=== PATIENT | male | born 1940 | race Caucasian/White ===

== ENCOUNTER → 2018-01-23 09:10 | Outpatient (CLI) | payer OTHER, SELFPAY ==
[2018-01-23 10:04] LABS: Absolute Lymphocyte Count 1.77 X10^3/ul (0.83-4.51); Absolute Neutrophil Count 1.4 X10^3/uL (2.0-7.7); Basophil# 0.04 X10^3/uL; Basophil% 1.1 % (0-1); Eosinophil# 0.16 X10^3/uL; Eosinophils% 4.3 % (0-5); Lymphocyte # 1.77 X10^3/ul (4.0); Lymphocyte % 47.5 % (19-41); Mean Corp Hgb Conc 35.7 g/gl (32-36); Mean Corpuscular Hgb 33.1 pg (27.0-32.0); Mean Corpuscular Volume 92.7 fL (80-94); Mean Platelet Vol. 11.3 fl (6.2-12.0); Monocyte# 0.39 X10^3/uL; Monocyte% 10.5 % (0-10); Neutrophil # 1.37 X10^3/uL (2.7-7.7); Neutrophil % 36.6 % (47-70); Platelet Count 111 K/mm3 (150-450); RBC Distribution Width CV 12.8 % (11.6-14.6); RBC Distribution Width SD 42.7 fl (35.1-43.9); Red Blood Count 4.53 M/mm3 (4.6-6.2); White Blood Count 3.7 K/mm3 (4.4-11.0)
[2018-01-23 10:05] LABS: POSITIVE COUNT NO; POSITIVE DIFFERENTIAL NO; POSITIVE MORPHOLOGY NO
[2018-01-23 10:48] LABS: AST(SGOT) 24 U/L (15-37); Alanine Aminotransfer ALT/SGPT 30 U/L (16-61); Albumin, Serum 3.7 g/dL (3.2-5.0); Alkaline Phosphatase 88 U/L (45-117); Anion Gap 7 (5-15); BUN 17 mg/dL (7-18); BUN/Creat Ratio 13.8 RATIO (10-20); Bilirubin, Direct 0.22 mg/dL (0.00-0.30); Calcium,Total 8.2 mg/dL (8.5-10.1); Chloride 105 mmol/L (98-107); Cholesterol 233 mg/dL (200); Creatinine, Serum 1.23 mg/dL (0.70-1.30); EST Glomerular Filtration Rate 61 mL/min (>60); Est Glom Filt Rate - Afr Amer 74 mL/min (>60); Globulin 3.9 g/dL (2.2-4.2); Glucose 250 mg/dL (74-106); High Density Lipoprotein 35 mg/dL; Potassium 4.3 mmol/L (3.5-5.1); Protein, Total 7.6 g/dL (6.4-8.2); Sodium Level 139 mmol/L (136-145); Triglycerides 191 mg/dL; Very Low Density Lipoprotein 38 mg/dL (5-40)
== END ==
PROVIDERS: Family Provider Family Medicine; PCP Family Medicine; Visit Provider Physician Assistant Medical
DX: E78.5 Hyperlipidemia, unspecified (principal); E11.65 Type 2 diabetes mellitus with hyperglycemia; I10 Essential (primary) hypertension; Z79.899 Other long term (current) drug therapy
CPT/HCPCS: 36415; 80048; 80061; 80076; 85025

== ENCOUNTER → 2018-12-07 | Outpatient (CLI) | payer MEDICARE, SELFPAY ==
[2018-11-13 11:00] VITALS: BMI 26.6
[2018-12-07 10:36] LABS: AST(SGOT) 20 U/L (15-37); Alanine Aminotransfer ALT/SGPT 31 U/L (16-61); Albumin, Serum 3.8 g/dL (3.2-5.0); Alkaline Phosphatase 112 U/L (45-117); Bilirubin, Direct 0.22 mg/dL (0.00-0.30); Cholesterol 139 mg/dL (200); Globulin 3.8 g/dL (2.2-4.2); High Density Lipoprotein 40 mg/dL; Protein, Total 7.6 g/dL (6.4-8.2); Triglycerides 107 mg/dL; Very Low Density Lipoprotein 21 mg/dL (5-40)
== END | disposition home or self-care (01) ==
LOC: LAB 09:05
PROVIDERS: Family Provider Family Medicine; PCP Family Medicine; Referring Provider Nurse Practitioner Family; Visit Provider Nurse Practitioner Family
DX: E78.5 Hyperlipidemia, unspecified (principal); I25.10 Atherosclerotic heart disease of native coronary artery without angina pectoris; Z95.5 Presence of coronary angioplasty implant and graft
CPT/HCPCS: 36415; 80061; 80076

== ENCOUNTER → 2018-12-28 | Outpatient (CLI) | payer MEDICARE, SELFPAY ==
[2018-11-13 11:00] VITALS: BMI 26.6
[2018-12-28 12:29] LABS: Absolute Lymphocyte Count 1.94 X10^3/ul (0.83-4.51); Absolute Neutrophil Count 1.7 X10^3/uL (2.0-7.7); Basophil# 0.06 X10^3/uL; Basophil% 1.4 % (0-1); Eosinophil# 0.15 X10^3/uL; Eosinophils% 3.5 % (0-5); Hematocrit 40.3 % (40-54); Hemoglobin 13.9 g/dl (13.0-16.5); Lymphocyte # 1.94 X10^3/ul (4.0); Lymphocyte % 45.1 % (19-41); Mean Corp Hgb Conc 34.5 g/gl (32-36); Mean Corpuscular Hgb 32.4 pg (27.0-32.0); Mean Corpuscular Volume 93.9 fL (80-94); Mean Platelet Vol. 11.4 fl (6.2-12.0); Monocyte# 0.43 X10^3/uL; Neutrophil # 1.72 X10^3/uL (2.7-7.7); Platelet Count 101 K/mm3 (150-450); RBC Distribution Width CV 12.6 % (11.6-14.6); RBC Distribution Width SD 42.6 fl (35.1-43.9); Red Blood Count 4.29 M/mm3 (4.6-6.2); White Blood Count 4.3 K/mm3 (4.4-11.0)
[2018-12-28 12:35] LABS: POSITIVE COUNT NO; POSITIVE DIFFERENTIAL NO; POSITIVE MORPHOLOGY NO
[2018-12-28 13:17] LABS: Anion Gap 9 (5-15); BUN 26 mg/dL (7-18); BUN/Creat Ratio 17.8 RATIO (10-20); Calcium,Total 8.9 mg/dL (8.5-10.1); Chloride 105 mmol/L (98-107); Creatinine, Serum 1.46 mg/dL (0.70-1.30); EST Glomerular Filtration Rate 50 mL/min (>60); Est Glom Filt Rate - Afr Amer 60 mL/min (>60); Glucose 324 mg/dL (74-106); Potassium 4.6 mmol/L (3.5-5.1); Sodium Level 139 mmol/L (136-145)
== END | disposition home or self-care (01) ==
LOC: BFHLAB 08:52
PROVIDERS: Family Provider Family Medicine; PCP Family Medicine; Visit Provider Family Medicine
DX: E11.65 Type 2 diabetes mellitus with hyperglycemia (principal); E11.22 Type 2 diabetes mellitus with diabetic chronic kidney disease; I12.9 Hypertensive chronic kidney disease with stage 1 through stage 4 chronic kidney disease, or unspecified chronic kidney disease; N18.9 Chronic kidney disease, unspecified
CPT/HCPCS: 36415; 80048; 85025

== ENCOUNTER → 2019-12-22 07:36 | Outpatient (CLI) | payer MEDICARE, SELFPAY ==
[2019-12-20 09:18] VITALS: BMI 24.2
[2019-12-22 09:00] LABS: AST(SGOT) 29 U/L (15-37); Alanine Aminotransfer ALT/SGPT 43 U/L (16-61); Albumin, Serum 3.6 g/dL (3.2-5.0); Alkaline Phosphatase 125 U/L (45-117); Bilirubin, Direct 0.23 mg/dL (0.00-0.30); Cholesterol 140 mg/dL (200); Globulin 3.8 g/dL (2.2-4.2); High Density Lipoprotein 37 mg/dL; Protein, Total 7.4 g/dL (6.4-8.2); Triglycerides 156 mg/dL; Very Low Density Lipoprotein 31 mg/dL (5-40)
== END ==
PROVIDERS: PCP Family Medicine; Referring Provider Internal Medicine Cardiovascular Disease; Visit Provider Internal Medicine Cardiovascular Disease
DX: E78.00 Pure hypercholesterolemia, unspecified (principal)
CPT/HCPCS: 36415; 80061; 80076

== ENCOUNTER → 2020-06-19 08:25 | Outpatient (CLI) | payer MEDICARE, SELFPAY ==
[2020-03-14 10:45] VITALS: BMI 23.9
[2020-06-19 09:43] LABS: AST(SGOT) 17 U/L (15-37); Alanine Aminotransfer ALT/SGPT 30 U/L (16-61); Albumin, Serum 3.6 g/dL (3.2-5.0); Alkaline Phosphatase 143 U/L (45-117); Bilirubin, Direct 0.24 mg/dL (0.00-0.30); Cholesterol 130 mg/dL (200); Globulin 3.8 g/dL (2.2-4.2); High Density Lipoprotein 43 mg/dL; Protein, Total 7.4 g/dL (6.4-8.2); Triglycerides 95 mg/dL; Very Low Density Lipoprotein 19 mg/dL (5-40)
== END ==
PROVIDERS: PCP Family Medicine; Referring Provider Internal Medicine Cardiovascular Disease; Visit Provider Internal Medicine Cardiovascular Disease
DX: E78.00 Pure hypercholesterolemia, unspecified (principal)
CPT/HCPCS: 36415; 80061; 80076

== ENCOUNTER → 2020-08-18 09:01 | Outpatient (CLI) | payer MEDICARE, SELFPAY ==
[2020-06-26 11:01] VITALS: BMI 23.8
[2020-08-18 10:06] LABS: Absolute Lymphocyte Count 1.91 X10^3/uL (0.83-4.51); Absolute Neutrophil Count 1.8 X10^3/uL (2.0-7.7); Basophil# 0.04 X10^3/uL; Basophil% 0.9 % (0-1); Eosinophil# 0.21 X10^3/uL; Eosinophils% 4.7 % (0-5); Hematocrit 37.7 % (40-54); Hemoglobin 13.1 g/dL (13.0-16.5); Lymphocyte # 1.91 X10^3/ul (4.0); Lymphocyte % 42.9 % (19-41); Mean Corp Hgb Conc 34.7 g/dL (32-36); Mean Corpuscular Hgb 32.5 pg (27.0-32.0); Mean Corpuscular Volume 93.5 fL (80-94); Mean Platelet Vol. 11.5 fl (6.2-12.0); Monocyte# 0.51 X10^3/uL; Monocyte% 11.5 % (0-10); NRBC Flagged by Analyzer 0 % (0-5); Neutrophil # 1.77 X10^3/uL (2.7-7.7); Neutrophil % 39.8 % (47-70); Platelet Count 103 K/mm3 (150-450); RBC Distribution Width CV 11.9 % (11.6-14.6); RBC Distribution Width SD 41.1 fl (35.1-43.9); Red Blood Count 4.03 M/mm3 (4.6-6.2); White Blood Count 4.5 K/mm3 (4.4-11.0)
[2020-08-18 10:52] LABS: Anion Gap 3 (5-15); BUN 20 mg/dL (7-18); BUN/Creat Ratio 16.3 RATIO (10-20); Calcium,Total 8.6 mg/dL (8.5-10.1); Chloride 106 mmol/L (98-107); Creatinine, Serum 1.23 mg/dL (0.70-1.30); EST Glomerular Filtration Rate 61 mL/min (>60); Est Glom Filt Rate - Afr Amer 73 mL/min (>60); Glucose 272 mg/dL (74-106); Potassium 3.8 mmol/L (3.5-5.1); Sodium Level 138 mmol/L (136-145); T4 Free Direct 1.03 ng/dL (0.76-1.46); Thyroid Stim Hormone (TSH) 2.02 uIU/mL (0.358-3.74)
== END ==
PROVIDERS: PCP Family Medicine; Visit Provider Family Medicine
DX: E11.65 Type 2 diabetes mellitus with hyperglycemia (principal); I12.9 Hypertensive chronic kidney disease with stage 1 through stage 4 chronic kidney disease, or unspecified chronic kidney disease; E11.22 Type 2 diabetes mellitus with diabetic chronic kidney disease; N18.9 Chronic kidney disease, unspecified
CPT/HCPCS: 36415; 80048; 84439; 84443; 85025

== ENCOUNTER → 2020-11-17 11:03 | Outpatient (CLI) | payer MEDICARE, SELFPAY ==
[2020-06-26 11:01] VITALS: BMI 23.8
[2020-11-17 12:39] LABS: Absolute Lymphocyte Count 2.44 X10^3/uL (0.83-4.51); Absolute Neutrophil Count 2.2 X10^3/uL (2.0-7.7); Basophil# 0.04 X10^3/uL; Basophil% 0.7 % (0-1); Eosinophil# 0.23 X10^3/uL; Eosinophils% 4.3 % (0-5); Hematocrit 40.8 % (40-54); Hemoglobin 14.1 g/dL (13.0-16.5); Lymphocyte # 2.44 X10^3/ul (4.0); Lymphocyte % 45.3 % (19-41); Mean Corp Hgb Conc 34.6 g/dL (32-36); Mean Corpuscular Hgb 33.1 pg (27.0-32.0); Mean Corpuscular Volume 95.8 fL (80-94); Mean Platelet Vol. 11.8 fl (6.2-12.0); Monocyte# 0.51 X10^3/uL; Monocyte% 9.5 % (0-10); NRBC Flagged by Analyzer 0 % (0-5); Neutrophil # 2.16 X10^3/uL (2.7-7.7); Platelet Count 107 K/mm3 (150-450); RBC Distribution Width CV 11.9 % (11.6-14.6); RBC Distribution Width SD 41.7 fl (35.1-43.9); Red Blood Count 4.26 M/mm3 (4.6-6.2); White Blood Count 5.4 K/mm3 (4.4-11.0)
[2020-11-17 13:26] LABS: ALB/GLOB Ratio 0.9 RATIO (0.9-2.4); AST(SGOT) 21 U/L (15-37); Alanine Aminotransfer ALT/SGPT 36 U/L (16-61); Albumin, Serum 3.7 g/dL (3.2-5.0); Alkaline Phosphatase 112 U/L (45-117); Anion Gap 6 (5-15); BUN 25 mg/dL (7-18); BUN/Creat Ratio 21.4 RATIO (10-20); Chloride 106 mmol/L (98-107); Creatinine, Serum 1.17 mg/dL (0.70-1.30); EST Glomerular Filtration Rate 64 mL/min (>60); Est Glom Filt Rate - Afr Amer 78 mL/min (>60); Globulin 3.9 g/dL (2.2-4.2); Glucose 110 mg/dL (74-106); Potassium 3.9 mmol/L (3.5-5.1); Protein, Total 7.6 g/dL (6.4-8.2); Sodium Level 139 mmol/L (136-145); T4 Free Direct 1.04 ng/dL (0.76-1.46); Thyroid Stim Hormone (TSH) 1.22 uIU/mL (0.358-3.74)
[2020-11-20 10:58] LABS: Vitamin B12 1005 pg/mL (211-911)
== END ==
PROVIDERS: PCP Family Medicine; Referring Provider Family Medicine; Visit Provider Family Medicine
DX: I12.9 Hypertensive chronic kidney disease with stage 1 through stage 4 chronic kidney disease, or unspecified chronic kidney disease (principal); E11.22 Type 2 diabetes mellitus with diabetic chronic kidney disease; N18.9 Chronic kidney disease, unspecified; D69.6 Thrombocytopenia, unspecified; R68.82 Decreased libido
CPT/HCPCS: 36415; 80053; 82607; 84403; 84439; 84443; 85025

== ENCOUNTER → 2021-04-13 10:48 | Outpatient (CLI) | payer MEDICARE, SELFPAY ==
[2021-04-13 11:53] LABS: AST(SGOT) 21 U/L (15-37); Alanine Aminotransfer ALT/SGPT 33 U/L (16-61); Albumin, Serum 3.8 g/dL (3.2-5.0); Alkaline Phosphatase 136 U/L (45-117); Cholesterol 126 mg/dL (200); Globulin 4.3 g/dL (2.2-4.2); High Density Lipoprotein 40 mg/dL; Protein, Total 8.1 g/dL (6.4-8.2); Triglycerides 107 mg/dL; Very Low Density Lipoprotein 21 mg/dL (5-40)
== END ==
PROVIDERS: PCP Family Medicine; Referring Provider Internal Medicine Cardiovascular Disease; Visit Provider Internal Medicine Cardiovascular Disease
DX: E78.00 Pure hypercholesterolemia, unspecified (principal)
CPT/HCPCS: 36415; 80061; 80076

== ENCOUNTER 2021-10-17 14:21 | Emergency (ER) | payer MEDICARE, SELFPAY ==
[2021-10-17 14:22] VITALS: BP 146/79; PULSE 79; RESP 16; TEMP 36.7; O2SAT 96; BMI 20.9
--- NOTE | 2021-10-17 14:27 | EDS_ITS ---
HPI History of Present Illness Chief Complaint: Hyperglycemia Informant: patient, spouse/S.O. and PCP Narrative Narrative: Patient present secondary to hyperglycemia. He states has been feeling fatigued and weak lately with increased thirst. He ran out of his ins ulin as well as other medications sometime ago. Patient went to see his PCP today and blood sugar would not read on the monitor. He was sent to the ER for further evaluation. Reportedly the patient's was recently in rehab and patient was not taking his medications appropriately. [facility] Medical History Angina pectoris, unstable Atherosclerosis of [place] coronary artery of [place] heart without angina pectoris Chronic renal insufficiency Diabetes 1.5, managed as type 2 Essential hypertension HLD (hyperlipidemia) HLP (hyperkeratosis lenticularis perstans) Presence of stent in coronary artery (~12/20/15) Home Medications aspirin 81 mg PO DAILY@0800 12/19/15 [History Last Taken 12/19/15] levobunolol 1 drp EACH EYE DAILY 01/22/16 [History Last Taken Unknown] nitroglycerin 0.4 mg SUBLINGUAL Q5M PRN 01/22/16 [History Last Taken Unknown] insulin glargine 100 unit/mL (3 mL) subcutaneous pen 10 unit SC QHS ml 11/13/18 [History Last Taken Unknown] insulin lispro 100 unit/mL subcutaneous pen 5 unit SC TID 11/13/18 [History Last Taken Unknown] metoprolol tartrate 25 mg tablet 25 mg PO BID #180 tab 12/26/20 [Rx Last Taken Unknown] atorvastatin 80 mg tablet 80 mg PO QHS #90 tab 01/10/21 [Rx Last Taken Unknown] clopidogrel 75 mg tablet 75 mg PO QDAY #90 tab 01/10/21 [Rx Last Taken Unknown] glipizide 5 mg tablet 5 mg PO BID 04/13/21 [History Last Taken Unknown] glipizide 10 mg PO DAILY #30 tab 10/17/21 [Rx Last Taken Unknown] Allergy/AdvReac Type Severity Reaction Status Date / Time No Known Allergies Allergy Verified 10/17/21 14:28 Family History Brother CAD (coronary artery disease) Mother , from [place] at age 74 CAD (coronary artery disease) Myocardial infarction, Onset Age: 74 Surgical History History of cataract extraction jaw surgery for fracture Presence of coronary angioplasty implant and graft (~12/20/15) surgery on left index finger Social History Smoking Status: Never smoker alcohol intake: never substance use type: does not use caffeine: Yes (rarely) eating out: 1-3 times/week during the past year weight has: remained stable what type of physical activity do you participate in: walking frequency: daily duration: < 15 minutes/day seatbelt use: always do you feel safe at home: Yes ROS ROS ED Constitutional Constitutional ED: Denies chills or fever(s) Eyes Eyes: Denies change in vision ENT ENT ED: Denies sore throat Cardiovascular Cardiovascular: Denies chest pain Respiratory/Chest Respiratory/Chest: Denies cough or dyspnea Gastrointestinal Gastrointestinal: Denies abdominal pain, diarrhea, nausea or vomiting Genitourinary Genitourinary ED: Reports urinary frequency; Denies dysuria Musculoskeletal Musculoskeletal: Denies back pain Integumentary Denies rash Neurologic Neurologic: Reports weakness; Denies headache(s) Psychiatric Psychiatric: Denies anxiety or depression Endocrine Endocrinology: Reports polydipsia and polyuria Allergic/Immunologic Allergic/Immunologic ED: Denies urticaria EXAM Physical Exam Const Vital Signs: 10/17/21 14:22 10/17/21 16:05 Temperature 98.1 F Temperature Source Temporal Pulse Rate 79 Respiratory Rate 16 Blood Pressure 146/79 H 165/92 H Blood Pressure Mean 101 116 Pulse Ox 96 Oxygen Delivery Method Room Air Positive well nourished and well developed General Appearance ED: well developed Eyes PERRL and EOMs intact bilaterally Neck supple Chest Wall inspection of chest normal and palpation of chest normal Resp normal respiratory effort and clear to auscultation bilaterally Cardio regular rate and regular rhythm GI normal to inspection, nondistended, normoactive bowel sounds and non-tender Palpation: soft Extremity normal to inspection Neuro oriented x3 Sensorium / Orientation: alert Psych mental status grossly normal Skin no rashes or lesions noted MDM MDM MDM Narrative Medical decision making narrative: Patient's blood sugar on fingerstick on arrival is 514. 1 L of IV fluid ordered along with lab work. Lab Data Attestation: I reviewed the patient's lab results. Labs: Laboratory Results - last 24 hr 10/17/21 10/17/21 10/17/21 14:45 14:45 14:45 WBC 6.1 RBC 4.53 L Hgb 15.5 Hct 41.6 MCV 91.8 MCH 34.2 H MCHC 37.3 H RDW Std Deviation 39.8 RDW Coeff of Sridevi 11.9 Plt Count 122 L MPV 11.1 Immature Gran % (Auto) 0.200 Neut % (Auto) 39.6 L Lymph % (Auto) 48.3 H Burt % (Auto) 7.9 Eos % (Auto) 2.8 Baso % (Auto) 1.2 H Absolute Neuts (auto) 2.4 Absolute Lymphs (auto) 2.93 Nucleated RBC % 0 Sodium 133 L Potassium 4.4 Chloride 98 Carbon Dioxide 28.0 Anion Gap 7 BUN 21 H Creatinine 1.34 H Estim Creat Clear Calc 41.32 Est GFR (MDRD) Af Amer 66 Est GFR (MDRD) Non-Af 55 L BUN/Creatinine Ratio 15.7 Glucose 537 H* Hemoglobin A1c Calcium 9.2 Urine Color Urine Clarity Urine pH Ur Specific [place] Urine Protein Urine Glucose (UA) Urine Ketones Urine Occult Blood Urine Nitrite Urine Bilirubin Urine Urobilinogen Ur Leukocyte Esterase Urine RBC Urine WBC Ur Squamous Epith Cells Urine Bacteria Urine Mucus Acetone Level NEGATIVE POC Glucose 10/17/21 10/17/21 10/17/21 14:45 14:45 16:03 WBC RBC Hgb Hct MCV MCH MCHC RDW Std Deviation RDW Coeff of Sridevi Plt Count MPV Immature Gran % (Auto) Neut % (Auto) Lymph % (Auto) Burt % (Auto) Eos % (Auto) Baso % (Auto) Absolute Neuts (auto) Absolute Lymphs (auto) Nucleated RBC % Sodium Potassium Chloride Carbon Dioxide Anion Gap BUN Creatinine Estim Creat Clear Calc Est GFR (MDRD) Af Amer Est GFR (MDRD) Non-Af BUN/Creatinine Ratio Glucose Hemoglobin A1c 12.4 H Calcium Urine Color Yellow Urine Clarity Clear Urine pH 6.5 Ur Specific [place] 1.010 Urine Protein Negative Urine Glucose (UA) 1000 H Urine Ketones 5 H Urine Occult Blood Negative Urine Nitrite Negative Urine Bilirubin Negative Urine Urobilinogen Normal Ur Leukocyte Esterase Negative Urine RBC 0 SEEN Urine WBC 0 SEEN Ur Squamous Epith Cells 0 SEEN Urine Bacteria 0 SEEN Urine Mucus 0 SEEN Acetone Level POC Glucose 446 H Treatment and Re-Evaluation Narrative: Hemoglobin A1c is 12.4. Blood sugar 537 on labs. Remainder of lab work largely unremarkable. After 1 L IV fluid blood sugar is 446. He is given 8 units of subcu insulin and another 500 cc IV fluids. At the completion of this fluid bolus blood sugar is now 356. Blood sugar will continue come down slightly with the insulin. I did speak with the patient's primary care physickatalina floyd, Dr. Pearce. Patient be started back on glipizide and is to see Dr. Pearce in the office next week. This was discussed with patient and at bedside. Discharge Plan Triage Chief Complaint: Hyperglycemia Other Complaint: Hypoglycemia ED Provider: Vicky Russell Dx/Rx/DC Orders Clinical Impression: Hyperglycemia Instructions: ED Diabetic Hyperglycemia Prescriptions: New glipizide 10 mg tablet extended release 24hr 10 mg PO DAILY Qty: 30 RF: 0 No Action Lantus Solostar U-100 Insulin 100 unit/mL (3 mL) insulin pen 10 unit SC QHS RF: 0 glipizide 5 mg tablet 5 mg PO BID RF: 0 aspirin 81 MG tablet,chewable 81 mg PO DAILY@0800 RF: 0 insulin lispro 100 unit/mL insulin pen 5 unit SC TID RF: 0 levobunolol 1 DROP drops 1 drp EACH EYE DAILY RF: 0 nitroglycerin 0.4 MG tablet 0.4 mg SUBLINGUAL Q5M PRN (Reason: Chest Pain) RF: 0 metoprolol tartrate 25 mg tablet 25 mg PO BID Qty: 180 RF: 3 atorvastatin 80 mg tablet 80 mg PO QHS Qty: 90 RF: 3 clopidogrel [Plavix] 75 mg tablet 75 mg PO QDAY Qty: 90 RF: 3 Primary Care Provider: Adi Pearce Referrals: Adi Pearce MD [Primary Care Provider] - 1 Week Activity Restrictions/Additional Instructions: Please keep track of your blood sugars and take this journal to Dr. Pearce when you follow-up with him next week. Disposition Disposition: Home, Self Care
[2021-10-17] MEDS: 0.9% Normal Saline 1,000 ML 999 ML IV (14:46)
[2021-10-17 14:54] LABS: Bacteria 0 SEEN /hpf (None Seen); Mucous, Urine 0 SEEN /hpf (<or=2+); Red Blood Cells-Urine 0 SEEN /hpf (0-5); Squamous Epithelial Cells - UA 0 SEEN /hpf (0-5); White Blood Cells 0 SEEN /hpf (0-5)
[2021-10-17 14:56] LABS: Absolute Lymphocyte Count 2.93 X10^3/uL (0.83-4.51); Absolute Neutrophil Count 2.4 X10^3/uL (2.0-7.7); Basophil# 0.07 X10^3/uL; Basophil% 1.2 % (0-1); Eosinophil# 0.17 X10^3/uL; Eosinophils% 2.8 % (0-5); Hematocrit 41.6 % (40-54); Hemoglobin 15.5 g/dL (13.0-16.5); Lymphocyte # 2.93 X10^3/ul (0.83-4.51); Lymphocyte % 48.3 % (19-41); Mean Corp Hgb Conc 37.3 g/dL (32-36); Mean Corpuscular Hgb 34.2 pg (27.0-32.0); Mean Corpuscular Volume 91.8 fL (80-94); Mean Platelet Vol. 11.1 fl (6.2-12.0); Monocyte# 0.48 X10^3/uL; Monocyte% 7.9 % (0-10); NRBC Flagged by Analyzer 0 % (0-5); Neutrophil # 2.41 X10^3/uL (2.7-7.7); Neutrophil % 39.6 % (47-70); Platelet Count 122 K/mm3 (150-450); RBC Distribution Width CV 11.9 % (11.6-14.6); RBC Distribution Width SD 39.8 fl (35.1-43.9); Red Blood Count 4.53 M/mm3 (4.6-6.2); White Blood Count 6.1 K/mm3 (4.4-11.0)
[2021-10-17 14:59] LABS: Color, Urine Yellow (Yellow); Glucose, Dipstick 1000 mg/dl (Normal); Ketone-Dipstick 5 mg/dl (Negative); Leukocyte Esterase-Dipstick Negative /ul (Negative); Nitrite-Dipstick Negative (Negative); Occult Blood-Urine Negative /ul (Negative); Protein-Dipstick Negative (Negative); Urine Bilirubin Dipstick Negative (Negative); Urine Clarity Clear (Clear); Urine Urobilinogen Normal (Normal); Urine pH 6.5 (5.0 - 8.0)
[2021-10-17 15:21] LABS: Hemoglobin A1c 12.4 % (3.8-5.6)
[2021-10-17 15:23] LABS: Anion Gap 7 (5-15); BUN 21 mg/dL (7-18); BUN/Creat Ratio 15.7 RATIO (10-20); Calcium,Total 9.2 mg/dL (8.5-10.1); Chloride 98 mmol/L (98-107); Creatinine, Serum 1.34 mg/dL (0.70-1.30); EST Glomerular Filtration Rate 55 mL/min (>60); Est Glom Filt Rate - Afr Amer 66 mL/min (>60); Estimated Creatinine Clearance 41.32 ml/min; Glucose 537 mg/dL (74-106); Potassium 4.4 mmol/L (3.5-5.1); Sodium Level 133 mmol/L (136-145)
[2021-10-17 16:05] VITALS: BP 165/92
[2021-10-17 16:06] LABS: Bedside Glucose 446 mg/dL (74-106)
[2021-10-17] MEDS: Insulin Lispro 100 UNIT/ML INSULN.PEN 8 UNIT SC (16:31)
[2021-10-17 18:11] LABS: Bedside Glucose 356 mg/dL (74-106)
[2021-10-17 18:16] VITALS: BP 153/87; RESP 16; O2SAT 96
--- NOTE | 2021-10-19 11:55 | CASEMGMT ---
VENKATA OBREGON ED follow-up: Date of ER visit: 10/17/2021 Presenting ER complaint: hyperglycemia RN SABAS placed call to patient's telephone number listed on demographics with no answer. Voicemail has not been setup, unable to leave message. VENKATA Kim CM
== END 2021-10-17 18:35 | disposition home or self-care (01) ==
PROVIDERS: Emergency Provider Emergency Medicine; PCP Family Medicine; Visit Provider Emergency Medicine
DX: E13.65 Other specified diabetes mellitus with hyperglycemia (principal); E13.22 Other specified diabetes mellitus with diabetic chronic kidney disease; Z79.4 Long term (current) use of insulin; I12.9 Hypertensive chronic kidney disease with stage 1 through stage 4 chronic kidney disease, or unspecified chronic kidney disease; I25.10 Atherosclerotic heart disease of native coronary artery without angina pectoris; N18.9 Chronic kidney disease, unspecified; E78.5 Hyperlipidemia, unspecified; Z95.5 Presence of coronary angioplasty implant and graft; Z91.14 Patient's other noncompliance with medication regimen; Z79.82 Long term (current) use of aspirin; Z79.899 Other long term (current) drug therapy
CPT/HCPCS: 80048; 81001; 82009; 82962; 83036; 85025; 96360; 96361; 96372; 99282; J7030; J7040

== ENCOUNTER 2021-11-01 06:30 | Outpatient (CLI) | payer MEDICARE, SELFPAY ==
--- NOTE | 2021-11-01 10:01 | STRESSREP ---
Stress Test Report Date: 11-01-2021 Procedure: Pharmacologic stress nuclear imaging study Indications: CAD; PCI Consent: Per the patient Procedure: The patient underwent pharmacologic (Regadenoson 0.4mg ) evaluation with a peak heart rate of 94 beats per minute (66%predicted maximal heart rate) and a peak blood pressure of 144/80 mmHg. The baseline ECG demonstrated sinus rhythm; incomplete right bundle branch block. The peak pharmacologic ECG demonstrated no obvious ECG changes. There were no cardiac dysrhythmias pretest, during pharmacologic infusion, or recovery. There was no complaint of chest discomfort during pharmacologic infusion or recovery. The examination was discontinued secondary to completion of protocol. Impression: 1. Pharmacologic (Regadenoson) evaluation 2. Peak pharmacologic ECG with continued incomplete right bundle branch block with no obvious ECG changes. 3. There were no cardiac dysrhythmias pretest, during pharmacologic infusion, or recovery. 4. Nuclear images pending Myocardial perfusion imaging study: Technique: The patient was injected with 11.4 millicuries of technetium 99m Cardiolite and subsequently rest SPECT Cardiolite nuclear imaging was obtained in the horizontal long, vertical long, and short axis views. The patient underwent pharmacologic (Regadenoson) evaluation with a peak heart rate of 94 beats per minute (66% percent predicted maximal heart rate) and a peak blood pressure of 144/80 mmHg. The patient was injected with 33.8 millicuries of technetium 99m Cardiolite and subsequently stress SPECT Cardiolite nuclear imaging was obtained in the horizontal long, vertical long, and short axis views. A gated Cardiolite study at peak stress was obtained. Interpretation: Rest and stress SPECT Cardiolite nuclear imaging status post realignment, normalization, and attenuation correction demonstrate insert normal. There is end systolic thickening and brightening. The gated Cardiolite study demonstrates myocardial thickening and inward wall motion. The reported LVEF is 92%. Impression: 1. Rest and stress SPECT Cardiolite nuclear imaging demonstrate relative uniform tracer uptake and myocardial perfusion appearing within normal limits. 2. The gated Cardiolite study reports an LVEF of 92%. This note was generated with [employer] software. It may contain incorrect words, spelling, and punctuation that were not noted in checking the note before signing.
== END 2021-11-01 23:59 | disposition home or self-care (01) ==
LOC: CVS 06:33
PROVIDERS: PCP Family Medicine; Referring Provider Nurse Practitioner Family; Visit Provider Nurse Practitioner Family
DX: I25.10 Atherosclerotic heart disease of native coronary artery without angina pectoris (principal); Z95.5 Presence of coronary angioplasty implant and graft; I10 Essential (primary) hypertension; E78.5 Hyperlipidemia, unspecified
CPT/HCPCS: 78452; 93017; A9500; A4216; J2785

== ENCOUNTER → 2021-12-28 | Outpatient (CLI) | payer MEDICARE, SELFPAY ==
[2021-12-28 18:12] LABS: Absolute Lymphocyte Count 2.59 X10^3/uL (0.83-4.51); Absolute Neutrophil Count 1.7 X10^3/uL (2.0-7.7); Basophil# 0.06 X10^3/uL; Basophil% 1.2 % (0-1); Eosinophil# 0.17 X10^3/uL; Eosinophils% 3.3 % (0-5); Hematocrit 40.4 % (40-54); Hemoglobin 14.1 g/dL (13.0-16.5); Lymphocyte # 2.59 X10^3/ul (0.83-4.51); Mean Corp Hgb Conc 34.9 g/dL (32-36); Mean Corpuscular Volume 97.3 fL (80-94); Mean Platelet Vol. 11.3 fl (6.2-12.0); Monocyte# 0.52 X10^3/uL; Monocyte% 10.2 % (0-10); NRBC Flagged by Analyzer 0 % (0-5); Neutrophil # 1.74 X10^3/uL (2.7-7.7); Neutrophil % 34.3 % (47-70); Platelet Count 122 K/mm3 (150-450); RBC Distribution Width CV 12.1 % (11.6-14.6); RBC Distribution Width SD 43.6 fl (35.1-43.9); Red Blood Count 4.15 M/mm3 (4.6-6.2); White Blood Count 5.1 K/mm3 (4.4-11.0)
[2021-12-28 18:40] LABS: Anion Gap 8 (5-15); BUN 24 mg/dL (7-18); BUN/Creat Ratio 19.4 RATIO (10-20); Calcium,Total 9.1 mg/dL (8.5-10.1); Chloride 101 mmol/L (98-107); Creatinine, Serum 1.24 mg/dL (0.70-1.30); EST Glomerular Filtration Rate 60 mL/min (>60); Est Glom Filt Rate - Afr Amer 72 mL/min (>60); Glucose 425 mg/dL (74-106); Potassium 4.1 mmol/L (3.5-5.1); Sodium Level 135 mmol/L (136-145); T4 Free Direct 0.95 ng/dL (0.76-1.46); Thyroid Stim Hormone (TSH) 1.43 uIU/mL (0.358-3.74)
== END | disposition home or self-care (01) ==
LOC: MTLAB 14:24
PROVIDERS: PCP Family Medicine; Referring Provider Family Medicine; Visit Provider Family Medicine
DX: E11.65 Type 2 diabetes mellitus with hyperglycemia (principal); E78.5 Hyperlipidemia, unspecified; I10 Essential (primary) hypertension
CPT/HCPCS: 36415; 80048; 84439; 84443; 85025

== ENCOUNTER → 2022-04-22 | Outpatient (CLI) | payer MEDICARE, SELFPAY ==
[2022-04-22 11:08] LABS: AST(SGOT) 15 U/L (15-37); Alanine Aminotransfer ALT/SGPT 26 U/L (16-61); Albumin, Serum 3.6 g/dL (3.2-5.0); Alkaline Phosphatase 133 U/L (45-117); Cholesterol 122 mg/dL (200); Globulin 3.6 g/dL (2.2-4.2); High Density Lipoprotein 46 mg/dL; Protein, Total 7.2 g/dL (6.4-8.2); Triglycerides 83 mg/dL; Very Low Density Lipoprotein 17 mg/dL (5-40)
== END | disposition home or self-care (01) ==
LOC: LAB 08:57
PROVIDERS: PCP Family Medicine; Referring Provider Nurse Practitioner Family; Visit Provider Nurse Practitioner Family
DX: E78.00 Pure hypercholesterolemia, unspecified (principal)
CPT/HCPCS: 36415; 80061; 80076

== ENCOUNTER 2022-06-12 17:49 | Emergency (ER) | payer MEDICARE, SELFPAY ==
[2022-06-12 17:56] VITALS: BP 144/93; PULSE 75; RESP 16; TEMP 36.3; O2SAT 99; BMI 22.9
--- NOTE | 2022-06-12 18:37 | EX.ED.GENINJ ---
HPI History of Present Illness Chief Complaint: Lower Extremity Injury Narrative Narrative: 81-year-old male here for right hip, leg pain. History of CAD status post dents, hypertension, type 2 diabetes, hyperlipidemia, chronic renal insufficiency patient states he is not feeling well for the last several weeks. Does note weight loss over last several months. Does note lower abdominal pain. Pain is constant, severe without alleviating factors. States he does not urinate regularly states he just dribbles. Denies any melena, medic easier, diarrhea, constipation. Denies any chest pain or shortness of breath states he has diffuse weakness. States having trouble getting around at home. Patient denies any fever does not loss of taste, loss of appetite. Old chart reviewed: No imaging noted in the chart [facility] Medical History Angina pectoris, unstable Atherosclerosis of [place] coronary artery of [place] heart without angina pectoris Chronic renal insufficiency Diabetes 1.5, managed as type 2 Essential hypertension HLD (hyperlipidemia) HLP (hyperkeratosis lenticularis perstans) Presence of stent in coronary artery (~12/20/15) Home Medications aspirin 81 mg chewable tablet 81 mg PO DAILY@0800 12/19/15 [History Last Taken 12/19/15] levobunolol 0.5 % eye drops 1 drp EACH EYE DAILY 01/22/16 [History Last Taken Unknown] nitroglycerin 0.4 mg sublingual tablet 0.4 mg sublingual Q5M PRN Chest Pain 01/22/16 [History Last Taken Unknown] metoprolol tartrate 25 mg tablet 25 mg PO BID #180 tabs 12/26/20 [Rx Last Taken Unknown] glipizide 10 mg tablet, extended release 24 hr 10 mg PO DAILY #30 tabs 10/17/21 [Rx Last Taken Unknown] atorvastatin 80 mg tablet 80 mg PO QHS #90 tabs 02/18/22 [Rx Last Taken Unknown] clopidogrel 75 mg tablet (Plavix) 75 mg PO QDAY #90 tabs 02/18/22 [Rx Last Taken Unknown] cephalexin 500 mg capsule 500 mg PO Q8H 3 days #9 caps 06/12/22 [Rx Last Taken Unknown] cyclobenzaprine 5 mg tablet 5 mg PO QHS 06/12/22 [History Last Taken Unknown] Allergy/AdvReac Type Severity Reaction Status Date / Time No Known Allergies Allergy Verified 06/12/22 18:01 Family History Brother CAD (coronary artery disease) Mother , from [place] at age 74 CAD (coronary artery disease) Myocardial infarction, Onset Age: 74 Surgical History History of cataract extraction jaw surgery for fracture Presence of coronary angioplasty implant and graft (~12/20/15) surgery on left index finger Social History Smoking Status: Never smoker alcohol intake: never substance use type: does not use caffeine: Yes (rarely) eating out: 1-3 times/week during the past year weight has: remained stable what type of physical activity do you participate in: walking frequency: daily duration: < 15 minutes/day seatbelt use: always do you feel safe at home: Yes ROS ROS ED ROS Narrative Constitutional: Denies fever, endorses weight loss, diffuse weakness HEENT: Denies sore throat Neck: Denies neck pain Cardiovascular: Denies chest pain, syncope Respiratory: Denies shortness of breath GI: Denies nausea vomiting or abdominal pain : Notes increased frequency, decreased volume of urination. Musculoskeletal: Endorses right hip and leg pain Neurologic: Denies numbness weakness or loss of sensation Skin denies rash EXAM Physical Exam Narrative Exam Narrative: Nursing triage notes reviewed, Vital signs reviewed Constitutional: please see mdm HENT: MMM Eyes: Pupils equal round and reactive to light, Extraocular muscles intact Neck: No stridor, no JVD, full neck ROM Lungs: Clear to auscultation, No wheezing or rales. No increased work of breathing, no conversational dyspnea, no accessory muscle use, no nasal flaring. No respiratory distress noted Heart: Regular rate and rhythm, No murmurs, No rubs and No gallops, 2+ distal pulses (radial, femoral, posterior tibial) in all extremities Abdomen: Lower abdominal fullness, suprapubic fullness, lower abdominal TTP, no rigidity, rebound or guarding, no obvious peritoneal signs, no palpable pulsatile abdominal masses, no auscultated abdominal bruit : No CVAT Extremities: No edema Neuro: Intact sensation L1-S1 dermatomal distributions. Intact 5/5 strength in hip flexion (T12-L3). Knee extension (L2-L4). Ankle dorsiflexion (L4-L5). Ankle plantar flexion (S1). Great toe extension (L5). 2+ patellar and Achilles DTRs. Skin: No rash or lesions noted Const Vital Signs: 06/12/22 17:56 06/12/22 20:45 Temperature 97.3 F L Temperature Source Oral Pulse Rate 75 92 Respiratory Rate 16 18 Blood Pressure 144/93 H Blood Pressure Mean 110 Pulse Ox 99 96 Oxygen Delivery Method Room Air Room Air MDM MDM MDM Narrative Medical decision making narrative: 81-year-old male here with lower abdominal tenderness, diffuse tenderness, loss of taste, weight loss, fatigue in the setting of CAD, hyperlipidemia, hypertension. Physical exam with suprapubic tenderness to palpation concern for urinary retention versus intra-abdominal pathology. I pursued a bladder scan initially to rule out urinary retention. If the patient has significant urinary retention this may be the etiology would not require further labs and images as the other aformentioned diagnoses are much less likely. Bladder scan showed evidence of significant urinary retention. Valadez was placed drained several liters of fluid. Patient noted abdominal pain/hip pain resolved. Repeat exam was benign. Labs showed evidence CATHY which is likely secondary to obstructive uropathy. Labs show significant hyperglycemia however no evidence of DKA with a unremarkable anion gap and a bicarb much greater than 15. On re-evaluation the patient was able to ambulate here in the emergency department. He was offered admission given his CATHY for fluids however he refused stating he like to go home. He did agree to follow with urology the next available appointment. Shared decision making: I had a long discussion with the patient and or visitors regarding risk/benefits of further testing or admission. They decided to forego any further testing or admission. They are aware of of the risk/benefits inherent in this decision and have voiced understanding. Lab Data Attestation: I reviewed the patient's lab results. Lab results narrative: CBC without leukocytosis, mild anemia, no thrombocytopenia CMP with no significant electrolyte abnormalities, no anion gap, bicarb within normal limits no evidence of DKA did show hyperglycemia. There is mild acute kidney injury as well, no evidence of significant hepatobiliary pathology Urinalysis without evidence of Labs: Laboratory Results - last 24 hr 06/12/22 06/12/22 06/12/22 19:32 20:13 20:13 WBC 5.9 RBC 3.81 L Hgb 12.9 L Hct 34.9 L MCV 91.6 MCH 33.9 H MCHC 37.0 H RDW Std Deviation 39.3 RDW Coeff of Sridevi 11.7 Plt Count 119 L MPV 10.5 Sodium 136 Potassium 4.0 Chloride 105 Carbon Dioxide 23.0 Anion Gap 8 BUN 29 H Creatinine 1.65 H Estim Creat Clear Calc 36.20 Est GFR (MDRD) Af Amer 52 L Est GFR (MDRD) Non-Af 43 L BUN/Creatinine Ratio 17.6 Glucose 413 H Calcium 9.0 Total Bilirubin 1.00 Direct Bilirubin 0.32 H AST 15 ALT 26 Alkaline Phosphatase 143 H Total Protein 6.9 Albumin 3.2 Globulin 3.7 Lipase 238 Urine Color Yellow Urine Clarity Clear Urine pH 6.0 Ur Specific [place] 1.010 Urine Protein Negative Urine Glucose (UA) 1000 H Urine Ketones Negative Urine Occult Blood Negative Urine Nitrite Negative Urine Bilirubin Negative Urine Urobilinogen Normal Ur Leukocyte Esterase Negative Urine RBC 0 SEEN Urine WBC 0 SEEN Ur Squamous Epith Cells 0 SEEN Urine Bacteria 0 SEEN Urine Mucus 0 SEEN Discharge Plan Triage Chief Complaint: Lower Extremity Injury Other Complaint: Back ED Provider: Bright Farias Dx/Rx/DC Orders Clinical Impression: Urinary retention, Acute kidney injury Instructions: Acute Kidney Failure Dc, ED Valadez Catheter, Care, ED Urinary Retention, Male Prescriptions: New cephalexin 500 mg capsule 500 mg PO Q8H 3 Days Qty: 9 0RF No Action aspirin 81 MG tablet,chewable 81 mg PO DAILY@0800 Label Comments: HEART [place] levobunolol 1 DROP drops 1 drp EACH EYE DAILY nitroglycerin 0.4 MG tablet 0.4 mg SUBLINGUAL Q5M PRN (Reason: Chest Pain) glipizide 10 mg tablet extended release 24hr 10 mg PO DAILY Qty: 30 0RF cyclobenzaprine 5 mg tablet 5 mg PO QHS Label Comments: TAKE 1 TABLET BY MOUTH NIGHTLY metoprolol tartrate 25 mg tablet 25 mg PO BID Qty: 180 3RF atorvastatin 80 mg tablet 80 mg PO QHS Qty: 90 3RF clopidogrel [Plavix] 75 mg tablet 75 mg PO QDAY Qty: 90 3RF Primary Care Provider: Adi Pearce Referrals: Cuba Pryor MD [Med Staff - Active Staff] - Adi Pearce MD [Primary Care Provider] - Activity Restrictions/Additional Instructions: Please call and follow-up with urologist at next available appointment. Disposition Disposition: Home, Self Care Discharge Date/Time: 06/12/22 22:38
[2022-06-12 19:42] LABS: Bacteria 0 SEEN /hpf (None Seen); Mucous, Urine 0 SEEN /hpf (<or=2+); Red Blood Cells-Urine 0 SEEN /hpf (0-5); Squamous Epithelial Cells - UA 0 SEEN /hpf (0-5); White Blood Cells 0 SEEN /hpf (0-5)
[2022-06-12 19:59] LABS: Color, Urine Yellow (Yellow); Glucose, Dipstick 1000 mg/dl (Normal); Ketone-Dipstick Negative (Negative); Leukocyte Esterase-Dipstick Negative /ul (Negative); Nitrite-Dipstick Negative (Negative); Occult Blood-Urine Negative /ul (Negative); Protein-Dipstick Negative (Negative); Urine Bilirubin Dipstick Negative (Negative); Urine Clarity Clear (Clear); Urine Urobilinogen Normal (Normal)
[2022-06-12 20:24] LABS: Hematocrit 34.9 % (40-54); Hemoglobin 12.9 g/dL (13.0-16.5); Mean Corpuscular Hgb 33.9 pg (27.0-32.0); Mean Corpuscular Volume 91.6 fL (80-94); Mean Platelet Vol. 10.5 fl (6.2-12.0); Platelet Count 119 K/mm3 (150-450); RBC Distribution Width CV 11.7 % (11.6-14.6); RBC Distribution Width SD 39.3 fl (35.1-43.9); Red Blood Count 3.81 M/mm3 (4.6-6.2); White Blood Count 5.9 K/mm3 (4.4-11.0)
[2022-06-12 20:43] LABS: AST(SGOT) 15 U/L (15-37); Alanine Aminotransfer ALT/SGPT 26 U/L (16-61); Albumin, Serum 3.2 g/dL (3.2-5.0); Alkaline Phosphatase 143 U/L (45-117); Anion Gap 8 (5-15); BUN 29 mg/dL (7-18); BUN/Creat Ratio 17.6 RATIO (10-20); Bilirubin, Direct 0.32 mg/dL (0.00-0.30); Chloride 105 mmol/L (98-107); Creatinine, Serum 1.65 mg/dL (0.70-1.30); EST Glomerular Filtration Rate 43 mL/min (>60); Est Glom Filt Rate - Afr Amer 52 mL/min (>60); Globulin 3.7 g/dL (2.2-4.2); Glucose 413 mg/dL (74-106); Lipase 238 U/L (73-393); Protein, Total 6.9 g/dL (6.4-8.2); Sodium Level 136 mmol/L (136-145)
[2022-06-12 20:45] VITALS: PULSE 92; RESP 18; O2SAT 96
== END 2022-06-12 22:38 | disposition home or self-care (01) ==
PROVIDERS: Emergency Provider Emergency Medicine; PCP Family Medicine; Visit Provider Emergency Medicine
DX: N17.9 Acute kidney failure, unspecified (principal); E11.65 Type 2 diabetes mellitus with hyperglycemia; E11.22 Type 2 diabetes mellitus with diabetic chronic kidney disease; R53.83 Other fatigue; N18.9 Chronic kidney disease, unspecified; R33.9 Retention of urine, unspecified; I25.10 Atherosclerotic heart disease of native coronary artery without angina pectoris; E78.5 Hyperlipidemia, unspecified; I12.9 Hypertensive chronic kidney disease with stage 1 through stage 4 chronic kidney disease, or unspecified chronic kidney disease
CPT/HCPCS: 51702; 80048; 80076; 81001; 83690; 85027; 99285; A4216

== ENCOUNTER → 2022-06-17 | Outpatient (CLI) | payer MEDICARE, SELFPAY ==
[2022-06-17 13:39] LABS: Anion Gap 8 (5-15); BUN 24 mg/dL (7-18); BUN/Creat Ratio 16.9 RATIO (10-20); Calcium,Total 9.2 mg/dL (8.5-10.1); Chloride 101 mmol/L (98-107); Creatinine, Serum 1.42 mg/dL (0.70-1.30); EST Glomerular Filtration Rate 51 mL/min (>60); Est Glom Filt Rate - Afr Amer 62 mL/min (>60); Glucose 464 mg/dL (74-106); PSA,Total- Diagnostic 1.15 ng/mL (0.0-4.0); Potassium 4.5 mmol/L (3.5-5.1); Sodium Level 134 mmol/L (136-145)
== END | disposition home or self-care (01) ==
LOC: LAB 12:00
PROVIDERS: PCP Family Medicine; Visit Provider Urology
DX: N40.1 Benign prostatic hyperplasia with lower urinary tract symptoms (principal)
CPT/HCPCS: 36415; 80048; 84153

== ENCOUNTER 2022-06-22 20:13 | Emergency (ER) | payer MEDICARE, SELFPAY ==
[2022-06-22 20:15] VITALS: BP 145/79; PULSE 99; RESP 14; TEMP 36.6; O2SAT 94; BMI 19.8
--- NOTE | 2022-06-22 20:32 | EDS_ITS ---
HPI History of Present Illness Chief Complaint: Valadez C/O Informant: patient Onset/Context/Timing Onset: Today Context: Gradual Onset Timing: Continuous Quality: Blood Location: Urine Worsened by: Nothing Relieved by: Nothing Narrative Narrative: Patient presents with hematuria that he noticed tonight. Patient states his emptied his catheter bag and noted some blood in the urine. Patient states it has been constant throughout the night. Patient denies any fevers. Patient admits to some subjective chills but states she is always cold. Patient denies any dysuria. Patient denies any nausea or vomiting. Patient does admit to some pain in his low back. states the urine is dark red. [facility] Medical History (Updated 06/22/22 @ 22:[address] Ari Ron, ) Angina pectoris, unstable Atherosclerosis of [place] coronary artery of [place] heart without angina pectoris Chronic indwelling Valadez catheter Chronic renal insufficiency Diabetes 1.5, managed as type 2 Essential hypertension HLD (hyperlipidemia) HLP (hyperkeratosis lenticularis perstans) Myocardial infarct Presence of stent in coronary artery (~12/20/15) Home Medications aspirin 81 mg chewable tablet 81 mg PO DAILY@0800 12/19/15 [History Last Taken 12/19/15] levobunolol 0.5 % eye drops 1 drp EACH EYE DAILY 01/22/16 [History Last Taken Unknown] nitroglycerin 0.4 mg sublingual tablet 0.4 mg sublingual Q5M PRN Chest Pain 01/22/16 [History Last Taken Unknown] metoprolol tartrate 25 mg tablet 25 mg PO BID #180 tabs 12/26/20 [Rx Last Taken Unknown] glipizide 10 mg tablet, extended release 24 hr 10 mg PO DAILY #30 tabs 10/17/21 [Rx Last Taken Unknown] atorvastatin 80 mg tablet 80 mg PO QHS #90 tabs 02/18/22 [Rx Last Taken Unknown] clopidogrel 75 mg tablet (Plavix) 75 mg PO QDAY #90 tabs 02/18/22 [Rx Last Taken Unknown] cephalexin 500 mg capsule 500 mg PO Q8H 3 days #9 caps 06/12/22 [Rx Last Taken Unknown] cyclobenzaprine 5 mg tablet 5 mg PO QHS 06/12/22 [History Last Taken Unknown] sulfamethoxazole 800 mg-trimethoprim 160 mg tablet 1 tab PO BID #14 TABLETS 06/22/22 [Rx Last Taken Unknown] Allergy/AdvReac Type Severity Reaction Status Date / Time No Known Allergies Allergy Verified 06/22/22 20:15 Family History Brother CAD (coronary artery disease) Mother , from [place] at age 74 CAD (coronary artery disease) Myocardial infarction, Onset Age: 74 Surgical History History of cataract extraction jaw surgery for fracture Presence of coronary angioplasty implant and graft (~12/20/15) surgery on left index finger Social History Smoking Status: Never smoker alcohol intake: never substance use type: does not use caffeine: Yes (rarely) eating out: 1-3 times/week during the past year weight has: remained stable what type of physical activity do you participate in: walking frequency: daily duration: < 15 minutes/day seatbelt use: always do you feel safe at home: Yes ROS ROS ED Constitutional Constitutional ED: Reports chills and subjective; Denies fever(s) Eyes Eyes: Denies blurry vision or change in vision ENT ENT ED: Denies rhinorrhea or sore throat Cardiovascular Cardiovascular: Denies chest pain or palpitations Respiratory/Chest Respiratory/Chest: Reports cough; Denies dyspnea Gastrointestinal Gastrointestinal: Denies nausea or vomiting Genitourinary Genitourinary ED: Reports hematuria; Denies dysuria Musculoskeletal Musculoskeletal: Reports back pain; Denies neck pain Integumentary Denies abscess or rash Neurologic Neurologic: Denies headache(s) or weakness Allergic/Immunologic Allergic/Immunologic ED: Denies mouth swelling or urticaria EXAM Physical Exam Const Vital Signs: 06/22/22 20:15 Temperature 98 F Temperature Source Temporal Pulse Rate 99 Respiratory Rate 14 Blood Pressure 145/79 H Blood Pressure Mean 101 Pulse Ox 94 Oxygen Delivery Method Room Air Positive well nourished and well developed General Appearance ED: well developed and NAD HEENT Reports moist mucous membranes Neck supple and no JVD Resp normal respiratory effort and clear to auscultation bilaterally Cardio regular rate and regular rhythm GI normal to inspection, nondistended, normoactive bowel sounds and non-tender Palpation: soft Neuro oriented x3, CN's II-XII intact bilaterally and no sensory deficits noted Sensorium / Orientation: alert Motor Exam: strength 5/5 throughout MDM MDM MDM Narrative Medical decision making narrative: Urinalysis was obtained. There are positive nitrites with leukocyte esterases of 500. There were 50-100 white blood cells. There is 1+ bacteria. There are greater than 100 red blood cells. Occult blood was 250. Glucose was 1000. Urine culture was ordered. Patient was given a dose of Bactrim here. Patient was given a prescription for Bactrim. Patient was instructed to follow-up with his primary care physician in 5 to 7 days. Patient understood and was agreeable with the plan. All questions were answered. Lab Data Attestation: I reviewed the patient's lab results. Labs: Laboratory Results - last 24 hr 06/22/22 21:05 Urine Color Red Urine Clarity Cloudy Urine pH 6.5 Ur Specific Lester 1.010 Urine Protein 100 H Urine Glucose (UA) 1000 H Urine Ketones 5 H Urine Occult Blood 250 H Urine Nitrite Positive H Urine Bilirubin Negative Urine Urobilinogen Normal Ur Leukocyte Esterase 500 H Urine RBC > 100 SEEN Urine WBC 50-100 SEEN Ur Squamous Epith Cells 0 SEEN Urine Bacteria 1+ Urine Mucus 0 SEEN Discharge Plan Triage Chief Complaint: Valadez C/O ED Provider: Ari Ron Dx/Rx/DC Orders Clinical Impression: Acute hemorrhagic cystitis Instructions: ED Hematuria, ED Bladder Infection, Male (Adult) Prescriptions: New sulfamethoxazole-trimethoprim [sulfamethoxazole-trimethoprim] 1 TABLET tablet 1 tab PO BID Qty: 14 0RF No Action aspirin 81 MG tablet,chewable 81 mg PO DAILY@0800 Label Comments: [facility] levobunolol 1 DROP drops 1 drp EACH EYE DAILY nitroglycerin 0.4 MG tablet 0.4 mg SUBLINGUAL Q5M PRN (Reason: Chest Pain) glipizide 10 mg tablet extended release 24hr 10 mg PO DAILY Qty: 30 0RF cyclobenzaprine 5 mg tablet 5 mg PO QHS Label Comments: TAKE 1 TABLET BY MOUTH NIGHTLY cephalexin 500 mg capsule 500 mg PO Q8H 3 Days Qty: 9 0RF metoprolol tartrate 25 mg tablet 25 mg PO BID Qty: 180 3RF atorvastatin 80 mg tablet 80 mg PO QHS Qty: 90 3RF clopidogrel [Plavix] 75 mg tablet 75 mg PO QDAY Qty: 90 3RF Primary Care Provider: Adi Pearce Referrals: Aid Pearce MD [Primary Care Provider] - 3-5 Days Disposition Disposition: Home, Self Care
[2022-06-22 21:08] LABS: Mucous, Urine 0 SEEN /hpf (<or=2+); Squamous Epithelial Cells - UA 0 SEEN /hpf (0-5)
[2022-06-22 21:12] LABS: Color, Urine Red (Yellow); Glucose, Dipstick 1000 mg/dl (Normal); Ketone-Dipstick 5 mg/dl (Negative); Leukocyte Esterase-Dipstick 500 /ul (Negative); Nitrite-Dipstick Positive (Negative); Occult Blood-Urine 250 /ul (Negative); Protein-Dipstick 100 mg/dl (Negative); Urine Bilirubin Dipstick Negative (Negative); Urine Clarity Cloudy (Clear); Urine Urobilinogen Normal (Normal); Urine pH 6.5 (5.0 - 8.0)
[2022-06-22 21:18] LABS: Red Blood Cells-Urine > 100 SEEN /hpf (0-5); White Blood Cells 50-100 SEEN /hpf (0-5)
[2022-06-22 21:19] LABS: Bacteria 1+ /hpf (None Seen)
[2022-06-22] MEDS: Smz/Tmp Ds Tablet 1 TABLET PO (22:13)
== END 2022-06-22 22:29 | disposition home or self-care (01) ==
PROVIDERS: Emergency Provider Emergency Medicine; PCP Family Medicine; Visit Provider Emergency Medicine
DX: N30.91 Cystitis, unspecified with hematuria (principal); E11.22 Type 2 diabetes mellitus with diabetic chronic kidney disease; N18.9 Chronic kidney disease, unspecified; I12.9 Hypertensive chronic kidney disease with stage 1 through stage 4 chronic kidney disease, or unspecified chronic kidney disease; E78.5 Hyperlipidemia, unspecified; I25.10 Atherosclerotic heart disease of native coronary artery without angina pectoris
CPT/HCPCS: 81001; 87077; 87086; 87088; 87186; 99283

== ENCOUNTER 2022-07-19 15:01 | Observation (INO) | payer MEDICARE, SELFPAY ==
--- NOTE | 2022-07-15 09:02 | NURSING ---
DURING PAT PHONE CALL, PT'S REPORTS OPEN AREA TO PT'S COCCYX. INSTRUCTED TO NOTIFY DR CANTRELL'S OFFICE.
--- NOTE | 2022-07-16 09:38 | EKG12_ITS ---
Test Reason : PRE OP Blood Pressure : / mmHG Vent. Rate : 076 BPM Atrial Rate : 076 BPM P-R Int : 192 ms QRS Dur : 090 ms QT Int : 394 ms P-R-T Axes : 051 093 007 degrees QTc Int : 443 ms Normal sinus rhythm Septal KS, age undetermined, cannot be excluded Confirmed by MARIZA RG, MINE ([id number]), fan mail editor KATHRYN NULL ([id number]) on 07/17/2022 8:55:05 AM Referred By: Cuba Pryor Confirmed By:MINE DAWKINS MD
[2022-07-16 10:16] LABS: Hematocrit 36.2 % (40-54); Hemoglobin 13.1 g/dL (13.0-16.5); Mean Corp Hgb Conc 36.2 g/dL (32-36); Platelet Count 113 K/mm3 (150-450); RBC Distribution Width CV 12.1 % (11.6-14.6); RBC Distribution Width SD 41.4 fl (35.1-43.9); Red Blood Count 3.85 M/mm3 (4.6-6.2)
[2022-07-16 10:21] LABS: Partial Thromboplast Time 26.3 Seconds (24.1-36.2); Prothrombin Time (Protime)PT. 13.1 SECONDS (11.7-14.9)
[2022-07-16 10:52] LABS: AST(SGOT) 15 U/L (15-37); Alanine Aminotransfer ALT/SGPT 31 U/L (16-61); Albumin, Serum 3.3 g/dL (3.2-5.0); Alkaline Phosphatase 117 U/L (45-117); Anion Gap 4 (5-15); BUN 23 mg/dL (7-18); BUN/Creat Ratio 18.7 RATIO (10-20); Bilirubin, Direct 0.27 mg/dL (0.00-0.30); Calcium,Total 9.1 mg/dL (8.5-10.1); Chloride 103 mmol/L (98-107); Creatinine, Serum 1.23 mg/dL (0.70-1.30); EST Glomerular Filtration Rate 60 mL/min (>60); Est Glom Filt Rate - Afr Amer 73 mL/min (>60); Globulin 3.6 g/dL (2.2-4.2); Glucose 452 mg/dL (74-106); Potassium 4.2 mmol/L (3.5-5.1); Protein, Total 6.9 g/dL (6.4-8.2); Sodium Level 136 mmol/L (136-145)
[2022-07-19] VITALS (13 sets, daily range): BP systolic 103–175; BP diastolic 59–83; PULSE 56–82; RESP 12–17; TEMP 36.4–36.8; O2SAT 96–100; BMI 20.5
--- NOTE | 2022-07-19 | PROS_PTH ---
PATIENT: LYNETTE GUDINO LOC: [facility]3 U#:[id number] AGE/SX: 81/M ROOM: SC319 RE07/19/[address]: Dr. Cuba Pryor MD : 1940 BED: 1 DIS: 07/23/2022 SPEC #: [id number] RECD: 07/19/22 15:50 STATUS: TABITHA SNIDER #: [id number] NOEL: 07/19/22 00:[address]: Cuba Pryor DEPT: SURGICAL PATHOLOGY RECD BY: Bin Alexander ENTERED: 07/22/22 10:28 SP TYPE: TURP OTHR DR: Dr. Adi Pearce MD Tissues: Prostate, NOS Procedures: Surgery Specimen Level IV HEADER OPERATION: Cystoscopy, transurethral resection of prostate PRE-OP DIAGNOSIS: BPH with lower urinary symptoms, urinary retention TISSUE SUBMITTED: Prostate tissue MICROSCOPIC DIAGNOSIS Prostate tissue, transurethral resection: Benign prostatic hyperplasia, glandular and stromal type. Mild chronic inflammation. RYLAN:lakia 07/23/2022 MICROSCOPIC DESCRIPTION Slides are reviewed. GROSS DESCRIPTION Received is one container labeled with the patient's name and designated prostate tissue. The specimen consists of multiple irregular fragments of pink-barraza, rubbery, soft tissue that in aggregate weigh 16.5 gm and measure in aggregate 6 x 6 x 2 cm. Outpatient Therapist tissue is submitted in ten cassettes. / RYLAN:lakia 07/22/2022 TC:5 CPT: 45512
[2022-07-19] MEDS: Lactated Ringers 1,000 ML 15 ML IV ×2 (09:32→12:10)
[2022-07-19 09:45] LABS: Bedside Glucose 332 mg/dL (74-106)
[2022-07-19] MEDS: Cefazolin 2 GM in 0.9% Normal Saline 100 ML IV (12:00)
--- NOTE | 2022-07-19 12:55 | DCINST_ITS ---
Discharge Instructions Diet Discharge Diet: No restrictions, Light diet - advance as tolerated and Soft diet Activity Discharge Activity: Return to Normal Activity Follow Up Care Please Follow Up With: Cuba Pryor MD Test Results: Test results from this visit will be discussed in further detail at your follow- up appointment, if applicable. Discharge Plan Admission Primary Reason for Your Visit: turp Attending Provider: Cuba Pryor Primary Care Provider: Adi Pearce Discharge Orders/Prescriptions Prescriptions: New ciprofloxacin HCl [Cipro] 500 mg tablet 500 mg PO BID Qty: 14 0RF Continued levobunolol 1 DROP drops 1 drp EACH EYE DAILY nitroglycerin 0.4 MG tablet 0.4 mg SUBLINGUAL Q5M PRN (Reason: Chest Pain) finasteride 5 mg tablet 5 mg PO DAILY Label Comments: TAKE 1 TABLET BY MOUTH ONCE DAILY atorvastatin 80 mg tablet 80 mg PO QHS glipizide 10 mg tablet extended release 24hr 10 mg PO BID metoprolol tartrate 25 mg tablet 25 mg PO BID Held aspirin 81 MG tablet,chewable 81 mg PO DAILY@0800 Hold Instructions: Resume on 08/02/22. Label Comments: LAST DOSE ASPIRIN 07/14/2022 FOR SURGERY ON 07/19/22 clopidogrel [Plavix] 75 mg tablet 75 mg PO QDAY Qty: 90 3RF Hold Instructions: Resume on 08/02/22. Other Ambulatory Orders: 12 Lead EKG (Routine) Timeframe: 20220716 Location: None Selected Ordered By: Dr. Rodrick Breen Referrals / Follow Up: Cuba Pryor MD [Med Staff - Active Staff] - Adi Pearce MD [Primary Care Provider] - Disposition Disposition (needs filled in before D/C Order can be placed): Home, Self Care
--- NOTE | 2022-07-19 12:55 | OP.PCM_ITS ---
Report of Operation Date of Procedure: 07/19/22 Pre-Operative Diagnosis: BPH with obstruction retention of urine Post-Operative Diagnosis: Same Surgery/Procedure Performed:: Transurethral section of prostate Description of Surgical Findings:: In the preoperative setting I discussed with the patient how the surgery would be done with expect afterwards. We discussed how a prostate resection is done and we discussed the risk of the surgery including, bleeding, infection, retrograde ejaculation, changes with ejaculation or intercourse,. We discussed the possibility that the resection of the prostate may not alleviate his urinary symptoms. We discussed the small risk of developing scar tissue along the urethral channel and strictures. We also discussed the chance of the prostate could grow back and he may need further surgery or treatment in the future for prostate problems. Patient was taken back to the operating room, timeout procedure was performed, he was identified and marked and placed on the operating room table. He un derwent general anesthesia. He was placed in dorsolithotomy position. Penis and testicles were prepped and draped in usual sterile fashion. Went into the bladder using the visual obturator with a resectoscope. Once inside the bladder identified the right and left ureteral orifice. I then identified the prostate and the anatomy of the prostate. He had a very atonic stretched out looking bladder from chronic obstruction. I marked out the area of the sphincter and the verumontanum was identified. I then proceeded with the prostate resection first resected the median lobe. And then resected the right lobe of the prostate. Then to resect the left lobe of the prostate. I then resected the apical tissue of the prostate. This was a complete resection of all obstructive tissue to improve voiding and relieve obstruction. I then made sure that there was no injury to the sphincter or the verumontanum was still intact. At the end of the resection all the chips were Ellik out of the bladder. I then identified the left and right ureteral orifice and these were confirmed to be in good position and effluxing and not injured. The resectoscope was removed, a 22 [place] catheter was placed into the bladder on continuous irrigation. And the urine was fairly light pink color and draining normally. He was taken back to the PACU in good condition. CPT 14504 Surgeon: Cuba Pryor Type of Anesthesia: General Drains: nash Admit VTE Documentation VTE Present on Admission: No VTE Mechan Device Prophylaxis: SCD's
[2022-07-19 13:25] LABS: Bedside Glucose 284 mg/dL (74-106)
[2022-07-19] MEDS: Ketorolac 15 MG/ML Vial IV (13:29)
[2022-07-19] MEDS: Glucerna Shake 120 ML LIQUID PO (16:34)
[2022-07-19] MEDS: glipiZIDE XL 5 MG Tablet 10 MG PO (16:37)
[2022-07-19 17:10] LABS: Bedside Glucose 243 mg/dL (74-106)
[2022-07-19] MEDS: 0.9% Normal Saline 1,000 ML 125 ML IV (19:57)
[2022-07-19] MEDS: Ciprofloxacin 400 MG/200 ML BAG 200 MG IV (20:08)
[2022-07-19] MEDS: Metoprolol Tartrate 25 MG Tablet PO (20:14)
[2022-07-19] MEDS: Atorvastatin Calcium 80 MG Tablet PO (20:14)
[2022-07-19] MEDS: Docusate Sodium 100 MG Capsule 200 MG PO (20:14)
[2022-07-20] VITALS (10 sets, daily range): BP systolic 107–141; BP diastolic 47–76; PULSE 64–79; RESP 16–18; TEMP 36.6–37.2; O2SAT 96–99
[2022-07-20 06:36] LABS: Bedside Glucose 251 mg/dL (74-106)
[2022-07-20] MEDS: OPTH EACH EYE (07:43)
[2022-07-20] MEDS: LEVOBUNOLOL 0.5% EACH EYE (07:43)
[2022-07-20] MEDS: Ciprofloxacin 400 MG/200 ML BAG 200 MG IV (07:43)
[2022-07-20] MEDS: glipiZIDE XL 5 MG Tablet 10 MG PO ×2 (07:44→16:38)
[2022-07-20] MEDS: Docusate Sodium 100 MG Capsule 200 MG PO ×2 (07:44→20:15)
[2022-07-20] MEDS: Metoprolol Tartrate 25 MG Tablet PO ×2 (07:44→20:16)
--- NOTE | 2022-07-20 08:22 | CASEMGMT ---
Social Work As per PAT History assessment, pt has LW/POA, unable to bring in the documents. At that time pt indicated Miguel Gee is POA. CHAITANYA Mario
--- NOTE | 2022-07-20 08:54 | PCM.PN.GU ---
Subjective Subjective s/p turp urine still v bloody continue with irrigation. Objective Data Objective Data Vital Signs: Vital Signs Temp Pulse Resp BP Pulse Ox O2 Del Method 98.8 F 72 18 107/57 L 98 Room Air 07/20/22 08:46 07/20/22 08:46 07/20/22 08:46 07/20/22 08:46 07/20/22 08:46 07/20/22 08:46 Oxygen Delivery Method Room Air Weight: 61.4 kg Body Mass Index (BMI) 20.5 Intake & Output: Intake and Output for Last 24 Hours 07/18/22 07/19/22 07/20/22 23:59 23:59 23:59 Intake Total 2910.00 / 2910.00 1100 / 1100 Output Total 2650 / 2650 700 / 700 Balance 260.00 / 260.00 400 / 400 Lab / Micro Data Result Diagrams: 07/16/22 09:26 07/16/22 09:26 Labs: Laboratory Results - last 24 hr 07/19/22 09:15: POC Glucose 332 H 07/19/22 13:03: POC Glucose 284 H 07/19/22 16:36: POC Glucose 243 H 07/20/22 06:07: POC Glucose 251 H
[2022-07-20] MEDS: Glucerna Shake 120 ML LIQUID PO ×4 (09:27→20:14)
[2022-07-20] MEDS: 0.9% Normal Saline 1,000 ML 15 ML IV (09:44)
--- NOTE | 2022-07-20 12:28 | NURSING ---
pt spouse states i don't want him to come home, i cannot take care of him. He needs to go to F
--- NOTE | 2022-07-20 13:13 | CASEMGMT ---
Social Work Order in by physician that pt's family wants him to go to SNF. SW met w/pt and in room, reviewed prior level of function and anticipated discharge plan. PCP: Dr. Pearce Specialists: Dr. Barboza, cardiology; Dr. Pryor, urology; Chepe Gilbert, orthopedics Insurance: [employer] Medicare Pharmacy: [facility] LEAL: , daughter who lives next door LW/POA: is POA Living arrangements/prior level of function: Pt lives home w/ in a one story home with a step to get into the home. Pt is able to ambulate and dress himself. He has not been able to drive over the last month, and cannot get in and out of a car without help. Pt is not able to do any cooking or cleaning at present. Pt and explain that he went to see Chepe Gilbert at [facility], as he is having back issues. PT was ordered and pt is to go three times per week. explains she is having a hard time taking care of pt at home. Getting pt to appointments also has been difficult. DME: Pt has a walker he just started using over the last month. He also has a cane and a shower chair SNF/HHC: No history of SNF or HHC. has been to [facility]. SW spoke w/pt and about discharge plan. They are both in agreement for SNF for pt. Pt's issues are due to his back, rather than the reasons for his current hospitalization. SW did explain that there is no guarantee that insurance will cover the cost of the prison. SW explained that PT can be ordered and we will see how pt does, and we can make a referral Friday and see if insurance will authorize. SW spoke w/them about home care also, at this time they are preferring prison placement. SW explained that insurance is not open on the weekend so pt will be here until Friday. Pt and state understanding. SW provided to pt and a list of alf facilities via [employer], that takes pt's insurance, in pt's preferred geographic area, complete with quality and resource use data. SW asked them to look at the list and pick out some SNF options, and SW will follow up w/them Friday on where they would like a referal made. Pt and state understanding. SW spoke w/physician, he is aware of the situation. PT/OT ordered. SW to follow up on Friday. CHAITANYA Mario
--- NOTE | 2022-07-20 16:01 | CASEMGMT ---
VENKATA CM in to discuss MARTEL form with patient. RN CM explained MARTEL form, patient voiced understanding. Pt signed form and filed in chart. Pt provided with a copy of signed MARTEL form. Patient had no further questions or concerns at this time.
[2022-07-20 17:05] LABS: Bedside Glucose 276 mg/dL (74-106)
[2022-07-20] MEDS: Atorvastatin Calcium 80 MG Tablet PO (20:15)
[2022-07-21] VITALS (9 sets, daily range): BP systolic 125–138; BP diastolic 59–75; PULSE 67–85; RESP 16–18; TEMP 36.6–36.9; O2SAT 96–98
[2022-07-21] MEDS: HYDROcodone Bitartrate/Apap 5/325 Tablet PO (02:34)
--- NOTE | 2022-07-21 07:39 | PCM.PN.GU ---
Subjective Subjective continue with CBI, plan to discharge to rehab on Friday. Objective Data Objective Data Vital Signs: Vital Signs Temp Pulse Resp BP Pulse Ox O2 Del Method 98.3 F 81 18 130/59 H 96 Room Air 07/21/22 02:45 07/21/22 02:45 07/21/22 02:45 07/21/22 02:45 07/21/22 02:45 07/21/22 02:45 Oxygen Delivery Method Room Air Weight: 61.4 kg Body Mass Index (BMI) 20.5 Intake & Output: Intake and Output for Last 24 Hours 07/19/22 07/20/22 07/21/22 23:59 23:59 23:59 Intake Total 2910.00 / 2910.00 1366 / 1366 120 / 120 Output Total 2650 / 2650 4600 / 4600 2400 / 2400 Balance 260.00 / 260.00 -3234 / -3234 -2280 / -2280 Medical Nutrition Assessment Dietitian: Malnutrition Criteria Met Start: 07/20/22 13:05 Freq: Status: Active Protocol: Document 07/20/22 13:05 (Rec: 07/20/22 13:05 [id number]) Nutrition Malnutrition Evidence of Malnutrition Exists Yes Malnutrition (severe): Chronic Evidenced By Suboptimal Energy Intake ( Severe),Weight Loss (Severe) Clinical Problem Chronic Disease or Condition Related Malnutrition Etiology severe, chronic malnutrition related to inadequate oral intake, suspected hyperglycemia Signs/Symptoms as evidenced by unintentional wt loss of 10.6#/7% x 1 month, estimated PO intake meeting < 75% of estimated energy needs x 1 month Status Active Problem Recommendation Dietitian Recommendations/Changes will adjust diet to Carbohydrate Controlled; will increase Glucerna to 120mL 4x/ day w/ medpass given evidence of malnutrition. Lab / Micro Data Result Diagrams: 07/16/22 09:26 07/16/22 09:26 Labs: Laboratory Results - last 24 hr 07/20/22 16:42: POC Glucose 276 H
[2022-07-21] MEDS: Glucerna Shake 120 ML LIQUID PO ×4 (07:48→21:10)
[2022-07-21] MEDS: Metoprolol Tartrate 25 MG Tablet PO ×2 (07:48→21:10)
[2022-07-21] MEDS: glipiZIDE XL 5 MG Tablet 10 MG PO ×2 (07:48→16:59)
[2022-07-21] MEDS: Docusate Sodium 100 MG Capsule 200 MG PO ×2 (07:48→21:10)
[2022-07-21] MEDS: OPTH EACH EYE (07:48)
[2022-07-21] MEDS: LEVOBUNOLOL 0.5% EACH EYE (07:48)
[2022-07-21] MEDS: 0.9% Normal Saline 1,000 ML 125 ML IV (21:09)
[2022-07-21] MEDS: Atorvastatin Calcium 80 MG Tablet PO (21:10)
[2022-07-22] VITALS (8 sets, daily range): BP systolic 138–151; BP diastolic 68–93; PULSE 70–86; RESP 16–18; TEMP 36.6–37.2; O2SAT 96–100
[2022-07-22] MEDS: 0.9% Normal Saline 1,000 ML 125 ML IV ×3 (04:37→20:17)
--- NOTE | 2022-07-22 07:40 | PCM.PN.GU ---
Subjective Subjective remove nash, discharge to skilled facility for rehab. Objective Data Objective Data Vital Signs: Vital Signs Temp Pulse Resp BP Pulse Ox O2 Del Method 98.6 F 71 16 150/80 H 98 Room Air 07/22/22 07:33 07/22/22 07:33 07/22/22 07:33 07/22/22 07:33 07/22/22 07:33 07/22/22 07:33 Oxygen Delivery Method Room Air Weight: 61.4 kg Body Mass Index (BMI) 20.5 Intake & Output: Intake and Output for Last 24 Hours 07/20/22 07/21/22 07/22/22 23:59 23:59 23:59 Intake Total 1366 / 1366 651.25 / 651.25 1833.33 / 1833.33 Output Total 4600 / 4600 2500 / 2500 3000 / 3000 Balance -3234 / -3234 -1848.75 / -1848.75 -1166.67 / -1166.67 Medical Nutrition Assessment Dietitian: Malnutrition Criteria Met Start: 07/20/22 13:05 Freq: Status: Active Protocol: Document 07/20/22 13:05 (Rec: 07/20/22 13:05 [id number]) Nutrition Malnutrition Evidence of Malnutrition Exists Yes Malnutrition (severe): Chronic Evidenced By Suboptimal Energy Intake ( Severe),Weight Loss (Severe) Clinical Problem Chronic Disease or Condition Related Malnutrition Etiology severe, chronic malnutrition related to inadequate oral intake, suspected hyperglycemia Signs/Symptoms as evidenced by unintentional wt loss of 10.6#/7% x 1 month, estimated PO intake meeting < 75% of estimated energy needs x 1 month Status Active Problem Recommendation Dietitian Recommendations/Changes will adjust diet to Carbohydrate Controlled; will increase Glucerna to 120mL 4x/ day w/ medpass given evidence of malnutrition. Lab / Micro Data Result Diagrams: 07/16/22 09:26 07/16/22 09:26
--- NOTE | 2022-07-22 07:42 | PCM.TXEXTCAR ---
Diet Diet Order/Speech Therapy: 07/20/22 12:54 Diet: Carbohydrate Controlled Is pt able to select menu?: Yes Therapies Weight Bearing: Full weight bearing Allergies/Procedures Done in Hospital Allergies No Known Allergies Allergy (Verified 07/19/22 09:26) Procedures: None Type of Care/Length of Stay Estimated LOS: Convalescent Care Less Than 30 days Type of Care Needed: Skilled Rehab Potential: Good Prognosis: Good Additional Orders/Day of Discharge Day of Discharge: 07/22/22 Dietary and Speech Recommendations Dietitian Recommendations/Changes: will adjust diet to Carbohydrate Controlled; will increase Glucerna to 120mL 4x/day w/ medpass given evidence of malnutrition. Follow Up Care Please Follow Up With: Cuba Pryor MD Discharge Plan Admission Admit Date/Time: 07/19/22 15:01 Primary Reason for Your Visit: turp Attending Provider: Cuba Pryor Primary Care Provider: Adi Pearce Discharge Orders/Prescriptions Prescriptions: New ciprofloxacin HCl [Cipro] 500 mg tablet 500 mg PO BID Qty: 14 0RF Continued levobunolol 1 DROP drops 1 drp EACH EYE DAILY nitroglycerin 0.4 MG tablet 0.4 mg SUBLINGUAL Q5M PRN (Reason: Chest Pain) finasteride 5 mg tablet 5 mg PO DAILY Label Comments: TAKE 1 TABLET BY MOUTH ONCE DAILY atorvastatin 80 mg tablet 80 mg PO QHS glipizide 10 mg tablet extended release 24hr 10 mg PO BID metoprolol tartrate 25 mg tablet 25 mg PO BID Held aspirin 81 MG tablet,chewable 81 mg PO DAILY@0800 Hold Instructions: Resume on 08/02/22. Label Comments: LAST DOSE ASPIRIN 07/14/2022 FOR SURGERY ON 07/19/22 clopidogrel [Plavix] 75 mg tablet 75 mg PO QDAY Qty: 90 3RF Hold Instructions: Resume on 08/02/22. Other Ambulatory Orders: 12 Lead EKG (Routine) Timeframe: 20220716 Location: None Selected Ordered By: Dr. Rodrick Breen Referrals / Follow Up: Cuba Pryor MD [Med Staff - Active Staff] - Adi Pearce MD [Primary Care Provider] - Disposition Discharge Orders: Discharge Patient (Routine); Ordered 07/22/22 Ordered By: Dr. Cuba Pryor
[2022-07-22] MEDS: Metoprolol Tartrate 25 MG Tablet PO ×2 (08:06→21:31)
[2022-07-22] MEDS: LEVOBUNOLOL 0.5% EACH EYE (08:07)
[2022-07-22] MEDS: OPTH EACH EYE (08:07)
[2022-07-22] MEDS: glipiZIDE XL 5 MG Tablet 10 MG PO ×2 (08:07→16:43)
[2022-07-22] MEDS: Docusate Sodium 100 MG Capsule 200 MG PO ×2 (08:08→21:31)
[2022-07-22] MEDS: Glucerna Shake 120 ML LIQUID PO ×4 (08:11→21:31)
--- NOTE | 2022-07-22 08:28 | PHA.DC.MR ---
Pharmacy Service has performed discharge medication reconciliation for this patient upon transfer to [facility]. Home Medications aspirin 81 mg chewable tablet 81 mg PO DAILY@0800 [facility] 12/19/15 levobunolol 0.5 % eye drops 1 drp EACH EYE DAILY 01/22/16 nitroglycerin 0.4 mg sublingual tablet 0.4 mg sublingual Q5M PRN Chest Pain 01/22/16 clopidogrel 75 mg tablet (Plavix) 75 mg PO QDAY #90 tabs 02/18/22 atorvastatin 80 mg tablet 80 mg PO QHS HLD 07/15/22 finasteride 5 mg tablet 5 mg PO DAILY BPH 07/15/22 glipizide 10 mg tablet, extended release 24 hr 10 mg PO BID 07/15/22 metoprolol tartrate 25 mg tablet 25 mg PO BID 07/15/22 ciprofloxacin HCl 500 mg tablet (Cipro) 500 mg PO BID #14 tabs 07/19/22 The patient's discharge medication list was reviewed for discrepancies and discrepancies were resolved.
--- NOTE | 2022-07-22 11:43 | CASEMGMT ---
Social Work SW called pt , Miguel, to discuss SNF choices. Miguel reports reviewed list gave by weekend SW and [facility]. If [facility] not able to accept back up choice would be [facility]. SW notified Jami Amos, discharge tax accounting assistant of pt/family preference. Jami to send referral. PLAN: [facility], pending acceptance and precert. BERNADETTE Robles
--- NOTE | 2022-07-22 11:56 | CASEMGMT ---
Discharge Chalk Cutter This typewriter assembler send a referral to [facility] via [facility]. Ana KRUEGER [employer] Management Professor
--- NOTE | 2022-07-22 13:08 | CASEMGMT ---
Discharge Principal Cyber Engineer [facility] accepted patient. Pre-cert is being started. Ana KRUEGER Monorail Crane Operator
[2022-07-22] MEDS: Atorvastatin Calcium 80 MG Tablet PO (21:31)
[2022-07-23 04:09] VITALS: BP 165/84; PULSE 79; RESP 18; TEMP 36.6; O2SAT 98
[2022-07-23] MEDS: 0.9% Normal Saline 1,000 ML 125 ML IV (04:13)
--- NOTE | 2022-07-23 07:36 | CASEMGMT ---
Discharge Call Center Professional [facility] reached out. Pre-cert has been obtained. Ana KRUEGER Clinical Program Director
[2022-07-23 07:53] VITALS: BP 131/74; PULSE 78; RESP 16; TEMP 36.8; O2SAT 98
[2022-07-23 08:58] VITALS: PULSE 78
[2022-07-23] MEDS: LEVOBUNOLOL 0.5% EACH EYE (08:58)
[2022-07-23] MEDS: glipiZIDE XL 5 MG Tablet 10 MG PO (08:58)
[2022-07-23] MEDS: OPTH EACH EYE (08:58)
[2022-07-23] MEDS: Docusate Sodium 100 MG Capsule 200 MG PO (08:58)
[2022-07-23] MEDS: Metoprolol Tartrate 25 MG Tablet PO (08:58)
[2022-07-23] MEDS: Glucerna Shake 120 ML LIQUID PO (09:02)
--- NOTE | 2022-07-23 09:37 | CASEMGMT ---
Social Work SW notified pt and pt nurse, Kimberly, of insurance auth being obtained. SW called pt , Miguel to update on discharge plan. Left message with info regarding discharge to [facility]. Provided contact number for Miguel to call back if has questions. PLAN: discharge to [facility] today BERNADETTE Robles
--- NOTE | 2022-07-23 09:45 | PHA.DC.MR ---
Pharmacy Service has performed discharge medication reconciliation for this patient. The patient's discharge medication list was reviewed for discrepancies and discrepancies were resolved. Home Medications aspirin 81 mg chewable tablet 81 mg PO DAILY@0800 [facility]ART [facility] 12/19/15 levobunolol 0.5 % eye drops 1 drp EACH EYE DAILY 01/22/16 nitroglycerin 0.4 mg sublingual tablet 0.4 mg sublingual Q5M PRN Chest Pain 01/22/16 clopidogrel 75 mg tablet (Plavix) 75 mg PO QDAY #90 tabs 02/18/22 atorvastatin 80 mg tablet 80 mg PO QHS HLD 07/15/22 finasteride 5 mg tablet 5 mg PO DAILY BPH 07/15/22 glipizide 10 mg tablet, extended release 24 hr 10 mg PO BID 07/15/22 metoprolol tartrate 25 mg tablet 25 mg PO BID 07/15/22 ciprofloxacin HCl 500 mg tablet (Cipro) 500 mg PO BID #14 tabs 07/19/22
--- NOTE | 2022-07-23 10:48 | CASEMGMT ---
Social Work? SUBHASH notified pt and pt family of discharge to [facility] today. SUBHASH completed full PASRR form in [employer]. Set up wheelchair transportation through [facility] for 11:00am. SUBHASH faxed all discharge orders to [facility] via [employer] and notified of discharge time. SUBHASH notified pt nurse of transport time. SUBHASH made copies of discharge orders and placed on pt chart. Sent original orders in envelope with pt upon discharge.?? Disposition: [facility], skilled, convalescent, level of care? BERNADETTE Robles
--- NOTE | 2022-07-24 15:45 | HP.PCM_ITS ---
HPI - General General Date of Admission: 07/19/22 HPI Narrative LYNETTE GUDINO, is a 81 M who presents for transurethral resection of the prostate this is a make up history and physical. [facility] Medical History Angina pectoris, unstable Atherosclerosis of [place] coronary artery of [place] heart without angina pectoris Cardiology follow-up encounter Chronic indwelling Valadez catheter Chronic renal insufficiency Diabetes 1.5, managed as type 2 Essential hypertension Excessive bleeding History of stress test HLD (hyperlipidemia) HLP (hyperkeratosis lenticularis perstans) Hypertension Indwelling urethral catheter present Loss of hearing Myocardial infarct Non-smoker Open wound Presence of stent in coronary artery (~12/20/15) Walker as ambulation aid Wears glasses Home Medications aspirin 81 mg chewable tablet 81 mg PO DAILY@0800 HEART HEALTH 12/19/15 [History Last Taken 07/14/22] levobunolol 0.5 % eye drops 1 drp EACH EYE DAILY 01/22/16 [History Last Taken Unknown] nitroglycerin 0.4 mg sublingual tablet 0.4 mg sublingual Q5M PRN Chest Pain 01/22/16 [History Last Taken Unknown] clopidogrel 75 mg tablet (Plavix) 75 mg PO QDAY #90 tabs 02/18/22 [Rx Last Taken 07/14/22] atorvastatin 80 mg tablet 80 mg PO QHS HLD 07/15/22 [History Last Taken Unknown] finasteride 5 mg tablet 5 mg PO DAILY BPH 07/15/22 [History Last Taken Unknown] glipizide 10 mg tablet, extended release 24 hr 10 mg PO BID 07/15/22 [History Last Taken Unknown] metoprolol tartrate 25 mg tablet 25 mg PO BID 07/15/22 [History Last Taken Unknown] ciprofloxacin HCl 500 mg tablet (Cipro) 500 mg PO BID #14 tabs 07/19/22 [Rx Last Taken Unknown] Allergy/AdvReac Type Severity Reaction Status Date / Time No Known Allergies Allergy Verified 07/19/22 09:26 Family History Brother CAD (coronary artery disease) Mother , from [place] at age 74 CAD (coronary artery disease) Myocardial infarction, Onset Age: 74 Surgical History History of cataract extraction History of colonoscopy jaw surgery for fracture Presence of coronary angioplasty implant and graft (~12/20/15) surgery on left index finger Social History Smoking Status: Never smoker alcohol intake: never substance use type: does not use caffeine: Yes (rarely) eating out: 1-3 times/week during the past year weight has: remained stable what type of physical activity do you participate in: walking frequency: daily duration: < 15 minutes/day seatbelt use: always do you feel safe at home: Yes Vital Signs Vital Signs Vital Signs: Weight Weight: 61.4 kg Body Mass Index (BMI) 20.5 Results Lab / Micro Data Result Diagrams: 07/16/22 09:26 07/16/22 09:26
== END 2022-07-23 13:07 | disposition skilled nursing facility (03) ==
LOC: SDC 15:13 → MS3 15:13
PROVIDERS: Anesthesiology; Admitting Provider Urology; PCP Family Medicine; Referring Provider Urology; Visit Provider Urology
PROC: (CPT 52601; principal; 2022-07-19 11:15)
DX: N40.1 Benign prostatic hyperplasia with lower urinary tract symptoms (principal); E13.22 Other specified diabetes mellitus with diabetic chronic kidney disease; R33.8 Other retention of urine; E78.5 Hyperlipidemia, unspecified; Z79.02 Long term (current) use of antithrombotics/antiplatelets; I25.10 Atherosclerotic heart disease of native coronary artery without angina pectoris; I12.9 Hypertensive chronic kidney disease with stage 1 through stage 4 chronic kidney disease, or unspecified chronic kidney disease; N18.9 Chronic kidney disease, unspecified; Z79.82 Long term (current) use of aspirin; Z79.899 Other long term (current) drug therapy; Z79.84 Long term (current) use of oral hypoglycemic drugs
CPT/HCPCS: 52601; 00914; 36415; 51702; 80048; 80076; 82962; 83036; 85027; 85610; 85730; 87426; 88305; 93005; 96361; 96365; 96366; 97162; 97166; 97530; 97535; 97802; 99218; J7030; J7120; G0378; J0744; J2405

== ENCOUNTER 2022-08-07 12:23 | Emergency (ER) | payer MEDICARE, SELFPAY ==
[2022-08-07 12:24] VITALS: BP 97/72; PULSE 81; RESP 18; TEMP 35.9; O2SAT 98; BMI 22.0
--- NOTE | 2022-08-07 12:41 | EDS_ITS ---
HPI History of Present Illness Chief Complaint: Complaint Informant: patient and spouse/S.O. Narrative Narrative: History is a combination from patient and his . He had surgery that sounds like transurethral resection of the prostate approximately 3 weeks ago. He had had urinary retention problems prior to that. It sounds like he had the catheter in for approximately 2 weeks after surgery. He went to a nursing facility. It sounds like they remove the catheter before discharge. They think its been out approximately 1 week but they are not really sure. He has had some blood in the urine ever since surgery. He is not sure if it is gotten really better or worse but he thinks it might be a little worse. He and his both think he was on blood thinners prior to the surgery but they think he is not on blood thinners now. There was Plavix on his med list although they do not recognize this or the names of other common blood thinners. Patient states he feels full and he is just urinating small amounts. He urinated a little bit this morning but that is only after he pressed on his abdomen. But he states the pain is not that bad. They deny fevers chills. He is eating and drinking and has no nausea vomiting. [facility] Medical History Angina pectoris, unstable Atherosclerosis of [place] coronary artery of [place] heart without angina pectoris Cardiology follow-up encounter Chronic indwelling Valadez catheter Chronic renal insufficiency Diabetes 1.5, managed as type 2 Essential hypertension Excessive bleeding History of stress test HLD (hyperlipidemia) HLP (hyperkeratosis lenticularis perstans) Hypertension Indwelling urethral catheter present Loss of hearing Myocardial infarct Non-smoker Open wound Presence of stent in coronary artery (~12/20/15) Walker as ambulation aid Wears glasses Home Medications aspirin 81 mg chewable tablet 81 mg PO DAILY@0800 HEART HEALTH 12/19/15 [History Last Taken 07/14/22] levobunolol 0.5 % eye drops 1 drp EACH EYE DAILY 01/22/16 [History Last Taken Unknown] nitroglycerin 0.4 mg sublingual tablet 0.4 mg sublingual Q5M PRN Chest Pain 01/22/16 [History Last Taken Unknown] clopidogrel 75 mg tablet (Plavix) 75 mg PO QDAY #90 tabs 02/18/22 [Rx Last Taken 07/14/22] atorvastatin 80 mg tablet 80 mg PO QHS HLD 07/15/22 [History Last Taken Unknown] finasteride 5 mg tablet 5 mg PO DAILY BPH 07/15/22 [History Last Taken Unknown] glipizide 10 mg tablet, extended release 24 hr 10 mg PO BID 07/15/22 [History Last Taken Unknown] metoprolol tartrate 25 mg tablet 25 mg PO BID 07/15/22 [History Last Taken Unknown] ciprofloxacin HCl 500 mg tablet (Cipro) 500 mg PO BID #14 tabs 07/19/22 [Rx Last Taken Unknown] Allergy/AdvReac Type Severity Reaction Status Date / Time No Known Allergies Allergy Verified 08/07/22 12:26 Family History Brother CAD (coronary artery disease) Mother , from [place] at age 74 CAD (coronary artery disease) Myocardial infarction, Onset Age: 74 Surgical History History of cataract extraction History of colonoscopy jaw surgery for fracture Presence of coronary angioplasty implant and graft (~12/20/15) surgery on left index finger Social History Smoking Status: Never smoker alcohol intake: never substance use type: does not use caffeine: Yes (rarely) eating out: 1-3 times/week during the past year weight has: remained stable what type of physical activity do you participate in: walking frequency: daily duration: < 15 minutes/day seatbelt use: always do you feel safe at home: Yes ROS ROS ED Constitutional Constitutional ED: Denies chills or fever(s) ENT ENT ED: Denies rhinorrhea Cardiovascular Cardiovascular: Denies chest pain or palpitations Respiratory/Chest Respiratory/Chest: Denies cough or dyspnea Gastrointestinal Gastrointestinal: Reports abdominal pain; Denies constipation, diarrhea, melena, nausea or vomiting Genitourinary Genitourinary ED: Reports hematuria and other Details: See history of present illness Musculoskeletal Musculoskeletal: Denies back pain Integumentary Denies rash Neurologic Neurologic: Denies headache(s) Endocrine Endocrinology: Denies polyuria Hematologic/Lymphatic Hematologic/Lymphatic: Denies easy bleeding or easy bruising Allergic/Immunologic Allergic/Immunologic ED: Denies urticaria EXAM Physical Exam Const Vital Signs: 08/07/22 12:24 08/07/22 14:09 Temperature 96.7 F L Temperature Source Temporal Pulse Rate 81 Respiratory Rate 18 17 Blood Pressure 97/72 Blood Pressure Mean 80 Pulse Ox 98 Oxygen Delivery Method Room Air Room Air Positive well nourished and well developed Constitutional Narrative: Patient actually looks very comfortable despite his history General Appearance ED: well developed; Negative for pallor HEENT Reports moist mucous membranes Neck no JVD Resp normal respiratory effort and clear to auscultation bilaterally Auscultation: Negative for rales or rhonchi Cardio regular rate and regular rhythm GI GI Narrative: Patient does appear to have an enlarged bladder on exam. But he is really not that tender at all no CVA tenderness Back/Spine no CVA tenderness Extremity normal to inspection Neuro Sensorium / Orientation: alert Psych mental status grossly normal Psych Narrative: Patient is relaxed Skin General Skin Exam: Negative for pallor MDM MDM MDM Narrative Medical decision making narrative: Valadez catheter was placed. We have had about 3 L out. Patient was very distended. He is surprisingly asymptomatic. He does state he feels well. He feels a little better now but he really was not hurting before. Blood work showed normal white count. Hemoglobin was down a little bit from the more recent ones. But he is currently off of his Plavix. Platelets were minimally low at 132 but should not affect clotting any significant degree. Electrolytes showed creatinine was 1.54. This is a little bit above his baseline but he has been higher just within the last couple months. Urine showed red cells but no significant signs of infection. Patient has been irrigated. He has pale red urine now. It was initially dark red. When the catheter was first placed there did appear to be a clot that came out that was the likely source of this. Since he is now draining well, he should clear. He is off his anticoagulation. He is comfortable. He is afebrile. We were going to call his urologist but he is currently signed out for couple days. He has an appointment in November but I explained he should be seen sooner and likely the beginning of the week. If he develops pain, poorly flowing catheter, fevers, vomiting or any other concerns he should return. He is familiar with catheter management. Lab Data Attestation: I reviewed the patient's lab results. Labs: Laboratory Results - last 24 hr 08/07/22 08/07/22 08/07/22 13:45 13:45 14:05 WBC 4.6 RBC 3.36 L Hgb 11.5 L Hct 32.3 L MCV 96.1 H MCH 34.2 H MCHC 35.6 RDW Std Deviation 45.1 H RDW Coeff of Sridevi 12.8 Plt Count 132 L MPV 9.7 Immature Gran % (Auto) 0.200 Neut % (Auto) 50.5 Lymph % (Auto) 35.2 [place] % (Auto) 8.9 Eos % (Auto) 3.9 Baso % (Auto) 1.3 H Absolute Neuts (auto) 2.3 Absolute Lymphs (auto) 1.63 Nucleated RBC % 0 Sodium 141 Potassium 4.3 Chloride 106 Carbon Dioxide 26.0 Anion Gap 9 BUN 31 H Creatinine 1.54 H Estim Creat Clear Calc 36.18 Est GFR (MDRD) Af Amer 56 L Est GFR (MDRD) Non-Af 47 L BUN/Creatinine Ratio 20.1 H Glucose 371 H Calcium 8.6 Urine Color Red Urine Clarity Turbid Urine pH 6.5 Ur Specific [place] 1.015 Urine Protein 500 H Urine Glucose (UA) 1000 H Urine Ketones 5 H Urine Occult Blood 250 H Urine Nitrite Negative Urine Bilirubin Negative Urine Urobilinogen Normal Ur Leukocyte Esterase 100 H Urine RBC 50-100 SEEN Urine WBC 10-25 SEEN Ur Squamous Epith Cells 0 SEEN Urine Bacteria 0 SEEN Urine Mucus 0 SEEN Discharge Plan Triage Chief Complaint: Complaint ED Provider: Donavan Deleon Dx/Rx/DC Orders Clinical Impression: Acute on chronic urinary retention, Hematuria, Mild anemia Instructions: ED Valadez Catheter, Care Prescriptions: No Action aspirin 81 MG tablet,chewable 81 mg PO DAILY@0800 Hold Instructions: Resume on 08/02/22. Label Comments: LAST DOSE ASPIRIN 07/14/2022 FOR SURGERY ON 07/19/22 levobunolol 1 DROP drops 1 drp EACH EYE DAILY nitroglycerin 0.4 MG tablet 0.4 mg SUBLINGUAL Q5M PRN (Reason: Chest Pain) finasteride 5 mg tablet 5 mg PO DAILY Label Comments: TAKE 1 TABLET BY MOUTH ONCE DAILY atorvastatin 80 mg tablet 80 mg PO QHS glipizide 10 mg tablet extended release 24hr 10 mg PO BID metoprolol tartrate 25 mg tablet 25 mg PO BID ciprofloxacin HCl [Cipro] 500 mg tablet 500 mg PO BID Qty: 14 0RF clopidogrel [Plavix] 75 mg tablet 75 mg PO QDAY Qty: 90 3RF Hold Instructions: Resume on 08/02/22. Primary Care Provider: Adi Pearce Referrals: Cuba Pryor MD [Med Staff - Active Staff] - As soon as possible Adi Pearce MD [Primary Care Provider] - Disposition Disposition: Home, Self Care
[2022-08-07 13:53] LABS: Absolute Lymphocyte Count 1.63 X10^3/uL (0.83-4.51); Absolute Neutrophil Count 2.3 X10^3/uL (2.0-7.7); Basophil# 0.06 X10^3/uL; Basophil% 1.3 % (0-1); Eosinophil# 0.18 X10^3/uL; Eosinophils% 3.9 % (0-5); Hematocrit 32.3 % (40-54); Hemoglobin 11.5 g/dL (13.0-16.5); Lymphocyte # 1.63 X10^3/ul (0.83-4.51); Lymphocyte % 35.2 % (19-41); Mean Corp Hgb Conc 35.6 g/dL (32-36); Mean Corpuscular Hgb 34.2 pg (27.0-32.0); Mean Corpuscular Volume 96.1 fL (80-94); Mean Platelet Vol. 9.7 fl (6.2-12.0); Monocyte# 0.41 X10^3/uL; Monocyte% 8.9 % (0-10); NRBC Flagged by Analyzer 0 % (0-5); Neutrophil # 2.34 X10^3/uL (2.7-7.7); Neutrophil % 50.5 % (47-70); Platelet Count 132 K/mm3 (150-450); RBC Distribution Width CV 12.8 % (11.6-14.6); RBC Distribution Width SD 45.1 fl (35.1-43.9); Red Blood Count 3.36 M/mm3 (4.6-6.2); White Blood Count 4.6 K/mm3 (4.4-11.0)
[2022-08-07 14:06] LABS: Anion Gap 9 (5-15); BUN 31 mg/dL (7-18); BUN/Creat Ratio 20.1 RATIO (10-20); Calcium,Total 8.6 mg/dL (8.5-10.1); Chloride 106 mmol/L (98-107); Creatinine, Serum 1.54 mg/dL (0.70-1.30); EST Glomerular Filtration Rate 47 mL/min (>60); Est Glom Filt Rate - Afr Amer 56 mL/min (>60); Estimated Creatinine Clearance 36.18 ml/min; Glucose 371 mg/dL (74-106); Potassium 4.3 mmol/L (3.5-5.1); Sodium Level 141 mmol/L (136-145)
[2022-08-07 14:09] VITALS: RESP 17
[2022-08-07 14:21] LABS: Bacteria 0 SEEN /hpf (None Seen); Mucous, Urine 0 SEEN /hpf (<or=2+); Squamous Epithelial Cells - UA 0 SEEN /hpf (0-5)
[2022-08-07 14:26] LABS: Color, Urine Red (Yellow); Glucose, Dipstick 1000 mg/dl (Normal); Ketone-Dipstick 5 mg/dl (Negative); Leukocyte Esterase-Dipstick 100 /ul (Negative); Nitrite-Dipstick Negative (Negative); Occult Blood-Urine 250 /ul (Negative); Protein-Dipstick 500 mg/dl (Negative); Specific Gravity, Urine 1.015 (1.002-1.030); Urine Bilirubin Dipstick Negative (Negative); Urine Clarity Turbid (Clear); Urine Urobilinogen Normal (Normal); Urine pH 6.5 (5.0 - 8.0)
[2022-08-07 14:32] LABS: Red Blood Cells-Urine 50-100 SEEN /hpf (0-5); White Blood Cells 10-25 SEEN /hpf (0-5)
[2022-08-07 17:46] VITALS: BP 112/87; PULSE 84; RESP 17; O2SAT 97
== END 2022-08-07 17:55 | disposition home or self-care (01) ==
PROVIDERS: Emergency Provider Emergency Medicine; PCP Family Medicine; Visit Provider Emergency Medicine
DX: R33.9 Retention of urine, unspecified (principal); R31.9 Hematuria, unspecified; N18.9 Chronic kidney disease, unspecified; I25.10 Atherosclerotic heart disease of native coronary artery without angina pectoris; D64.9 Anemia, unspecified; I25.2 Old myocardial infarction; Z95.5 Presence of coronary angioplasty implant and graft
CPT/HCPCS: 51702; 80048; 81001; 85025; 87086; 99284; A4216

== ENCOUNTER → 2022-08-24 | Outpatient (CLI) | payer MEDICARE, SELFPAY ==
--- NOTE | 2022-08-24 10:30 | MRI_ITS ---
STUDY: MRI LUMBAR SPINE WITHOUT CONTRAST REASON FOR EXAM: Male, 81 years old. SPINAL STENOSIS,LUMBAR REGION WITHOUT NEUROGENIC SCOTT TECHNIQUE: Standardized fat and water weighted pulse sequences were obtained in the sagittal and axial planes. COMPARISON: None FINDINGS: T12-L1: Normal endplates. Normal disc height, hydration and morphology. Normal bilateral facet joints. Normal central canal and bilateral lateral recesses. Normal bilateral intervertebral neural foramina. Normal lumbar lordosis. There is no substantial scoliosis. Normal conus medullaris that terminates at the L2. L1-2: Normal endplates. Normal disc height, hydration and morphology. Normal bilateral facet joints. Normal central canal and bilateral lateral recesses. Normal bilateral intervertebral neural foramina. L2-3: Moderate broad-based annular disc bulge and hypertrophic fluid-filled facet disease causes trefoil type narrowing of the thecal sac and moderately severe narrowing of the inferior neural foramina bilaterally. L3-4: Moderate broad-based annular disc bulge and hypertrophic fluid-filled facet disease causes trefoil type narrowing of the thecal sac and moderately severe narrowing of the inferior neural foramina bilaterally. L4-5: Normal endplates. Normal disc height, hydration and morphology. Normal bilateral facet joints. Normal central canal and bilateral lateral recesses. Normal bilateral intervertebral neural foramina. L5-S1: Normal endplates. Normal disc height, hydration and morphology. Normal bilateral facet joints. Normal central canal and bilateral lateral recesses. Normal bilateral intervertebral neural foramina. Normal visualized sacral ala. Normal visualized paraspinous soft tissue structures. MRI/Spine Lumbar (Routine) IMPRESSION: Moderate Broad-based annular disc bulges and neural foraminal narrowing bilaterally at L3-4 and L4-5. Electronically Signed: Ousmane Roland MD at 0:34 EST Reading Location ID and State: [address] [place] [address] , Service support ,
== END | disposition home or self-care (01) ==
LOC: MRI 08:35
PROVIDERS: PCP Family Medicine; Visit Provider Orthopaedic Surgery
DX: M48.061 Spinal stenosis, lumbar region without neurogenic claudication (principal); M51.26 Other intervertebral disc displacement, lumbar region; M47.26 Other spondylosis with radiculopathy, lumbar region
CPT/HCPCS: 72148

== ENCOUNTER 2022-09-24 09:56 | Observation (INO) | payer MEDICARE, SELFPAY ==
[2022-09-24] VITALS (7 sets, daily range): BP systolic 106–138; BP diastolic 61–82; PULSE 68–82; RESP 16–20; TEMP 36.4–37.1; O2SAT 97–100; BMI 19.3; BMI 18.3
--- NOTE | 2022-09-24 10:09 | EKG12_ITS ---
Test Reason : WEAKNESS Blood Pressure : / mmHG Vent. Rate : 081 BPM Atrial Rate : 081 BPM P-R Int : 190 ms QRS Dur : 076 ms QT Int : 366 ms P-R-T Axes : 047 -20 044 degrees QTc Int : 425 ms Normal sinus rhythm Low voltage QRS Abnormal ECG Confirmed by BRENDA RG, MUSTAPHA ([id number]), map editor KATHRYN NULL ([id number]) on 09/26/2022 11:20:45 AM Referred By: Confirmed By:MUSTAPHA GUTIERREZ MD
--- NOTE | 2022-09-24 10:11 | EDS_ITS ---
HPI History of Present Illness Chief Complaint: Weakness Detail of Chief Complaint: Generalized weakness. Weight loss. Informant: patient Onset/Context/Timing Onset: Month(s) Context: Gradual Onset Timing: Continuous Current Severity: Mild Maximum Severity: Mild Narrative Narrative: 81-year-old male history of diabetes, renal insufficiency, CAD with stents, degenerative disc disease and about 3 months ago had prostate surgery. Patient states he has been going downhill over the last 4 months. Believes he is lost around 20 pounds. Says he just feels weak. Denies nausea, vomiting or diarrhea. Denies fever. Denies melena. Says he lives at home with his . He is having trouble getting around the house. Prior similar symptoms: Yes Recent Illness/Hospitalization: No PFSH PFSH Medical History Angina pectoris, unstable Atherosclerosis of [place] coronary artery of [place] heart without angina pectoris Cardiology follow-up encounter Chronic indwelling Valadez catheter Chronic renal insufficiency Diabetes 1.5, managed as type 2 Essential hypertension Excessive bleeding History of stress test HLD (hyperlipidemia) HLP (hyperkeratosis lenticularis perstans) Hypertension Indwelling urethral catheter present Loss of hearing Myocardial infarct Non-smoker Open wound Presence of stent in coronary artery (~12/20/15) Walker as ambulation aid Wears glasses Home Medications aspirin 81 mg chewable tablet 81 mg PO DAILY@0800 [facility] 12/19/15 [History Last Taken 07/14/22] levobunolol 0.5 % eye drops 1 drp EACH EYE DAILY 01/22/16 [History Last Taken Unknown] nitroglycerin 0.4 mg sublingual tablet 0.4 mg sublingual Q5M PRN Chest Pain 01/22/16 [History Last Taken Unknown] clopidogrel 75 mg tablet (Plavix) 75 mg PO QDAY #90 tabs 02/18/22 [Rx Last Taken 07/14/22] atorvastatin 80 mg tablet 80 mg PO QHS HLD 07/15/22 [History Last Taken Unknown] finasteride 5 mg tablet 5 mg PO DAILY BPH 07/15/22 [History Last Taken Unknown] glipizide 10 mg tablet, extended release 24 hr 10 mg PO BID 07/15/22 [History Last Taken Unknown] metoprolol tartrate 25 mg tablet 25 mg PO BID 07/15/22 [History Last Taken Unknown] ciprofloxacin HCl 500 mg tablet (Cipro) 500 mg PO BID #14 tabs 07/19/22 [Rx Last Taken Unknown] Allergy/AdvReac Type Severity Reaction Status Date / Time No Known Allergies Allergy Verified 09/24/22 09:57 Family History Brother CAD (coronary artery disease) Mother , from [place] at age 74 CAD (coronary artery disease) Myocardial infarction, Onset Age: 74 Surgical History History of cataract extraction History of colonoscopy jaw surgery for fracture Presence of coronary angioplasty implant and graft (~12/20/15) surgery on left index finger Social History Smoking Status: Never smoker alcohol intake: never substance use type: does not use caffeine: Yes (rarely) eating out: 1-3 times/week during the past year weight has: remained stable what type of physical activity do you participate in: walking frequency: daily duration: < 15 minutes/day seatbelt use: always do you feel safe at home: Yes ROS ROS ED ROS Narrative Weight loss. Generalized weakness. Constitutional Constitutional ED: Reports chills; Denies fever(s) Eyes Eyes: Denies blurry vision ENT ENT ED: Denies ear pain, rhinorrhea or sore throat Cardiovascular Cardiovascular: Denies chest pain or palpitations Respiratory/Chest Respiratory/Chest: Denies cough or dyspnea Gastrointestinal Gastrointestinal: Denies abdominal pain, constipation, diarrhea or melena Genitourinary Genitourinary ED: Denies dysuria or hematuria Musculoskeletal Musculoskeletal: Denies arthralgias Integumentary Denies abscess Neurologic Neurologic: Denies headache(s) Psychiatric Psychiatric: Denies anxiety Endocrine Endocrinology: Denies cold intolerance Hematologic/Lymphatic Hematologic/Lymphatic: Reports none Allergic/Immunologic Allergic/Immunologic ED: Denies mouth swelling or tongue swelling EXAM Physical Exam Narrative Exam Narrative: 81-year-old male generally appears weak. He does not look septic or toxic. His vital signs are stable and afebrile. Pulse ox is 99% on room air no hypoxia. H EENT exam unremarkable. Moist mucous membranes. Atraumatic. Neck nontender no lymphadenopathy. Lungs clear to auscultation bilaterally. Heart regular rhythm rate about 70 no murmur. Chest wall nontender. Abdomen soft nontender. Moving all 4 extremities. Nontender. No deformity. No edema. Normal range of motion. Back nontender. Clinically does look thin. Neurologically he is awake and alert with no focal motor deficits. Const Vital Signs: 09/24/22 09:58 09/24/22 10:00 09/24/22 12:06 Temperature 98.5 F Temperature Source Oral Pulse Rate 68 82 Respiratory Rate 20 H 17 Respiratory Effort Normal Non-Labored Respiratory Pattern Normal Blood Pressure 122/82 H 138/61 H Blood Pressure Mean 95 86 Pulse Ox 99 99 Oxygen Delivery Method Room Air Room Air Positive well nourished and well developed; Negative for obese, cachectic, contractures or unkempt General Appearance ED: well developed and NAD; Negative for unkempt, cachectic, contractures, cyanotic or diaphoretic Nutritional Appearance: Negative for cachectic or obese HEENT Reports moist mucous membranes; Denies dry mucous membranes Negative for trauma or tenderness Mouth ED: No dry mucous membranes Mouth: No dry mucous membranes Eyes PERRL and EOMs intact bilaterally General Eye ED: Negative for pale conjunctiva or scleral icterus Neck no lymphadenopathy, supple and no JVD General: Negative for tenderness Lymph Lymphatic: Negative for other Chest Wall inspection of chest normal and palpation of chest normal Chest: Negative for other Resp normal respiratory effort and clear to auscultation bilaterally Effort and Inspection: Negative for retractions Auscultation: Negative for rales, rhonchi or wheezes Cardio regular rate, regular rhythm, S1 normal heart sound, S2 normal heart sound and no murmurs GI normal to inspection, nondistended, normoactive bowel sounds, non-tender, non- distended and no masses Inspection: Negative for abdominal distention Auscultation: normoactive bowel sounds Palpation: soft; Negative for tender or guarding Back/Spine no CVA tenderness General Back: Negative for CVA tenderness Cervical Spine: Negative for cervical spine tenderness Thoracic Spine / Upper Back: Negative for thoracic spinal tenderness Lumbar Spine / Lower Back: Negative for lumbar spinal tenderness Extremity normal to inspection General Extremety ED: Negative for edema or tenderness General Extremity: Negative for edema Neuro oriented x3 and CN's II-XII intact bilaterally Sensorium / Orientation: alert; Negative for orientation impaired, lethargic or stuporous Motor Exam: general weakness; Negative for strength 5/5 throughout Psych mental status grossly normal Appearance: Negative for unkempt Attitude: No agitated Mood & Affect: Negative for depressed, anxious or tearful Skin no rashes or lesions noted and no wounds Lesions: No lesion noted Trauma: Negative for abrasion Wounds: Negative for wounds noted MDM MDM MDM Narrative Medical decision making narrative: 81-year-old male presents for generalized weakness. Screening labs will be obtained. Differential could include renal disease, complications of diabetes. Anemia, infections. I did review his old labs and work-ups. Repeat exam at 1:42 PM patient doing well. I went over test results with both he and his . She said he is very weak at home even using his walker he can barely get around the house. She would prefer he would be admitted. I will start him on IV Rocephin and Zithromax for the pneumonia and urinary tract infection. Urine cultures will be sent. I will speak to the hospitalist about the admission. Clinically does not look septic. Lab Data Attestation: I reviewed the patient's lab results. Lab results narrative: CBC shows normal white count 6.9. H&H at 13.0 and 39. Platelets 160. Electrolytes show a gap of 8. BUN of 26 creatinine of 1.28 consistent with mild dehydration. Liver enzymes unremarkable. Glucose 338. Patient is a known diabetic. Urinalysis is positive for nitrites. 50-100 white cells and 2+ bacteria. Consistent for UTI. A culture will be sent. CAT scan of the chest shows a right upper lobe infiltrate. Labs: Laboratory Results - last 24 hr 09/24/22 09/24/22 09/24/22 10:00 10:00 10:45 WBC 6.9 RBC 4.10 L Hgb 13.0 Hct 39.1 L MCV 95.4 H MCH 31.7 MCHC 33.2 RDW Std Deviation 42.7 RDW Coeff of Sridevi 12.4 Plt Count 160 MPV 10.7 Immature Gran % (Auto) 0.100 Neut % (Auto) 54.4 Lymph % (Auto) 32.4 [place] % (Auto) 7.5 Eos % (Auto) 4.6 Baso % (Auto) 1.0 Absolute Neuts (auto) 3.8 Absolute Lymphs (auto) 2.24 Nucleated RBC % 0 Sodium 140 Potassium 4.2 Chloride 104 Carbon Dioxide 28.0 Anion Gap 8 BUN 26 H Creatinine 1.28 Estim Creat Clear Calc 40.57 Est GFR (MDRD) Af Amer 70 Est GFR (MDRD) Non-Af 58 L BUN/Creatinine Ratio 20.3 H Glucose 338 H Calcium 9.2 Total Bilirubin 0.60 AST 25 ALT 41 Alkaline Phosphatase 141 H Total Protein 7.6 Albumin 3.2 Globulin 4.4 H Albumin/Globulin Ratio 0.7 L Urine Color Yellow Urine Clarity Sl Cldy Urine pH 6.0 Ur Specific [place] 1.010 Urine Protein 30 H Urine Glucose (UA) 1000 H Urine Ketones Negative Urine Occult Blood 250 H Urine Nitrite Positive H Urine Bilirubin Negative Urine Urobilinogen Normal Ur Leukocyte Esterase 500 H Urine RBC 5-10 SEEN Urine WBC 50-100 SEEN Ur Squamous Epith Cells 0 SEEN Urine Bacteria 2+ Urine Mucus 0 SEEN Radiography Chest X-Ray - ED: 1 View, Read by ED Physician, Heart, Lungs, Mediastinum, Bony Structures, No Acute Disease and Chronic Changes Diagnostic Testing: Clinical Impression(s) from Imaging Studies Chest X-Ray 09/24/22 10:25 IMPRESSION: Focal right upper lobe infiltrate. Radiographic follow-up is recommended. Electronically Signed: Mauri Sim MD at 11:08 EST , Chest CT 09/24/22 11:41 IMPRESSION: Irregular infiltrate in the posterior aspect of the right upper lobe abutting the right major fissure with evidence of bronchiectasis. This most likely represents a new infiltrate with underlying scarring. No definite mass lesion is seen. Radiographic follow up is recommended. Electronically Signed: Mauri Sim MD at 12:18 EST , Chest x-ray, portable, single view, interpreted by myself shows chronic changes no acute process. Normal cardiac silhouette. Rhythm Strip Rhythm Strip: Sinus Rhythm Rate: 81 Ectopy: None EKG Initial EKG: Attestation: I personally reviewed and interpreted this EKG as follows: Interpretation: Sinus Rhythm and No Acute Injury Pattern Comments: Normal sinus rhythm rate of 81 no acute signs of [place] or ischemia. Low voltage. Discharge Plan Dx/Rx/DC Orders Clinical Impression: Acute UTI, Pneumonia, Generalized weakness, Adult failure to thrive, History of diabetes mellitus, History of CAD (coronary artery disease) Disposition Disposition: [facility]
[2022-09-24 10:19] LABS: Absolute Lymphocyte Count 2.24 X10^3/uL (0.83-4.51); Absolute Neutrophil Count 3.8 X10^3/uL (2.0-7.7); Basophil# 0.07 X10^3/uL; Eosinophil# 0.32 X10^3/uL; Eosinophils% 4.6 % (0-5); Hematocrit 39.1 % (40-54); Lymphocyte # 2.24 X10^3/ul (0.83-4.51); Lymphocyte % 32.4 % (19-41); Mean Corp Hgb Conc 33.2 g/dL (32-36); Mean Corpuscular Hgb 31.7 pg (27.0-32.0); Mean Corpuscular Volume 95.4 fL (80-94); Mean Platelet Vol. 10.7 fl (6.2-12.0); Monocyte# 0.52 X10^3/uL; Monocyte% 7.5 % (0-10); NRBC Flagged by Analyzer 0 % (0-5); Neutrophil # 3.75 X10^3/uL (2.7-7.7); Neutrophil % 54.4 % (47-70); Platelet Count 160 K/mm3 (150-450); RBC Distribution Width CV 12.4 % (11.6-14.6); RBC Distribution Width SD 42.7 fl (35.1-43.9); White Blood Count 6.9 K/mm3 (4.4-11.0)
--- NOTE | 2022-09-24 10:25 | RAD_ITS ---
STUDY: X-RAY CHEST REASON FOR EXAM: Male, 81 years old. Weakness TECHNIQUE: Single AP portable view of the chest. COMPARISON: Comparison is made with prior study dated 12/19/2015. FINDINGS: EKG electrodes are seen. Focal infiltrate is seen in the right upper lobe. Radiographic follow-up is recommended. There is no demonstrated pleural abnormality. Normal size heart. Normal mediastinum and marlon. Normal visualized pulmonary arteries. Normal visualized aortic arch and descending thoracic aorta. Normal visualized thoracic spine. Normal visualized ribs, clavicles, and shoulders. There is no demonstrated abnormality of the visualized soft tissue structures of the upper abdomen. RAD/Chest 1 View (Portable) IMPRESSION: Focal right upper lobe infiltrate. Radiographic follow-up is recommended. Electronically Signed: Mauri Sim MD at 11:08 [facility] ,
[2022-09-24 10:35] LABS: ALB/GLOB Ratio 0.7 RATIO (0.9-2.4); AST(SGOT) 25 U/L (15-37); Alanine Aminotransfer ALT/SGPT 41 U/L (16-61); Albumin, Serum 3.2 g/dL (3.2-5.0); Alkaline Phosphatase 141 U/L (45-117); Anion Gap 8 (5-15); BUN 26 mg/dL (7-18); BUN/Creat Ratio 20.3 RATIO (10-20); Calcium,Total 9.2 mg/dL (8.5-10.1); Chloride 104 mmol/L (98-107); Creatinine, Serum 1.28 mg/dL (0.70-1.30); EST Glomerular Filtration Rate 58 mL/min (>60); Est Glom Filt Rate - Afr Amer 70 mL/min (>60); Estimated Creatinine Clearance 40.57 ml/min; Globulin 4.4 g/dL (2.2-4.2); Glucose 338 mg/dL (74-106); Potassium 4.2 mmol/L (3.5-5.1); Protein, Total 7.6 g/dL (6.4-8.2); Sodium Level 140 mmol/L (136-145)
[2022-09-24 10:52] LABS: Glucose, Dipstick 1000 mg/dl (Normal); Ketone-Dipstick Negative (Negative); Leukocyte Esterase-Dipstick 500 /ul (Negative); Mucous, Urine 0 SEEN /hpf (<or=2+); Nitrite-Dipstick Positive (Negative); Occult Blood-Urine 250 /ul (Negative); Protein-Dipstick 30 mg/dl (Negative); Squamous Epithelial Cells - UA 0 SEEN /hpf (0-5); Urine Bilirubin Dipstick Negative (Negative); Urine Urobilinogen Normal (Normal)
[2022-09-24 11:02] LABS: Color, Urine Yellow (Yellow); Urine Clarity Sl Cldy (Clear)
[2022-09-24 11:04] LABS: White Blood Cells 50-100 SEEN /hpf (0-5)
[2022-09-24 11:05] LABS: Bacteria 2+ /hpf (None Seen); Red Blood Cells-Urine 5-10 SEEN /hpf (0-5)
--- NOTE | 2022-09-24 11:41 | CT_ITS ---
STUDY: CT CHEST WITHOUT CONTRAST REASON FOR EXAM: Male, 81 years old. Right sided infiltrate vs mass RADIATION DOSAGE (If Supplied By Facility): CTDIvol = ( 7.25 ) mGy, DLP = ( 275.51 ) mGycm TECHNIQUE: Transaxial imaging was performed without the administration of intravenous contrast material. Multiplanar coronal and sagittal images were reformatted. Individualized dose optimization techniques were used for this CT. COMPARISON: Comparison is made with prior chest radiograph done earlier in the day. FINDINGS: CHEST Irregular heterogeneous infiltrate is seen in the posterior aspect of the right upper lobe abutting the right minor fissure. There is evidence of a bronchiectasis. This may represent heterogeneous infiltrate. No definite mass lesion is seen. Radiographic follow-up is recommended. There is no demonstrated pleural abnormality. There are calcifications of the coronary arteries. Normal mediastinum. Normal hilar regions. Normal unenhanced pulmonary arteries. There is atherosclerotic calcification of the aortic arch with tortuosity and elongation of the aortic arch and descending thoracic aorta. There are multi-level degenerative changes of the thoracic spine. Multiple gallstones. Prominence of the crux of the left adrenal gland suggests a possible small adenoma. CT/Chest without Contrast IMPRESSION: Irregular infiltrate in the posterior aspect of the right upper lobe abutting the right major fissure with evidence of bronchiectasis. This most likely represents a new infiltrate with underlying scarring. No definite mass lesion is seen. Radiographic follow up is recommended. Electronically Signed: Mauri Sim MD at 12:18 EST ,
--- NOTE | 2022-09-24 12:56 | CM.ED ---
SUBHASH Note SW met with patient and patient's and introduced herself and role as [facility] Pharmacy Billing Adjudicator. SW requested permission to speak with patient's present, patient agreed. SW inquired about AD paperwork. Patient's states patient has HCPOA and would bring in the document at a later date. Patient's , Miguel, states she is patient's identified HCPOA and does not recall if other agents were identified. Patient agrees his is his HCPOA. SW then inquired about presenting concerns and patient's recent symptoms. Patient's states she has been caring for the patient increasingly over the past four months. Patient's explained the patient uses a walker at home but isn't able to walk far before needing assistance or a break. Patient's explained she provides care for the patient and herself and attempted to get HHC once, but they weren't able to afford it. SW reviewed [facility] resource and encouraged patient's to contact them for an assessment to discuss programs/services patient may qualify for. Patient's and patient were receptive towards resource. SW then inquired about patient's interest in assisted or fci homes. Patient states he was interested for a short period of time. Patient's states she wants patient to be able to walk more independently and return home so she can continue to care for him. SW provided emotional support and briefly discussed the difference between assisted and fci home as well as the process of being admitted. SW to follow up with . SW reviewed concerns with MD De and explained due to patient's insurance he would need to be admitted for precert if SNF is appropriate. MD to follow up with patient and patient's . Plan: MD to review, possible admit for SNF placement. [place] [place] [employer], CHARANJIT
--- NOTE | 2022-09-24 13:52 | NURSING ---
HOSPITALIST FOR DR WALKER
--- NOTE | 2022-09-24 14:01 | NURSING ---
MED SURG OBS NUAMAH FAILURE TO THRIVE, WEAKNESS, UTI, PNEUMONIA, WT LOSS
--- NOTE | 2022-09-24 14:03 | HP.PCM.HOS_ITS ---
[facility] - General General Date of Admission: 09/24/22 Date of Service: 09/24/22 Chief Complaint: Generalized weakness ongoing for 4 months, worse in the last couple of days HPI Narrative LYNETTE GUDINO, is a 81 M who presents with the above. Patient has past medical history of L3-L4, L4-5 discs bulging, seen on MRI on 08/11/22, hypertension, CAD status post stent, type II DM. History was taken from the patient and the . Patient stated that over the last 4 months, he has been progressively weak, he has lost more than 20 pounds, he has had a poor appetite. He typically walks with a walker but lately has been unable to move around. He has seen his primary care doctor and he stated he is no work-up known to figure out his weight loss. His stated that she is unable to take care of him. Complains of chronic low back pain. He admits to bilateral leg numbness. Denies any incontinence of urine or stool. He had previously seen Dr. Irizarry and was referred to a spine surgeon in [place]. MRI of the spine showed L3-L4, L4-L5 d isc bulging. He has an appointment coming up on 10/02/22. He denied any night sweats or nausea or vomiting or diarrhea. Vitals in the ED showed blood pressure 122/82, heart rate 68, respiratory 20, temperature 98.5 F, respiratory rate 20, oxygen sats 99% on room air. WBC 6.9, hemoglobin 13.0, platelet count 160. CMP is unremarkable except for BUN of 28, creatinine 1.28. UA is slightly cloudy, glucose 1000, nitrite positive, WBC 50- 100, +2. Blood glucose is 320. Chest x-ray shows focal right upper lobe infiltrate. Chest CT shows irregular infiltrate in the posterior right upper lobe abutting the major fissure with evidence of bronchiectasis. FORMERLY [facility], [facility]–1983 Medical History Angina pectoris, unstable Atherosclerosis of [place] coronary artery of [place] heart without angina pectoris Cardiology follow-up encounter Chronic indwelling Valadez catheter Chronic renal insufficiency Diabetes 1.5, managed as type 2 Essential hypertension Excessive bleeding History of stress test HLD (hyperlipidemia) HLP (hyperkeratosis lenticularis perstans) Hypertension Indwelling urethral catheter present Loss of hearing Myocardial infarct Non-smoker Open wound Presence of stent in coronary artery (~12/20/15) Walker as ambulation aid Wears glasses Home Medications aspirin 81 mg chewable tablet 81 mg PO DAILY@0800 [facility] 12/19/15 [History Last Taken 07/14/22] levobunolol 0.5 % eye drops 1 drp EACH EYE DAILY 01/22/16 [History Last Taken Unknown] nitroglycerin 0.4 mg sublingual tablet 0.4 mg sublingual Q5M PRN Chest Pain 01/22/16 [History Last Taken Unknown] clopidogrel 75 mg tablet (Plavix) 75 mg PO QDAY #90 tabs 02/18/22 [Rx Last Taken 07/14/22] atorvastatin 80 mg tablet 80 mg PO QHS HLD 07/15/22 [History Last Taken Unknown] finasteride 5 mg tablet 5 mg PO DAILY BPH 07/15/22 [History Last Taken Unknown] glipizide 10 mg tablet, extended release 24 hr 10 mg PO BID 07/15/22 [History Last Taken Unknown] metoprolol tartrate 25 mg tablet 25 mg PO BID 07/15/22 [History Last Taken Unknown] ciprofloxacin HCl 500 mg tablet (Cipro) 500 mg PO BID #14 tabs 07/19/22 [Rx Last Taken Unknown] Allergy/AdvReac Type Severity Reaction Status Date / Time No Known Allergies Allergy Verified 09/24/22 09:57 Family History Brother CAD (coronary artery disease) Mother , from [place] at age 74 CAD (coronary artery disease) Myocardial infarction, Onset Age: 74 Surgical History History of cataract extraction History of colonoscopy jaw surgery for fracture Presence of coronary angioplasty implant and graft (~12/20/15) surgery on left index finger Social History Smoking Status: Never smoker alcohol intake: never substance use type: does not use caffeine: Yes (rarely) eating out: 1-3 times/week during the past year weight has: remained stable what type of physical activity do you participate in: walking frequency: daily duration: < 15 minutes/day seatbelt use: always do you feel safe at home: Yes ROS ROS Narrative Constitutional: Reports: Weakness, Fatigue, anorexia. Denies: Chills, Fever, Night Sweats, Weight Change Eyes: Denies: Blurred vision, Cataracts, Conjunctivae Inflammation, Pain, Redness, Vision Change HEENT: Denies: Difficulty Hearing, Difficulty Swallowing, Head Aches, Hearing Changes, Sinus Congestion, Sinus Drainage Cardiovascular: Denies: Chest Pain, Orthopnea, Palpitations Respiratory: Denies: Cough, Shortness of breath at rest, Sputum production Gastrointestinal: Denies: Abdominal Pain, Nausea, Vomiting Genitourinary: Denies: Dysuria Musculoskeletal: See HPI Skin: Denies: Rash, Wounds Neurological: Denies: Numbness, Tingling, Focal weakness Vital Signs Vital Signs Vital Signs: 09/24/22 09:58 09/24/22 10:00 09/24/22 12:06 Temperature 98.5 F Temperature Source Oral Pulse Rate 68 82 Respiratory Rate 20 H 17 Respiratory Effort Normal Non-Labored Respiratory Pattern Normal Blood Pressure 122/82 H 138/61 H Blood Pressure Mean 95 86 Pulse Ox 99 99 Oxygen Delivery Method Room Air Room Air Weight Weight: 61.3 kg Body Mass Index (BMI) 19.3 Physical Exam Narrative Physical exam: General: Alert, Oriented x3, Cooperative, No apparent distress, appears cachectic HEENT: Atraumatic Oral: Moist Mucosa Neck: Supple Lungs: Diminished to auscultation Cardiovascular: HS I+II, regular, no murmurs Abdomen: Bowel Sounds Present, Soft, tenderness over the lumbosacral region Extremities: No edema Skin: No rashes, No breakdown Neurological: Grossly intact Psych/Mental Status: Appropriate Results Lab / Micro Data Result Diagrams: 09/24/22 10:00 09/24/22 10:00 Labs: Laboratory Results - last 24 hr 09/24/22 10:00: WBC 6.9, RBC 4.10 L, Hgb 13.0, Hct 39.1 L, MCV 95.4 H, MCH 31.7, MCHC 33.2, RDW Std Deviation 42.7, RDW Coeff of Sridevi 12.4, Plt Count 160, MPV 10.7, Immature Gran % (Auto) 0.100, Neut % (Auto) 54.4, Lymph % (Auto) 32.4, [place] % (Auto) 7.5, Eos % (Auto) 4.6, Baso % (Auto) 1.0, Absolute Neuts (auto) 3 .8, Absolute Lymphs (auto) 2.24, Nucleated RBC % 0 09/24/22 10:00: Sodium 140, Potassium 4.2, Chloride 104, Carbon Dioxide 28.0, Anion Gap 8, BUN 26 H, Creatinine 1.28, Estim Creat Clear Calc 40.57, Est GFR (MDRD) Af Amer 70, Est GFR (MDRD) Non-Af 58 L, BUN/Creatinine Ratio 20.3 H, Glucose 338 H, Calcium 9.2, Total Bilirubin 0.60, AST 25, ALT 41, Alkaline Phosphatase 141 H, Total Protein 7.6, Albumin 3.2, Globulin 4.4 H, Al bumin/Globulin Ratio 0.7 L 09/24/22 10:45: Urine Color Yellow, Urine Clarity Sl Cldy, Urine pH 6.0, Ur Specific [place] 1.010, Urine Protein 30 H, Urine Glucose (UA) 1000 H, Urine Ketones Negative, Urine Occult Blood 250 H, Urine Nitrite Positive H, Urine Bilirubin Negative, Urine Urobilinogen Normal, Ur Leukocyte Esterase 500 H, Urine RBC 5-10 SEEN, Urine WBC 50-100 SEEN, Ur Squamous Epith Cells 0 SEEN, Urine Bacteria 2+, Urine Mucus 0 SEEN Rhythm Strip Rhythm Strip: Sinus Rhythm Rate: 81 Ectopy: None Radiology Impression Chest X-Ray 09/24/22 10:25 IMPRESSION: Focal right upper lobe infiltrate. Radiographic follow-up is recommended. Electronically Signed: Muari Sim MD at 11:08 EST , Chest CT 09/24/22 11:41 IMPRESSION: Irregular infiltrate in the posterior aspect of the right upper lobe abutting the right major fissure with evidence of bronchiectasis. This most likely represents a new infiltrate with underlying scarring. No definite mass lesion is seen. Radiographic follow up is recommended. Electronically Signed: Mauri Sim MD at 12:18 EST , Assessment & Plan Assessment/Plan (1) Acute UTI: (2) Pneumonia: PLAN: Plan 1. Acute community-acquired pneumonia, noted on admitting chest x-ray and CT of the chest Patient is not on oxygen, has normal WBC count Continue on IV ceftriaxone and azithromycin Check urine Legionella and streptococcal antigen 2. Suspected acute UTI, UA suspicious Continue on antibiotics day #1 Follow-up on urine cultures 3. Chronic back pain secondary to bulging disks in L3-L4, L4-5 Seen on MRI of the back. No red flag symptoms Patient due to see spine surgery in [place] soon We will continue on scheduled Tylenol, Lidoderm patches, oxycodone as needed 4. Recent weight loss, anorexia, unclear etiology No specific symptoms We will check PSA, patient will need to follow-up with outpatient for co lonoscopy and other screening tests 5. CAD status post stent/hypertension/hyperlipidemia Continue aspirin, statin, Plavix, metoprolol, nitro as needed 6. Type II DM, on glipizide, hold glipizide for now Continue on blood glucose checks with insulin sliding scale May resume glipizide if no acute events in this hospital stay. 7. DVT PPx- Heparin SC I discussed and explained in details the various types of CODE STATUS-full code, DNR CCA, DNR CC. Patient chose to be DNR CCA, no intubation in the event of a cardiopulmonary arrest. Time spent discussing CODE STATUS 16 minutes Charges/Coding Addendum Addendum: Total time spent: 55 minutes of which more > 50% was spent in reviewing patient's chart, laboratory investigations, imaging, discussing with emergency physician, taking history and physical examining patient and going over plan of care with patient and at the bedside. Visit Charges Inpatient E&M: 17600 Init Hosp L3 Procedures Hospitalists Procedures: 04623 Advncd Care Plan 30 Min
[2022-09-24] MEDS: Ceftriaxone 1 GM/50 ML BAG IV (14:07)
[2022-09-24] MEDS: Lidocaine 5% Patch 2 PATCH TOPICAL (15:57)
[2022-09-24] MEDS: Insulin Lispro 100 UNIT/ML INSULN.PEN SC ×2 (16:00→22:37)
[2022-09-24] MEDS: Heparin Injection (Vial) 5,000 UNIT/ML VIAL 5000 UNIT SC ×2 (16:01→22:38)
[2022-09-24] MEDS: Glucerna Shake 120 ML LIQUID PO (16:05)
[2022-09-24 16:11] LABS: Bedside Glucose 320 mg/dL (74-106)
[2022-09-24 18:05] LABS: PSA,Total - Annual Screen 0.06 ng/mL (0.00-4.00)
[2022-09-24] MEDS: Menthol/Lanolin/Calamine/Znox 113 GM Tube 1 APPLIC TOPICAL (22:36)
[2022-09-24] MEDS: Acetaminophen 500 MG Tablet 1000 MG PO (22:37)
[2022-09-24 23:10] LABS: Bedside Glucose 299 mg/dL (74-106)
[2022-09-25 06:10] LABS: Absolute Lymphocyte Count 3.12 X10^3/uL (0.83-4.51); Absolute Neutrophil Count 1.5 X10^3/uL (2.0-7.7); Basophil# 0.06 X10^3/uL; Basophil% 1.1 % (0-1); Eosinophil# 0.39 X10^3/uL; Eosinophils% 7.1 % (0-5); Hematocrit 33.9 % (40-54); Hemoglobin 11.6 g/dL (13.0-16.5); Lymphocyte # 3.12 X10^3/ul (0.83-4.51); Lymphocyte % 56.5 % (19-41); Mean Corp Hgb Conc 34.2 g/dL (32-36); Mean Corpuscular Hgb 32.2 pg (27.0-32.0); Mean Corpuscular Volume 94.2 fL (80-94); Mean Platelet Vol. 10.8 fl (6.2-12.0); Monocyte# 0.45 X10^3/uL; Monocyte% 8.2 % (0-10); NRBC Flagged by Analyzer 0 % (0-5); Neutrophil # 1.49 X10^3/uL (2.7-7.7); Neutrophil % 26.9 % (47-70); Platelet Count 134 K/mm3 (150-450); RBC Distribution Width CV 12.1 % (11.6-14.6); RBC Distribution Width SD 41.9 fl (35.1-43.9); White Blood Count 5.5 K/mm3 (4.4-11.0)
[2022-09-25] MEDS: Insulin Lispro 100 UNIT/ML INSULN.PEN SC ×4 (06:38→21:17)
[2022-09-25] MEDS: Menthol/Lanolin/Calamine/Znox 113 GM Tube 1 APPLIC TOPICAL ×3 (06:40→21:18)
[2022-09-25] MEDS: Heparin Injection (Vial) 5,000 UNIT/ML VIAL 5000 UNIT SC ×3 (06:41→21:18)
[2022-09-25] MEDS: Acetaminophen 500 MG Tablet 1000 MG PO ×3 (06:43→21:23)
[2022-09-25 06:47] LABS: ALB/GLOB Ratio 0.7 RATIO (0.9-2.4); AST(SGOT) 26 U/L (15-37); Alanine Aminotransfer ALT/SGPT 39 U/L (16-61); Albumin, Serum 2.6 g/dL (3.2-5.0); Alkaline Phosphatase 98 U/L (45-117); Anion Gap 7 (5-15); BUN 26 mg/dL (7-18); BUN/Creat Ratio 26.4 RATIO (10-20); Calcium,Total 8.5 mg/dL (8.5-10.1); Chloride 105 mmol/L (98-107); Creatinine, Serum 0.98 mg/dL (0.70-1.30); EST Glomerular Filtration Rate 78 mL/min (>60); Est Glom Filt Rate - Afr Amer 94 mL/min (>60); Estimated Creatinine Clearance 49.88 ml/min; Globulin 3.7 g/dL (2.2-4.2); Glucose 210 mg/dL (74-106); Potassium 3.7 mmol/L (3.5-5.1); Protein, Total 6.3 g/dL (6.4-8.2); Sodium Level 139 mmol/L (136-145)
[2022-09-25 07:06] LABS: Bedside Glucose 212 mg/dL (74-106)
--- NOTE | 2022-09-25 08:08 | PCM.PN.HOSP ---
Reason for Visit Reason for Visit: Follow-up for severe loss of weight, loss of appetite failure to thrive, inability to ADL Diagnoses Pneumonia, unspecified organism (09/24/22) Urinary tract infection, site not specified (09/24/22) Objective Data Objective Data Vital Signs: Vital Signs Temp Pulse Resp BP Pulse Ox O2 Del Method 98.8 F 78 16 106/67 97 Room Air 09/24/22 22:58 09/24/22 22:58 09/24/22 22:58 09/24/22 22:58 09/24/22 22:58 09/25/22 05:00 Oxygen Delivery Method Room Air Weight: 127 lb 3.307 oz Body Mass Index (BMI) 18.3 Intake & Output: Intake and Output for Last 24 Hours 09/23/22 09/24/22 09/25/22 23:59 23:59 23:59 Intake Total 555 / 555 Output Total 1700 / 1700 150 / 150 Balance -1145 / -1145 -150 / -150 Lab / Micro Data Result Diagrams: 09/25/22 05:33 09/25/22 05:33 Labs: Laboratory Results - last 24 hr 09/24/22 10:00: WBC 6.9, RBC 4.10 L, Hgb 13.0, Hct 39.1 L, MCV 95.4 H, MCH 31.7, MCHC 33.2, RDW Std Deviation 42.7, RDW Coeff of Sridevi 12.4, Plt Count 160, MPV 10.7, Immature Gran % (Auto) 0.100, Neut % (Auto) 54.4, Lymph % (Auto) 32.4, [place] % (Auto) 7.5, Eos % (Auto) 4.6, Baso % (Auto) 1.0, Absolute Neuts (auto) 3.8, Absolute Lymphs (auto) 2.24, Nucleated RBC % 0 09/24/22 10:00: Sodium 140, Potassium 4.2, Chloride 104, Carbon Dioxide 28.0, Anion Gap 8, BUN 26 H, Creatinine 1.28, Estim Creat Clear Calc 40.57, Est GFR (MDRD) Af Amer 70, Est GFR (MDRD) Non-Af 58 L, BUN/Creatinine Ratio 20.3 H, Glucose 338 H, Calcium 9.2, Total Bilirubin 0.60, AST 25, ALT 41, Alkaline Phosphatase 141 H, Total Protein 7.6, Albumin 3.2, Globulin 4.4 H, Albumin/Globulin Ratio 0.7 L 09/24/22 10:00: PSA Screen 0.06 09/24/22 10:45: Urine Color Yellow, Urine Clarity Sl Cldy, Urine pH 6.0, Ur Specific [place] 1.010, Urine Protein 30 H, Urine Glucose (UA) 1000 H, Urine Ketones Negative, Urine Occult Blood 250 H, Urine Nitrite Positive H, Urine Bilirubin Negative, Urine Urobilinogen Normal, Ur Leukocyte Esterase 500 H, Urine RBC 5-10 SEEN, Urine WBC 50-100 SEEN, Ur Squamous Epith Cells 0 SEEN, Urine Bacteria 2+, Urine Mucus 0 SEEN 09/24/22 15:51: POC Glucose 320 H 09/24/22 22:35: POC Glucose 299 H 09/25/22 05:33: WBC 5.5, RBC 3.60 L, Hgb 11.6 L, Hct 33.9 L, MCV 94.2 H, MCH 32.2 H, MCHC 34.2, RDW Std Deviation 41.9, RDW Coeff of Sridevi 12.1, Plt Count 134 L, MPV 10.8, Immature Gran % (Auto) 0.200, Neut % (Auto) 26.9 L, Lymph % (Auto) 56.5 H, [place] % (Auto) 8.2, Eos % (Auto) 7.1 H, Baso % (Auto) 1.1 H, Absolute Neuts (auto) 1.5 L, Absolute Lymphs (auto) 3.12, Nucleated RBC % 0 09/25/22 05:33: Sodium 139, Potassium 3.7, Chloride 105, Carbon Dioxide 27.0, Anion Gap 7, BUN 26 H, Creatinine 0.98, Estim Creat Clear Calc 49.88, Est GFR (MDRD) Af Amer 94, Est GFR (MDRD) Non-Af 78, BUN/Creatinine Ratio 26.4 H, Glucose 210 H, Calcium 8.5, Total Bilirubin 0.50, AST 26, ALT 39, Alkaline Phosphatase 98, Total Protein 6.3 L, Albumin 2.6 L, Globulin 3.7, Albumin/Globulin Ratio 0.7 L 09/25/22 06:37: POC Glucose 212 H Micro: Microbiology 09/24/22 10:45 Urine Catheter - Catheter Legionella Antigen - Final 09/24/22 10:45 Urine Catheter - Catheter Streptococcus pneumoniae Antigen (M - Final Radiography Diagnostic Testing: Radiology Impression Chest X-Ray 09/24/22 10:25 IMPRESSION: Focal right upper lobe infiltrate. Radiographic follow-up is recommended. Electronically Signed: Mauri Sim MD at 11:08 EST , Chest CT 09/24/22 11:41 IMPRESSION: Irregular infiltrate in the posterior aspect of the right upper lobe abutting the right major fissure with evidence of bronchiectasis. This most likely represents a new infiltrate with underlying scarring. No definite mass lesion is seen. Radiographic follow up is recommended. Electronically Signed: Mauri Sim MD at 12:18 EST , Rhythm Strip Rhythm Strip: Sinus Rhythm Rate: 81 Ectopy: None Physical Exam Narrative Patient stated he has BPH and surgery of prostate in the past degenerating into incontinence which required self-catheterization. He denies history of prostate cancer. Denies burning micturition or acute lower urinary tract symptoms. Physical exam General: Alert, Oriented x3, Cooperative, BMI 18.3 kg/m? HEENT: Atraumatic, PERRLA, EOMI, Normocephalic Oral: Oral mucosa moist. No Gingival or Mucosal Lesions/ Ulcerations Neck: Supple, No JVD, Negative Carotid Bruits Lungs: Air entry diminished in bilateral lung bases. No crepitation/rhonchi Cardiovascular: Regular rate, Regular Rhythm, Normal S1, Normal S2, No murmurs Abdomen: Bowel Sounds Present, Soft, Non Tender, Non-Distended. No palpable mass. : No renal angle tenderness. No suprapubic tenderness. Extremities: No edema, Capillary Refill Less than 3 Seconds Skin: Loss of temporal subcutaneous fat, atrophy of muscle of lower extremity. No rash. Musculoskeletal: No Tenderness to Palpation of Joints or Extremities, muscle strength 4/5 of extensor group of thigh and calf muscles. Neurological: Cranial nerves II-XII grossly intact, DTR 2+/4 and Symmetrical, Neuro grossly intact Psych/Mental Status: Assessment & Plan Assessment/Plan (1) Acute UTI: (2) Pneumonia: PLAN: Plan This 81-year-old gentleman was admitted with generalized weakness, weight loss, lost 20 pounds last 4 months, and admitted to ADL, decreased appetite. Patient was [facility] floor. 1. Acute community-acquired pneumonia: Chest x-ray reviewed and shows right upper lobe infiltrate. Furthermore, chest CT was done which shows irregular infiltrate in right upper lobe with evidence of bronchiectasis scarring. No definite mass seen and EKG shows normal sinus rhythm 81 beats per. Patient IV ceftriaxone and azithromycin. No fever. Not hypoxic. Normal WBC count. 2. Suspected acute UTI, UA suspicious Urine culture shows Staph aureus more than 100,000 colonies. Sensitivity pending 3. Chronic back pain secondary to bulging disks in L3-L4, L4-5 Seen on MRI of the back. No red flag symptoms Patient due to see spine surgery in [place] soon continue on scheduled Tylenol, Lidoderm patches, oxycodone as needed 4. Recent weight loss, anorexia, unclear etiology No specific symptoms. PSA 0.06.CEA and CA 19-[address] abdomen and pelvis with contrast reviewed. Diffuse irregular thickening of bladder wall. Diffuse thickening of distal stomach and antrum with multiple gallstones. Moderate feces in colon. Normal retroperitoneum. GI is consulted. consult urology. 5. CAD status post stent/hypertension/hyperlipidemia Continue aspirin, statin, Plavix, metoprolol, nitro as needed 6. Type II DM: Hyperglycemia, glucose is 250s. Resume glipizide. Hold metformin. Continue Accu-Chek NSTs, with Humalog sliding scale. 7. DVT PPx- Heparin SC Total time of the visit including total time spent in counseling or coordination of care, (more than 50% of the total time, spent in obtaining medical information from nurses and other ancillary care providers,explaining to the patient about labs, imaging, diagnosis and management of active complex medical conditions), sound technician, urologist, with detailed history taking review of labs and imaging is 55 minutes
[2022-09-25] MEDS: Glucerna Shake 120 ML LIQUID PO ×2 (08:14→16:20)
[2022-09-25 08:18] VITALS: BP 110/68; PULSE 70; RESP 16; TEMP 36.8; O2SAT 100
[2022-09-25 09:21] VITALS: BP 105/57; PULSE 67; RESP 16; TEMP 36.5; O2SAT 100
[2022-09-25] MEDS: Lidocaine 5% Patch 2 PATCH TOPICAL (09:53)
[2022-09-25 11:35] LABS: Bedside Glucose 385 mg/dL (74-106)
--- NOTE | 2022-09-25 11:46 | CT_ITS ---
STUDY: CT ABDOMEN AND PELVIS WITH CONTRAST REASON FOR EXAM: Male, 81 years old. Loss weight/loss of appetite RADIATION DOSAGE (If Supplied By Facility): CTDIvol = ( 13.41 ) mGy, DLP = ( 557.22 ) mGycm TECHNIQUE: Transaxial images were obtained from the dome of the diaphragm to the symphysis pubis with oral contrast. Oral and amp;amp; IV Gastrografin and amp;amp; 100mL Isovue-300 was administered. Sagittal and coronal images were reconstructed. Individualized dose optimization techniques were used for this CT. COMPARISON: None. FINDINGS: The visualized lung bases are unremarkable. The visualized portions of the heart are within normal limits. There is decreased attenuation of the liver consistent with steatosis. There are multiple small gallstones. Normal spleen. Normal pancreas. Normal bilateral adrenal glands. Normal right kidney. There is a 1.7 cm cyst in the lateral aspect of the left kidney. Mild fullness of the left renal pelvis. There is evidence of diffuse thickening of the wall of the distal antrum. Normal small intestine. Moderate amount of fecal material is seen in the colon. The appendix is visualized and appears normal. There is scattered atherosclerotic calcification of the abdominal aorta, without a demonstrated aneurysm. Normal inferior vena cava. Normal retroperitoneum. A LUCERO catheter is seen within the urinary bladder. There is diffuse irregular bladder wall thickening. A neoplastic process should be ruled out. Normal abdominal wall. Normal osseous structures. CT/Abdomen/Pelvis WITH Contrast IMPRESSION: Diffuse irregular thickening of the bladder wall. A neoplastic process should BE ruled out. Diffuse thickening of the distal stomach and antrum. Multiple small gallstones. Fatty infiltration of the liver. Electronically Signed: Mauri Sim MD at 14:34 EST ,
[2022-09-25] MEDS: 0.9% Normal Saline 1,000 ML 75 ML IV (13:16)
--- NOTE | 2022-09-25 13:59 | CASEMGMT ---
Social Work SW attempted to speak to pt regarding SNF choices. Pt informed SW had not had a chance to speak to and wants to be involved. SW waited until afternoon and reviewed therapy notes. Per therapy notes 6 click scores pt could possibly go home with help. SW will review options with pt and when both are available. PLAN: Home vs. SNF [facility]
--- NOTE | 2022-09-25 14:20 | CASEMGMT ---
RN SABAS NOTE: RN CM to room. Pt out of room at this time for CT of abdomen. in room. Intro role of CM to and MARTEL form explained re: Observation status for treatment of weakness.? Explained hospitalization will be paid per?his insurance policy for Outpatient billing?and condition will continue to be evaluated for Inpt necessity. Also let pt know that [facility] sends paper in the billing packet with their phone number if questions arise. Discussed Pharmacy section of MARTEL form and self administered medication guideline.? verbalizes understanding and does not have further questions. ?Form signed, copy made and placed in chart, and original given to pt. Taisha RON RN CM
[2022-09-25 14:40] VITALS: BP 115/50; PULSE 87; RESP 16; TEMP 36.5; O2SAT 97
--- NOTE | 2022-09-25 15:01 | CASEMGMT ---
Social Work? SW in to meet with pt and pt following update from RN SABAS that pt requesting placement at nursing facility for pt. SW introduced self and role at the hospital. Pt agreeable to discussing discharge planning. A list of SNF providers including quality and resource use data consistent with the patient?s preferred geographic region, medical needs, and insurance network were provided from the [employer] Guide. Pt and reviewed list. Choices in order of preference are: [facility], [facility] and [place]. SUBHASH informed TCU admissions was out for the rest of the day so referral would be sent but likely will not hear back until tomorrow morning. Family voiced understanding. SUBHASH called and left referral on TCU referral line for [facility]. Asked [facility] to follow up with SUBHASH Urias in the AM with determination of acceptance. PLAN: SNF ? [facility]?
[2022-09-25] MEDS: LEVOBUNOLOL 0.5% EACH EYE (15:46)
[2022-09-25] MEDS: OPTH EACH EYE (15:46)
[2022-09-25] MEDS: Clopidogrel Bisulfate 75 MG Tablet PO (15:47)
[2022-09-25] MEDS: glipiZIDE XL 5 MG Tablet 10 MG PO (15:48)
[2022-09-25] MEDS: Finasteride 5 MG Tablet PO (15:48)
[2022-09-25 16:00] LABS: Bedside Glucose 212 mg/dL (74-106)
[2022-09-25 20:25] LABS: M R Staph aureus DNA By PCR POSITIVE (Negative); Probe Check PASS
[2022-09-25 21:07] VITALS: BP 138/72; PULSE 77; RESP 16; TEMP 36.8; O2SAT 96
[2022-09-25 21:19] VITALS: BP 138/72; PULSE 77
[2022-09-25] MEDS: Metoprolol Tartrate 25 MG Tablet PO (21:19)
[2022-09-25] MEDS: Atorvastatin Calcium 80 MG Tablet PO (21:19)
[2022-09-25 21:50] LABS: Bedside Glucose 341 mg/dL (74-106)
[2022-09-26] VITALS (9 sets, daily range): BP systolic 104–157; BP diastolic 53–72; PULSE 67–76; RESP 16–18; TEMP 36.5–36.8; O2SAT 96–98
[2022-09-26] MEDS: Acetaminophen 500 MG Tablet 1000 MG PO ×3 (06:34→21:26)
[2022-09-26] MEDS: Menthol/Lanolin/Calamine/Znox 113 GM Tube 1 APPLIC TOPICAL ×3 (06:34→21:21)
[2022-09-26] MEDS: Heparin Injection (Vial) 5,000 UNIT/ML VIAL 5000 UNIT SC ×3 (06:34→21:20)
[2022-09-26] MEDS: Insulin Lispro 100 UNIT/ML INSULN.PEN SC ×4 (06:35→21:20)
[2022-09-26 07:00] LABS: Bedside Glucose 235 mg/dL (74-106)
--- NOTE | 2022-09-26 07:41 | CON.PCM.UR_ITS ---
Assessment & Plan Assessment/Plan (1) Thick muscular wall of urinary bladder present on ultrasound: PLAN: patient as well known to me he is a patient in the past he did have a cystoscopy and a TURP at that long ago. No evidence of malignancy at that point the specimen from the surgery was negative for any cancer. I don't think any inpatient cystoscopy is necessary for him right now. He can follow-upas an outpatient here he has an appointment to see me in November when he can keep that appointment call me with questions HPI Consult Data Date of Consult: 09/26/22 HPI Narrative Reason for Consultation: thick and bladder HPI Narrative: LYNETTE GUDINO, is a 81 M who is in the hospital with weight loss. He had a CT scan at demonstrated a thick and bladder. Has a history of a TURP in the past. Also some other abnormalities seen on CT scan. [facility] Medical History Angina pectoris, unstable Atherosclerosis of [place] coronary artery of [place] heart without angina pectoris Cardiology follow-up encounter Chronic indwelling Valadez catheter Chronic renal insufficiency Diabetes 1.5, managed as type 2 Essential hypertension Excessive bleeding History of stress test HLD (hyperlipidemia) HLP (hyperkeratosis lenticularis perstans) Hypertension Indwelling urethral catheter present Loss of hearing Myocardial infarct Non-smoker Open wound Presence of stent in coronary artery (~12/20/15) Walker as ambulation aid Wears glasses Home Medications aspirin 81 mg chewable tablet 81 mg PO DAILY@0800 HEART HEALTH 12/19/15 [History Last Taken 09/24/22] levobunolol 0.5 % eye drops 1 drp EACH EYE DAILY 01/22/16 [History Last Taken 09/24/22] nitroglycerin 0.4 mg sublingual tablet 0.4 mg sublingual Q5M PRN Chest Pain 01/22/16 [History Last Taken Unknown] atorvastatin 80 mg tablet 80 mg PO QHS HLD 07/15/22 [History Last Taken 09/23/22] finasteride 5 mg tablet 5 mg PO DAILY BPH 07/15/22 [History Last Taken 09/24/22] glipizide 10 mg tablet, extended release 24 hr 10 mg PO BID dm 07/15/22 [History Last Taken 09/24/22] metoprolol tartrate 25 mg tablet 25 mg PO BID 12/05/22 [History Last Taken 09/24/22] clopidogrel 75 mg tablet (Plavix) 75 mg PO QDAY blood clots 09/24/22 [History Last Taken 09/24/22] metformin 500 mg tablet 500 mg PO BID dm 09/24/22 [History Last Taken 09/24/22] Allergy/AdvReac Type Severity Reaction Status Date / Time No Known Allergies Allergy Verified 09/24/22 09:57 Family History Brother CAD (coronary artery disease) Mother , from [place] at age 74 CAD (coronary artery disease) Myocardial infarction, Onset Age: 74 Surgical History History of cataract extraction History of colonoscopy jaw surgery for fracture Presence of coronary angioplasty implant and graft (~12/20/15) surgery on left index finger Social History Smoking Status: Never smoker alcohol intake: never substance use type: does not use caffeine: Yes (rarely) eating out: 1-3 times/week during the past year weight has: remained stable what type of physical activity do you participate in: walking frequency: daily duration: < 15 minutes/day seatbelt use: always do you feel safe at home: Yes Physical Exam Const alert and oriented x3 General Appearance: cooperative HEENT normocephalic, head/scalp atraumatic, EAC's normal and TM's normal bilaterally Eyes PERRL and EOMs intact bilaterally Pupil: sluggish Neck no lymphadenopathy, supple and no JVD General: trachea midline Lymph Lymphatic: no lymphadenopathy noted, lymphedema and lymphadenopathy Resp normal respiratory effort, normal air movement and clear to auscultation bilaterally Cardio regular rate, regular rhythm and peripheral pulses 2+ throughout GI soft to palpation, non-tender and non-distended Extremity normal capillary refill and no clubbing, cyanosis or edema General Extremity: no tenderness to palpation of joints or extremities Skin no rashes or lesions noted General Skin Exam: turgor normal Lesions: no lesions Rashes: no rashes Neuro CN's II-XII intact bilaterally Speech: speech normal Motor Exam: strength 5/5 throughout; Negative for general weakness Psych thought process normal, cooperative and affect normal Appearance: appropriate Medical Records Data Attestation: I reviewed the patient's medical records Lab / Micro Data Result Diagrams: 09/25/22 05:33 09/25/22 05:33 Labs: Laboratory Results - last 24 hr 09/25/22 11:00: POC Glucose 385 H 09/25/22 15:41: POC Glucose 212 H 09/25/22 16:17: MRSA (PCR) Cancelled 09/25/22 17:30: MRSA (PCR) POSITIVE H 09/25/22 21:17: POC Glucose 341 H 09/26/22 06:33: POC Glucose 235 H Micro: Microbiology 09/24/22 10:45 Urine Catheter - Catheter Urine Culture - Final Meth. resistant Staph. aureus Rhythm Strip Rhythm Strip: Sinus Rhythm Rate: 81 Ectopy: None Radiology Impression Abdomen/Pelvis CT 09/25/22 11:46 IMPRESSION: Diffuse irregular thickening of the bladder wall. A neoplastic process should BE ruled out. Diffuse thickening of the distal stomach and antrum. Multiple small gallstones. Fatty infiltration of the liver. Electronically Signed: Mauri Sim MD at 14:34 EST ,
[2022-09-26] MEDS: Aspirin 81 MG TAB.CHEW PO (08:12)
[2022-09-26] MEDS: Glucerna Shake 120 ML LIQUID PO ×2 (08:12→11:17)
[2022-09-26] MEDS: glipiZIDE XL 5 MG Tablet 10 MG PO ×2 (08:12→18:02)
--- NOTE | 2022-09-26 09:02 | CASEMGMT ---
Addendum entered by Bridgett Swanson 09/26/22 15:40: Social Work [facility] able [facility] accept pt. SW requested precert be started. SW met with pt and informed that TCU is unable to accept but [facility] is able to accept. Pt understanding and agreeable. [facility], pending precert BERNADETTE Strong Addendum entered by Bridgett Swanson 09/26/22 09:18: Social Work Return message from TCU and they are unable to accept pt. Referral sent via [facility] to pt second choice facility, [facility]. BERNADETTE Strong Original Note: Social Work SW spoke with Opal in TCU. Referral is being reviewed at this time. [facility] will await determination of acceptance. BERNADETTE Strong
[2022-09-26] MEDS: OPTH EACH EYE (09:29)
[2022-09-26] MEDS: LEVOBUNOLOL 0.5% EACH EYE (09:29)
[2022-09-26] MEDS: Metoprolol Tartrate 25 MG Tablet PO ×2 (09:29→21:20)
[2022-09-26] MEDS: Lidocaine 5% Patch 2 PATCH TOPICAL (09:29)
[2022-09-26] MEDS: Finasteride 5 MG Tablet PO (09:30)
[2022-09-26] MEDS: Clopidogrel Bisulfate 75 MG Tablet PO (09:30)
[2022-09-26] MEDS: Smz/Tmp Ds Tablet 1 TABLET PO ×2 (11:33→21:21)
--- NOTE | 2022-09-26 15:17 | PN.HOSP_ITS ---
Reason for Visit Reason for Visit: Diagnoses Pneumonia, unspecified organism (09/24/22) Urinary tract infection, site not specified (09/24/22) Subjective Subjective Follow-up for loss of weight, loss of appetite and debility failure to thrive Objective Data Objective Data Vital Signs: Vital Signs Temp Pulse Resp BP Pulse Ox O2 Del Method 97.7 F L 70 16 134/62 H 96 Room Air 09/26/22 14:32 09/26/22 14:32 09/26/22 14:32 09/26/22 14:32 09/26/22 14:32 09/26/22 14:32 Oxygen Delivery Method Room Air Weight: 127 lb 3.307 oz Body Mass Index (BMI) 18.3 Intake & Output: Intake and Output for Last 24 Hours 09/24/22 09/25/22 09/26/22 23:59 23:59 23:59 Intake Total 555 / 555 741.25 / 741.25 1955 / 1955 Output Total 1700 / 1700 850 / 850 1550 / 1550 Balance -1145 / -1145 -108.75 / -108.75 405 / 405 Lab / Micro Data Result Diagrams: 09/25/22 05:33 09/25/22 05:33 Labs: Laboratory Results - last 24 hr 09/25/22 15:41: POC Glucose 212 H 09/25/22 16:17: MRSA (PCR) Cancelled 09/25/22 17:30: MRSA (PCR) POSITIVE H 09/25/22 21:17: POC Glucose 341 H 09/26/22 06:33: POC Glucose 235 H Micro: Microbiology 09/24/22 13:55 Blood Culture (Wb) - Anticubital Left Blood Culture - Preliminary No growth in 48 hours. 09/24/22 14:04 Blood Culture (Wb) - Anticubital Right Blood Culture - Preliminary No growth in 48 hours. 09/24/22 10:45 Urine Catheter - Catheter Urine Culture - Final Meth. resistant Staph. aureus 09/24/22 10:45 Urine Catheter - Catheter Legionella Antigen - Final 09/24/22 10:45 Urine Catheter - Catheter Streptococcus pneumoniae Antigen (M - Final Rhythm Strip Rhythm Strip: Sinus Rhythm Rate: 81 Ectopy: None Physical Exam Narrative Seen and examined. Patient seen by urologist. Had TURP in the past. Self-catheterization for incontinence. He denies history of prostate cancer. Denies burning micturition or acute lo wer urinary tract symptoms. Physical exam General: Alert, Oriented x3, Cooperative, BMI 18.3 kg/m? HEENT: Atraumatic, PERRLA, EOMI, Normocephalic Oral: Oral mucosa moist. No Gingival or Mucosal Lesions/ Ulcerations Neck: Supple, No JVD, Negative Carotid Bruits Lungs: Air entry diminished in bilateral lung bases. No crepitation/rhonchi Cardiovascular: Regular rate, Regular Rhythm, Normal S1, Normal S2, No murmurs Abdomen: Bowel Sounds Present, Soft, Non Tender, Non-Distended. No palpable ma ss. : No renal angle tenderness. No suprapubic tenderness. Extremities: No edema, Capillary Refill Less than 3 Seconds Skin: Loss of temporal subcutaneous fat, atrophy of muscle of lower extremity. No rash. Musculoskeletal: No Tenderness to Palpation of Joints or Extremities, muscle strength 4/5 of extensor group of thigh and calf muscles. Neurological: Cranial nerves II-XII grossly intact, DTR 2+/4 and Symmetrical, Neuro grossly intact Psych/Mental Status: Assessment & Plan Assessment/Plan (1) Acute UTI: (2) Pneumonia: PLAN: Plan This 81-year-old gentleman was admitted with generalized weakness, weight loss, lost 20 pounds last 4 months, and admitted to ADL, decreased appetite. Patient was admitted on [facility] floor. 1. Acute community-acquired pneumonia: Chest x-ray reviewed and shows right upper lobe infiltrate. Furthermore, chest CT was done which shows irregular infiltrate in right upper lobe with evidence of bronchiectasis scarring. No definite mass seen and EKG shows normal sinus rhythm 81 beats per. Patient IV ceftriaxone and azithromycin. No fever. Not hypoxic. Normal WBC count. 2: Continue antibiotic 2. MRSA UTI/cystitis with history of BPH status post TURP: CT abdomen shows diffuse irregular thickening of bladder wall probably due to UTI 2: Urine culture shows MRSA more than 100,000 colonies. Started on Bactrim DS which will cover gram-negative and gram-positive cocci pneumonia too. Patient was seen by urologist. Patient had cystoscopy and TURP long time ago. No evidence of malignancy was found as per biopsy. Advised follow-up as an outpatient in November. 3. Chronic back pain secondary to bulging disks in L3-L4, L4-5 Seen on MRI of the back. No red flag symptoms Patient due to see spine surgery in [place] soon continue on scheduled Tylenol, Lidoderm patches, oxycodone as needed 4. Recent weight loss, anorexia, unclear etiology No specific symptoms. PSA 0.06.CEA and CA 19-[address] abdomen and pelvis with contrast reviewed. Diffuse irregular thickening of bladder wall. Diffuse thickening of distal stomach and antrum with multiple gallstones. Moderate feces in colon. Normal retroperitoneum. GI is consulted. 09/26: Patient is on observation status. Discussed with again as needed. Patient can have EGD and colonoscopy. Made clear liquid. 5. CAD status post stent/hypertension/hyperlipidemia Continue aspirin, statin, Plavix, metoprolol, nitro as needed 6. Type II DM: Hyperglycemia, glucose is 250s. Resume glipizide. Hold metformin. Continue Accu-Chek NSTs, with Humalog sliding scale. 7. DVT PPx- Heparin SC Charges/Coding Visit Charges Inpatient E&M: 45564 Subs Hosp L2
[2022-09-26] MEDS: Bisacodyl 5 MG Tablet 20 MG PO (15:43)
[2022-09-26 17:06] LABS: Bedside Glucose 301 mg/dL (74-106)
[2022-09-26] MEDS: Polyethylene Glycol 3350 BOWEL PREP PO (17:40)
--- NOTE | 2022-09-26 18:56 | CON.PCM.GI_ITS ---
HPI Consult Data Date of Consult: 09/26/22 HPI Narrative Reason for Consultation: Weight loss and anemia HPI Narrative: LYNETTE GUDINO, is a 81 M with a past medical history of L3-L4, L4-5 discs bulging, seen on MRI on 08/11/22, hypertension, CAD status post stent, type II DM.? History was taken from the patient and the . Patient stated that over the last 4 months, he has been progressively weak, he has lost more than 20 pounds, he has had a poor appetite.? He typically walks with a walker but lately has been unable to move around.? He has seen his primary care doctor and he stated he is no work-up known to figure out his weight loss.? His stated that she is unable to take care of him.? Complains of chronic low back pain.? He admits to bilateral leg numbness.? Denies any incontinence of urine or stool.? He had previously seen Dr. Irizarry and was referred to a spine surgeon in [place].? MRI of the spine showed L3-L4, L4-L5 disc bulging. He has an appointment coming up on 10/02/22.? He denied any night sweats or nausea or vomiting or diarrhea. I was asked to see him due to progressive weight loss and failure to thrive. He was 155 pounds and today he is 127 pounds. He has not been eating as much. He complains of weakness, fatigue. He did have a colonoscopy was over 10 years ago. [facility] Medical History Angina pectoris, unstable Atherosclerosis of [place] coronary artery of [place] heart without angina pectoris Cardiology follow-up encounter Chronic indwelling Valadez catheter Chronic renal insufficiency Diabetes 1.5, managed as type 2 Essential hypertension Excessive bleeding History of stress test HLD (hyperlipidemia) HLP (hyperkeratosis lenticularis perstans) Hypertension Indwelling urethral catheter present Loss of hearing Myocardial infarct Non-smoker Open wound Presence of stent in coronary artery (~12/20/15) Walker as ambulation aid Wears glasses Home Medications aspirin 81 mg chewable tablet 81 mg PO DAILY@0800 HEART HEALTH 12/19/15 [History Last Taken 09/24/22] levobunolol 0.5 % eye drops 1 drp EACH EYE DAILY 01/22/16 [History Last Taken 09/24/22] nitroglycerin 0.4 mg sublingual tablet 0.4 mg sublingual Q5M PRN Chest Pain 01/22/16 [History Last Taken Unknown] atorvastatin 80 mg tablet 80 mg PO QHS HLD 07/15/22 [History Last Taken ] finasteride 5 mg tablet 5 mg PO DAILY BPH 07/15/22 [History Last Taken 09/24/22] glipizide 10 mg tablet, extended release 24 hr 10 mg PO BID dm 07/15/22 [History Last Taken 09/24/22] metoprolol tartrate 25 mg tablet 25 mg PO BID 07/15/22 [History Last Taken 09/24/22] clopidogrel 75 mg tablet (Plavix) 75 mg PO QDAY blood clots 09/24/22 [History Last Taken 09/24/22] metformin 500 mg tablet 500 mg PO BID dm 09/24/22 [History Last Taken 09/24/22] Allergy/AdvReac Type Severity Reaction Status Date / Time No Known Allergies Allergy Verified 09/24/22 09:57 Family History Brother CAD (coronary artery disease) Mother , from [place] at age 74 CAD (coronary artery disease) Myocardial infarction, Onset Age: 74 Surgical History History of cataract extraction History of colonoscopy jaw surgery for fracture Presence of coronary angioplasty implant and graft (~12/20/15) surgery on left index finger Social History Smoking Status: Never smoker alcohol intake: never substance use type: does not use caffeine: Yes (rarely) eating out: 1-3 times/week during the past year weight has: remained stable what type of physical activity do you participate in: walking frequency: daily duration: < 15 minutes/day seatbelt use: always do you feel safe at home: Yes ROS ROS Narrative Constitutional: Reports: Weakness, Fatigue, anorexia. Denies: Chills, Fever, Night Sweats, Weight Change Eyes: Denies: Blurred vision, Cataracts, Conjunctivae Inflammation, Pain, Redness, Vision Change HEENT: Denies: Difficulty Hearing, Difficulty Swallowing, Head Aches, Hearing Changes, Sinus Congestion, Sinus Drainage Cardiovascular: Denies: Chest Pain, Orthopnea, Palpitations Respiratory: Denies: Cough, Shortness of breath at rest, Sputum production Gastrointestinal: Denies: Abdominal Pain, Nausea, Vomiting Genitourinary: Denies: Dysuria Musculoskeletal: See HPI Skin: Denies: Rash, Wounds Neurological: Denies: Numbness, Tingling, Focal weakness Physical Exam Narrative Physical exam General: Alert, Oriented x3, Cooperative, BMI 18.3 kg/m? HEENT: Atraumatic, PERRLA, EOMI, Normocephalic Oral: Oral mucosa moist. No Gingival or Mucosal Lesions/ Ulcerations Neck: Supple, No JVD, Negative Carotid Bruits Lungs: Air entry diminished in bilateral lung bases. No crepitation/rhonchi Cardiovascular: Regular rate, Regular Rhythm, Normal S1, Normal S2, No murmurs Abdomen: Bowel Sounds Present, Soft, Non Tender, Non-Distended. No palpable mass. : No renal angle tenderness. No suprapubic tenderness. Extremities: No edema, Capillary Refill Less than 3 Seconds Skin: Loss of temporal subcutaneous fat, atrophy of muscle of lower extremity. No rash. Musculoskeletal: No Tenderness to Palpation of Joints or Extremities, muscle strength 4/5 of extensor group of thigh and calf muscles. Neurological: Cranial nerves II-XII grossly intact, DTR 2+/4 and Symmetrical, Neuro grossly intact Psych/Mental Status: Lab / Micro Data Result Diagrams: 09/25/22 05:33 09/25/22 05:33 Labs: Laboratory Results - last 24 hr 09/25/22 17:30: MRSA (PCR) POSITIVE H 09/25/22 21:17: POC Glucose 341 H 09/26/22 06:33: POC Glucose 235 H 09/26/22 16:41: POC Glucose 301 H Micro: Microbiology 09/24/22 13:55 Blood Culture (Wb) - Anticubital Left Blood Culture - Preliminary No growth in 48 hours. 09/24/22 14:04 Blood Culture (Wb) - Anticubital Right Blood Culture - Preliminary No growth in 48 hours. 09/24/22 10:45 Urine Catheter - Catheter Urine Culture - Final Meth. resistant Staph. aureus Rhythm Strip Rhythm Strip: Sinus Rhythm Rate: 81 Ectopy: None Assessment & Plan Assessment/Plan (1) Acute UTI: (2) Weight loss: PLAN: GIDifferential diagnosis the differential diagnosis for his weight loss does include malignancy, celiac disease, protein-losing enteropathy, diabetes induced gastroparesis. He will undergo an upper and lower endoscopy to evaluate his GI tract for any intraluminal pathology. He was explained alternatives, risk, benefits including outstanding bleeding, infection, sepsis, perforation, need for emergent surgery . He will have an ASA of 3. (3) Adult failure to thrive: PLAN: Plan This 81-year-old gentleman was admitted with generalized weakness, weight loss, lost 20 pounds last 4 months, and admitted to ADL, decreased appetite. [facility] 1. Acute community-acquired pneumonia: Chest x-ray reviewed and shows right upper lobe infiltrate. Furthermore, chest CT was done which shows irregular infiltrate in right upper lobe with evidence of bronchiectasis scarring. No definite mass seen and EKG shows normal sinus rhythm 81 beats per. Patient IV ceftriaxone and azithromycin. No fever. Not hypoxic. Normal WBC count. 2: Continue antibiotic 2. MRSA UTI/cystitis with history of BPH status post TURP: CT abdomen shows diffuse irregular thickening of bladder wall probably due to UTI 2: Urine culture shows MRSA more than 100,000 colonies. Started on Bactrim DS which will cover gram-negative and gram-positive cocci pneumonia too. Patient was seen by urologist. Patient had cystoscopy and TURP long time ago. No evidence of malignancy was found as per biopsy. Advised follow-up as an outpatient in November. 3. Chronic back pain secondary to bulging disks in L3-L4, L4-5 Seen on MRI of the back. No red flag symptoms Patient due to see spine surgery in [place] soon continue on scheduled Tylenol, Lidoderm patches, oxycodone as needed 4. Recent weight loss, anorexia, unclear etiology No specific symptoms. PSA 0.06.CEA and CA 19-[address] abdomen and pelvis with contrast reviewed. Diffuse irregular thickening of bladder wall. Diffuse thickening of distal stomach and antrum with multiple gallstones. Moderate feces in colon. Normal retroperitoneum. GI is consulted. 09/26: Patient is on observation status. Discussed with again as needed. Patient can have EGD and colonoscopy. Made clear liquid. 5. CAD status post stent/hypertension/hyperlipidemia Continue aspirin, statin, Plavix, metoprolol, nitro as needed 6. Type II DM: Hyperglycemia, glucose is 250s. Resume glipizide. Hold metformin. Continue Accu-Chek NSTs, with Humalog sliding scale. 7. DVT PPx- Heparin SC Charges/Coding Visit Charges Inpatient E&M: 85532 Init Hosp L3
[2022-09-26] MEDS: Atorvastatin Calcium 80 MG Tablet PO (21:20)
[2022-09-26 22:35] LABS: Bedside Glucose 206 mg/dL (74-106)
[2022-09-27] VITALS (13 sets, daily range): BP systolic 97–136; BP diastolic 50–89; PULSE 65–80; RESP 16–18; TEMP 36–37.2; O2SAT 95–116
[2022-09-27] MEDS: Polyethylene Glycol 3350 BOWEL PREP 1 BOTTLE PO (01:34)
[2022-09-27] MEDS: 0.9% Saline Lock 10 ML Syringe IV ×2 (06:09→07:53)
[2022-09-27] MEDS: Menthol/Lanolin/Calamine/Znox 113 GM Tube 1 APPLIC TOPICAL ×2 (06:10→14:05)
[2022-09-27] MEDS: Insulin Lispro 100 UNIT/ML INSULN.PEN SC ×3 (06:10→16:47)
[2022-09-27 06:36] LABS: Bedside Glucose 317 mg/dL (74-106)
[2022-09-27] MEDS: glipiZIDE XL 5 MG Tablet 10 MG PO ×2 (07:51→16:48)
[2022-09-27] MEDS: Lidocaine 5% Patch 2 PATCH TOPICAL (07:51)
[2022-09-27] MEDS: OPTH EACH EYE (07:51)
[2022-09-27] MEDS: Finasteride 5 MG Tablet PO (07:51)
[2022-09-27] MEDS: Smz/Tmp Ds Tablet 1 TABLET PO (07:51)
[2022-09-27] MEDS: Aspirin 81 MG TAB.CHEW PO (07:51)
[2022-09-27] MEDS: LEVOBUNOLOL 0.5% EACH EYE (07:51)
[2022-09-27 08:21] LABS: Bedside Glucose 421 mg/dL (74-106)
[2022-09-27 08:21] LABS: Bedside Glucose 417 mg/dL (74-106)
--- NOTE | 2022-09-27 08:55 | CASEMGMT ---
Addendum entered by Bridgett Swanson 09/27/22 11:48: Social Work Per physician, pt is not ready for discharge today. [facility] updated and precert is good through the weekend. PASRR completed in [place]. Phone call to pt and updated on discharge plan. Pt agreeable and understanding. Plan: [facility], when medically ready BERNADETTE Sauceda Original Note: Social Work Precert obtained. Pt can discharge to the [facility] when medically ready. BERNADETTE Strong
[2022-09-27 09:54] LABS: Hemoglobin A1c 10.7 % (3.8-5.6)
[2022-09-27] MEDS: Lactated Ringers 1,000 ML 15 ML IV (10:40)
--- NOTE | 2022-09-27 11:30 | IMM_PTH ---
PATIENT: LYNETTE GUDINO LOC: MS3 U#:[id number] AGE/SX: 81/M ROOM: [facility] [place] RE09/24/[address]: Dr. Jose Guadalupe Reyes MD : [id number] BED: 1 DIS: 09/27/2022 SPEC #: [id number] RECD: 09/30/22 08:51 STATUS: TABITHA REQ #: [id number] NOEL: 09/27/22 11:[address]: Jayy Estes DEPT: IMMUNOHISTOCHEMISTRY RECD BY: Hayley Ingram ENTERED: 09/30/22 08:52 SP TYPE: IMMUNO OTHR DR: MD Dr. Cuba Jasso MD Dr. Prakash Chand, MD No Primary Care Phys Tissues: B - Stomach, NOS Procedures: H Pylori (initial) PHYSICIAN & INSTITUTION [place] [id number] SPECIMEN INFORMATION: Tissue Source: B ? Gastric ulcer Clinical Info: Acute UTI, weight loss Specimen Number: [id number] CPT code: 45232 METHODOLOGY: Deparaffinized sections of prefer/formalin-fixed tissue or PAP/DQ stained slides are incubated with monoclonal/polyclonal antibodies/oligonucleotide probes. Localization is made via biotin free immunoperoxidase method. Appropriate controls are performed and reacted as expected. Results on target cell population are indicated in the following table: RESULTS: ANTIBODY / CLONE RESULT Block B H Pylori (polyclonal) negative These tests were developed and their performance characteristics determined by [facility]. They may not have been cleared or approved by the U.S. Food and Drug Administration. The FDA has determined that such clearance or approval is not necessary. The above immunohistochemical/dualISH markers are ordered and reviewed by the Pathologist. INTERPRETATION: B. Gastric ulcer, biopsy: Negative for Helicobacter pylori organisms. AM:lakia 10/01/2022
--- NOTE | 2022-09-27 11:30 | EGD_PTH ---
PATIENT: LYNETTE GUDINO LOC: MS3 U#:[id number] AGE/SX: 81/M ROOM: [facility] [place] RE09/24/[address]: Dr. Jose Guadalupe Reyes MD : 1940 BED: 1 DIS: 09/27/2022 SPEC #: [id number] RECD: 09/30/22 08:54 STATUS: TABITHA REKobi #: [id number] NOEL: 09/27/22 11:[address]: Jose Guadalupe Reyes DEPT: SURGICAL PATHOLOGY RECD BY: Gisell Helm ENTERED: 09/30/22 08:54 SP TYPE: EGD BIOPSY OT DR: MD Dr. Cuba Jasso MD No Primary Care Phys Tissues: A - Duodenum, NOS B - Gastric mucous membrane C - Esophagus, NOS D - Ileum, NOS Procedures: Surgery Specimen Level IV HEADER OPERATION: Colonoscopy with biopsy, EGD with biopsy (MAC) PRE-OP DIAGNOSIS: Acute UTI, weight loss TISSUE SUBMITTED: A - Duodenal ulcer, B - Gastric ulcer, C - Random esophagus, D - Terminal ileum MICROSCOPIC DIAGNOSIS A. Duodenal ulcer, biopsy: Focal acute inflammation. B. Gastric ulcer, biopsy: Chronic gastritis. Focal changes of ulcer. See comment. C. Esophagus, random biopsy: Changes of reflux. D. Terminal ileum, biopsy: No pathologic change. AM:lakia 10/01/2022 COMMENT B. The results of immunohistochemistry for Helicobacter pylori will be reported separately ([id number]). MICROSCOPIC DESCRIPTION Slides are reviewed. GROSS DESCRIPTION A - Received in fixative is one container labeled with the patient's name and designated duodenal ulcer. The specimen consists of two irregular fragments of light barraza soft tissue that in aggregate measure 0.8 x 0.3 x 0.1 cm. The specimen is totally submitted in one cassette. B - Received in fixative is one container labeled with the patient's name and designated gastric ulcer. The specimen consists of two irregular fragments of light barraza soft tissue that in aggregate measure 0.6 x 0.5 x 0.1 cm. The specimen is totally submitted in one cassette. C - Received in fixative is one container labeled with the patient's name and designated random esophagus. The specimen consists of two irregular fragments of light barraza soft tissue that in aggregate measure 0.6 x 0.3 x 0.1 cm. The specimen is totally submitted in one cassette. D - Received in fixative is one container labeled with the patient's name and designated terminal ileum. The specimen consists of two irregular fragments of light barraza soft tissue that in aggregate measure 0.8 x 0.4 x 0.1 cm. The specimen is totally submitted in one cassette. / SJ:rg 09/30/2022 TC:3 CPT: 58147 x4
--- NOTE | 2022-09-27 12:40 | OP.EGD_ITS ---
Patient Name: Lee Gee Procedure Date: 09/27/2022 11:57 AM Date of : 1940 Age: 81 Procedure: Upper GI endoscopy Indications: Functional Dyspepsia, Anorexia, Weight loss Providers: Jayy Estes DO Medicines: Monitored Anesthesia Care Patient Profile: This is a 81 year old male. Refer to note in patient chart for documentation of history and physical. Patient has symptoms of chronic epigastric abdominal pain and chronic nausea. Complications: No immediate complications. Procedure: Pre-Anesthesia Assessment: - Prior to the procedure, a History and Physical was performed, and patient medications and allergies were reviewed. The risks and benefits of the procedure and the sedation options and risks were discussed with the patient. All questions were answered and informed consent was obtained. Patient identification and proposed procedure were verified by the physician in the pre-procedure area. Mental Status Examination: alert and oriented. Airway Examination: normal oropharyngeal airway and neck mobility. Respiratory Examination: clear to auscultation. CV Examination: normal. Prophylactic Antibiotics: The patient does not require prophylactic antibiotics. Prior Anticoagulants: The patient has taken no previous anticoagulant or antiplatelet agents. ASA Grade Assessment: II - A patient with mild systemic disease. After reviewing the risks and benefits, the patient was deemed in satisfactory condition to undergo the procedure. The anesthesia plan was to use monitored anesthesia care (MAC). Immediately prior to administration of medications, the patient was re-assessed for adequacy to receive sedatives. The heart rate, respiratory rate, oxygen saturations, blood pressure, adequacy of pulmonary ventilation, and response to care were monitored throughout the procedure. The physical status of the patient was re-assessed after the procedure. After obtaining informed consent, the endoscope was passed under direct vision. Throughout the procedure, the patient's blood pressure, pulse, and oxygen saturations were monitored continuously. The Colonoscope was introduced through the mouth, and advanced to the second part of duodenum. The upper GI endoscopy was accomplished without difficulty. The patient tolerated the procedure well. Scope In: 12:05:32 PM Scope Out: 12:11:48 PM Total Procedure Duration Time 0 hours 6 minutes 16 seconds Findings: Diffuse glycogenic acanthosis was found in the entire esophagus. Biopsies were taken with a cold forceps for histology. Verification of patient identification for the specimen was done. Estimated blood loss was minimal. Many non-bleeding cratered gastric ulcers with no stigmata of bleeding were found in the gastric body, on the lesser curvature of the stomach and in the gastric antrum. The largest lesion was 4 mm in largest dimension. Biopsies were taken with a cold forceps for histology. Verification of patient identification for the specimen was done. Estimated blood loss was minimal. Many non-bleeding cratered duodenal ulcers with no stigmata of bleeding were found in the duodenal bulb, in the first portion of the duodenum and in the second portion of the duodenum. The largest lesion was 6 mm in largest dimension. Biopsies were taken with a cold forceps for histology. Verification of patient identification for the specimen was done. Estimated blood loss was minimal. Impression: - Glycogenic acanthosis of the esophagus. Biopsied. - Non-bleeding gastric ulcers with no stigmata of bleeding. Biopsied. - Multiple non-bleeding duodenal ulcers with no stigmata of bleeding. Biopsied. Recommendation: - [facility]. - Resume previous diet. - Continue present medications. - Await pathology results. - Repeat upper endoscopy in 4 months to check healing. Procedure Code(s): --- Professional --- 81365, Esophagogastroduodenoscopy, flexible, transoral; with biopsy, single or multiple CPT copyright 2017 [employer]. All rights reserved. The codes documented in this report are preliminary and upon pantry goods maker review may be revised to meet current compliance requirements. Jayy Estes DO 09/27/2022 12:40:03 PM This report has been signed electronically. Number of Addenda: 0 Note Initiated On: 09/27/2022 11:57 AM
--- NOTE | 2022-09-27 12:40 | OP.CCLET_ITS ---
09/27/2022 No Primary Care Physician Re : Upper GI endoscopy procedure for Lee Gee Dear Care Physician This procedure was performed on Tuesday, September 27, 2022. My impressions and recommendations are as follows: Impressions : - Glycogenic acanthosis of the esophagus. Biopsied. - Non-bleeding gastric ulcers with no stigmata of bleeding. Biopsied. - Multiple non-bleeding duodenal ulcers with no stigmata of bleeding. Biopsied. Recommendations : - Return patient to [facility] for [facility] care. - Resume previous diet. - Continue present medications. - Await pathology results. - Repeat upper endoscopy in 4 months to check healing. My findings are described in the full procedure note, which is enclosed. If I can be of further assistance, please feel free to contact me at . Sincerely, Jayy Estes, 09/27/2022 12:40:03 PM This report has been signed electronically.
--- NOTE | 2022-09-27 12:42 | OP.COLON_ITS ---
Patient Name: Lee Gee Procedure Date: 09/27/2022 12:12 PM Date of : 1940 Age: 81 Procedure: Colonoscopy Indications: Iron deficiency anemia, Change in bowel habits, Change in stool caliber, Failure to thrive, Weight loss Providers: Jayy Estes DO Medicines: Monitored Anesthesia Care Patient Profile: This is a 81 year old male. Refer to note in patient chart for documentation of history and physical. Patient has symptoms of chronic epigastric abdominal pain and chronic nausea. Last Colonoscopy: more than 10 years ago. Complications: No immediate complications. Procedure: Pre-Anesthesia Assessment: - Prior to the procedure, a History and Physical was performed, and patient medications and allergies were reviewed. The risks and benefits of the procedure and the sedation options and risks were discussed with the patient. All questions were answered and informed consent was obtained. Patient identification and proposed procedure were verified by the physician in the pre-procedure area. Mental Status Examination: alert and oriented. Airway Examination: normal oropharyngeal airway and neck mobility. Respiratory Examination: clear to auscultation. CV Examination: normal. Prophylactic Antibiotics: The patient does not require prophylactic antibiotics. Prior Anticoagulants: The patient has taken no previous anticoagulant or antiplatelet agents. ASA Grade Assessment: II - A patient with mild systemic disease. After reviewing the risks and benefits, the patient was deemed in satisfactory condition to undergo the procedure. The anesthesia plan was to use monitored anesthesia care (MAC). Immediately prior to administration of medications, the patient was re-assessed for adequacy to receive sedatives. The heart rate, respiratory rate, oxygen saturations, blood pressure, adequacy of pulmonary ventilation, and response to care were monitored throughout the procedure. The physical status of the patient was re-assessed after the procedure. After I obtained informed consent, the scope was passed under direct vision. Throughout the procedure, the patient's blood pressure, pulse, and oxygen saturations were monitored continuously. The Colonoscope was introduced through the anus and advanced to the terminal ileum. The colonoscopy was performed without difficulty. The patient tolerated the procedure well. The quality of the bowel preparation was fair. Scope In: 12:14:50 PM Scope Withdrawal Time 0 hours 9 minutes 12 seconds Scope Out: 12:30:07 PM Total Procedure Duration Time 0 hours 15 minutes 17 seconds Findings: The perianal and digital rectal examinations were normal. A few small-mouthed diverticula were found in the sigmoid colon. A small amount of stool was found in the rectum, in the sigmoid colon, in the descending colon and in the cecum. A localized area of the terminal ileum was congested. Biopsies were taken with a cold forceps for histology. Verification of patient identification for the specimen was done. Estimated blood loss was minimal. Impression: - Preparation of the colon was fair. - Diverticulosis in the sigmoid colon. - Stool in the rectum, in the sigmoid colon, in the descending colon and in the cecum. - Congested mucosa in the terminal ileum. Biopsied. Recommendation: - Return patient to [facility]. - Resume previous diet. - Continue present medications. - Await pathology results. - Repeat colonoscopy is recommended for surveillance. The colonoscopy date will be determined after pathology results from today's exam become available for review. Procedure Code(s): --- Professional --- 08252, Colonoscopy, flexible; with biopsy, single or multiple CPT copyright 2017 [employer]. All rights reserved. The codes documented in this report are preliminary and upon director perioperative review may be revised to meet current compliance requirements. Jayy Estes DO 09/27/2022 12:42:40 PM This report has been signed electronically. Number of Addenda: 0 Note Initiated On: 09/27/2022 12:12 PM
--- NOTE | 2022-09-27 12:43 | OP.CCLET_ITS ---
09/27/2022 No Primary Care Physician Re : Colonoscopy procedure for Lee Gee Dear Care Physician This procedure was performed on Tuesday, September 27, 2022. My impressions and recommendations are as follows: Impressions : - Preparation of the colon was fair. - Diverticulosis in the sigmoid colon. - Stool in the rectum, in the sigmoid colon, in the descending colon and in the cecum. - Congested mucosa in the terminal ileum. Biopsied. Recommendations : - Return patient to [facility]. - Resume previous diet. - Continue present medications. - Await pathology results. - Repeat colonoscopy is recommended for surveillance. The colonoscopy date will be determined after pathology results from today's exam become available for review. My findings are described in the full procedure note, which is enclosed. If I can be of further assistance, please feel free to contact me at . Sincerely, Jayy Estes, 09/27/2022 12:42:40 PM This report has been signed electronically.
[2022-09-27] MEDS: Clopidogrel Bisulfate 75 MG Tablet PO (14:05)
[2022-09-27] MEDS: Metoprolol Tartrate 25 MG Tablet PO (14:05)
[2022-09-27] MEDS: Glucerna Shake 120 ML LIQUID PO ×2 (14:05→16:49)
--- NOTE | 2022-09-27 14:05 | TREXTCAR_ITS ---
Diet Diet Order/Speech Therapy: 09/27/22 14:10 Diet: Consistent Carb - Calorie Controlled Food consistency:: Regular Liquid Consistency:: Regular/Thin Is pt able to select menu?: No How many daily calories?: 1800 calorie Routine Orders/Code Status Suppository Type: Dulcolax 10mg Suppository Frequency: Daily PRN Code Status: DNRCC-A (No intubation.) Wound(s) coccyx: Wound Type: Pressure Injury Therapies Weight Bearing: Weight bearing as tolerated Extremity Affected:: Bilateral Lower Physical Therapy: Eval and Treat Occupational Therapy: Eval and Treat Speech Therapy: Eval and Treat Problem/Diagnosis (1) Acute UTI: Status: Acute Code(s): N39.0 - Urinary tract infection, site not specified (2) Pneumonia: Status: Acute Code(s): J18.9 - Pneumonia, unspecified organism Plan This 81-year-old gentleman was admitted with generalized weakness, weight loss, lost 20 pounds last 4 months, and admitted to ADL, decreased appetite. Patient was admitted on [facility] floor. 1. Acute community-acquired pneumonia: Chest x-ray reviewed and shows right upper lobe infiltrate. Furthermore, chest CT was done which shows irregular infiltrate in right upper lobe with evidence of bronchiectasis scarring. No definite mass seen and EKG shows normal sinus rhythm 81 beats per. Patient IV ceftriaxone and azithromycin. No fever. Not hypoxic. Normal WBC count. 2: Continue antibiotic 2. MRSA UTI/cystitis with history of BPH status post TURP: CT abdomen shows diffuse irregular thickening of bladder wall probably due to UTI 2: Urine culture shows MRSA more than 100,000 colonies. Started on Bactrim DS which will cover gram-negative and gram-positive cocci pneumonia too. Patient was seen by urologist. Patient had cystoscopy and TURP long time ago. No evidence of malignancy was found as per biopsy. Advised follow-up as an outpatient in November. 3. Chronic back pain secondary to bulging disks in L3-L4, L4-5 Seen on MRI of the back. No red flag symptoms Patient due to see spine surgery in [place] soon continue on scheduled Tylenol, Lidoderm patches, oxycodone as needed 4. Recent weight loss, anorexia, unclear etiology No specific symptoms. PSA 0.06.CEA and CA 19-[address] abdomen and pelvis with contrast reviewed. Diffuse irregular thickening of bladder wall. Diffuse thickening of distal stomach and antrum with multiple gallstones. Moderate feces in colon. Normal retroperitoneum. GI is consulted. 09/26: Patient is on observation status. Discussed with again as needed. Patient can have EGD and colonoscopy. 09/27: Patient had EGD and colonoscopy. EGD shows nonbleeding gastric ulcer with no stigmata of bleeding, glycogenic acanthosis of esophagus. Multiple nonbleeding duodenal ulcers with no stigmata of bleeding. Repeat EGD in 4 months to check healing. Colonoscopy shows diverticulosis of sigmoid colon and stool in rectum sigmoid colon and descending colon and cecum. Congested mucosa intermittently and biopsied. Await for pathology result. 5. CAD status post stent/hypertension/hyperlipidemia Continue aspirin, statin, Plavix, metoprolol, nitro as needed 6. Type II DM: Hyperglycemia, glucose is 250s. Resume glipizide. Hold metformin. Continue Accu-Chek NSTs, with Humalog sliding scale. 7. DVT PPx- Heparin SC Note: Patient has pre-CERT. Pre-CERT good for weekend. [facility]. Allergies/Procedures Done in Hospital Allergies No Known Allergies Allergy (Verified 09/24/22 09:57) Type of Care/Length of Stay Estimated LOS: Convalescent Care Less Than 30 days Type of Care Needed: Skilled Rehab Potential: Good Prognosis: Good Additional Orders/Day of Discharge Day of Discharge: 09/27/22 Dietary and Speech Recommendations Dietitian Recommendations/Changes: Continue 1800 CCD diet to manage blood glucose. Continue 120mL Glucerna 4x with medpass to provide supplemental energy and promote weight gain. Discharge Plan Admission Admit Date/Time: 09/24/22 13:53 Primary Reason for Your Visit: Loss of weight and loss of appetite. MRSA UTI Attending Provider: Jose Guadalupe Reyes Primary Care Provider: Care Physician,No Primary Consulting Providers: Tanvi Dawn ; Cuba Pryor Discharge Orders/Prescriptions Prescriptions: New sennosides-docusate sodium [Stool Softener-Stimulant Laxat] 8.6-50 mg Tablet 2 tab PO BID PRN PRN (Reason: Constipation) Qty: 0 0RF sulfamethoxazole-trimethoprim 800-160 mg Tablet 1 tab PO BID 5 Days Qty: 11 0RF Rx Instructions: End date 10/02/2022. acetaminophen 500 mg Tablet 1,000 mg PO TID PRN (Reason: ARTHRITIS/BACK PAIN) Qty: 0 0RF Continued aspirin 81 MG tablet,chewable 81 mg PO DAILY@0800 Hold Instructions: Resume on 08/02/22. Label Comments: LAST DOSE ASPIRIN 07/14/2022 FOR SURGERY ON 07/19/22 levobunolol 1 DROP drops 1 drp EACH EYE DAILY nitroglycerin 0.4 MG tablet 0.4 mg SUBLINGUAL Q5M PRN (Reason: Chest Pain) finasteride 5 mg tablet 5 mg PO DAILY Label Comments: TAKE 1 TABLET BY MOUTH ONCE DAILY atorvastatin 80 mg tablet 80 mg PO QHS glipizide 10 mg tablet extended release 24hr 10 mg PO BID metoprolol tartrate 25 mg tablet 25 mg PO BID metformin 500 mg Tablet 500 mg PO BID clopidogrel [Plavix] 75 mg tablet 75 mg PO QDAY Referrals / Follow Up: Cuba Pryor MD [Med Staff - Active Staff] - Within 1 Month Jayy Estes DO [Med Staff - Active Staff] - Within 2 Weeks (FOR EGD and colonoscopy biopsy) Adi Pearce MD [Non-Staff] - Care Physician,No Primary [Primary Care Provider] - Disposition Disposition (needs filled in before D/C Order can be placed): [facility] Facility
[2022-09-27] MEDS: Heparin Injection (Vial) 5,000 UNIT/ML VIAL 5000 UNIT SC (14:06)
[2022-09-27] MEDS: Acetaminophen 500 MG Tablet 1000 MG PO (14:08)
[2022-09-27 14:35] LABS: Bedside Glucose 180 mg/dL (74-106)
--- NOTE | 2022-09-27 15:51 | PCM.PN.HOSP ---
Reason for Visit Reason for Visit: Diagnoses Pneumonia, unspecified organism (09/24/22) Urinary tract infection, site not specified (09/24/22) Adult failure to thrive (09/24/22) Abnormal weight loss (09/24/22) Subjective Subjective Follow-up for loss of weight, loss of appetite and debility failure to thrive. Objective Data Objective Data Vital Signs: Vital Signs Temp Pulse Resp BP Pulse Ox O2 Del Method 97.5 F L 72 16 136/76 H 98 Room Air 09/27/22 13:56 09/27/22 14:05 09/27/22 13:56 09/27/22 14:05 09/27/22 13:56 09/27/22 13:56 Oxygen Delivery Method Room Air Weight: 121 lb 7.595 oz Body Mass Index (BMI) 18.3 Intake & Output: Intake and Output for Last 24 Hours 09/25/22 09/26/22 09/27/22 23:59 23:59 23:59 Intake Total 741.25 / 741.25 1954 / 1954 77 / 77 Output Total 850 / 850 1950 / 2600 1450 / 1450 Balance -108.75 / -108.75 5 / -645 -1373 / -1373 Lab / Micro Data Result Diagrams: 09/25/22 05:33 09/25/22 05:33 Labs: Laboratory Results - last 24 hr 09/26/22 11:14: POC Glucose 421 H 09/26/22 11:15: POC Glucose 417 H 09/26/22 16:41: POC Glucose 301 H 09/26/22 21:18: POC Glucose 206 H 09/27/22 05:50: Hemoglobin A1c 10.7 H 09/27/22 06:09: POC Glucose 317 H 09/27/22 14:03: POC Glucose 180 H Micro: Microbiology 09/24/22 13:55 Blood Culture (Wb) - Anticubital Left Blood Culture - Preliminary No growth in 48 hours. 09/24/22 14:04 Blood Culture (Wb) - Anticubital Right Blood Culture - Preliminary No growth in 48 hours. 09/24/22 10:45 Urine Catheter - Catheter Urine Culture - Final Meth. resistant Staph. aureus 09/24/22 10:45 Urine Catheter - Catheter Legionella Antigen - Final 09/24/22 10:45 Urine Catheter - Catheter Streptococcus pneumoniae Antigen (M - Final Rhythm Strip Rhythm Strip: Sinus Rhythm Rate: 81 Ectopy: None Physical Exam Narrative Seen and examined. Patient going for EGD and colonoscopy.Had TURP in the past. Self-catheterization for incontinence. He denies history of prostate cancer. Denies burning micturition or acute lower urinary tract symptoms. Physical exam General: Alert, Oriented x3, Cooperative, BMI 18.3 kg/m? HEENT: Atraumatic, PERRLA, EOMI, Normocephalic Oral: Oral mucosa moist. No Gingival or Mucosal Lesions/ Ulcerations Neck: Supple, No JVD, Negative Carotid Bruits Lungs: Air entry diminished in bilateral lung bases. No crepitation/rhonchi Cardiovascular: Regular rate, Regular Rhythm, Normal S1, Normal S2, No murmurs Abdomen: Bowel Sounds Present, Soft, Non Tender, Non-Distended. No palpable mass. : No renal angle tenderness. No suprapubic tenderness. Extremities: No edema, Capillary Refill Less than 3 Seconds Skin: Loss of temporal subcutaneous fat, atrophy of muscle of lower extremity. No rash. Musculoskeletal: No Tenderness to Palpation of Joints or Extremities, muscle strength 4/5 of extensor group of thigh and calf muscles. Neurological: Cranial nerves II-XII grossly intact, DTR 2+/4 and Symmetrical, Neuro grossly intact Psych/Mental Status: Flat affect. Denies depression. Assessment & Plan Assessment/Plan (1) Acute UTI: (2) Pneumonia: PLAN: Plan This 81-year-old gentleman was admitted with generalized weakness, weight loss, lost 20 pounds last 4 months, and admitted to ADL, decreased appetite. Patient was admitted on [facility] floor. 1. Acute community-acquired pneumonia: Chest x-ray reviewed and shows right upper lobe infiltrate. Furthermore, chest CT was done which shows irregular infiltrate in right upper lobe with evidence of bronchiectasis scarring. No definite mass seen and EKG shows normal sinus rhythm 81 beats per. Patient IV ceftriaxone and azithromycin. No fever. Not hypoxic. Normal WBC count. 2: Continue antibiotic 2. MRSA UTI/cystitis with history of BPH status post TURP: CT abdomen shows diffuse irregular thickening of bladder wall probably due to UTI 2: Urine culture shows MRSA more than 100,000 colonies. Started on Bactrim DS which will cover gram-negative and gram-positive cocci pneumonia too. Patient was seen by urologist. Patient had cystoscopy and TURP long time ago. No evidence of malignancy was found as per biopsy. Advised follow-up as an outpatient in November. 3. Chronic back pain secondary to bulging disks in L3-L4, L4-5 Seen on MRI of the back. No red flag symptoms Patient due to see spine surgery in [place] soon continue on scheduled Tylenol, Lidoderm patches, oxycodone as needed 4. Recent weight loss, anorexia, unclear etiology No specific symptoms. PSA 0.06.CEA and CA 19-[address] abdomen and pelvis with contrast reviewed. Diffuse irregular thickening of bladder wall. Diffuse thickening of distal stomach and antrum with multiple gallstones. Moderate feces in colon. Normal retroperitoneum. GI is consulted. 09/26: Patient is on observation status. Discussed with again as needed. Patient can have EGD and colonoscopy. 09/27: Patient had EGD and colonoscopy. EGD shows nonbleeding gastric ulcer with no stigmata of bleeding, glycogenic acanthosis of esophagus. Multiple nonbleeding duodenal ulcers with no stigmata of bleeding. Repeat EGD in 4 months to check healing. Colonoscopy shows diverticulosis of sigmoid colon and stool in rectum sigmoid colon and descending colon and cecum. Congested mucosa intermittently and biopsied. Await for pathology result. 5. CAD status post stent/hypertension/hyperlipidemia Continue aspirin, statin, Plavix, metoprolol, nitro as needed 6. Type II DM: Hyperglycemia, glucose is 250s. Resume glipizide. Hold metformin. Continue Accu-Chek NSTs, with Humalog sliding scale. 7. DVT PPx- Heparin SC Note: Patient has pre-CERT. Pre-CERT good for weekend. Discharge to half-way. Charges/Coding Visit Charges Inpatient E&M: 61263 Subs Hosp L2
--- NOTE | 2022-09-27 16:12 | PCM.DC.SUM ---
Providers Date of Admission: 09/24/22 Date of Discharge: 09/27/22 Primary Care Physician: Kathy Primary Care Phys Consultations 09/25/22 11:47 Consult: Gastroenterology Routine Consulting Provider: [facility] Reason for Consult: loss of weight 40 lbs/4 months EMERGENT Consult: Kathy RG Notified: Yes Date Notified: 09/25/22 Time Notified: 11:47 Method of Notification: Verbal 09/25/22 15:32 Consult: Urology Routine Consulting Provider: Cuba Pryor Reason for Consult: bladder wall thickening reported, severe wt loss EMERGENT Consult: No Notified: Yes Date Notified: 09/25/22 Time Notified: 15:33 Method of Notification: Text Reason For Visit: DEBILITY Diagnosis Discharge Diagnosis (1) Acute UTI: Status: Acute Code(s): N39.0 - Urinary tract infection, site not specified (2) Pneumonia: Status: Acute Code(s): J18.9 - Pneumonia, unspecified organism Plan This 81-year-old gentleman was admitted with generalized weakness, weight loss, lost 20 pounds last 4 months, and admitted to ADL, decreased appetite. Patient was admitted on [facility] floor. 1. Acute community-acquired pneumonia: Chest x-ray reviewed and shows right upper lobe infiltrate. Furthermore, chest CT was done which shows irregular infiltrate in right upper lobe with evidence of bronchiectasis scarring. No definite mass seen and EKG shows normal sinus rhythm 81 beats per. Patient IV ceftriaxone and azithromycin. No fever. Not hypoxic. Normal WBC count. 09/26: Continue antibiotic 2. MRSA UTI/cystitis with history of BPH status post TURP: CT abdomen shows diffuse irregular thickening of bladder wall probably due to UTI 09/26: Urine culture shows MRSA more than 100,000 colonies. Started on Bactrim DS which will cover gram-negative and gram-positive cocci pneumonia too. Patient was seen by urologist. Patient had cystoscopy and TURP long time ago. No evidence of malignancy was found as per biopsy. continue antibiotic, Bactrim DS for total of 7 days. Advised follow-up as an outpatient in 1 month time. 3. Chronic back pain secondary to bulging disks in L3-L4, L4-5 Seen on MRI of the back. No red flag symptoms Patient due to see spine surgery in [place] soon continue on scheduled Tylenol, Lidoderm patches, oxycodone as needed 4. Recent weight loss, anorexia, unclear etiology No specific symptoms. PSA 0.06.CEA and CA 19-[address] abdomen and pelvis with contrast reviewed. Diffuse irregular thickening of bladder wall. Diffuse thickening of distal stomach and antrum with multiple gallstones. Moderate feces in colon. Normal retroperitoneum. GI is consulted. 09/26: Patient is on observation status. Discussed with again as needed. Patient can have EGD and colonoscopy. 09/27: Patient had EGD and colonoscopy. EGD shows nonbleeding gastric ulcer with no stigmata of bleeding, glycogenic acanthosis of esophagus. Multiple nonbleeding duodenal ulcers with no stigmata of bleeding. Repeat EGD in 4 months to check healing. Colonoscopy shows diverticulosis of sigmoid colon and stool in rectum sigmoid colon and descending colon and cecum. Congested mucosa intermittently and biopsied. Await for pathology result. Advised follow-up with GI clinic in 2 weeks. 5. CAD status post stent/hypertension/hyperlipidemia Continue aspirin, statin, Plavix, metoprolol, nitro as needed 6. Type II DM: Hyperglycemia, glucose is 250s. Resume glipizide. Resume metformin Continue Accu-Chek NSTs, with Humalog sliding scale. 7. DVT PPx- Heparin SC Discharge medication reconciliation done. Discharge follow-up instructions completed. Discharge process discussed with the patient and all questions were answered to patient's satisfaction. Total time spent, exact 35 minutes on discharge meds reconciliation, examination, coordination of care with nurses and ancillary staff, review of imaging and blood test and discussion with the patient on follow-up instructions. Medications at Discharge Home Medications aspirin 81 mg chewable tablet 81 mg PO DAILY@0800 [facility] 12/19/15 levobunolol 0.5 % eye drops 1 drp EACH EYE DAILY 01/22/16 nitroglycerin 0.4 mg sublingual tablet 0.4 mg sublingual Q5M PRN Chest Pain 01/22/16 atorvastatin 80 mg tablet 80 mg PO QHS HLD 07/15/22 finasteride 5 mg tablet 5 mg PO DAILY BPH 07/15/22 glipizide 10 mg tablet, extended release 24 hr 10 mg PO BID dm 07/15/22 metoprolol tartrate 25 mg tablet 25 mg PO BID 07/15/22 clopidogrel 75 mg tablet (Plavix) 75 mg PO QDAY blood clots 09/24/22 metformin 500 mg tablet 500 mg PO BID dm 09/24/22 acetaminophen 500 mg tablet 1,000 mg PO TID PRN ARTHRITIS/BACK PAIN #0 tabs 09/27/22 sennosides 8.6 mg-docusate sodium 50 mg tablet (Stool Softener-Stimulant Laxative) 2 tab PO BID PRN PRN Constipation #0 tabs 09/27/22 sulfamethoxazole 800 mg-trimethoprim 160 mg tablet 1 tab PO BID 5 days #11 tabs 09/27/22 Physical Exam Narrative Please see progress note of the same date. Weight / BMI Weight Weight: 121 lb 7.595 oz Body Mass Index (BMI) 18.3 ABG / Lab / Microbiology Data Result Diagrams: 09/25/22 05:33 09/25/22 05:33 Laboratory: Laboratory Results - last 24 hr 09/26/22 11:14: POC Glucose 421 H 09/26/22 11:15: POC Glucose 417 H 09/26/22 16:41: POC Glucose 301 H 09/26/22 21:18: POC Glucose 206 H 09/27/22 05:50: Hemoglobin A1c 10.7 H 09/27/22 06:09: POC Glucose 317 H 09/27/22 14:03: POC Glucose 180 H Microbiology: Microbiology 09/24/22 13:55 Blood Culture (Wb) - Anticubital Left Blood Culture - Preliminary No growth in 48 hours. 09/24/22 14:04 Blood Culture (Wb) - Anticubital Right Blood Culture - Preliminary No growth in 48 hours. 09/24/22 10:45 Urine Catheter - Catheter Urine Culture - Final Meth. resistant Staph. aureus 09/24/22 10:45 Urine Catheter - Catheter Legionella Antigen - Final 09/24/22 10:45 Urine Catheter - Catheter Streptococcus pneumoniae Antigen (M - Final Meaningful Use Info Meaningful Use Diagnoses (Choose all that apply): None applicable Discharge Plan Admission Admit Date/Time: 09/24/22 13:53 Primary Reason for Your Visit: Loss of weight and loss of appetite. MRSA UTI Attending Provider: Jose Guadalupe Reyes Primary Care Provider: Care Physician,No Primary Consulting Providers: Tanvi Dwan ; Cuba Pryor Discharge Orders/Prescriptions Prescriptions: New sennosides-docusate sodium [Stool Softener-Stimulant Laxat] 8.6-50 mg Tablet 2 tab PO BID PRN PRN (Reason: Constipation) Qty: 0 0RF sulfamethoxazole-trimethoprim 800-160 mg Tablet 1 tab PO BID 5 Days Qty: 11 0RF Rx Instructions: End date 10/02/2022. acetaminophen 500 mg Tablet 1,000 mg PO TID PRN (Reason: ARTHRITIS/BACK PAIN) Qty: 0 0RF Continued aspirin 81 MG tablet,chewable 81 mg PO DAILY@0800 Hold Instructions: Resume on 08/02/22. Label Comments: LAST DOSE ASPIRIN 07/14/2022 FOR SURGERY ON 07/19/22 levobunolol 1 DROP drops 1 drp EACH EYE DAILY nitroglycerin 0.4 MG tablet 0.4 mg SUBLINGUAL Q5M PRN (Reason: Chest Pain) finasteride 5 mg tablet 5 mg PO DAILY Label Comments: TAKE 1 TABLET BY MOUTH ONCE DAILY atorvastatin 80 mg tablet 80 mg PO QHS glipizide 10 mg tablet extended release 24hr 10 mg PO BID metoprolol tartrate 25 mg tablet 25 mg PO BID metformin 500 mg Tablet 500 mg PO BID clopidogrel [Plavix] 75 mg tablet 75 mg PO QDAY Referrals / Follow Up: Cuba Pryor MD [Med Staff - Active Staff] - Within 1 Month Jayy Estes DO [Med Staff - Active Staff] - Within 2 Weeks (FOR EGD and colonoscopy biopsy) Adi Pearce MD [Non-Staff] - Care Physician,No Primary [Primary Care Provider] - Disposition Disposition (needs filled in before D/C Order can be placed): [facility] Facility Charges/Coding Addendum Addendum: Cancel the billing charge of progress note. Visit Charges Inpatient E&M: 12394 Disch Hosp >30min
--- NOTE | 2022-09-27 17:03 | CASEMGMT ---
Social Work Per Physician pt is now ready for discharge. PASRR completed in [facility] and sent along with discharge orders to [facility] via [employer] [employer]. Transportation arranged with [facility] for 8:00 pickup via wheelchair van. SW met with pt and his wifethey are agreeable to discharge plan as stated above. Avenue and bedside nurse notified of discharge time. Disposition: [facility], skilled level of care. BERNADETTE Strong
[2022-09-27 17:11] LABS: Bedside Glucose 190 mg/dL (74-106)
[2022-09-27 18:53] LABS: Carbohydrate AG 19-9 35 U/mL (0-35); Carcinoembryonic Antigen 6.1 ng/mL (0.0-4.7)
== END 2022-09-27 20:30 | disposition skilled nursing facility (03) ==
LOC: ED 13:47 → MS3 14:05
PROVIDERS: Anesthesiology; Internal Medicine Gastroenterology; Admitting Provider Internal Medicine; Emergency Provider Emergency Medicine; Visit Provider Internal Medicine
PROC: 0DJD8ZZ Inspection of Lower Intestinal Tract, Via Natural or Artificial Opening Endoscopic (ICD-10-PCS; CPT 45378; principal; 2022-09-27 11:25)
DX: J18.9 Pneumonia, unspecified organism (principal); E13.22 Other specified diabetes mellitus with diabetic chronic kidney disease; E13.65 Other specified diabetes mellitus with hyperglycemia; Z95.5 Presence of coronary angioplasty implant and graft; N30.00 Acute cystitis without hematuria; Z79.84 Long term (current) use of oral hypoglycemic drugs; K25.9 Gastric ulcer, unspecified as acute or chronic, without hemorrhage or perforation; Z79.82 Long term (current) use of aspirin; K57.30 Diverticulosis of large intestine without perforation or abscess without bleeding; Z79.02 Long term (current) use of antithrombotics/antiplatelets; R62.7 Adult failure to thrive; M51.26 Other intervertebral disc displacement, lumbar region; D50.9 Iron deficiency anemia, unspecified; I12.9 Hypertensive chronic kidney disease with stage 1 through stage 4 chronic kidney disease, or unspecified chronic kidney disease; I25.10 Atherosclerotic heart disease of native coronary artery without angina pectoris; N18.9 Chronic kidney disease, unspecified; R53.81 Other malaise; E78.5 Hyperlipidemia, unspecified; K26.9 Duodenal ulcer, unspecified as acute or chronic, without hemorrhage or perforation; Z79.899 Other long term (current) drug therapy; R63.4 Abnormal weight loss; Z68.1 Body mass index [BMI] 19.9 or less, adult; B95.62 Methicillin resistant Staphylococcus aureus infection as the cause of diseases classified elsewhere; N40.0 Benign prostatic hyperplasia without lower urinary tract symptoms; G89.29 Other chronic pain; L85.9 Epidermal thickening, unspecified; K29.50 Unspecified chronic gastritis without bleeding; Z12.5 Encounter for screening for malignant neoplasm of prostate
CPT/HCPCS: 45380; 43239; 36415; 51702; 71045; 71250; 74177; 80053; 81001; 82378; 82962; 83036; 84153; 85025; 86301; 87040; 87077; 87086; 87088; 87186; 87426; 87449; 87641; 88305; 88342; 93005; 94668; 96361; 96365; 96366; 96367; 96368; 96372; 97110; 97116; 97162; 97166; 97530; 97535; 97802; 99221; 99285; J7030; J7050; J7120; P9612; Q9967; A4216; G0103; G0378; J0696

== ENCOUNTER → 2022-10-23 | Outpatient (CLI) | payer MEDICARE, SELFPAY ==
[2022-10-23 12:53] LABS: AST(SGOT) 34 U/L (15-37); Alanine Aminotransfer ALT/SGPT 41 U/L (16-61); Albumin, Serum 3.2 g/dL (3.2-5.0); Alkaline Phosphatase 186 U/L (45-117); Anion Gap 9 (5-15); BUN 28 mg/dL (7-18); BUN/Creat Ratio 21.5 RATIO (10-20); Bilirubin, Direct 0.18 mg/dL (0.00-0.30); Calcium,Total 9.1 mg/dL (8.5-10.1); Chloride 103 mmol/L (98-107); Cholesterol 97 mg/dL (200); EST Glomerular Filtration Rate 57 mL/min (>60); Est Glom Filt Rate - Afr Amer 68 mL/min (>60); Globulin 4.4 g/dL (2.2-4.2); Glucose 412 mg/dL (74-106); High Density Lipoprotein 40 mg/dL; Potassium 4.3 mmol/L (3.5-5.1); Protein, Total 7.6 g/dL (6.4-8.2); Sodium Level 137 mmol/L (136-145); Triglycerides 100 mg/dL; Very Low Density Lipoprotein 20 mg/dL (5-40)
[2022-10-23 13:25] LABS: Hemoglobin A1c 10.6 % (3.8-5.6)
== END | disposition home or self-care (01) ==
LOC: BFHLAB 09:18
PROVIDERS: Nurse Practitioner Family; PCP Family Medicine; Visit Provider Family Medicine
DX: E11.22 Type 2 diabetes mellitus with diabetic chronic kidney disease (principal); N18.31 Chronic kidney disease, stage 3a; E78.00 Pure hypercholesterolemia, unspecified
CPT/HCPCS: 80048; 80061; 80076; 83036

== ENCOUNTER 2022-10-28 11:51 | Emergency (ER) | payer MEDICARE, SELFPAY ==
[2022-10-28 11:52] VITALS: PULSE 65; RESP 16; TEMP 35.7; O2SAT 100; BMI 20.2
[2022-10-28 11:57] VITALS: BP 144/80
--- NOTE | 2022-10-28 12:30 | CT_ITS ---
STUDY: CT CERVICAL SPINE WITHOUT CONTRAST REASON FOR EXAM: Male, 81 years old. Fall. Weak and dizziness. RADIATION DOSAGE (If Supplied By Facility): CTDIvol = ( 16.73 ) mGy, DLP = ( 330.59 ) mGycm TECHNIQUE: High resolution transaxial imaging was performed without contrast material. Sagittal and coronal images were reconstructed. Individualized dose optimization techniques were used for this CT. COMPARISON: None FINDINGS: Normal craniovertebral junction. There are degenerative changes of the anterior atlantoaxial articulation. Normal odontoid process. There is an exaggerated cervical lordosis. Normal vertebral bodies and posterior osseous elements. C2-3: Normal endplates. Normal disc height and morphology. Normal central canal and intervertebral neuroforamina. C3-4: Mild degree of interspace narrowing. Mild degree of uncovertebral arthrosis. Mild right neural foraminal stenosis. C4-5: Mild degree of disc space narrowing. Spondylosis. Uncovertebral arthrosis. No foraminal stenosis on the right side. C5-6: Moderate degree of disc space narrowing. Posterior spondylosis causing indentation at the anterior aspect of the thecal sac. Uncovertebral arthrosis with bilateral neural foraminal stenosis worse on the right side. C6-7: Normal endplates. Normal disc height and morphology. Normal central canal and intervertebral neuroforamina. C7-T1: Normal endplates. Normal disc height and morphology. Normal central canal and intervertebral neuroforamina. Atherosclerotic plaque formation of the carotid bifurcations. CT/Spine Cervical without Contras IMPRESSION: Multilevel degenerative changes, as described above. Electronically Signed: Mauri Sim MD at 14:23 EDT ,
--- NOTE | 2022-10-28 12:30 | EKG12_ITS ---
Test Reason : Blood Pressure : / mmHG Vent. Rate : 066 BPM Atrial Rate : 066 BPM P-R Int : 166 ms QRS Dur : 098 ms QT Int : 416 ms P-R-T Axes : 053 005 030 degrees QTc Int : 436 ms Normal sinus rhythm Low voltage QRS Incomplete right bundle branch block Possible Inferior infarct , age undetermined Abnormal ECG Confirmed by BRENDA RG, MUSTAPHA ([id number]), order editor KATHRYN NULL ([id number]) on 10/29/2022 8:41:02 AM Referred By: WATSON Confirmed By:MUSTAPHA GUTIERREZ MD
--- NOTE | 2022-10-28 12:30 | CT_ITS ---
STUDY: CT BRAIN WITHOUT CONTRAST REASON FOR EXAM: Male, 81 years old. Trauma RADIATION DOSAGE (If Supplied By Facility): CTDIvol = ( 47.06 ) mGy, DLP = ( 996.2 ) mGycm TECHNIQUE: Transaxial CT imaging of the brain was performed without administration of intravenous contrast material. Individualized dose optimization techniques were used for this CT. COMPARISON: No relevant priors. FINDINGS: Normal soft tissue structures. Normal calvarium. There is mild cerebral atrophy with widening of the extra-axial spaces and ventricular dilatation. There are areas of decreased attenuation within the white matter tracts of the supratentorial brain, consistent with microvascular disease changes. Normal basal ganglia and thalami. Normal brainstem. Normal cerebellum. There is no intracranial hemorrhage. There are no findings of an acute ischemic infarction. Atherosclerotic calcification of the vertebral arteries and cavernous portions of the internal carotid arteries bilaterally. Mild degree of mucosal thickening of the ethmoid sinuses bilaterally. CT/Brain/Head without Contrast IMPRESSION: Chronic involutional changes of the brain. Electronically Signed: Mauri Smi MD at 13:46 EDT ,
--- NOTE | 2022-10-28 12:32 | EDS_ITS ---
HPI HPI - Fall History of Present Illness Chief Complaint: Fall Narrative Narrative: 81-year-old male past medical history of chronic renal insufficiency, hypertension, presents status post fall. He presents via EMS after walking into the [employer]. He states he felt very lightheaded and weak. He fell backwards and hit the floor. He sustained a hematoma to the back of his head. He denies any loss of consciousness. His states that she did not want him to get up and stand. EMS was called. He does not take blood thinners except for a small baby aspirin. He denies any headache or neck pain. No prodromal chest pain or shortness of breath, or other symptoms. [facility] Medical History Angina pectoris, unstable Atherosclerosis of [place] coronary artery of [place] heart without angina pectoris Cardiology follow-up encounter Chronic indwelling Valadez catheter Chronic renal insufficiency Diabetes 1.5, managed as type 2 Essential hypertension Excessive bleeding History of stress test HLD (hyperlipidemia) HLP (hyperkeratosis lenticularis perstans) Hypertension Indwelling urethral catheter present Loss of hearing Myocardial infarct Non-smoker Open wound Presence of stent in coronary artery (~12/20/15) Thick muscular wall of urinary bladder present on ultrasound Walker as ambulation aid Wears glasses Weight loss Home Medications aspirin 81 mg chewable tablet 81 mg PO DAILY@0800 [facility] 12/19/15 [History Last Taken 09/24/22] levobunolol 0.5 % eye drops 1 drp EACH EYE DAILY 01/22/16 [History Last Taken 09/24/22] nitroglycerin 0.4 mg sublingual tablet 0.4 mg sublingual Q5M PRN Chest Pain 01/22/16 [History Last Taken Unknown] atorvastatin 80 mg tablet 80 mg PO QHS HLD 07/15/22 [History Last Taken 09/23/22] finasteride 5 mg tablet 5 mg PO DAILY BPH 07/15/22 [History Last Taken 09/24/22] glipizide 10 mg tablet, extended release 24 hr 10 mg PO BID dm 07/15/22 [History Last Taken 09/24/22] metoprolol tartrate 25 mg tablet 25 mg PO BID 07/15/22 [History Last Taken 09/24/22] metformin 500 mg tablet 500 mg PO BID dm 09/24/22 [History Last Taken 09/24/22] acetaminophen 500 mg tablet 1,000 mg PO TID PRN ARTHRITIS/BACK PAIN #0 tabs 09/27/22 [Rx Last Taken Unknown] pantoprazole 40 mg tablet,delayed release (Protonix) 40 mg PO BID 30 days #60 tabs 09/27/22 [Rx Last Taken Unknown] sennosides 8.6 mg-docusate sodium 50 mg tablet (Stool Softener-Stimulant Laxative) 2 tab PO BID PRN PRN Constipation #0 tabs 09/27/22 [Rx Last Taken Unknown] sulfamethoxazole 800 mg-trimethoprim 160 mg tablet 1 tab PO BID 5 days #11 tabs 09/27/22 [Rx Last Taken Unknown] Allergy/AdvReac Type Severity Reaction Status Date / Time No Known Allergies Allergy Verified 10/28/22 11:56 Family History Brother CAD (coronary artery disease) Mother , from [place] at age 74 CAD (coronary artery disease) Myocardial infarction, Onset Age: 74 Surgical History History of cataract extraction History of colonoscopy jaw surgery for fracture Presence of coronary angioplasty implant and graft (~12/20/15) surgery on left index finger Social History Smoking Status: Never smoker alcohol intake: never substance use type: does not use caffeine: Yes (rarely) eating out: 1-3 times/week during the past year weight has: remained stable what type of physical activity do you participate in: walking frequency: daily duration: < 15 minutes/day seatbelt use: always do you feel safe at home: Yes ROS ROS ED ROS Narrative Constitutional: No fever, no chills. HEENT: No sore throat. No neck pain. No loss of vision. No rhinorrhea. Cardiovascular: No chest pain. No palpitations. No pedal edema. Respiratory: No cough, no shortness of breath. Abdominal: No abdominal pain. No nausea. No vomiting. Genitourinary: No dysuria. No hematuria. Musculoskeletal: No myalgias. No arthralgias. Neurologic: No headaches. No dizziness. Positive lightheadedness and generalized weakness. Skin: No rash. No change in color. Hematoma to occiput. Psychiatric: No depression. No anxiety. EXAM Physical Exam Narrative Exam Narrative: Afebrile. Vital signs noted. Mildly cachectic. HEENT: Normocephalic. Small hematoma and ecchymosis to occiput with small amount of blood around border of hematoma. Mild skin avulsion. PERRL, EOMI. Neck soft and supple. No point tenderness or step off. Cardiovascular: Regular rate and rhythm. No murmurs, rubs, or gallops appreciated. Respiratory: No tachypnea. Lungs clear to auscultation bilaterally. Gastrointestinal: Abdomen soft, nontender, with normoactive bowel sounds. No rebound or guarding. Neurological: Awake. Alert. Oriented to person, place, and time. Nonfocal, nonlateralizing. Able to raise arms above head without difficulty. Skin: No rash. Normal color. No pallor. Musculoskeletal: No pedal edema. Full range of motion extremities. Const Vital Signs: 10/28/22 11:52 10/28/22 11:57 10/28/22 12:00 Temperature 96.2 F L Temperature Source Temporal Pulse Rate 65 Respiratory Rate 16 Respiratory Effort Normal Non-Labored Blood Pressure 144/80 H Blood Pressure Mean 101 Pulse Ox 100 Oxygen Delivery Method Room Air MDM MDM MDM Narrative Medical decision making narrative: Given the patient's age, CT imaging was obtained of the brain to rule out intracranial hemorrhage or skull fracture. CT of the C-spine was obtained to make sure there is no fracture given his fall. His wound will be cleansed and dressed. I do not feel that there is anything amenable to suturing. As he was weak and lightheaded, I will send a CBC to look for anemia, and a BMP to check to make sure his he is not dehydrated. He may have had a transient dip in his glucose as he is diabetic. EKG will be obtained to rule out dysrhythmia. EKG obtained and interpreted by myself which demonstrates normal sinus rhythm at 66 bpm without ectopy or acute ST changes. No STEMI. No significant change from EKG dated September 24, 2022 that I reviewed. I did review his laboratory work, he has a normal white count of 6.8, hemoglobin stable at 12.4, hematocrit 36.4, I do not feel that this was the cause of his lightheadedness/anemia. His BMP shows a BUN of 28 with a normal creatinine of 1.29. Sodium is normal at 139 with potassium 4.6, chloride normal at 100. Anion gap normal at 9. While glucose is elevated at 383, with his normal anion gap of 9 I do not feel that he is in diabetic ketoacidosis. I do not think that hypoglycemia was necessarily the cause of his lightheadedness causing him to fall. I reviewed the CT imaging of his brain and C-spine. I reviewed the radiology report which shows no evidence of an acute skull fracture or intracranial hemorrhage, review of the CT of the C-spine radiology report does show multilevel degenerative changes but no evidence of an acute fracture. RN is to continue cleansing and dressing his occipital hematoma with small skin avulsion. I feel he can be discharged safely home with follow-up. They were given closed head injury instructions. Follow- up with primary care. Return instructions reviewed. Disposition is discharged home in stable condition. History & Record Review Discussion w/independent historian: Patient Additional record(s) reviewed:: Prior ED visit Lab Data Attestation: I reviewed the patient's lab results. Labs: Laboratory Results - last 24 hr 10/28/22 10/28/22 11:30 11:30 WBC 6.8 RBC 3.76 L Hgb 12.4 L Hct 36.4 L MCV 96.8 H MCH 33.0 H MCHC 34.1 RDW Std Deviation 45.6 H RDW Coeff of Sridevi 12.8 Plt Count 157 MPV 11.4 Immature Gran % (Auto) 0.600 Neut % (Auto) 54.1 Lymph % (Auto) 33.9 Randolph % (Auto) 7.0 Eos % (Auto) 3.4 Baso % (Auto) 1.0 Absolute Neuts (auto) 3.7 Absolute Lymphs (auto) 2.32 Nucleated RBC % 0 Sodium 136 Potassium 4.6 Chloride 100 Carbon Dioxide 27.0 Anion Gap 9 BUN 28 H Creatinine 1.29 Estim Creat Clear Calc 41.90 Est GFR (MDRD) Af Amer 69 Est GFR (MDRD) Non-Af 57 L BUN/Creatinine Ratio 21.7 H Glucose 383 H Calcium 8.8 Radiography Diagnostic Testing: Clinical Impression(s) from Imaging Studies Brain CT 10/28/22 12:30 IMPRESSION: Chronic involutional changes of the brain. Electronically Signed: Mauri Sim MD at 13:46 EDT , Cervical Spine CT 10/28/22 12:30 IMPRESSION: Multilevel degenerative changes, as described above. Electronically Signed: Mauri Sim MD at 14:23 EDT , Discharge Plan Triage Chief Complaint: Fall ED Provider: Po Welsh Dx/Rx/DC Orders Clinical Impression: Fall, Lightheaded, Hematoma of occipital region of scalp, Avulsion of skin, Hyperglycemia, Closed head injury Instructions: ED Scalp Contusion, ED Fall with Uncertain Cause, ED Head Injury (Adult), ED Skin Avulsion Prescriptions: No Action aspirin 81 MG tablet,chewable 81 mg PO DAILY@0800 Hold Instructions: Resume on 08/02/22. Label Comments: LAST DOSE ASPIRIN 07/14/2022 FOR SURGERY ON 07/19/22 levobunolol 1 DROP drops 1 drp EACH EYE DAILY nitroglycerin 0.4 MG tablet 0.4 mg SUBLINGUAL Q5M PRN (Reason: Chest Pain) finasteride 5 mg tablet 5 mg PO DAILY Label Comments: TAKE 1 TABLET BY MOUTH ONCE DAILY atorvastatin 80 mg tablet 80 mg PO QHS glipizide 10 mg tablet extended release 24hr 10 mg PO BID metoprolol tartrate 25 mg tablet 25 mg PO BID metformin 500 mg Tablet 500 mg PO BID sennosides-docusate sodium [Stool Softener-Stimulant Laxat] 8.6-50 mg Tablet 2 tab PO BID PRN PRN (Reason: Constipation) Qty: 0 0RF sulfamethoxazole-trimethoprim 800-160 mg Tablet 1 tab PO BID 5 Days Qty: 11 0RF Rx Instructions: End date 10/02/2022. acetaminophen 500 mg Tablet 1,000 mg PO TID PRN (Reason: ARTHRITIS/BACK PAIN) Qty: 0 0RF pantoprazole [Protonix] 40 mg tablet,delayed release (DR/EC) 40 mg PO BID 30 Days Qty: 60 2RF Rx Instructions: advised TWICE DAILY FOR 8 WEEKS THEN ONCE DAILY Primary Care Provider: Sandeep Montenegro Referrals: Sandeep Montenegro, [Primary Care Provider] - 3-5 Days if not improving Disposition Disposition: Home, Self Care
[2022-10-28 12:46] LABS: Absolute Lymphocyte Count 2.32 X10^3/uL (0.83-4.51); Absolute Neutrophil Count 3.7 X10^3/uL (2.0-7.7); Basophil# 0.07 X10^3/uL; Eosinophil# 0.23 X10^3/uL; Eosinophils% 3.4 % (0-5); Hematocrit 36.4 % (40-54); Hemoglobin 12.4 g/dL (13.0-16.5); Lymphocyte # 2.32 X10^3/ul (0.83-4.51); Lymphocyte % 33.9 % (19-41); Mean Corp Hgb Conc 34.1 g/dL (32-36); Mean Corpuscular Volume 96.8 fL (80-94); Mean Platelet Vol. 11.4 fl (6.2-12.0); Monocyte# 0.48 X10^3/uL; NRBC Flagged by Analyzer 0 % (0-5); Neutrophil % 54.1 % (47-70); Platelet Count 157 K/mm3 (150-450); RBC Distribution Width CV 12.8 % (11.6-14.6); RBC Distribution Width SD 45.6 fl (35.1-43.9); Red Blood Count 3.76 M/mm3 (4.6-6.2); White Blood Count 6.8 K/mm3 (4.4-11.0)
[2022-10-28 12:59] LABS: Anion Gap 9 (5-15); BUN 28 mg/dL (7-18); BUN/Creat Ratio 21.7 RATIO (10-20); Calcium,Total 8.8 mg/dL (8.5-10.1); Chloride 100 mmol/L (98-107); Creatinine, Serum 1.29 mg/dL (0.70-1.30); EST Glomerular Filtration Rate 57 mL/min (>60); Est Glom Filt Rate - Afr Amer 69 mL/min (>60); Glucose 383 mg/dL (74-106); Potassium 4.6 mmol/L (3.5-5.1); Sodium Level 136 mmol/L (136-145)
[2022-10-28 13:55] VITALS: BP 164/72; PULSE 89; RESP 18; O2SAT 95
[2022-10-28 14:35] VITALS: BP 158/78; PULSE 64; RESP 16; TEMP 36.6; O2SAT 97
== END 2022-10-28 15:18 | disposition home or self-care (01) ==
PROVIDERS: Emergency Provider Emergency Medicine; PCP Family Medicine; Visit Provider Emergency Medicine
DX: S00.03XA Contusion of scalp, initial encounter (principal); E11.65 Type 2 diabetes mellitus with hyperglycemia; E11.22 Type 2 diabetes mellitus with diabetic chronic kidney disease; I25.110 Atherosclerotic heart disease of native coronary artery with unstable angina pectoris; I12.9 Hypertensive chronic kidney disease with stage 1 through stage 4 chronic kidney disease, or unspecified chronic kidney disease; E78.5 Hyperlipidemia, unspecified; N18.9 Chronic kidney disease, unspecified; R42 Dizziness and giddiness; W01.198A Fall on same level from slipping, tripping and stumbling with subsequent striking against other object, initial encounter; Y92.511 Restaurant or cafe as the place of occurrence of the external cause; T14.8XXA Other injury of unspecified body region, initial encounter; Z79.82 Long term (current) use of aspirin; Z79.899 Other long term (current) drug therapy; Z79.1 Long term (current) use of non-steroidal anti-inflammatories (NSAID); Z95.5 Presence of coronary angioplasty implant and graft; Z79.84 Long term (current) use of oral hypoglycemic drugs
CPT/HCPCS: 70450; 72125; 80048; 85025; 93005; 99285; A4216

== ENCOUNTER 2022-11-03 13:26 | Observation (INO) | payer MEDICARE, SELFPAY ==
[2022-11-03 13:28] VITALS: BP 118/61; PULSE 86; RESP 18; TEMP 36.2; O2SAT 100
[2022-11-03 13:30] VITALS: BMI 22.9
--- NOTE | 2022-11-03 13:46 | EX.ED.DYSGE1 ---
HPI <KAMARI Campos - Last Filed: 11/03/22 19:03> History of Present Illness Chief Complaint: Complaint Narrative Narrative: Patient presenting today with complaints of hematuria that he first noticed yesterday. Patient self caths intermittently due to urinary retention and noticed a lot of pain with doing this yesterday and today. He states he is also having some mild pelvic pain and dysuria. Patient also reports that he has had body aches all over for the past several months. He denies fever, chills, chest pain, shortness of breath, abdominal pain, nausea, vomiting. PMH includes diabetes, renal insufficiency, CAD with stents, and degenerative disc disease. PFSH <KAMARI Campos - Last Filed: 11/03/22 19:03> PFSH Medical History Angina pectoris, unstable Atherosclerosis [place] coronary artery [place] heart without angina pectoris Cardiology follow-up encounter Chronic indwelling Valadez catheter Chronic renal insufficiency Diabetes 1.5, managed as type 2 Essential hypertension Excessive bleeding History of stress test HLD (hyperlipidemia) HLP (hyperkeratosis lenticularis perstans) Hypertension Indwelling urethral catheter present Loss of hearing Myocardial infarct Non-smoker Open wound Presence of stent in coronary artery (~12/20/15) Thick muscular wall of urinary bladder present on ultrasound Walker as ambulation aid Wears glasses Weight loss Home Medications aspirin 81 mg chewable tablet 81 mg PO DAILY@0800 [facility]ART [facility] 12/19/15 [History Last Taken 09/24/22] levobunolol 0.5 % eye drops 1 drp EACH EYE DAILY 01/22/16 [History Last Taken 09/24/22] nitroglycerin 0.4 mg sublingual tablet 0.4 mg sublingual Q5M PRN Chest Pain 01/22/16 [History Last Taken Unknown] atorvastatin 80 mg tablet 80 mg PO QHS HLD 07/15/22 [History Last Taken 09/23/22] finasteride 5 mg tablet 5 mg PO DAILY BPH 07/15/22 [History Last Taken 09/24/22] glipizide 10 mg tablet, extended release 24 hr 10 mg PO BID dm 07/15/22 [History Last Taken 09/24/22] metoprolol tartrate 25 mg tablet 25 mg PO BID 07/15/22 [History Last Taken 09/24/22] metformin 500 mg tablet 500 mg PO BID dm 09/24/22 [History Last Taken 09/24/22] acetaminophen 500 mg tablet 1,000 mg PO TID PRN ARTHRITIS/BACK PAIN #0 tabs 09/27/22 [Rx Last Taken Unknown] pantoprazole 40 mg tablet,delayed release (Protonix) 40 mg PO BID 30 days #60 tabs 09/27/22 [Rx Last Taken Unknown] sennosides 8.6 mg-docusate sodium 50 mg tablet (Stool Softener-Stimulant Laxative) 2 tab PO BID PRN PRN Constipation #0 tabs 09/27/22 [Rx Last Taken Unknown] sulfamethoxazole 800 mg-trimethoprim 160 mg tablet 1 tab PO BID 5 days #11 tabs 09/27/22 [Rx Last Taken Unknown] Allergy/AdvReac Type Severity Reaction Status Date / Time No Known Allergies Allergy Verified 10/28/22 11:56 Family History Brother CAD (coronary artery disease) Mother , from [place] at age 74 CAD (coronary artery disease) Myocardial infarction, Onset Age: 74 Surgical History History of cataract extraction History of colonoscopy jaw surgery for fracture Presence of coronary angioplasty implant and graft (~12/20/15) surgery on left index finger Social History Smoking Status: Never smoker alcohol intake: never substance use type: does not use caffeine: Yes (rarely) eating out: 1-3 times/week during the past year weight has: remained stable what type of physical activity do you participate in: walking frequency: daily duration: < 15 minutes/day seatbelt use: always do you feel safe at home: Yes ROS <KAMARI Campos - Last Filed: 11/03/22 19:03> ROS ED Constitutional Constitutional ED: Denies chills, fever(s) or sweats Cardiovascular Cardiovascular: Denies chest pain Respiratory/Chest Respiratory/Chest: Denies cough or dyspnea Gastrointestinal Gastrointestinal: Denies abdominal pain, nausea or vomiting Genitourinary Genitourinary ED: Reports dysuria and hematuria Musculoskeletal Musculoskeletal: Reports arthralgias, back pain and myalgias Integumentary Denies abscess, Abrasions or rash Neurologic Neurologic: Denies confusion, dizziness or paresthesias Psychiatric Psychiatric: Denies anxiety, depression, suicidal ideation or suicidal thoughts EXAM <KAMARI Campos - Last Filed: 11/03/22 19:03> Physical Exam Const Vital Signs: 11/03/22 13:28 11/03/22 15:26 11/03/22 17:00 Temperature 97.2 F L Temperature Source Temporal Pulse Rate 86 68 81 Respiratory Rate 18 18 18 Blood Pressure 118/61 140/75 H 144/76 H Blood Pressure Mean 80 96 98 Pulse Ox 100 100 100 Oxygen Delivery Method Room Air Room Air Room Air Positive well nourished, well developed and no apparent distress General Appearance ED: well developed HEENT Reports normocephalic and head/scalp atraumatic Mouth ED: Yes moist mucous membranes normal Eyes PERRL and EOMs intact bilaterally Neck full ROM and supple Chest Wall inspection of chest normal Resp normal respiratory effort and clear to auscultation bilaterally Cardio regular rate and regular rhythm GI soft to palpation, non-tender, non-distended and no masses Back/Spine normal ROM and normal to inspection Extremity normal to inspection and full ROM Neuro oriented x3, CN's II-XII intact bilaterally, moves all extremities, no focal motor deficits and no sensory deficits noted Sensorium / Orientation: awake and alert Psych mental status grossly normal and thought process normal Skin no rashes or lesions noted and no wounds <Dr. Viet Donato DO - Last Filed: 11/03/22 18:57> Physical Exam Const Vital Signs: 11/03/22 13:28 11/03/22 15:26 11/03/22 17:00 Temperature 97.2 F L Temperature Source Temporal Pulse Rate 86 68 81 Respiratory Rate 18 18 18 Blood Pressure 118/61 140/75 H 144/76 H Blood Pressure Mean 80 96 98 Pulse Ox 100 100 100 Oxygen Delivery Method Room Air Room Air Room Air MDM <KAMARI Campos - Last Filed: 11/03/22 19:03> [facility] Narrative Medical decision making narrative: Patient presented today with hematuria and pain with self-catheterization since yesterday. Urine will be obtained to rule out UTI. Patient states he has had body aches for the past several months but does not have any other acute complaints. Urine does show a mild UTI. Patient does have symptoms of a UTI so he will be treated. Patient has been given fluids, Rocephin, and Toradol. On reexamination patient is stating that he would like to be admitted to the hospital so that he can be placed in a group home because he is having a really difficult time ambulating around his home and can only make it to the bathroom and back. He states that his has a difficult time taking care of him. He does not PT in the home but is only having it twice a week and it is not enough to make a significant difference for him. He has fallen a few times at home and feels weak. Patient will be discussed with the hospitalist for admission so that he can be placed in a nursing facility. He will be admitted to the hospital in stable condition. This patient was seen with a PA/DISC SANDER Individually assessed they patient including history and physical. I have reviewed everything on the chart that is available and agree with the documentation provided by the PA/DISC SANDER including discussion about the assessment, treatment plan, discussion, and return precautions. Patient presenting initially for UTI symptoms. Urinalysis was obtained and it does look consistent with UTI. now wants him to be admitted for weakness. She stating that he is falling and weak at home. He has home PT but she does not think it is enough. She tells me she wants them stronger so he can be home in the summertime when the weather is good he can be outside. Discussed with hospitalist for admission. Impression: 1. Debility 2. Falls 3. UTI Lab Data Attestation: I reviewed the patient's lab results. Labs: Laboratory Results - last 24 hr 11/03/22 11/03/22 11/03/22 14:20 16:50 16:50 WBC 7.9 RBC 3.89 L Hgb 12.8 L Hct 36.2 L MCV 93.1 MCH 32.9 H MCHC 35.4 RDW Std Deviation 41.9 RDW Coeff of Sridevi 12.4 Plt Count 164 MPV 10.6 Immature Gran % (Auto) 0.300 Neut % (Auto) 60.8 Lymph % (Auto) 25.9 [place] % (Auto) 8.3 Eos % (Auto) 3.8 Baso % (Auto) 0.9 Absolute Neuts (auto) 4.8 Absolute Lymphs (auto) 2.06 Nucleated RBC % 0 Sodium 134 L Potassium 3.7 Chloride 100 Carbon Dioxide 24.0 Anion Gap 10 BUN 26 H Creatinine 1.26 Estim Creat Clear Calc 48.77 Est GFR (MDRD) Af Amer 71 Est GFR (MDRD) Non-Af 59 L BUN/Creatinine Ratio 20.6 H Glucose 272 H Calcium 8.7 Urine Color Yellow Urine Clarity Cloudy Urine pH 8.0 Ur Specific [place] 1.010 Urine Protein 100 H Urine Glucose (UA) 100 H Urine Ketones 5 H Urine Occult Blood 250 H Urine Nitrite Negative Urine Bilirubin Negative Urine Urobilinogen 4 H Ur Leukocyte Esterase 500 H Urine RBC > 100 SEEN Urine WBC >100 SEEN Ur Squamous Epith Cells 0 SEEN Urine Bacteria 0 SEEN Urine Mucus 0 SEEN <Dr. Viet Donato, DO - Last Filed: 11/03/22 18:57> MDM MDM Narrative Medical decision making narrative: Patient presented today with hematuria and pain with self-catheterization since yesterday. Urine will be obtained to rule out UTI. Patient states he has had body aches for the past several months but does not have any other acute complaints. On reexamination patient is stating that he would like to be admitted to the hospital so that he can be placed in a group home because he is having a really difficult time ambulating around his home and can only make it to the bathroom and back. He states that his has a difficult time taking care of him. This patient was seen with a PA/DISC SANDER Individually assessed they patient including history and physical. I have reviewed everything on the chart that is available and agree with the documentation provided by the PA/DISC SANDER including discussion about the assessment, treatment plan, discussion, and return precautions. Patient presenting initially for UTI symptoms. Urinalysis was obtained and it does look consistent with UTI. now wants him to be admitted for weakness. She stating that he is falling and weak at home. He has home PT but she does not think it is enough. She tells me she wants them stronger so he can be home in the summertime when the weather is good he can be outside. Discussed with hospitalist for admission. Impression: 1. Debility 2. Falls 3. UTI Lab Data Labs: Laboratory Results - last 24 hr 11/03/22 11/03/22 11/03/22 14:20 16:50 16:50 WBC 7.9 RBC 3.89 L Hgb 12.8 L Hct 36.2 L MCV 93.1 MCH 32.9 H MCHC 35.4 RDW Std Deviation 41.9 RDW Coeff of Sridevi 12.4 Plt Count 164 MPV 10.6 Immature Gran % (Auto) 0.300 Neut % (Auto) 60.8 Lymph % (Auto) 25.9 [place] % (Auto) 8.3 Eos % (Auto) 3.8 Baso % (Auto) 0.9 Absolute Neuts (auto) 4.8 Absolute Lymphs (auto) 2.06 Nucleated RBC % 0 Sodium 134 L Potassium 3.7 Chloride 100 Carbon Dioxide 24.0 Anion Gap 10 BUN 26 H Creatinine 1.26 Estim Creat Clear Calc 48.77 Est GFR (MDRD) Af Amer 71 Est GFR (MDRD) Non-Af 59 L BUN/Creatinine Ratio 20.6 H Glucose 272 H Calcium 8.7 Urine Color Yellow Urine Clarity Cloudy Urine pH 8.0 Ur Specific [place] 1.010 Urine Protein 100 H Urine Glucose (UA) 100 H Urine Ketones 5 H Urine Occult Blood 250 H Urine Nitrite Negative Urine Bilirubin Negative Urine Urobilinogen 4 H Ur Leukocyte Esterase 500 H Urine RBC > 100 SEEN Urine WBC >100 SEEN Ur Squamous Epith Cells 0 SEEN Urine Bacteria 0 SEEN Urine Mucus 0 SEEN Discharge Plan Triage Chief Complaint: Complaint ED Midlevel Provider: Lynnette Avila ED Provider: Viet Donato Dx/Rx/DC Orders Clinical Impression: UTI (urinary tract infection), Hyperglycemia, Falls, Debility Primary Care Provider: Sandeep Montenegro Disposition Disposition: Acute Care Hospital [facility]
[2022-11-03 14:30] LABS: Bacteria 0 SEEN /hpf (None Seen); Mucous, Urine 0 SEEN /hpf (<or=2+); Squamous Epithelial Cells - UA 0 SEEN /hpf (0-5)
[2022-11-03 14:40] LABS: Color, Urine Yellow (Yellow); Glucose, Dipstick 100 mg/dl (Normal); Ketone-Dipstick 5 mg/dl (Negative); Leukocyte Esterase-Dipstick 500 /ul (Negative); Nitrite-Dipstick Negative (Negative); Occult Blood-Urine 250 /ul (Negative); Protein-Dipstick 100 mg/dl (Negative); Urine Bilirubin Dipstick Negative (Negative); Urine Clarity Cloudy (Clear); Urine Urobilinogen 4 mg/dl (Normal)
[2022-11-03 14:46] LABS: Red Blood Cells-Urine > 100 SEEN /hpf (0-5); White Blood Cells >100 SEEN /hpf (0-5)
[2022-11-03] MEDS: Acetaminophen 325 MG Tablet 650 MG PO (15:25)
[2022-11-03 15:26] VITALS: BP 140/75; PULSE 68; RESP 18; O2SAT 100
--- NOTE | 2022-11-03 16:48 | ED.RN ---
dr. soriano discussed with pt. about going home. pt states he wanted placement. medic went into start a iv and get blood work. pt. and states why are they getting blood work, isn't he going home., they state they will get labs now and don't remember discussing admission.
[2022-11-03 17:00] VITALS: BP 144/76; PULSE 81; RESP 18; O2SAT 100
[2022-11-03 17:06] LABS: Absolute Lymphocyte Count 2.06 X10^3/uL (0.83-4.51); Absolute Neutrophil Count 4.8 X10^3/uL (2.0-7.7); Basophil# 0.07 X10^3/uL; Basophil% 0.9 % (0-1); Eosinophils% 3.8 % (0-5); Hematocrit 36.2 % (40-54); Hemoglobin 12.8 g/dL (13.0-16.5); Lymphocyte # 2.06 X10^3/ul (0.83-4.51); Lymphocyte % 25.9 % (19-41); Mean Corp Hgb Conc 35.4 g/dL (32-36); Mean Corpuscular Hgb 32.9 pg (27.0-32.0); Mean Corpuscular Volume 93.1 fL (80-94); Mean Platelet Vol. 10.6 fl (6.2-12.0); Monocyte# 0.66 X10^3/uL; Monocyte% 8.3 % (0-10); NRBC Flagged by Analyzer 0 % (0-5); Neutrophil # 4.83 X10^3/uL (2.7-7.7); Neutrophil % 60.8 % (47-70); Platelet Count 164 K/mm3 (150-450); RBC Distribution Width CV 12.4 % (11.6-14.6); RBC Distribution Width SD 41.9 fl (35.1-43.9); Red Blood Count 3.89 M/mm3 (4.6-6.2); White Blood Count 7.9 K/mm3 (4.4-11.0)
[2022-11-03 17:21] LABS: Anion Gap 10 (5-15); BUN 26 mg/dL (7-18); BUN/Creat Ratio 20.6 RATIO (10-20); Calcium,Total 8.7 mg/dL (8.5-10.1); Chloride 100 mmol/L (98-107); Creatinine, Serum 1.26 mg/dL (0.70-1.30); EST Glomerular Filtration Rate 59 mL/min (>60); Est Glom Filt Rate - Afr Amer 71 mL/min (>60); Estimated Creatinine Clearance 48.77 ml/min; Glucose 272 mg/dL (74-106); Potassium 3.7 mmol/L (3.5-5.1); Sodium Level 134 mmol/L (136-145)
[2022-11-03] MEDS: 0.9% Normal Saline 1,000 ML 999 ML IV (17:31)
--- NOTE | 2022-11-03 17:32 | PCM.HP.STD ---
[facility] - General General Date of Admission: 11/03/22 Date of Service: 11/03/22 Chief Complaint: Hematuria yesterday night after self catheterizing, leaking urine, burning pain/UTI. Fall and generalized weakness HPI Narrative LYNETTE GUDINO, is a 81 M Who came to ED with his for hematuria after self-catheterization yesterday night. Patient had BPH for which he required TURP long time ago, follows Dr. Pryor and requires intermittently self-catheterization once or twice a day. He also leaks urine/incontinence. He complains of burning pain on micturition, suprapubic pain. Denies fever and rigor but he feels cold all the time. He did not had hematuria in the morning today. He was last seen by Dr. Pryor during previous admission in September 2022 for MRSA UTI. At that time bladder ultrasound showed thick muscular wall. Patient was evaluated in ED on 10/28 after a fall backwards on his head after he felt lightheaded and weak. Patient had a small skin avulsion/laceration and hematoma and was dressed. Patient stated he passed out but as per ER physician note it did not had loss of consciousness.CT head and CT C-spine ruled out any acute change and was discharged home. Since then patient is feeling very weak wobbly on walker. Patient has chronic back pain. wants SNF placement as she could not take care of him ED vitals reviewed and in normal range. Lab work reviewed. [facility] Medical History Angina pectoris, unstable Atherosclerosis of [place] coronary artery of [place] heart without angina pectoris Cardiology follow-up encounter Chronic indwelling Valadez catheter Chronic renal insufficiency Diabetes 1.5, managed as type 2 Essential hypertension Excessive bleeding History of stress test HLD (hyperlipidemia) HLP (hyperkeratosis lenticularis perstans) Hypertension Indwelling urethral catheter present Loss of hearing Myocardial infarct Non-smoker Open wound Presence of stent in coronary artery (~12/20/15) Thick muscular wall of urinary bladder present on ultrasound Walker as ambulation aid Wears glasses Weight loss Home Medications aspirin 81 mg chewable tablet 81 mg PO DAILY@0800 [facility] 12/19/15 [History Last Taken 09/24/22] levobunolol 0.5 % eye drops 1 drp EACH EYE DAILY 01/22/16 [History Last Taken 09/24/22] nitroglycerin 0.4 mg sublingual tablet 0.4 mg sublingual Q5M PRN Chest Pain 01/22/16 [History Last Taken Unknown] atorvastatin 80 mg tablet 80 mg PO QHS HLD 07/15/22 [History Last Taken 09/23/22] finasteride 5 mg tablet 5 mg PO DAILY BPH 07/15/22 [History Last Taken 09/24/22] glipizide 10 mg tablet, extended release 24 hr 10 mg PO BID dm 07/15/22 [History Last Taken 09/24/22] metoprolol tartrate 25 mg tablet 25 mg PO BID 07/15/22 [History Last Taken 09/24/22] metformin 500 mg tablet 500 mg PO BID dm 09/24/22 [History Last Taken 09/24/22] acetaminophen 500 mg tablet 1,000 mg PO TID PRN ARTHRITIS/BACK PAIN #0 tabs 09/27/22 [Rx Last Taken Unknown] pantoprazole 40 mg tablet,delayed release (Protonix) 40 mg PO BID 30 days #60 tabs 09/27/22 [Rx Last Taken Unknown] sennosides 8.6 mg-docusate sodium 50 mg tablet (Stool Softener-Stimulant Laxative) 2 tab PO BID PRN PRN Constipation #0 tabs 09/27/22 [Rx Last Taken Unknown] sulfamethoxazole 800 mg-trimethoprim 160 mg tablet 1 tab PO BID 5 days #11 tabs 09/27/22 [Rx Last Taken Unknown] Allergy/AdvReac Type Severity Reaction Status Date / Time No Known Allergies Allergy Verified 10/28/22 11:56 Family History Brother CAD (coronary artery disease) Mother , from [place] at age 74 CAD (coronary artery disease) Myocardial infarction, Onset Age: 74 Surgical History History of cataract extraction History of colonoscopy jaw surgery for fracture Presence of coronary angioplasty implant and graft (~12/20/15) surgery on left index finger Social History Smoking Status: Never smoker alcohol intake: never substance use type: does not use caffeine: Yes (rarely) eating out: 1-3 times/week during the past year weight has: remained stable what type of physical activity do you participate in: walking frequency: daily duration: < 15 minutes/day seatbelt use: always do you feel safe at home: Yes ROS ROS Narrative Constitutional: Reports fatigue and generalized weakness weakness. No fever HEENT: reports systems reviewed and no addt'l complaints, except as documented Respiratory/Chest: Denies smoking, COPD. Shortness of breath at rest or with exertion CVS: No dizziness lightheadedness. No chest pain or tightness. Gastrointestinal: Denies coffee ground emesis, hematemesis or vomiting Genitourinary: As described in HPI Musculoskeletal/spine: Reports joint pain and limited range of motion of lower extremity and lower back and coccyx Neurologic: Denies seizure-like activity. No focal weakness or strokelike symptoms skin: No ulcer. No rash Endocrinology: Reports systems reviewed and no addt'l complaints, except as documented Hematologic/Lymphatic: Reports systems reviewed and no addt'l complaints, except as documented Rest 14 ROS are negative except as mentioned in HPI Vital Signs Vital Signs Vital Signs: 11/03/22 13:28 11/03/22 15:26 11/03/22 17:00 Temperature 97.2 F L Temperature Source Temporal Pulse Rate 86 68 81 Respiratory Rate 18 18 18 Blood Pressure 118/61 140/75 H 144/76 H Blood Pressure Mean 80 96 98 Pulse Ox 100 100 100 Oxygen Delivery Method Room Air Room Air Room Air Weight Weight: 159 lb 14.4 oz Body Mass Index (BMI) 22.9 Physical Exam Narrative General: Alert, Oriented x3, Cooperative HEENT: Atraumatic, PERRLA, EOMI, Normocephalic Oral: Oral mucosa dry. No Gingival or Mucosal Lesions/ Ulcerations Neck: Supple, No JVD, Negative Carotid Bruits Lungs: Air entry diminished in bilateral lung bases. No crepitation/rhonchi Cardiovascular: Regular rate, Regular Rhythm, Normal S1, Normal S2, systolic murmur direct right second ICS and LLSB and cardiac apex Abdomen: Bowel Sounds Present, Soft, Non Tender, Non-Distended : No renal angle tenderness. No suprapubic tenderness. Extremities: No edema, Capillary Refill Less than 3 Seconds Skin: No rashes, No breakdown Musculoskeletal/spine: No Tenderness to Palpation of Joints or Extremities. Tenderness over sacral and coccyx bone. Mild tenderness of paraspinal muscle. Muscle strength 4/5 at major joints of lower extremities Neurological: Cranial nerves II-XII grossly intact, DTR 2+/4, neuro grossly intact Psych/Mental Status: Flat affect. Results Lab / Micro Data Result Diagrams: 11/03/22 16:50 11/03/22 16:50 Labs: Laboratory Results - last 24 hr 11/03/22 14:20: Urine Color Yellow, Urine Clarity Cloudy, Urine pH 8.0, Ur Specific [place] 1.010, Urine Protein 100 H, Urine Glucose (UA) 100 H, Urine Ketones 5 H, Urine Occult Blood 250 H, Urine Nitrite Negative, Urine Bilirubin Negative, Urine Urobilinogen 4 H, Ur Leukocyte Esterase 500 H, Urine RBC > 100 SEEN, Urine WBC >100 SEEN, Ur Squamous Epith Cells 0 SEEN, Urine Bacteria 0 SEEN, Urine Mucus 0 SEEN 11/03/22 16:50: WBC 7.9, RBC 3.89 L, Hgb 12.8 L, Hct 36.2 L, MCV 93.1, MCH 32.9 H, MCHC 35.4, RDW Std Deviation 41.9, RDW Coeff of Sridevi 12.4, Plt Count 164, MPV 10.6, Immature Gran % (Auto) 0.300, Neut % (Auto) 60.8, Lymph % (Auto) 25.9, [place] % (Auto) 8.3, Eos % (Auto) 3.8, Baso % (Auto) 0.9, Absolute Neuts (auto) 4.8, Absolute Lymphs (auto) 2.06, Nucleated RBC % 0 11/03/22 16:50: Sodium 134 L, Potassium 3.7, Chloride 100, Carbon Dioxide 24.0, Anion Gap 10, BUN 26 H, Creatinine 1.26, Estim Creat Clear Calc 48.77, Est GFR (MDRD) Af Amer 71, Est GFR (MDRD) Non-Af 59 L, BUN/Creatinine Ratio 20.6 H, Glucose 272 H, Calcium 8.7 Assessment & Plan Assessment/Plan (1) Fall: (2) UTI (urinary tract infection): PLAN: Plan This 81-year-old gentleman is being admitted for hematuria, lower urinary tract symptoms including dysuria and fall and generalized weakness. 1.? Hematuria after self-catheterization possible traumatic, dysuria, UTI most likely MRSA UTI: Patient was last admitted in September 2022 for MRSA cystitis treatment. He was discharged on Bactrim DS as per urine culture sensitivity and he said he completed the antibiotic treatment. He has history of BPH and TURP long time ago. At that time, CT abdomen shows diffuse irregular thickening of bladder wall probably due to UTI. was consulted and he thought he does not need inpatient cystoscopy. Patient is started on IV ceftriaxone and 1 dose of IV vancomycin. Start Bactrim DS from tomorrow AM. Urologist is again consulted. Bladder scan every 4 hourly. Currently patient did not had hematuria in the morning today but if he retains urine will need Valadez catheterization. IV fluid normal saline as patient is mildly dehydrated with mild hyponatremia, sodium 134. BUN 26, creatinine 1.26. 2. Recent fall about a week ago and generalized weakness, anorexia: PT and OT. Control pain. Patient might need fci placement. Patient had extensive work-up for weight loss anorexia during previous admission including EGD and colonoscopy. CT was little elevated 6.1.EGD shows nonbleeding gastric ulcer with no stigmata of bleeding, glycogenic acanthosis of esophagus.? Multiple nonbleeding duodenal ulcers with no stigmata of bleeding.? Repeat EGD in 4 months to check healing.? Colonoscopy shows diverticulosis of sigmoid colon and stool in rectum sigmoid colon and descending colon and cecum.? Congested mucosa intermittently and biopsied.? He was advised to follow-up with Dr. Estes but I do not see follow-up in the chart. Patient had duodenal ulcer biopsy reported focal acute inflammation. Esophageal biopsy showed changes of reflux. Terminal ileum biopsy no pathologic change. Gastric ulcer biopsy negative for H. pylori. CT abdomen and pelvis with contrast at that time? Diffuse irregular thickening of bladder wall.? Diffuse thickening of distal stomach and antrum with multiple gallstones.? Moderate feces in colon.? Normal retroperiton 3.? Chronic back pain secondary to bulging disks in L3-L4, L4-5:, On MRI of August 2022 It also showed broad-based annular disc bulge and neural foraminal narrowing bilaterally at L3-4 and L4-5. And coccyx. No red flag symptoms. ?continue on scheduled Tylenol, oxycodone as needed 4.? CAD status post stent/hypertension/hyperlipidemia Continue aspirin, statin, Plavix, metoprolol, nitro as needed 5.? Type II DM: Hyperglycemia, glucose is 250s.? Resume glipizide.? Resume metformin? Continue Accu-Chek NSTs, with Humalog sliding scale. 6. DVT PPx- Heparin SC Living will/advanced directive/end of life care: Patient doeshave living will or advanced directive. his near the bedside is [facility] title [facility] After discussion of benefits/risks procedures involved with full code, DNR CC arrest and DNR CC, the patient opted for DNRCC arrest with no intubation Patient doesn't want artificial life support including intubation, tube feed, ventilator and/chest compression, central venous catheter, vasopressor and DC shock if needed. His is in agreement with his decision Total time spent in [id number] encounter in discussion of advanced directive 17 minutes. Laboratory Results 11/03/22 14:20: Urine Color Yellow, Urine Clarity Cloudy, Urine pH 8.0, Ur Specific [place] 1.010, Urine Protein 100 H, Urine Glucose (UA) 100 H, Urine Ketones 5 H, Urine Occult Blood 250 H, Urine Nitrite Negative, Urine Bilirubin Negative, Urine Urobilinogen 4 H, Ur Leukocyte Esterase 500 H, Urine RBC > 100 SEEN, Urine WBC >100 SEEN, Ur Squamous Epith Cells 0 SEEN, Urine Bacteria 0 SEEN, Urine Mucus 0 SEEN 11/03/22 16:50: WBC 7.9, RBC 3.89 L, Hgb 12.8 L, Hct 36.2 L, MCV 93.1, MCH 32.9 H, MCHC 35.4, RDW Std Deviation 41.9, RDW Coeff of Sridevi 12.4, Plt Count 164, MPV 10.6, Immature Gran % (Auto) 0.300, Neut % (Auto) 60.8, Lymph % (Auto) 25.9, [place] % (Auto) 8.3, Eos % (Auto) 3.8, Baso % (Auto) 0.9, Absolute Neuts (auto) 4.8, Absolute Lymphs (auto) 2.06, Nucleated RBC % 0 11/03/22 16:50: Sodium 134 L, Potassium 3.7, Chloride 100, Carbon Dioxide 24.0, Anion Gap 10, BUN 26 H, Creatinine 1.26, Estim Creat Clear Calc 48.77, Est GFR (MDRD) Af Amer 71, Est GFR (MDRD) Non-Af 59 L, BUN/Creatinine Ratio 20.6 H, Glucose 272 H, Calcium 8.7 Charges/Coding Visit Charges Inpatient E&M: 13547 Init Hosp L3 Procedures Hospitalists Procedures: 12676 Advncd Care Plan 30 Min
[2022-11-03 17:36] VITALS: BP 138/110; PULSE 83; RESP 16; TEMP 37; O2SAT 100
[2022-11-03] MEDS: Ceftriaxone 1 GM/50 ML BAG IV (17:52)
[2022-11-03] MEDS: Ketorolac 15 MG/ML Vial IV (17:52)
--- NOTE | 2022-11-03 19:17 | NURSING ---
blood cultures orderd by hospitalist after atbx administered in ED.
[2022-11-03 20:04] VITALS: BMI 17.9
[2022-11-03] MEDS: 0.9% Normal Saline 1,000 ML 75 ML IV (20:37)
[2022-11-03] MEDS: Finasteride 5 MG Tablet PO (20:45)
[2022-11-03 20:46] VITALS: PULSE 64
[2022-11-03] MEDS: Metoprolol Tartrate 25 MG Tablet PO (20:46)
[2022-11-03] MEDS: Atorvastatin Calcium 80 MG Tablet PO (20:46)
[2022-11-03] MEDS: Pantoprazole Sodium 40 MG Tablet PO (20:46)
[2022-11-03] MEDS: Senna/Docusate Sodium 1 Tablet 2 TABLET PO (20:46)
[2022-11-03] MEDS: Tamsulosin HCl 0.4 MG Capsule PO (20:47)
[2022-11-03] MEDS: Insulin Lispro 100 UNIT/ML INSULN.PEN SC (20:52)
[2022-11-03 21:03] VITALS: BP 158/73; PULSE 64; RESP 16; TEMP 36.6; O2SAT 100
[2022-11-03 21:11] LABS: Bedside Glucose 206 mg/dL (74-106)
[2022-11-03] MEDS: Vancomycin IV 1,000 MG/200 ML BAG 200 MG IV (21:18)
[2022-11-03] MEDS: Insulin Glargine-YFGN 100 UNIT/ML Pen 10 UNIT SC (21:21)
[2022-11-04] VITALS (7 sets, daily range): BP systolic 100–136; BP diastolic 49–72; PULSE 59–72; RESP 16–18; TEMP 36.7–36.8; O2SAT 95–99; BMI 17.9
--- NOTE | 2022-11-04 01:00 | PCM.RX.CS ---
Consult Pharmacy has been consulted to manage selected antiobiotic: Vancomycin Type of Consult: New start Labs: Sodium 134 mmol/L (136-145) L 11/03/22 16:50 Potassium 3.7 mmol/L (3.5-5.1) 11/03/22 16:50 Chloride 100 mmol/L (98-107) 11/03/22 16:50 Carbon Dioxide 24.0 mmol/L (21.0-32.0) 11/03/22 16:50 Anion Gap 10 (5-15) 11/03/22 16:50 BUN 26 mg/dL (7-18) H 11/03/22 16:50 Creatinine 1.26 mg/dL (0.70-1.30) 11/03/22 16:50 Est GFR (MDRD) Af Amer 71 mL/min (>60) 11/03/22 16:50 Est GFR (MDRD) Non-Af 59 mL/min (>60) L 11/03/22 16:50 BUN/Creatinine Ratio 20.6 RATIO (10-20) H 11/03/22 16:50 Glucose 272 mg/dL (74-106) H 11/03/22 16:50 Goal Trough: 15-20 mcg/mL Pharmacy Plan for Drug Dosing: Pharmacy Service will continue to monitor and adjust dosing as required. Medications Vancomycin HCl 750 mg/ Sodium (Chloride) 265 mls @ 250 mls/hr IV Q24H PELON Discontinued Medications Vancomycin HCl (Vancomycin) 1,000 mg in 200 mls @ 200 mls/hr IV X1 ONE Stop: 11/03/22 21:59 Last Admin: 11/03/22 22:36 Dose: Infused Follow-Up Labs: Trough Vancomycin Labs to be done on [date and time ordered]: 11/05 @ 2030
--- NOTE | 2022-11-04 05:55 | US_ITS ---
STUDY: RENAL ULTRASOUND - COMPLETE REASON FOR EXAM: Male, 81 years old patient with recurrent UTI and questionable stricture. TECHNIQUE: Ultrasound evaluation of the kidneys was performed with real-time and static henderson-scale imaging. COMPARISON: CT of the abdomen and pelvis dated September 25, 2022. FINDINGS: RIGHT KIDNEY: Normal location of the right kidney, which is normal in size. The right kidney measures 9.4 x 4.7 x 4.8 cm. There is a normal cortex of the right kidney. The renal cortex measures 1.6 cm. There is right-sided cyst measuring 9.7 x 9.9 x 9.8 mm. There are no right renal calculi. There is mild hydronephrosis of the right kidney. DISTAL RIGHT URETER: There is non-visualization of the distal right ureter. There is no demonstrated right ureterovesical junction calculus. There is no demonstrated right ureteral jet. LEFT KIDNEY: Normal location of the left kidney, which is normal in size. The left kidney measures 9.4 x 4.7 x 4.8 cm. There is a normal cortex of the left kidney. The renal cortex measures 1.6 cm. There is left renal cyst measuring 1.7 x 2.0 x 2.0 cm. There are no left renal calculi. There is mild hydronephrosis of the left kidney. DISTAL LEFT URETER: There is non-visualization of the distal left ureter. There is no demonstrated left ureterovesical junction calculus. There is a visualized left ureteral jet. AORTA: There is obscuration of the abdominal aorta by overlying bowel gas I.V.C.: The IVC is patent. BLADDER: The distended urinary bladder has a volume of 796 ml. There is focal thickening of the urinary bladder wall. There is a normal wall thickness of the distended urinary bladder, otherwise. There is no demonstrated mass within the urinary bladder. There are no demonstrated bladder calculi. US/Kidney and Bladder IMPRESSION: 1. There is mild bilateral hydronephrosis. 2. Nonspecific focal thickening of the urinary bladder wall. Neoplastic etiologies are not excluded. Electronically Signed: Idalia Matta MD at 9:32 EDT ,
[2022-11-04] MEDS: Insulin Lispro 100 UNIT/ML INSULN.PEN SC ×4 (06:26→22:49)
[2022-11-04 06:45] LABS: Bedside Glucose 231 mg/dL (74-106)
[2022-11-04 07:10] LABS: Absolute Lymphocyte Count 1.72 X10^3/uL (0.83-4.51); Absolute Neutrophil Count 3.5 X10^3/uL (2.0-7.7); Basophil# 0.04 X10^3/uL; Basophil% 0.6 % (0-1); Eosinophil# 0.64 X10^3/uL; Eosinophils% 9.6 % (0-5); Lymphocyte # 1.72 X10^3/ul (0.83-4.51); Lymphocyte % 25.9 % (19-41); Mean Corp Hgb Conc 33.3 g/dL (32-36); Mean Corpuscular Hgb 31.9 pg (27.0-32.0); Mean Corpuscular Volume 95.8 fL (80-94); Mean Platelet Vol. 10.8 fl (6.2-12.0); Monocyte# 0.74 X10^3/uL; Monocyte% 11.1 % (0-10); NRBC Flagged by Analyzer 0 % (0-5); Neutrophil # 3.49 X10^3/uL (2.7-7.7); Neutrophil % 52.6 % (47-70); Platelet Count 146 K/mm3 (150-450); RBC Distribution Width CV 12.7 % (11.6-14.6); RBC Distribution Width SD 44.3 fl (35.1-43.9); Red Blood Count 3.13 M/mm3 (4.6-6.2); White Blood Count 6.6 K/mm3 (4.4-11.0)
--- NOTE | 2022-11-04 07:26 | PCM.PN.HOSP ---
Reason for Visit Reason for Visit: Diagnoses Urinary tract infection, site not specified (11/03/22) Unspecified fall, initial encounter (11/03/22) Subjective Subjective No further hematuria. Objective Data Objective Data Vital Signs: Vital Signs Temp Pulse Resp BP Pulse Ox O2 Del Method 36.7 C 64 16 107/51 L 99 Room Air 11/04/22 03:03 11/04/22 03:03 11/04/22 03:03 11/04/22 03:03 11/04/22 07:05 11/04/22 07:05 Oxygen Delivery Method Room Air Weight: 58.3 kg Body Mass Index (BMI) 17.9 Intake & Output: Intake and Output for Last 24 Hours 11/02/22 11/03/22 11/04/22 23:59 23:59 23:59 Intake Total 1250 / 1250 300 / 300 Balance 1250 / 1250 300 / 300 Lab / Micro Data Result Diagrams: 11/04/22 05:30 11/04/22 05:30 Labs: Laboratory Results - last 24 hr 11/03/22 14:20: Urine Color Yellow, Urine Clarity Cloudy, Urine pH 8.0, Ur Specific [place] 1.010, Urine Protein 100 H, Urine Glucose (UA) 100 H, Urine Ketones 5 H, Urine Occult Blood 250 H, Urine Nitrite Negative, Urine Bilirubin Negative, Urine Urobilinogen 4 H, Ur Leukocyte Esterase 500 H, Urine RBC > 100 SEEN, Urine WBC >100 SEEN, Ur Squamous Epith Cells 0 SEEN, Urine Bacteria 0 SEEN, Urine Mucus 0 SEEN 11/03/22 16:50: WBC 7.9, RBC 3.89 L, Hgb 12.8 L, Hct 36.2 L, MCV 93.1, MCH 32.9 H, MCHC 35.4, RDW Std Deviation 41.9, RDW Coeff of Sridevi 12.4, Plt Count 164, MPV 10.6, Immature Gran % (Auto) 0.300, Neut % (Auto) 60.8, Lymph % (Auto) 25.9, [place] % (Auto) 8.3, Eos % (Auto) 3.8, Baso % (Auto) 0.9, Absolute Neuts (auto) 4.8, Absolute Lymphs (auto) 2.06, Nucleated RBC % 0 11/03/22 16:50: Sodium 134 L, Potassium 3.7, Chloride 100, Carbon Dioxide 24.0, Anion Gap 10, BUN 26 H, Creatinine 1.26, Estim Creat Clear Calc 48.77, Est GFR (MDRD) Af Amer 71, Est GFR (MDRD) Non-Af 59 L, BUN/Creatinine Ratio 20.6 H, Glucose 272 H, Calcium 8.7 11/03/22 20:52: POC Glucose 206 H 11/04/22 05:30: WBC 6.6, RBC 3.13 L, Hgb 10.0 L, Hct 30.0 L, MCV 95.8 H, MCH 31.9, MCHC 33.3 D, RDW Std Deviation 44.3 H, RDW Coeff of Sridevi 12.7, Plt Count 146 L, MPV 10.8, Immature Gran % (Auto) 0.200, Neut % (Auto) 52.6, Lymph % (Auto) 25.9, [place] % (Auto) 11.1 H, Eos % (Auto) 9.6 H, Baso % (Auto) 0.6, Absolute Neuts (auto) 3.5, Absolute Lymphs (auto) 1.72, Nucleated RBC % 0 11/04/22 06:19: POC Glucose 231 H Physical Exam Const alert and no apparent distress Resp normal respiratory effort, no retractions, no use of accessory muscles and clear to auscultation bilaterally Cardio regular rate, regular rhythm, S1 normal heart sound and S2 normal heart sound GI normal to inspection, nondistended, normoactive bowel sounds, soft to palpation, non-tender and non-distended Extremity normal to inspection Assessment & Plan Assessment/Plan (1) Hematuria: QUALIFIERS: Hematuria type: gross Qualified Code(s): R31.0 - Gross hematuria PLAN: Hematuria after self-catheterization possible traumatic, Urologist is again consulted. Renal US shows mild bilateral hydronephrosis and focal thickening of urinary bladder. (2) UTI (urinary tract infection): QUALIFIERS: Hematuria presence: with hematuria Urinary tract infection type: acute cystitis Qualified Code(s): N30.01 - Acute cystitis with hematuria PLAN: h/o MRSA UTI from 09/24. UCx currently pending. Dr. Pryor was consulted and he thought he does not need inpatient cystoscopy. Patient is started on IV ceftriaxone and 1 dose of IV vancomycin. (3) Acute blood loss anemia: PLAN: 2/[address] was little elevated 6.1.EGD shows nonbleeding gastric ulcer with no stigmata of bleeding, glycogenic acanthosis of esophagus.? Multiple nonbleeding duodenal ulcers with no stigmata of bleeding.? Repeat EGD in 4 months to check healing.? Colonoscopy shows diverticulosis of sigmoid colon and stool in rectum sigmoid colon and descending colon and cecum.? Congested mucosa intermittently and biopsied.? He was advised to follow-up with Dr. Estes but I do not see follow-up in the chart. Patient had duodenal ulcer biopsy reported focal acute inflammation. Esophageal biopsy showed changes of reflux. Terminal ileum biopsy no pathologic change. Gastric ulcer biopsy negative for H. pylori. CT abdomen and pelvis with contrast at that time? Diffuse irregular thickening of bladder wall.? Diffuse thickening of distal stomach and antrum with multiple gallstones.? Moderate feces in colon.? Normal retroperiton (4) Fall: PLAN: Recent fall about a week ago and generalized weakness, anorexia: PT and OT. Control pain. Patient might need intermediate placement. 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 And coccyx. No red flag symptoms. ?continue on scheduled Tylenol, oxycodone as needed CAD status post stent/hypertension/hyperlipidemia Continue aspirin, statin, Plavix, metoprolol, nitro as needed Type II DM: Hyperglycemia, glucose is 250s.? Resume glipizide.? Resume metformin? Continue Accu-Chek NSTs, with Humalog sliding scale. DVT PPx- Heparin SC Code status: DNRCCA, no intubation. Charges/Coding Visit Charges Inpatient E&M: 76990 Subs Hosp L2
[2022-11-04 07:38] LABS: Anion Gap 6 (5-15); BUN 26 mg/dL (7-18); BUN/Creat Ratio 22.2 RATIO (10-20); Calcium,Total 7.6 mg/dL (8.5-10.1); Chloride 105 mmol/L (98-107); Creatinine, Serum 1.17 mg/dL (0.70-1.30); EST Glomerular Filtration Rate 64 mL/min (>60); Est Glom Filt Rate - Afr Amer 77 mL/min (>60); Estimated Creatinine Clearance 42.22 ml/min; Glucose 254 mg/dL (74-106); Magnesium 1.5 mg/dL (1.6-2.6); Phosphorus 3.4 mg/dL (2.5-4.9); Sodium Level 136 mmol/L (136-145)
--- NOTE | 2022-11-04 07:57 | CON.PCM.UR_ITS ---
Assessment & Plan Assessment/Plan (1) Hematuria: QUALIFIERS: Hematuria type: gross Qualified Code(s): R31.0 - Gross hematuria PLAN: Probably from his urinary tract infection will review ultrasound (2) Acute blood loss anemia: (3) UTI (urinary tract infection): QUALIFIERS: Urinary tract infection type: acute cystitis Hematuria presence: with hematuria Qualified Code(s): N30.01 - Acute cystitis with hematuria PLAN: Follow-up on urine cultures continue with antibiotics (4) Atonic bladder: PLAN: Continue with intermittent catheterization about 3-4 times per day as necessary HPI Consult Data Date of Consult: 11/04/22 HPI Narrative Reason for Consultation: Hematuria urinary tract infection atonic bladder atonic bladder HPI Narrative: LYNETTE GUDINO, is a 81 M who presents with gross hematuria possible urinary tract infection and also debility and weakness. He will need to continue with intermittent catheterization here at the hospital probably would do it 3 times per day. Ultrasound was obtained this morning he does have a little bit of mild bilateral hydronephrosis probably from not catheterizing himself enough. I will ask the nurses to catheterize him 3 times per day to empty out his bladder. [facility] Medical History Angina pectoris, unstable Atherosclerosis of [place] coronary artery of [place] heart without angina pectoris Cardiology follow-up encounter Chronic indwelling Valadez catheter Chronic renal insufficiency Diabetes 1.5, managed as type 2 Essential hypertension Excessive bleeding History of stress test HLD (hyperlipidemia) HLP (hyperkeratosis lenticularis perstans) Hypertension Indwelling urethral catheter present Loss of hearing Myocardial infarct Non-smoker Open wound Presence of stent in coronary artery (~12/20/15) Thick muscular wall of urinary bladder present on ultrasound Walker as ambulation aid Wears glasses Weight loss Home Medications aspirin 81 mg chewable tablet 81 mg PO DAILY@0800 HEART HEALTH 12/19/15 [History Last Taken 09/24/22] atorvastatin 80 mg tablet 80 mg PO QHS HLD 07/15/22 [History Last Taken 09/23/22] finasteride 5 mg tablet 5 mg PO DAILY BPH 07/15/22 [History Last Taken 09/24/22] glipizide 10 mg tablet, extended release 24 hr 10 mg PO BID dm 07/15/22 [History Last Taken 09/24/22] metformin 500 mg tablet 500 mg PO BID diabetes 09/24/22 [History Last Taken 09/24/22] clopidogrel 75 mg tablet 75 mg PO DAILY heart health 11/03/22 [History Last Taken Unknown] insulin glargine 100 unit/mL (3 mL) subcutaneous pen (Lantus Solostar U-100 Insulin) 20 unit subcut DAILY diabetes 11/03/22 [History Last Taken Unknown] Allergy/AdvReac Type Severity Reaction Status Date / Time No Known Allergies Allergy Verified 10/28/22 11:56 Family History Brother CAD (coronary artery disease) Mother , from [place] at age 74 CAD (coronary artery disease) Myocardial infarction, Onset Age: 74 Surgical History History of cataract extraction History of colonoscopy jaw surgery for fracture Presence of coronary angioplasty implant and graft (~12/20/15) surgery on left index finger Social History Smoking Status: Never smoker alcohol intake: never substance use type: does not use caffeine: Yes (rarely) eating out: 1-3 times/week during the past year weight has: remained stable what type of physical activity do you participate in: walking frequency: daily duration: < 15 minutes/day seatbelt use: always do you feel safe at home: Yes ROS Constitutional Constitutional: Denies chills, fever(s) or malaise Eyes Eyes: Denies blurry vision or change in vision ENT HEENT: Reports none Cardiovascular Cardiovascular: Denies chest pain or palpitations Respiratory/Chest Respiratory/Chest: Denies cough or shortness of breath with exertion Gastrointestinal Gastrointestinal: Denies abdominal pain, constipation or diarrhea Musculoskeletal Musculoskeletal: Denies back pain, joint stiffness or joint swelling Integumentary Integumentary: Denies dry skin, jaundice, lesions or rash Neurologic Neurologic: Denies confusion, syncope or weakness Psychiatric Psychiatric: Reports none; Denies anxiety or depression Endocrine Endocrinology: Denies excessive sweating, fatigue or flushing Hematologic/Lymphatic Hematologic/Lymphatic: Denies anemia, easy bleeding or easy bruising Physical Exam Const alert and oriented x3 General Appearance: cooperative HEENT normocephalic, head/scalp atraumatic, EAC's normal and TM's normal bilaterally Eyes PERRL and EOMs intact bilaterally Pupil: sluggish Neck no lymphadenopathy, supple and no JVD General: trachea midline Lymph Lymphatic: no lymphadenopathy noted, lymphedema and lymphadenopathy Resp normal respiratory effort, normal air movement and clear to auscultation bilaterally Cardio regular rate, regular rhythm and peripheral pulses 2+ throughout GI soft to palpation, non-tender and non-distended Extremity normal capillary refill and no clubbing, cyanosis or edema General Extremity: no tenderness to palpation of joints or extremities Skin no rashes or lesions noted General Skin Exam: turgor normal Lesions: no lesions Rashes: no rashes Neuro CN's II-XII intact bilaterally Speech: speech normal Motor Exam: strength 5/5 throughout; Negative for general weakness Psych thought process normal, cooperative and affect normal Appearance: appropriate Medical Records Data Attestation: I reviewed the patient's medical records Lab / Micro Data Result Diagrams: 11/04/22 05:30 11/04/22 05:30 Labs: Laboratory Results - last 24 hr 11/03/22 14:20: Urine Color Yellow, Urine Clarity Cloudy, Urine pH 8.0, Ur Specific [place] 1.010, Urine Protein 100 H, Urine Glucose (UA) 100 H, Urine Ketones 5 H, Urine Occult Blood 250 H, Urine Nitrite Negative, Urine Bilirubin Negative, Urine Urobilinogen 4 H, Ur Leukocyte Esterase 500 H, Urine RBC > 100 SEEN, Urine WBC >100 SEEN, Ur Squamous Epith Cells 0 SEEN, Urine Bacteria 0 SEEN, Urine Mucus 0 SEEN 11/03/22 16:50: WBC 7.9, RBC 3.89 L, Hgb 12.8 L, Hct 36.2 L, MCV 93.1, MCH 32.9 H, MCHC 35.4, RDW Std Deviation 41.9, RDW Coeff of Sridevi 12.4, Plt Count 164, MPV 10.6, Immature Gran % (Auto) 0.300, Neut % (Auto) 60.8, Lymph % (Auto) 25.9, [place] % (Auto) 8.3, Eos % (Auto) 3.8, Baso % (Auto) 0.9, Absolute Neuts (auto) 4.8, Absolute Lymphs (auto) 2.06, Nucleated RBC % 0 11/03/22 16:50: Sodium 134 L, Potassium 3.7, Chloride 100, Carbon Dioxide 24.0, Anion Gap 10, BUN 26 H, Creatinine 1.26, Estim Creat Clear Calc 48.77, Est GFR (MDRD) Af Amer 71, Est GFR (MDRD) Non-Af 59 L, BUN/Creatinine Ratio 20.6 H, Glucose 272 H, Calcium 8.7 11/03/22 20:52: POC Glucose 206 H 11/04/22 05:30: WBC 6.6, RBC 3.13 L, Hgb 10.0 L, Hct 30.0 L, MCV 95.8 H, MCH 31.9, MCHC 33.3 D, RDW Std Deviation 44.3 H, RDW Coeff of Sridevi 12.7, Plt Count 146 L, MPV 10.8, Immature Gran % (Auto) 0.200, Neut % (Auto) 52.6, Lymph % (Auto ) 25.9, [place] % (Auto) 11.1 H, Eos % (Auto) 9.6 H, Baso % (Auto) 0.6, Absolute Neuts (auto) 3.5, Absolute Lymphs (auto) 1.72, Nucleated RBC % 0 11/04/22 05:30: Sodium 136, Potassium 4.0, Chloride 105, Carbon Dioxide 25.0, Anion Gap 6, BUN 26 H, Creatinine 1.17, Estim Creat Clear Calc 42.22, Est GFR (MDRD) Af Amer 77, Est GFR (MDRD) Non-Af 64, BUN/Creatinine Ratio 22.2 H, Glucose 254 H, Calcium 7.6 L, Phosphorus 3.4, Magnesium 1.5 L 11/04/22 06:19: POC Glucose 231 H
[2022-11-04] MEDS: glipiZIDE XL 5 MG Tablet 10 MG PO ×2 (08:29→17:25)
[2022-11-04] MEDS: Aspirin 81 MG TAB.CHEW PO (08:30)
[2022-11-04] MEDS: Acetaminophen 500 MG Tablet 1000 MG PO ×2 (08:32→17:29)
--- NOTE | 2022-11-04 09:40 | CASEMGMT ---
VENKATA OBREGON Assessment: Face to Face with pt for initial transition planning/care coordination assessment. RN SABAS introduced self and role at [facility], pt voices understanding and consents to assessment. Pt is A/O x4 and answers all questions appropriately at this time. Pt sitting up in bed in no distress. Care providers, pharmacy, and demographics verified/updated. Admitting Dx: hematuria, pelvic pain PCP:Lan Specialists:Konstantin, uro; [facility], cardio Preferred Pharmacy: [facility] Insurance: [employer] [facility] Prescription Benefit: yes LNOK: Miguel Gee, Living Arrangements: Pt lives with in a single story home with 3 steps to enter with a rail. Pt reports since being home from [facility] he has not been doing well at home, stating he is weak. Transportation: Pt has not driven in 6 mos. Pt transports him to [facility]. DME/HHC/SNF: Pt has a cane, FWW that he uses mostly, shower chair, raised toilet seat, BGM with sufficient supplies as well as insulin that just started a couple of weeks ago. Pt states he has supplies for his self caths that is ordered through 's office. Pt reports he has PT at home but is unsure of the name of the agency that provides it. Pt has recently been to [facility] in the last month. Pt states he feels he may need further rehab at [facility]. Therapy to eval. He states his is in agreement with this also as she has her own health issues. Updated SW. Pt states no further concerns/needs. CM to follow. Advised pt to ask CM if any further question/concerns/needs arise, voices understanding. Pt Goal: SNF, [facility] Plan: HHC vs SNF pending therapy evals.
[2022-11-04] MEDS: Pantoprazole Sodium 40 MG Tablet PO ×2 (10:38→22:51)
[2022-11-04] MEDS: Metoprolol Tartrate 25 MG Tablet PO ×2 (10:39→22:53)
[2022-11-04] MEDS: Senna/Docusate Sodium 1 Tablet 2 TABLET PO ×2 (10:39→22:53)
[2022-11-04] MEDS: LEVOBUNOLOL 0.5% EACH EYE (10:43)
[2022-11-04] MEDS: OPTH EACH EYE (10:43)
[2022-11-04] MEDS: Finasteride 5 MG Tablet PO (10:44)
[2022-11-04] MEDS: Ceftriaxone 1 GM/50 ML BAG IV (10:49)
[2022-11-04] MEDS: Smz/Tmp Ds Tablet 1 TABLET PO ×2 (11:37→22:51)
[2022-11-04 12:05] LABS: Bedside Glucose 266 mg/dL (74-106)
[2022-11-04] MEDS: 0.9% Saline Lock 10 ML Syringe IV (12:56)
[2022-11-04] MEDS: Glucerna Shake 120 ML LIQUID PO ×2 (15:18→17:25)
[2022-11-04 17:11] LABS: Bedside Glucose 329 mg/dL (74-106)
[2022-11-04] MEDS: Tamsulosin HCl 0.4 MG Capsule PO (17:25)
[2022-11-04] MEDS: Insulin Glargine-YFGN 100 UNIT/ML Pen 10 UNIT SC (22:50)
[2022-11-04] MEDS: Atorvastatin Calcium 80 MG Tablet PO (22:51)
[2022-11-04] MEDS: Nystatin Powder 15gm Bottle 1 APPLIC TOPICAL (22:51)
[2022-11-04] MEDS: Menthol/Lanolin/Calamine/Znox 113 GM Tube 1 APPLIC TOPICAL (22:52)
[2022-11-05 00:20] LABS: Bedside Glucose 244 mg/dL (74-106)
[2022-11-05 06:00] VITALS: BP 118/69; PULSE 64; RESP 16; TEMP 37; O2SAT 97; BMI 18.5
[2022-11-05] MEDS: Insulin Lispro 100 UNIT/ML INSULN.PEN SC ×3 (06:02→15:52)
[2022-11-05 06:23] LABS: Absolute Lymphocyte Count 1.52 X10^3/uL (0.83-4.51); Absolute Neutrophil Count 4.1 X10^3/uL (2.0-7.7); Basophil# 0.04 X10^3/uL; Basophil% 0.6 % (0-1); Eosinophil# 0.62 X10^3/uL; Eosinophils% 8.9 % (0-5); Hematocrit 29.7 % (40-54); Hemoglobin 9.9 g/dL (13.0-16.5); Lymphocyte # 1.52 X10^3/ul (0.83-4.51); Lymphocyte % 21.9 % (19-41); Mean Corp Hgb Conc 33.3 g/dL (32-36); Mean Corpuscular Hgb 31.9 pg (27.0-32.0); Mean Corpuscular Volume 95.8 fL (80-94); Mean Platelet Vol. 11.1 fl (6.2-12.0); Monocyte# 0.65 X10^3/uL; Monocyte% 9.4 % (0-10); NRBC Flagged by Analyzer 0 % (0-5); Neutrophil # 4.08 X10^3/uL (2.7-7.7); Neutrophil % 58.9 % (47-70); Platelet Count 150 K/mm3 (150-450); RBC Distribution Width CV 12.6 % (11.6-14.6); RBC Distribution Width SD 44.8 fl (35.1-43.9); White Blood Count 6.9 K/mm3 (4.4-11.0)
[2022-11-05 06:50] LABS: Bedside Glucose 268 mg/dL (74-106)
[2022-11-05 07:00] LABS: Anion Gap 4 (5-15); BUN 23 mg/dL (7-18); BUN/Creat Ratio 20.7 RATIO (10-20); Calcium,Total 7.7 mg/dL (8.5-10.1); Chloride 107 mmol/L (98-107); Creatinine, Serum 1.11 mg/dL (0.70-1.30); EST Glomerular Filtration Rate 68 mL/min (>60); Est Glom Filt Rate - Afr Amer 82 mL/min (>60); Estimated Creatinine Clearance 45.95 ml/min; Glucose 263 mg/dL (74-106); Potassium 4.4 mmol/L (3.5-5.1); Sodium Level 135 mmol/L (136-145)
--- NOTE | 2022-11-05 07:32 | PN.HOSP_ITS ---
Reason for Visit Reason for Visit: Diagnoses Acute posthemorrhagic anemia (11/03/22) Acute cystitis with hematuria (11/03/22) Flaccid neuropathic bladder, not elsewhere classified (11/03/22) Urinary tract infection, site not specified (11/03/22) Gross hematuria (11/03/22) Unspecified fall, initial encounter (11/03/22) Subjective Subjective No new complaints. Objective Data Objective Data Vital Signs: Vital Signs Temp Pulse Resp BP Pulse Ox O2 Del Method 37.0 C 64 16 118/69 97 Room Air 11/05/22 06:00 11/05/22 06:00 11/05/22 06:00 11/05/22 06:00 11/05/22 06:00 11/05/22 06:00 Oxygen Delivery Method Room Air Weight: 60.2 kg Body Mass Index (BMI) 18.5 Intake & Output: Intake and Output for Last 24 Hours 11/03/22 11/04/22 11/05/22 23:59 23:59 23:59 Intake Total 1250 / 1250 1875 / 1875 Output Total 1150 / 1950 800 / 800 Balance 1250 / 1250 725 / -75 -800 / -800 Medical Nutrition Assessment Dietitian: Malnutrition Criteria Met Start: 11/04/22 10:11 Freq: Status: Active Protocol: Document 11/04/22 10:11 VANESSA (Rec: 11/04/22 10:11 VANESSA [id number]) Nutrition Malnutrition Evidence of Malnutrition Exists Yes Malnutrition (moderate): Chronic Evidenced By Suboptimal Energy Intake ( Moderate),Weight Loss ( Moderate),Physical Changes ( Moderate) Clinical Problem Chronic Disease or Condition Related Malnutrition Etiology moderate related to inadequate energy intake Signs/Symptoms as evidenced by ~<=50% po intake x 5 mo d/t not hungry , 5.1% wt loss x 3 months and BMI 17.9 Status Active Problem Recommendation Dietitian Recommendations/Changes Will continue 1800 nora Consistent CHO diet as ordered Will order 4 oz glucerna shake 4x/day w/ medpass for increased nutrition if consumed. Lab / Micro Data Result Diagrams: 11/05/22 05:23 11/05/22 05:23 Labs: Laboratory Results - last 24 hr 11/04/22 05:30: Sodium 136, Potassium 4.0, Chloride 105, Carbon Dioxide 25.0, Anion Gap 6, BUN 26 H, Creatinine 1.17, Estim Creat Clear Calc 42.22, Est GFR (MDRD) Af Amer 77, Est GFR (MDRD) Non-Af 64, BUN/Creatinine Ratio 22.2 H, Glucose 254 H, Calcium 7.6 L, Phosphorus 3.4, Magnesium 1.5 L 11/04/22 11:36: POC Glucose 266 H 11/04/22 16:47: POC Glucose 329 H 11/04/22 22:48: POC Glucose 244 H 11/05/22 05:23: WBC 6.9, RBC 3.10 L, Hgb 9.9 L, Hct 29.7 L, MCV 95.8 H, MCH 31.9, MCHC 33.3, RDW Std Deviation 44.8 H, RDW Coeff of Sridevi 12.6, Plt Count 150, MPV 11.1, Immature Gran % (Auto) 0.300, Neut % (Auto) 58.9, Lymph % (Auto) 21.9, [place] % (Auto) 9.4, Eos % (Auto) 8.9 H, Baso % (Auto) 0.6, Absolute Neuts (auto) 4.1, Absolute Lymphs (auto) 1.52, Nucleated RBC % 0 11/05/22 05:23: Sodium 135 L, Potassium 4.4, Chloride 107, Carbon Dioxide 24.0, Anion Gap 4 L, BUN 23 H, Creatinine 1.11, Estim Creat Clear Calc 45.95, Est GFR (MDRD) Af Amer 82, Est GFR (MDRD) Non-Af 68, BUN/Creatinine Ratio 20.7 H, Glucose 263 H, Calcium 7.7 L 11/05/22 06:01: POC Glucose 268 H Micro: Microbiology 11/03/22 14:20 Urine Catheter - Catheter Urine Culture - Preliminary GNR lactose subgrade tester Radiography Diagnostic Testing: Radiology Impression Renal Ultrasound 11/04/22 05:55 IMPRESSION: 1. There is mild bilateral hydronephrosis. 2. Nonspecific focal thickening of the urinary bladder wall. Neoplastic etiologies are not excluded. Electronically Signed: Idalia Matta MD at 9:32 EDT , Physical Exam Const alert and no apparent distress HEENT head/scalp atraumatic and moist oral mucous membranes Resp normal respiratory effort, no retractions, no use of accessory muscles and clear to auscultation bilaterally Cardio regular rate, regular rhythm, S1 normal heart sound and S2 normal heart sound GI normal to inspection, nondistended, normoactive bowel sounds, soft to palpation, non-tender and non-distended Extremity normal to inspection Neuro Sensorium / Orientation: awake and alert Assessment & Plan Assessment/Plan (1) Hematuria: QUALIFIERS: Hematuria type: gross Qualified Code(s): R31.0 - Gross hematuria PLAN: Resolved Hematuria after self-catheterization possible traumatic +/- UTI Urologist consulted Renal US shows mild bilateral hydronephrosis and focal thickening of urinary bladder. (2) UTI (urinary tract infection): QUALIFIERS: Hematuria presence: with hematuria Urinary tract infection type: acute cystitis Qualified Code(s): N30.01 - Acute cystitis with hematuria PLAN: h/o MRSA UTI from 09/24. UCx currently pending. Dr. Pryor was consulted and he thought he does not need inpatient cystoscopy. Patient is started on IV ceftriaxone and 1 dose of IV vancomycin. Cx growing Klebsiella pneumoniae. Continue abx through 11/10. Continue TMP/SMZ through 11/10. (3) Acute blood loss anemia: PLAN: 09/12 hematuria Hg dropped from 12.8 to 9.9. No transfusions necessary at this time. CT was little elevated 6.1.EGD shows nonbleeding gastric ulcer with no stigmata of bleeding, glycogenic acanthosis of esophagus.? Multiple nonbleeding duodenal ulcers with no stigmata of bleeding.? Repeat EGD in 4 months to check healing.? Colonoscopy shows diverticulosis of sigmoid colon and stool in rectum sigmoid colon and descending colon and cecum.? Congested mucosa intermittently and biopsied.? He was advised to follow-up with Dr. Estes but I do not see follow- up in the chart. Patient had duodenal ulcer biopsy reported focal acute inflammation. Esophageal biopsy showed changes of reflux. Terminal ileum biopsy no pathologic change. Gastric ulcer biopsy negative for H. pylori. CT abdomen and pelvis with contrast at that time? Diffuse irregular thickening of bladder wall.? Diffuse thickening of distal stomach and antrum with multiple gallstones.? Moderate feces in colon.? Normal retroperiton (4) Fall: PLAN: Recent fall about a week ago and generalized weakness, anorexia: PT and OT. Control pain. 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 And coccyx. No red flag symptoms. ?continue on scheduled Tylenol, oxycodone as needed * CAD status post stent/hypertension/hyperlipidemia Continue aspirin, statin, Plavix, metoprolol, nitro as needed * Type II DM: Hyperglycemia, glucose is 250s.? Resume glipizide.? Resume metformin? Continue Accu-Chek NSTs, with Humalog sliding scale. Increase g largine back to 20 (from 10) DVT PPx- Heparin SC Code status: DNRCCA, no intubation. Disposition: [facility] v [facility]. Medically stable for discharge. Charges/Coding Visit Charges Inpatient E&M: 82688 Subs Hosp L2
[2022-11-05 07:53] VITALS: BP 131/72; PULSE 65; RESP 16; TEMP 37.2; O2SAT 96
--- NOTE | 2022-11-05 09:41 | CASEMGMT ---
Social Work? SW in to meet with pt following update from Dr and therapy team that pt will need placement at nursing facility. SW introduced self and role at the hospital. Pt agreeable to discussing discharge planning. A list of SNF providers including quality and resource use data consistent with the patient?s preferred geographic region, medical needs, and insurance network were provided from the [employer] Guide. Pt declined to review list. Pt informed was recently at [facility] and that would be preference. SW sent referral to [facility]. PLAN: [facility], pending acceptance and precert ? BERNADETTE Robles?
[2022-11-05] MEDS: Aspirin 81 MG TAB.CHEW PO (09:50)
[2022-11-05] MEDS: Smz/Tmp Ds Tablet 1 TABLET PO (09:50)
[2022-11-05] MEDS: glipiZIDE XL 5 MG Tablet 10 MG PO ×2 (09:50→16:46)
[2022-11-05 09:51] VITALS: PULSE 65
[2022-11-05] MEDS: OPTH EACH EYE (09:51)
[2022-11-05] MEDS: Senna/Docusate Sodium 1 Tablet 2 TABLET PO (09:51)
[2022-11-05] MEDS: LEVOBUNOLOL 0.5% EACH EYE (09:51)
[2022-11-05] MEDS: Metoprolol Tartrate 25 MG Tablet PO (09:51)
[2022-11-05] MEDS: Finasteride 5 MG Tablet PO (09:51)
[2022-11-05] MEDS: Pantoprazole Sodium 40 MG Tablet PO (09:51)
[2022-11-05] MEDS: Menthol/Lanolin/Calamine/Znox 113 GM Tube 1 APPLIC TOPICAL (09:52)
[2022-11-05] MEDS: Glucerna Shake 120 ML LIQUID PO ×2 (09:52→15:20)
[2022-11-05] MEDS: Nystatin Powder 15gm Bottle 1 APPLIC TOPICAL (09:52)
[2022-11-05] MEDS: 0.9% Saline Lock 10 ML Syringe IV (10:35)
[2022-11-05] MEDS: Acetaminophen 500 MG Tablet 1000 MG PO ×2 (10:35→16:47)
[2022-11-05] MEDS: Ceftriaxone 1 GM/50 ML BAG IV (10:35)
--- NOTE | 2022-11-05 11:05 | CASEMGMT ---
Addendum entered by Martha Maria 11/05/22 11:51: [facility] responded and informed that precert has been started. [facility] also informed that pt will be in co-pay days when he returns to their facility and will have to pay 196.00 per day. Pt nurse informed that pt was calling to ask for an update. SW spoke to pt , Miguel, and gave update. SW explained pt has been accepted and insurance will cover a portion of pt stay but that a co-pay of 196 dollars will be expected per day. , Miguel, stated this is manageable and that it would be paid. Miugel stated would inform pt of this information when she speaks to him later this day and discuss their plan for paying. Original Note: Social Work SW received message from [facility] that pt has been accepted. SW asked that precert be started today. SW in to pt room to informed of acceptance. Explained insurance auth could take a few days. Pt voiced understanding. PLAN: [facility], pending precert BERNADETTE Robles
[2022-11-05 11:45] LABS: Bedside Glucose 240 mg/dL (74-106)
[2022-11-05 13:56] VITALS: O2SAT 98
--- NOTE | 2022-11-05 14:55 | TREXTCAR_ITS ---
Diet Diet Order/Speech Therapy: 11/03/22 20:01 Diet: Consistent Carb - Calorie Controlled Food consistency:: Regular Liquid Consistency:: Regular/Thin How many daily calories?: 1800 calorie Routine Orders/Code Status Change Valadez Catheter: straight cath 4 times daily and PRN Routine Lab Work: CBC Code Status: DNRCC-A (no intubation.) Wound(s) generalized: Wound Type: scabs throughout Therapies Weight Bearing: Full weight bearing Physical Therapy: Eval and Treat Occupational Therapy: Eval and Treat Problem/Diagnosis (1) Hematuria: Status: Acute Code(s): R31.9 - Hematuria, unspecified Plan: Resolved Hematuria after self-catheterization possible traumatic +/- UTI Urologist consulted Renal US shows mild bilateral hydronephrosis and focal thickening of urinary bladder. (2) UTI (urinary tract infection): Status: Acute Code(s): N39.0 - Urinary tract infection, site not specified Plan: h/o MRSA UTI from 09/24. UCx currently pending. Dr. Pryor was consulted and he thought he does not need inpatient cystoscopy. Patient is started on IV ceftriaxone and 1 dose of IV vancomycin. Cx growing Klebsiella pneumoniae. Continue abx through 11/10. Continue TMP/SMZ through 11/10. (3) Acute blood loss anemia: Status: Acute Code(s): D62 - Acute posthemorrhagic anemia Plan: 09/12 hematuria Hg dropped from 12.8 to 9.9. No transfusions necessary at this time. CT was little elevated 6.1.EGD shows nonbleeding gastric ulcer with no stigmata of bleeding, glycogenic acanthosis of esophagus.? Multiple nonbleeding duodenal ulcers with no stigmata of bleeding.? Repeat EGD in 4 months to check healing.? Colonoscopy shows diverticulosis of sigmoid colon and stool in rectum sigmoid colon and descending colon and cecum.? Congested mucosa intermittently and biopsied.? He was advised to follow-up with Dr. Estes but I do not see follow- up in the chart. Patient had duodenal ulcer biopsy reported focal acute inflammation. Esophageal biopsy showed changes of reflux. Terminal ileum biopsy no pathologic change. Gastric ulcer biopsy negative for H. pylori. CT abdomen and pelvis with contrast at that time? Diffuse irregular thickening of bladder wall.? Diffuse thickening of distal stomach and antrum with multiple gallstones.? Moderate feces in colon.? Normal retroperiton (4) Fall: Status: Inactive Code(s): W19.XXXA - Unspecified fall, initial encounter Plan: Recent fall about a week ago and generalized weakness, anorexia: PT and OT. Control pain. 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 And coccyx. No red flag symptoms. ?continue on scheduled Tylenol, oxycodone as needed * CAD status post stent/hypertension/hyperlipidemia Continue aspirin, statin, Plavix, metoprolol, nitro as needed * Type II DM: Hyperglycemia, glucose is 250s.? Resume glipizide.? Resume me tformin? Continue Accu-Chek NSTs, with Humalog sliding scale. Increase glargine back to 20 (from 10) DVT PPx- Heparin SC Code status: DNRCCA, no intubation. Disposition: [facility] v [facility]. Medically stable for discharge. Allergies/Procedures Done in Hospital Allergies No Known Allergies Allergy (Verified 10/28/22 11:56) Type of Care/Length of Stay Estimated LOS: Convalescent Care Less Than 30 days Type of Care Needed: Skilled Rehab Potential: Good Prognosis: Good Additional Orders/Day of Discharge Day of Discharge: 11/05/22 Dietary and Speech Recommendations Dietitian Recommendations/Changes: Will continue 1800 nora Consistent CHO diet as ordered Will order 4 oz glucerna shake 4x/day w/ medpass for increased nutrition if consumed. Discharge Plan Admission Admit Date/Time: 11/03/22 17:28 Primary Reason for Your Visit: UTI. Hematuria. Attending Provider: Ari Guillaume Primary Care Provider: Sandeep Montenegro Consulting Providers: Cuba Pryor ; Jose Guadalupe Reyes Discharge Orders/Prescriptions Prescriptions: New levobunolol 0.5 % Drops 1 drp EACH EYE DAILY Qty: 0 0RF sennosides-docusate sodium [Stool Softener-Stimulant Laxat] 8.6-50 mg Tablet 2 tab PO BID PRN (Reason: constipation) Qty: 10 0RF acetaminophen 500 mg Tablet 1,000 mg PO TID PRN (Reason: ARTHRITIS/BACK PAIN) Qty: 0 0RF pantoprazole 40 mg Tablet,Delayed Release (Dr/Ec) 40 mg PO BID Qty: 0 0RF nystatin [Nyamyc] 100,000 unit/gram Powder 1 applic topical BID Qty: 0 0RF Protocol: *Topical Application Instructions APPLICATION INSTRUCTIONS: scrotum insulin lispro [Humalog KwikPen Insulin] 100 unit/mL Insulin Pen See Protocol subcut ACHS Qty: 0 0RF Protocol: 4. Sliding Scale Insulin High-Med Dosing Condition: 150-199 mg/dl = 2 units Condition: 200-259 mg/dl = 4 units Condition: 260-324 mg/dl = 6 units Condition: 325-374 mg/dl = 8 units Condition: 375-409 mg/dl = 10 units Condition: 410-449 mg/dl = 11 units Condition: Greater than 449 call physician Protocol Text: - Use for Total Daily Dose of Insulin 56-80 units - Patient who are insulin resistant or septic HIGH MEDIUM DOSING ALGORITHM metoprolol tartrate 25 mg Tablet 25 mg PO BID Qty: 0 0RF Glucerna 1.2 Nora 0.06-1.2 gram-kcal/mL Liquid 120 ml PO 4X/DAY Qty: 0 0RF sulfamethoxazole-trimethoprim 800-160 mg Tablet 1 tab PO BID Qty: 10 0RF tamsulosin 0.4 mg Capsule 0.4 mg PO DAILY@1730 Qty: 0 0RF Continued finasteride 5 mg tablet 5 mg PO DAILY Label Comments: TAKE 1 TABLET BY MOUTH ONCE DAILY atorvastatin 80 mg tablet 80 mg PO QHS glipizide 10 mg tablet extended release 24hr 10 mg PO BID metformin 500 mg Tablet 500 mg PO BID insulin glargine [Lantus Solostar U-100 Insulin] 100 unit/mL (3 mL) insulin pen 20 unit SUBCUT DAILY Label Comments: INJECT 12 UNITS SUBCUTANEOUSLY ONCE DAILY OR DIRECTED Held aspirin 81 MG tablet,chewable 81 mg PO DAILY@0800 Hold Instructions: Resume on 11/07/22. Label Comments: LAST DOSE ASPIRIN 07/14/2022 FOR SURGERY ON 07/19/22 clopidogrel 75 mg tablet 75 mg PO DAILY Hold Instructions: Resume on 11/07/22. Label Comments: TAKE 1 TABLET BY MOUTH ONCE DAILY Referrals / Follow Up: [facility] [Provider Group] - 02/04/23 11:00 am [facility] [Provider Group] - 12/09/22 9:00 am Cuba Pryor MD [Med Staff - Active Staff] - Within 1 Month Sandeep Montenegro DO [Primary Care Provider] - Within 2 Weeks Disposition Disposition (needs filled in before D/C Order can be placed): [facility] (1) Hematuria Qualifiers: Hematuria type: gross Qualified Code(s): R31.0 - Gross hematuria (2) UTI (urinary tract infection) Qualifiers: Urinary tract infection type: acute cystitis Hematuria presence: with hematuria Qualified Code(s): N30.01 - Acute cystitis with hematuria
--- NOTE | 2022-11-05 15:05 | PCM.DC.SUM ---
Providers Date of Admission: 11/03/22 Primary Care Physician: Dr. Sandeep Montenegro, DO Consultations 11/03/22 20:01 Consult: Urology Routine Consulting Provider: Cuba Pryor Reason for Consult: Hematuria, difficult to self cath, recurrent UTI EMERGENT Consult: No MD Notified: Yes Date Notified: 11/03/22 Time Notified: 17:53 Method of Notification: Text Reason For Visit: HEMATURIA, PELVIC PAIN Diagnosis Discharge Diagnosis (1) Hematuria: Status: Acute Code(s): R31.9 - Hematuria, unspecified Qualifiers: Hematuria type: gross Qualified Code(s): R31.0 - Gross hematuria Plan: Resolved Hematuria after self-catheterization possible traumatic +/- UTI Urologist consulted Renal US shows mild bilateral hydronephrosis and focal thickening of urinary bladder. (2) UTI (urinary tract infection): Status: Acute Code(s): N39.0 - Urinary tract infection, site not specified Qualifiers: Urinary tract infection type: acute cystitis Hematuria presence: with hematuria Qualified Code(s): N30.01 - Acute cystitis with hematuria Plan: Dr. Pryor was consulted and he thought he does not need inpatient cystoscopy. Cx growing Klebsiella pneumoniae. Continue abx through 11/10. Continue TMP/SMZ through 11/10. (3) Acute blood loss anemia: Status: Acute Code(s): D62 - Acute posthemorrhagic anemia Plan: 09/12 hematuria Hg dropped from 12.8 to 9.9. No transfusions necessary at this time. CT was little elevated 6.1.EGD shows nonbleeding gastric ulcer with no stigmata of bleeding, glycogenic acanthosis of esophagus.? Multiple nonbleeding duodenal ulcers with no stigmata of bleeding.? Repeat EGD in 4 months to check healing.? Colonoscopy shows diverticulosis of sigmoid colon and stool in rectum sigmoid colon and descending colon and cecum.? Congested mucosa intermittently and biopsied.? He was advised to follow-up with Dr. Estes but I do not see follow-up in the chart. Patient had duodenal ulcer biopsy reported focal acute inflammation. Esophageal biopsy showed changes of reflux. Terminal ileum biopsy no pathologic change. Gastric ulcer biopsy negative for H. pylori. CT abdomen and pelvis with contrast at that time? Diffuse irregular thickening of bladder wall.? Diffuse thickening of distal stomach and antrum with multiple gallstones.? Moderate feces in colon.? Normal retroperiton (4) Fall: Status: Inactive Code(s): W19.XXXA - Unspecified fall, initial encounter Plan: Recent fall about a week ago and generalized weakness, anorexia: PT and OT. Control pain. 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 And coccyx. No red flag symptoms. ?continue on scheduled Tylenol, oxycodone as needed CAD status post stent/hypertension/hyperlipidemia Continue aspirin, statin, Plavix, metoprolol, nitro as needed Type II DM: Hyperglycemia, glucose is 250s.? Resume glipizide.? Resume metformin? Continue Accu-Chek NSTs, with Humalog sliding scale. Increase glargine back to 20 (from 10) Code status: DNRCCA, no intubation. [facility]position[facility] Medications at Discharge Home Medications aspirin 81 mg chewable tablet 81 mg PO DAILY@0800 [facility] 12/19/15 atorvastatin 80 mg tablet 80 mg PO QHS HLD 07/15/22 finasteride 5 mg tablet 5 mg PO DAILY BPH 07/15/22 glipizide 10 mg tablet, extended release 24 hr 10 mg PO BID dm 07/15/22 metformin 500 mg tablet 500 mg PO BID diabetes 09/24/22 clopidogrel 75 mg tablet 75 mg PO DAILY [facility] 11/03/22 insulin glargine 100 unit/mL (3 mL) subcutaneous pen (Lantus Solostar U-100 Insulin) 20 unit subcut DAILY diabetes 11/03/22 acetaminophen 500 mg tablet 1,000 mg PO TID PRN ARTHRITIS/BACK PAIN #0 tabs 11/05/22 insulin lispro 100 unit/mL subcutaneous pen (Humalog KwikPen (U-100) Insulin) See Protocol subcut ACHS #0 mL 11/05/22 levobunolol 0.5 % eye drops 1 drp EACH EYE DAILY #0 mL 11/05/22 metoprolol tartrate 25 mg tablet 25 mg PO BID #0 tabs 11/05/22 nutrition tx glu intol,lac-free,soy-fiber 0.06 gram-1.2 kcal/mL liquid (Glucerna 1.2 Nora) 120 ml PO 4X/DAY #0 mL 11/05/22 nystatin 100,000 unit/gram topical powder (Nyamyc) 1 applic topical BID #0 grams 11/05/22 pantoprazole 40 mg tablet,delayed release 40 mg PO BID #0 tabs 11/05/22 sennosides 8.6 mg-docusate sodium 50 mg tablet (Stool Softener-Stimulant Laxative) 2 tab PO BID PRN constipation #10 tabs 11/05/22 sulfamethoxazole 800 mg-trimethoprim 160 mg tablet 1 tab PO BID #10 tabs 11/05/22 tamsulosin 0.4 mg capsule 0.4 mg PO DAILY@1730 #0 caps 11/05/22 Hospital Course Operations None Procedures None Summary of Care Provided Minutes Spent on Discharge: 35 Medical Records Data Medical Nutrition Assessment Dietitian: Malnutrition Criteria Met Start: 11/04/22 10:11 Freq: Status: Active Protocol: Document 11/04/22 10:11 VANESSA (Rec: 11/04/22 10:11 VANESSA [id number]) Nutrition Malnutrition Evidence of Malnutrition Exists Yes Malnutrition (moderate): Chronic Evidenced By Suboptimal Energy Intake ( Moderate),Weight Loss ( Moderate),Physical Changes ( Moderate) Clinical Problem Chronic Disease or Condition Related Malnutrition Etiology moderate related to inadequate energy intake Signs/Symptoms as evidenced by ~<=50% po intake x 5 mo d/t not hungry , 5.1% wt loss x 3 months and BMI 17.9 Status Active Problem Recommendation Dietitian Recommendations/Changes Will continue 1800 nora Consistent CHO diet as ordered Will order 4 oz glucerna shake 4x/day w/ medpass for increased nutrition if consumed. Weight / BMI Weight Weight: 60.2 kg Body Mass Index (BMI) 18.5 ABG / Lab / Microbiology Data Result Diagrams: 11/05/22 05:23 11/05/22 05:23 Laboratory: Laboratory Results - last 24 hr 11/04/22 16:47: POC Glucose 329 H 11/04/22 22:48: POC Glucose 244 H 11/05/22 05:23: WBC 6.9, RBC 3.10 L, Hgb 9.9 L, Hct 29.7 L, MCV 95.8 H, MCH 31.9, MCHC 33.3, RDW Std Deviation 44.8 H, RDW Coeff of Sridevi 12.6, Plt Count 150, MPV 11.1, Immature Gran % (Auto) 0.300, Neut % (Auto) 58.9, Lymph % (Auto) 21.9, [place] % (Auto) 9.4, Eos % (Auto) 8.9 H, Baso % (Auto) 0.6, Absolute Neuts (auto) 4.1, Absolute Lymphs (auto) 1.52, Nucleated RBC % 0 11/05/22 05:23: Sodium 135 L, Potassium 4.4, Chloride 107, Carbon Dioxide 24.0, Anion Gap 4 L, BUN 23 H, Creatinine 1.11, Estim Creat Clear Calc 45.95, Est GFR (MDRD) Af Amer 82, Est GFR (MDRD) Non-Af 68, BUN/Creatinine Ratio 20.7 H, Glucose 263 H, Calcium 7.7 L 11/05/22 06:01: POC Glucose 268 H 11/05/22 11:21: POC Glucose 240 H Microbiology: Microbiology 11/03/22 14:20 Urine Catheter - Catheter Urine Culture - Final Klebsiella pneumoniae sp pneum Meaningful Use Info Meaningful Use Diagnoses (Choose all that apply): None applicable Discharge Plan Admission Admit Date/Time: 11/03/22 17:28 Primary Reason for Your Visit: UTI. Hematuria. Attending Provider: Ari Guillaume Primary Care Provider: Sandeep Montenegro Consulting Providers: Cuba Pryor ; Jose Guadalupe Reyes Discharge Orders/Prescriptions Prescriptions: New levobunolol 0.5 % Drops 1 drp EACH EYE DAILY Qty: 0 0RF sennosides-docusate sodium [Stool Softener-Stimulant Laxat] 8.6-50 mg Tablet 2 tab PO BID PRN (Reason: constipation) Qty: 10 0RF acetaminophen 500 mg Tablet 1,000 mg PO TID PRN (Reason: ARTHRITIS/BACK PAIN) Qty: 0 0RF pantoprazole 40 mg Tablet,Delayed Release (Dr/Ec) 40 mg PO BID Qty: 0 0RF nystatin [Nyamyc] 100,000 unit/gram Powder 1 applic topical BID Qty: 0 0RF Protocol: *Topical Application Instructions APPLICATION INSTRUCTIONS: scrotum insulin lispro [Humalog KwikPen Insulin] 100 unit/mL Insulin Pen See Protocol subcut ACHS Qty: 0 0RF Protocol: 4. Sliding Scale Insulin High-Med Dosing Condition: 150-199 mg/dl = 2 units Condition: 200-259 mg/dl = 4 units Condition: 260-324 mg/dl = 6 units Condition: 325-374 mg/dl = 8 units Condition: 375-409 mg/dl = 10 units Condition: 410-449 mg/dl = 11 units Condition: Greater than 449 call physician Protocol Text: - Use for Total Daily Dose of Insulin 56-80 units - Patient who are insulin resistant or septic HIGH MEDIUM DOSING ALGORITHM metoprolol tartrate 25 mg Tablet 25 mg PO BID Qty: 0 0RF Glucerna 1.2 Nora 0.06-1.2 gram-kcal/mL Liquid 120 ml PO 4X/DAY Qty: 0 0RF sulfamethoxazole-trimethoprim 800-160 mg Tablet 1 tab PO BID Qty: 10 0RF tamsulosin 0.4 mg Capsule 0.4 mg PO DAILY@1730 Qty: 0 0RF Continued finasteride 5 mg tablet 5 mg PO DAILY Label Comments: TAKE 1 TABLET BY MOUTH ONCE DAILY atorvastatin 80 mg tablet 80 mg PO QHS glipizide 10 mg tablet extended release 24hr 10 mg PO BID metformin 500 mg Tablet 500 mg PO BID insulin glargine [Lantus Solostar U-100 Insulin] 100 unit/mL (3 mL) insulin pen 20 unit SUBCUT DAILY Label Comments: INJECT 12 UNITS SUBCUTANEOUSLY ONCE DAILY OR DIRECTED Held aspirin 81 MG tablet,chewable 81 mg PO DAILY@0800 Hold Instructions: Resume on 11/07/22. Label Comments: LAST DOSE ASPIRIN 07/14/2022 FOR SURGERY ON 07/19/22 clopidogrel 75 mg tablet 75 mg PO DAILY Hold Instructions: Resume on 11/07/22. Label Comments: TAKE 1 TABLET BY MOUTH ONCE DAILY Referrals / Follow Up: [facility] [Provider Group] - 02/04/23 11:00 am [facility] [Provider Group] - 12/09/22 9:00 am Cuba Pryor MD [Med Staff - Active Staff] - Within 1 Month Sandeep Montenegro DO [Primary Care Provider] - Within 2 Weeks Disposition Disposition (needs filled in before D/C Order can be placed): [facility] Charges/Coding Visit Charges Inpatient E&M: 16070 Disch Hosp >30min
--- NOTE | 2022-11-05 15:31 | CASEMGMT ---
Social Work? [facility] informed precert has been obtained. SUBHASH notified pt and called pt , Miguel to also inform that pt will discharge today. SUBHASH completed 7000 convalescent form in [facility]. Set up wheelchair transportation through [facility] for 5:00-5:30pm. SUBHASH faxed all discharge orders to [facility] via [employer] and notified of discharge time. SUBHASH notified pt nurse of transport time. SUBHASH made copies of discharge orders and placed on pt chart. Sent original orders in envelope with pt upon discharge.?? Disposition: [facility], skilled, convalescent, level of care? BERNADETTE Robles
[2022-11-05 15:47] VITALS: BP 135/71; PULSE 59; RESP 18; TEMP 36.9; O2SAT 97
[2022-11-05 16:15] LABS: Bedside Glucose 227 mg/dL (74-106)
[2022-11-05] MEDS: Tamsulosin HCl 0.4 MG Capsule PO (16:46)
== END 2022-11-05 17:42 | disposition skilled nursing facility (03) | DRG 690 ==
LOC: ED 14:51 → MS3 18:04
PROVIDERS: Physician Assistant; Admitting Provider Internal Medicine; Emergency Provider Student in an Organized Health Care Education/Training Program; PCP Family Medicine
DX: N30.01 Acute cystitis with hematuria (principal); E13.22 Other specified diabetes mellitus with diabetic chronic kidney disease; E13.65 Other specified diabetes mellitus with hyperglycemia; D62 Acute posthemorrhagic anemia; E87.1 Hypo-osmolality and hyponatremia; N13.6 Pyonephrosis; K26.9 Duodenal ulcer, unspecified as acute or chronic, without hemorrhage or perforation; B96.1 Klebsiella pneumoniae [K. pneumoniae] as the cause of diseases classified elsewhere; K57.30 Diverticulosis of large intestine without perforation or abscess without bleeding; E78.5 Hyperlipidemia, unspecified; M48.061 Spinal stenosis, lumbar region without neurogenic claudication; I25.10 Atherosclerotic heart disease of native coronary artery without angina pectoris; N18.9 Chronic kidney disease, unspecified; I12.9 Hypertensive chronic kidney disease with stage 1 through stage 4 chronic kidney disease, or unspecified chronic kidney disease; K80.20 Calculus of gallbladder without cholecystitis without obstruction; M51.26 Other intervertebral disc displacement, lumbar region; Z95.5 Presence of coronary angioplasty implant and graft; Z66 Do not resuscitate; Z79.82 Long term (current) use of aspirin; K25.9 Gastric ulcer, unspecified as acute or chronic, without hemorrhage or perforation; Z79.84 Long term (current) use of oral hypoglycemic drugs; Z79.02 Long term (current) use of antithrombotics/antiplatelets; Z79.899 Other long term (current) drug therapy; Z91.81 History of falling; G89.29 Other chronic pain; N31.2 Flaccid neuropathic bladder, not elsewhere classified
CPT/HCPCS: 36415; 76770; 80048; 81001; 82962; 83735; 84100; 85025; 87040; 87077; 87086; 87088; 87186; 87426; 94668; 96361; 96365; 96366; 96367; 96375; 97162; 97166; 97530; 99221; 99252; 99285; J7030; A4216; G0378; G0463

== ENCOUNTER 2023-01-20 08:00 | Day surgery (SDC) | payer MEDICARE, SELFPAY ==
[2023-01-20] VITALS (10 sets, daily range): BP systolic 66–142; BP diastolic 38–83; PULSE 72–84; RESP 14–17; TEMP 36.2–36.6; O2SAT 97–100; BMI 20.5
[2023-01-20] MEDS: Lactated Ringers 1,000 ML 15 ML IV (08:30)
--- NOTE | 2023-01-20 08:38 | HP.PCM_ITS ---
History and Physical Date of Admission: 01/20/23 CT was little elevated 6.1.EGD shows nonbleeding gastric ulcer with no stigmata of bleeding, glycogenic acanthosis of esophagus.? Multiple nonbleeding duodenal ulcers with no stigmata of bleeding.? Repeat EGD in 4 months to check healing.? Colonoscopy shows diverticulosis of sigmoid colon and stool in rectum sigmoid colon and descending colon and cecum.? Congested mucosa intermittently and biopsied.? He was advised to follow-up with Dr. Estes but I do not see follow- up in the chart.? Patient had duodenal ulcer biopsy reported focal acute inflammation.? Esophageal biopsy showed changes of reflux.? Terminal ileum biopsy no pathologic change.? Gastric ulcer biopsy negative for H. pylori. CT abdomen and pelvis with contrast at that time? Diffuse irregular thickening of bladder wall.? Diffuse thickening of distal stomach and antrum with multiple gallstones.? Moderate feces in colon.? Normal retroperiton
--- NOTE | 2023-01-20 08:38 | PCM.HP.BLA ---
History and Physical Date of Admission: 01/20/23 82 M Who came to ED with his for hematuria after self-catheterization yesterday night.? Patient had BPH for which he required TURP long time ago, follows Dr. Pryor and requires intermittently self-catheterization once or twice a day.? He also leaks urine/incontinence.? He complains of burning pain on micturition, suprapubic pain.? Denies fever and rigor but he feels cold all the time.? He did not had hematuria in the morning today.? He was last seen by Dr. Pryor during previous admission in September 2022 for MRSA UTI.? At that time bladder ultrasound showed thick muscular wall. Patient was evaluated in ED on 10/28 after a fall backwards on his head after he felt lightheaded and weak.? Patient had a small skin avulsion/laceration and hematoma and was dressed.? Patient stated he passed out but as per ER physician note it did not had loss of consciousness.CT head and CT C-spine ruled out any acute change and was discharged home.? Since then patient is feeling very weak wobbly on walker.? Patient has chronic back pain.? wants SNF placement as she could not take care of him. His hemoglobin was determined to be low. I was consulted because he had blood in his stool along with significant anemia. His hemoglobin was 6.1. He underwent an EGD shows nonbleeding gastric ulcer with no stigmata of bleeding, glycogenic acanthosis of esophagus.? Multiple nonbleeding duodenal ulcers with no stigmata of bleeding.? Repeat EGD in 4 months to check healing.? Colonoscopy shows diverticulosis of sigmoid colon and stool in rectum sigmoid colon and descending colon and cecum.? Congested mucosa intermittently and biopsied.? ? Patient had duodenal ulcer biopsy reported focal acute inflammation.? Esophageal biopsy showed changes of reflux.? Terminal ileum biopsy no pathologic change.? Gastric ulcer biopsy negative for H. pylori. CT abdomen and pelvis with contrast at that time? Diffuse irregular thickening of bladder wall.? Diffuse thickening of distal stomach and antrum with multiple gallstones.? Moderate feces in colon.? Normal retroperiton PFSH Medical History? Angina pectoris, unstable Atherosclerosis of [place] coronary artery of [place] heart without angina pectoris Cardiology follow-up encounter Chronic indwelling Valadez catheter Chronic renal insufficiency Diabetes 1.5, managed as type 2 Essential hypertension Excessive bleeding History of stress test HLD (hyperlipidemia) HLP (hyperkeratosis lenticularis perstans) Hypertension Indwelling urethral catheter present Loss of hearing Myocardial infarct Non-smoker Open wound Presence of stent in coronary artery (~12/20/15) Thick muscular wall of urinary bladder present on ultrasound Walker as ambulation aid Wears glasses Weight loss Home Medications aspirin 81 mg chewable tablet 81 mg PO DAILY@0800 [facility] 12/19/15 [History Last Taken 09/24/22] levobunolol 0.5 % eye drops 1 drp EACH EYE DAILY 01/22/16 [History Last Taken 09/24/22] nitroglycerin 0.4 mg sublingual tablet 0.4 mg sublingual Q5M PRN Chest Pain 01/22/16 [History Last Taken Unknown] atorvastatin 80 mg tablet 80 mg PO QHS HLD 07/15/22 [History Last Taken 09/23/22] finasteride 5 mg tablet 5 mg PO DAILY BPH 07/15/22 [History Last Taken 09/24/22] glipizide 10 mg tablet, extended release 24 hr 10 mg PO BID dm 07/15/22 [History Last Taken 09/24/22] metoprolol tartrate 25 mg tablet 25 mg PO BID 07/15/22 [History Last Taken 09/24/22] metformin 500 mg tablet 500 mg PO BID dm 09/24/22 [History Last Taken 09/24/22] acetaminophen 500 mg tablet 1,000 mg PO TID PRN ARTHRITIS/BACK PAIN #0 tabs 09/27/22 [Rx Last Taken Unknown] pantoprazole 40 mg tablet,delayed release (Protonix) 40 mg PO BID 30 days #60 tabs 09/27/22 [Rx Last Taken Unknown] sennosides 8.6 mg-docusate sodium 50 mg tablet (Stool Softener-Stimulant Laxative) 2 tab PO BID PRN PRN Constipation #0 tabs 09/27/22 [Rx Last Taken Unknown] sulfamethoxazole 800 mg-trimethoprim 160 mg tablet 1 tab PO BID 5 days #11 tabs 09/27/22 [Rx Last Taken Unknown] Allergy/AdvReac Type Severity Reaction Status Date / Time No Known Allergies Allergy ? ? Verified 10/28/22 11:56 Family History? Brother CAD (coronary artery disease)Mother?? ,? from [place] at age 74 CAD (coronary artery disease) Myocardial infarction,? Onset Age: 74 Surgical History? History of cataract extraction History of colonoscopy jaw surgery for fracture Presence of coronary angioplasty implant and graft (~12/20/15) surgery on left index finger Social History? Smoking Status:? Never smoker alcohol intake:? never substance use type:? does not use caffeine:? Yes (rarely) eating out:? 1-3 times/week during the past year weight has:? remained stable what type of physical activity do you participate in:? walking frequency:? daily duration:? < 15 minutes/day seatbelt use:? always do you feel safe at home:? Yes ROS ROS Narrative Constitutional: Reports fatigue and generalized weakness weakness.? No fever HEENT:? reports systems reviewed and no addt'l complaints, except as documented Respiratory/Chest: Denies smoking, COPD.? Shortness of breath at rest or with exertion CVS: No dizziness lightheadedness.? No chest pain or tightness. Gastrointestinal: Denies coffee ground emesis, hematemesis or vomiting Genitourinary: As described in HPI Musculoskeletal/spine: Reports joint pain and limited range of motion of lower extremity and lower back and coccyx Neurologic: Denies seizure-like activity.? No focal weakness or strokelike symptoms skin: No ulcer.? No rash Endocrinology: Reports systems reviewed and no addt'l complaints, except as documented Hematologic/Lymphatic: Reports systems reviewed and no addt'l complaints, except as documented Rest 14 ROS are negative except as mentioned in HPI Vital Signs Vital Signs Vital Signs: ? 11/03/22 13:28 11/03/22 15:26 11/03/22 17:00 Temperature 97.2 F L ? ? Temperature Source Temporal ? ? Pulse Rate 86 68 81 Respiratory Rate 18 18 18 Blood Pressure 118/61 140/75 H 144/76 H Blood Pressure Mean 80 96 98 Pulse Ox 100 100 100 Oxygen Delivery Method Room Air Room Air Room Air Weight Weight: ? 159 lb 14.4 oz? Body Mass Index (BMI) ? 22.9? Physical Exam Narrative General: Alert, Oriented x3, Cooperative HEENT: Atraumatic, PERRLA, EOMI, Normocephalic Oral: Oral mucosa dry.? No Gingival or Mucosal Lesions/ Ulcerations Neck: Supple, No JVD, Negative Carotid Bruits Lungs:? Air entry diminished in bilateral lung bases.? No crepitation/rhonchi Cardiovascular: Regular rate, Regular Rhythm, Normal S1, Normal S2, systolic murmur direct right second ICS and LLSB and cardiac apex Abdomen: Bowel Sounds Present, Soft, Non Tender, Non-Distended : No renal angle tenderness.? No suprapubic tenderness. Extremities: No edema, Capillary Refill Less than 3 Seconds Skin: No rashes, No breakdown Musculoskeletal/spine: No Tenderness to Palpation of Joints or Extremities.? Tenderness over sacral and coccyx bone.? Mild tenderness of paraspinal muscle.? Muscle strength 4/5 at major joints of lower extremities Neurological: Cranial nerves II-XII grossly intact, DTR? 2+/4, neuro grossly intact Psych/Mental Status: Flat affect. Results Lab / Micro Data Result Diagrams: 11/03/22 16:50? 11/03/22 16:50? Labs: Laboratory Results - last 24 hr 11/03/22 14:20:?Urine Color Yellow, Urine Clarity Cloudy, Urine pH 8.0, Ur Specific Gap 1.010,?Urine Protein 100 H,?Urine Glucose (UA) 100 H,?Urine Ketones 5 H,?Urine Occult Blood 250 H, Urine Nitrite Negative, Urine Bilirubin Negative,?Urine Urobilinogen 4 H,?Ur Leukocyte Esterase 500 H, Urine RBC > 100 SEEN, Urine WBC >100 SEEN, Ur Squamous Epith Cells 0 SEEN, Urine Bacteria 0 SEEN, Urine Mucus 0 SEEN 11/03/22 16:50:?WBC 7.9,?RBC 3.89 L,?Hgb 12.8 L,?Hct 36.2 L, MCV 93.1,?MCH 32.9 H, MCHC 35.4, RDW Std Deviation 41.9, RDW Coeff of Sridevi 12.4, Plt Count 164, MPV 10.6, Immature Gran % (Auto) 0.300, Neut % (Auto) 60.8, Lymph % (Auto) 25.9, Lares % (Auto) 8.3, Eos % (Auto) 3.8, Baso % (Auto) 0.9, Absolute Neuts (auto) 4.8, Absolute Lymphs (auto) 2.06, Nucleated RBC % 0 11/03/22 16:50: Sodium 134 L, Potassium 3.7, Chloride 100, Carbon Dioxide 24.0, Anion Gap 10,?BUN 26 H, Creatinine 1.26, Estim Creat Clear Calc 48.77, Est GFR (MDRD) Af Amer 71,?Est GFR (MDRD) Non-Af 59 L,?BUN/Creatinine Ratio 20.6 H,?Glucose 272 H, Calcium 8.7 Assessment & Plan Assessment/Plan (1) Fall: (2) UTI (urinary tract infection): PLAN: Plan This 81-year-old gentleman was admitted for hematuria, lower urinary tract symptoms including dysuria and fall and generalized weakness. 1.? Hematuria after self-catheterization possible traumatic, dysuria, UTI most likely MRSA UTI: Patient was last admitted in September 2022 for MRSA cystitis treatment.? He was discharged on Bactrim DS as per urine culture sensitivity? and he said he completed the antibiotic treatment.? He has history of BPH and TURP long time ago. At that time, CT abdomen shows diffuse irregular thickening of bladder wall probably due to UTI.? ? was consulted and he thought he does not need inpatient cystoscopy.? Patient is started on IV ceftriaxone and 1 dose of IV vancomycin.? Start Bactrim DS from tomorrow AM.? Urologist is again consulted.? Bladder scan every 4 hourly.? Currently patient did not had hematuria in the morning today but if he retains urine will need Valadez catheterization. IV fluid normal saline as patient is mildly dehydrated with mild hyponatremia, sodium 134.? BUN 26, creatinine 1.26. 2.? Recent fall about a week ago and? generalized weakness, anorexia: PT and OT.? Control pain.? Patient might need shelter placement.? 3. Patient had extensive work-up for weight loss anorexia during previous admission including EGD and colonoscopy.? EGD shows nonbleeding gastric ulcer with no stigmata of bleeding, glycogenic acanthosis of esophagus.? Multiple nonbleeding duodenal ulcers with no stigmata of bleeding.? Repeat EGD in 4 months to check healing.? Colonoscopy shows diverticulosis of sigmoid colon and stool in rectum sigmoid colon and descending colon and cecum.? Congested mucosa intermittently and biopsied.? Patient had duodenal ulcer biopsy reported focal acute inflammation.? Esophageal biopsy showed changes of reflux.? Terminal ileum biopsy no pathologic change.? Gastric ulcer biopsy negative for H. pylori. CT abdomen and pelvis with contrast at that time? Diffuse irregular thickening of bladder wall.? Diffuse thickening of distal stomach and antrum with multiple gallstones.? Moderate feces in colon.? Normal retroperiton. He will undergo an upper endoscopy today for surveillance of gastric ulcer. He was explained alternatives, risk, benefits including outstanding bleeding, infection, sepsis, perforation, need for emergent surgery . Have an ASA of 3.
--- NOTE | 2023-01-20 09:10 | OP.EGD_ITS ---
Patient Name: Lee Gee Procedure Date: 01/20/2023 8:39 AM Date of : 1940 Age: 82 Procedure: Upper GI endoscopy Indications: Peptic ulcer Providers: Jayy Estes DO Medicines: Monitored Anesthesia Care Patient Profile: This is an 82 year old male. Refer to note in patient chart for documentation of history and physical. Patient has symptoms of chronic epigastric abdominal pain. Complications: No immediate complications. Procedure: Pre-Anesthesia Assessment: - Prior to the procedure, a History and Physical was performed, and patient medications and allergies were reviewed. The risks and benefits of the procedure and the sedation options and risks were discussed with the patient. All questions were answered and informed consent was obtained. Patient identification and proposed procedure were verified by the physician. Mental Status Examination: alert and oriented. Airway Examination: normal oropharyngeal airway and neck mobility. Respiratory Examination: clear to auscultation. CV Examination: normal. Prophylactic Antibiotics: The patient does not require prophylactic antibiotics. Prior Anticoagulants: The patient has taken no previous anticoagulant or antiplatelet agents. After reviewing the risks and benefits, the patient was deemed in satisfactory condition to undergo the procedure. The anesthesia plan was to use monitored anesthesia care (MAC). Immediately prior to administration of medications, the patient was re-assessed for adequacy to receive sedatives. The heart rate, respiratory rate, oxygen saturations, blood pressure, adequacy of pulmonary ventilation, and response to care were monitored throughout the procedure. The physical status of the patient was re-assessed after the procedure. After obtaining informed consent, the endoscope was passed under direct vision. Throughout the procedure, the patient's blood pressure, pulse, and oxygen saturations were monitored continuously. The Endoscope was introduced through the mouth, and advanced to the second part of duodenum. The upper GI endoscopy was accomplished with ease. The patient tolerated the procedure well. Scope In: 8:56:21 AM Scope Out: 8:59:25 AM Total Procedure Duration Time 0 hours 3 minutes 4 seconds Findings: One benign-appearing, intrinsic stenosis was found 20 to 22 cm from the incisors. This stenosis was mildly severe and. The stenosis was traversed. A guidewire was placed and the scope was withdrawn. Dilation was performed with a Savary dilator with no resistance at 42 Fr. The dilation site was examined and showed. Five non-bleeding cratered gastric ulcers with no stigmata of bleeding were found in the gastric antrum. The largest lesion was 4 mm in largest dimension. Biopsies were taken with a cold forceps for histology. Verification of patient identification for the specimen was done. Estimated blood loss was minimal. No gross lesions were noted in the duodenal bulb. Impression: - Benign-appearing esophageal stenosis. Dilated. - Non-bleeding gastric ulcers with no stigmata of bleeding. Biopsied. - No gross lesions in the duodenal bulb. Recommendation: - Discharge patient to home. - Resume previous diet. - Continue present medications. - Await pathology results. Procedure Code(s): --- Professional --- 04903, Esophagogastroduodenoscopy, flexible, transoral; with insertion of guide wire followed by passage of dilator(s) through esophagus over guide wire 76893, 59, Esophagogastroduodenoscopy, flexible, transoral; with biopsy, single or multiple CPT copyright 2017 [employer]. All rights reserved. The codes documented in this report are preliminary and upon inspection manager review may be revised to meet current compliance requirements. Jayy Estes DO 01/20/2023 9:09:44 AM This report has been signed electronically. Number of Addenda: 0 Note Initiated On: 01/20/2023 8:39 AM
--- NOTE | 2023-01-20 09:10 | OP.CCLET_ITS ---
01/20/2023 Sandeep Montenegro [address] [place] [address] Re : Upper GI endoscopy procedure for Lee Gee Dear Dr. Montenegro This procedure was performed on Friday, January 20, 2023. My impressions and recommendations are as follows: Impressions : - Benign-appearing esophageal stenosis. Dilated. - Non-bleeding gastric ulcers with no stigmata of bleeding. Biopsied. - No gross lesions in the duodenal bulb. Recommendations : - Discharge patient to home. - Resume previous diet. - Continue present medications. - Await pathology results. My findings are described in the full procedure note, which is enclosed. If I can be of further assistance, please feel free to contact me at . Sincerely, Jayy Estes, 01/20/2023 9:09:44 AM This report has been signed electronically.
[2023-01-20 09:26] LABS: Bedside Glucose 168 mg/dL (74-106)
--- NOTE | 2023-01-20 09:30 | EGD_PTH ---
PATIENT: LYNETTE GUDINO LOC: [facility] U#:[id number] AGE/SX: 82/M ROOM: RE01/20/[address]: Dr. Jayy Estes DO : 1940 BED: DIS: 01/20/2023 SPEC #: [id number] RECD: 01/20/23 09:36 STATUS: TABITHA TYLOR #: [id number] NOEL: 01/20/23 09:[address]: Jayy Estes DEPT: SURGICAL PATHOLOGY RECD BY: Carter Huitron ENTERED: 01/20/23 11:58 SP TYPE: EGD BIOPSY OT DR: Dr. Sandeep Montenegro DO Tissues: Gastric mucous membrane Procedures: Surgery Specimen Level IV HEADER OPERATION: E[place] ([facility]) with biopsy PRE-OP DIAGNOSIS: Gastric ulcer TISSUE SUBMITTED: Gastric ulcer MICROSCOPIC DIAGNOSIS Gastric ulcer, biopsy: Fragments of gastric mucosa with focal ulceration and acute and chronic inflammation. See comment. SJ:lakia 01/21/2023 COMMENT The results of immunohistochemistry for Helicobacter pylori will be reported separately ([id number]). MICROSCOPIC DESCRIPTION Slides are reviewed. GROSS DESCRIPTION Received in fixative is one container labeled with the patient's name and designated gastric ulcer. The specimen consists of two irregular fragments of light barraza soft tissue that in aggregate measure 0.6 x 0.3 x 0.1 cm. The specimen is totally submitted in one cassette. / RYLAN:lakia 01/20/2023 TC:2 CPT: 58314
--- NOTE | 2023-01-20 09:30 | IMM_PTH ---
PATIENT: LYNETTE GUDINO LOC: [facility] U#:[id number] AGE/SX: 82/M ROOM: RE01/20/[address]: Dr. Jayy Estes DO : 1940 BED: DIS: 01/20/2023 SPEC #: [id number] RECD: 01/20/23 13:05 STATUS: TABITHA REQ #: [id number] NOEL: 01/20/23 09:[address]: Jayy Estes DEPT: IMMUNOHISTOCHEMISTRY RECD BY: Hayley Ingram ENTERED: 01/20/23 13:06 SP TYPE: IMMUNO OTHR DR: Dr. Sandeep Montenegro DO Tissues: Stomach, NOS Procedures: H Pylori (initial) PHYSICIAN & INSTITUTION [place] [id number] SPECIMEN INFORMATION: Tissue Source: Gastric ulcer Clinical Info: Gastric ulcer Specimen Number: [id number] CPT code: 62388 METHODOLOGY: Deparaffinized sections of prefer/formalin-fixed tissue or PAP/DQ stained slides are incubated with monoclonal/polyclonal antibodies/oligonucleotide probes. Localization is made via biotin free immunoperoxidase method. Appropriate controls are performed and reacted as expected. Results on target cell population are indicated in the following table: RESULTS: ANTIBODY / CLONE RESULT H Pylori (polyclonal) negative These tests were developed and their performance characteristics determined by [facility]. They may not have been cleared or approved by the U.S. Food and Drug Administration. The FDA has determined that such clearance or approval is not necessary. The above immunohistochemical/dualISH markers are ordered and reviewed by the Pathologist. INTERPRETATION: Gastric ulcer, biopsy: Negative for Helicobacter pylori organisms. SJ:lakia 01/21/2023
== END 2023-01-20 10:28 | disposition home or self-care (01) ==
LOC: EN 08:02 → AC 08:03
PROVIDERS: PCP Family Medicine; Referring Provider Family Medicine; Visit Provider Internal Medicine Gastroenterology
PROC: 0DJ08ZZ Inspection of Upper Intestinal Tract, Via Natural or Artificial Opening Endoscopic (ICD-10-PCS; CPT 43235; principal; 2023-01-20 09:25)
DX: K25.9 Gastric ulcer, unspecified as acute or chronic, without hemorrhage or perforation (principal); E11.22 Type 2 diabetes mellitus with diabetic chronic kidney disease; I25.110 Atherosclerotic heart disease of native coronary artery with unstable angina pectoris; N39.0 Urinary tract infection, site not specified; K22.2 Esophageal obstruction; I12.9 Hypertensive chronic kidney disease with stage 1 through stage 4 chronic kidney disease, or unspecified chronic kidney disease; Z79.2 Long term (current) use of antibiotics; E87.1 Hypo-osmolality and hyponatremia; Z79.82 Long term (current) use of aspirin; H91.90 Unspecified hearing loss, unspecified ear; N18.9 Chronic kidney disease, unspecified; E78.5 Hyperlipidemia, unspecified; Z79.84 Long term (current) use of oral hypoglycemic drugs
CPT/HCPCS: 43239; 43248; 82962; 88305; 88342; J7120; J2405

== ENCOUNTER 2023-02-04 10:32 | Outpatient (CLI) | payer MEDICARE, SELFPAY ==
[2023-02-04 11:45] LABS: Absolute Lymphocyte Count 1.68 X10^3/uL (0.83-4.51); Absolute Neutrophil Count 2.4 X10^3/uL (2.0-7.7); Basophil# 0.04 X10^3/uL; Basophil% 0.8 % (0-1); Eosinophil# 0.45 X10^3/uL; Eosinophils% 8.8 % (0-5); Hematocrit 35.8 % (40-54); Lymphocyte # 1.68 X10^3/ul (0.83-4.51); Lymphocyte % 32.8 % (19-41); Mean Corp Hgb Conc 33.5 g/dL (32-36); Mean Corpuscular Hgb 32.7 pg (27.0-32.0); Mean Corpuscular Volume 97.5 fL (80-94); Mean Platelet Vol. 11.3 fl (6.2-12.0); Monocyte# 0.52 X10^3/uL; Monocyte% 10.2 % (0-10); NRBC Flagged by Analyzer 0 % (0-5); Neutrophil # 2.38 X10^3/uL (2.7-7.7); Neutrophil % 46.4 % (47-70); Platelet Count 129 K/mm3 (150-450); RBC Distribution Width CV 13.6 % (11.6-14.6); RBC Distribution Width SD 48.7 fl (35.1-43.9); Red Blood Count 3.67 M/mm3 (4.6-6.2); Reticulocyte Count 1.92 % (0.5-1.5); White Blood Count 5.1 K/mm3 (4.4-11.0)
[2023-02-04 12:16] LABS: Ferritin 109 ng/mL (26-388); Iron 96 ug/dL (65-175); Iron Binding Capacity,Total 293 ug/dL (250-450); LDH 192 U/L (87-241); PERCENT IRON SATURATION 32.8 % (15.0-55.0)
[2023-02-05 05:07] LABS: Transferrin 224 mg/dL (177-329)
== END 2023-02-04 23:59 | disposition home or self-care (01) ==
LOC: LAB 10:34
PROVIDERS: PCP Family Medicine; Referring Provider Internal Medicine Gastroenterology; Visit Provider Internal Medicine Gastroenterology
DX: R62.7 Adult failure to thrive (principal); D64.9 Anemia, unspecified
CPT/HCPCS: 36415; 82728; 83540; 83550; 83615; 84466; 85025; 85045

== ENCOUNTER 2023-02-27 09:34 | Outpatient (RCR) | payer MEDICARE, SELFPAY ==
--- NOTE | 2023-02-27 09:53 | PCM.WC.HP ---
[facility] Medical History Ambulates with cane Angina pectoris, unstable Atherosclerosis of [place] coronary artery of [place] heart without angina pectoris Atonic bladder Cardiology follow-up encounter Chronic indwelling Valadez catheter Chronic renal insufficiency Diabetes 1.5, managed as type 2 Excessive bleeding Gastric reflux Gastric ulcer History of CAD (coronary artery disease) History of diabetes mellitus History of stress test HLD (hyperlipidemia) HLP (hyperkeratosis lenticularis perstans) Hypertension Loss of hearing Myocardial infarct Non-smoker Open wound Presence of stent in coronary artery (~12/20/15) Prostate disease Self-catheterizes urinary bladder Thick muscular wall of urinary bladder present on ultrasound Walker as ambulation aid Wears glasses Weight loss Home Medications aspirin 81 mg chewable tablet 81 mg PO DAILY@0800 [facility] 12/19/15 [History Last Taken 01/10/23] atorvastatin 80 mg tablet 80 mg PO QHS HLD 07/15/22 [History Last Taken 09/23/22] finasteride 5 mg tablet 5 mg PO DAILY BPH 07/15/22 [History Last Taken 09/24/22] glipizide 10 mg tablet, extended release 24 hr 10 mg PO BID dm 07/15/22 [History Last Taken 09/24/22] metformin 500 mg tablet 500 mg PO BID diabetes 09/24/22 [History Last Taken 09/24/22] clopidogrel 75 mg tablet 75 mg PO DAILY [facility] 11/03/22 [History Last Taken 01/10/23] insulin glargine 100 unit/mL (3 mL) subcutaneous pen (Lantus Solostar U-100 Insulin) 10 unit subcut [facility] diabetes 11/03/22 [History Last Taken Unknown] insulin lispro 100 unit/mL subcutaneous pen (Humalog KwikPen (U-100) Insulin) See Protocol subcut ACHS #0 mL 11/05/22 [Rx Last Taken Unknown] levobunolol 0.5 % eye drops 1 drp EACH EYE DAILY #0 mL 11/05/22 [Rx Last Taken Unknown] nystatin 100,000 unit/gram topical powder (Nyamyc) 1 applic topical BID #0 grams 11/05/22 [Rx Last Taken Unknown] pantoprazole 40 mg tablet,delayed release 40 mg PO BID #0 tabs 11/05/22 [Rx Last Taken Unknown] sennosides 8.6 mg-docusate sodium 50 mg tablet (Stool Softener-Stimulant Laxative) 2 tab PO BID PRN constipation #10 tabs 11/05/22 [Rx Last Taken Unknown] tamsulosin 0.4 mg capsule 0.4 mg PO DAILY@1730 #0 caps 11/05/22 [Rx Last Taken Unknown] ibuprofen 200 mg tablet 200 mg PO Q6H PRN Pain 01/17/23 [History Last Taken Unknown] nitroglycerin 0.4 mg sublingual tablet 0.4 mg sublingual Q5M PRN Chest Pain 01/17/23 [History Last Taken Unknown] Allergy/AdvReac Type Severity Reaction Status Date / Time No Known Allergies Allergy Verified 02/04/23 10:01 Family History Brother CAD (coronary artery disease) Mother , from [place] at age 74 CAD (coronary artery disease) Myocardial infarction, Onset Age: 74 Surgical History History of cataract extraction History of colonoscopy History of esophagogastroduodenoscopy (EGD) jaw surgery for fracture Presence of coronary angioplasty implant and graft (~12/20/15) surgery on left index finger Social History Smoking Status: Never smoker alcohol intake: never substance use type: does not use caffeine: Yes (rarely) eating out: 1-3 times/week during the past year weight has: remained stable what type of physical activity do you participate in: walking frequency: daily duration: < 15 minutes/day seatbelt use: always do you feel safe at home: Yes
== END 2023-03-10 23:59 | disposition home or self-care (01) ==
LOC: WC 09:34
PROVIDERS: PCP Family Medicine; Referring Provider Family Medicine; Visit Provider Student in an Organized Health Care Education/Training Program
DX: Z09 Encounter for follow-up examination after completed treatment for conditions other than malignant neoplasm (principal)

== ENCOUNTER 2023-05-07 09:45 | Observation (INO) | payer MEDICARE, SELFPAY ==
[2023-05-07] VITALS (10 sets, daily range): BP systolic 105–176; BP diastolic 65–85; PULSE 82–108; RESP 14–20; TEMP 36.3–36.6; O2SAT 97–100; BMI 22.7; BMI 20.8
--- NOTE | 2023-05-07 10:05 | EDS_ITS ---
HPI History of Present Illness Chief Complaint: Complaint Detail of Chief Complaint: Fatigue and weakness Informant: patient Onset/Context/Timing Onset: Days Context: Gradual Onset Narrative Narrative: Patient presents with increased fatigue and weakness over the past couple days. He does report increased low back pain and leg pain as well. 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 No fever or chills. He denies cough or congestion. 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 angina pectoris Atonic bladder Cardiology follow-up encounter Chronic indwelling Valadez catheter Chronic renal insufficiency Diabetes 1.5, managed as type 2 Excessive bleeding Gastric reflux Gastric ulcer History of CAD (coronary artery disease) History of diabetes mellitus History of stress test HLD (hyperlipidemia) HLP (hyperkeratosis lenticularis perstans) Hypertension Loss of hearing Myocardial infarct Non-smoker Open wound Presence of stent in coronary artery (~12/20/15) Prostate disease Self-catheterizes urinary bladder Thick muscular wall of urinary bladder present on ultrasound Walker as ambulation aid Wears glasses Weight loss Home Medications aspirin 81 mg chewable tablet 81 mg PO DAILY@0800 HEART HEALTH 12/19/15 [History Last Taken 01/10/23] atorvastatin 80 mg tablet 80 mg PO QHS CHOLESEROL 07/15/22 [History Last Taken 0 09/23/22] finasteride 5 mg tablet 5 mg PO DAILY PROSTATE 07/15/22 [History Last Taken 09/24/22] glipizide 10 mg tablet, extended release 24 hr 10 mg PO BID DIABETES 07/15/22 [History Last Taken 09/24/22] metformin 500 mg tablet 500 mg PO BID DIAEBETES 09/24/22 [History Last Taken 09/24/22] insulin glargine 100 unit/mL (3 mL) subcutaneous pen (Lantus Solostar U-100 Insulin) 10 unit subcut QHS DIABETES 11/03/22 [History Last Taken Unknown] insulin lispro 100 unit/mL subcutaneous pen (Humalog KwikPen (U-100) Insulin) See Protocol subcut ACHS #0 mL 11/05/22 [Rx Last Taken Unknown] levobunolol 0.5 % eye drops 1 drp EACH EYE DAILY GLAUCOMA #0 mL 11/05/22 [Rx Last Taken Unknown] nystatin 100,000 unit/gram topical powder (Nyamyc) 1 applic topical BID ANTIFUNGAL #0 grams 11/05/22 [Rx Last Taken Unknown] pantoprazole 40 mg tablet,delayed release 40 mg PO BID ACID REFLUX #0 tabs 11/05/22 [Rx Last Taken Unknown] sennosides 8.6 mg-docusate sodium 50 mg tablet (Stool Softener-Stimulant Laxative) 2 tab PO BID PRN CONSTIPATION #10 tabs 11/05/22 [Rx Last Taken Unknown] ibuprofen 200 mg tablet 200 mg PO Q6H PRN Pain 01/17/23 [History Last Taken Unknown] nitroglycerin 0.4 mg sublingual tablet 0.4 mg sublingual Q5M PRN Chest Pain 01/17/23 [History Last Taken Unknown] clopidogrel 75 mg tablet 75 mg PO DAILY BLOOD THINNER #90 tabs 03/17/23 [Rx Last Taken Unknown] Allergy/AdvReac Type Severity Reaction Status Date / Time No Known Allergies Allergy Verified 05/07/23 09:48 Family History Brother CAD (coronary artery disease) Mother , from [place] at age 74 CAD (coronary artery disease) Myocardial infarction, Onset Age: 74 Surgical History History of cataract extraction History of colonoscopy History of esophagogastroduodenoscopy (EGD) jaw surgery for fracture Presence of coronary angioplasty implant and graft (~12/20/15) surgery on left index finger Social History Smoking Status: Never smoker alcohol intake: never substance use type: does not use caffeine: Yes (rarely) eating out: 1-3 times/week during the past year weight has: remained stable what type of physical activity do you participate in: walking frequency: daily duration: < 15 minutes/day seatbelt use: always do you feel safe at home: Yes ROS ROS ED Constitutional Constitutional ED: Denies chills or fever(s) Eyes Eyes: Denies change in vision ENT ENT ED: Denies rhinorrhea or sore throat Cardiovascular Cardiovascular: Denies chest pain or palpitations Respiratory/Chest Respiratory/Chest: Denies cough or dyspnea Gastrointestinal Gastrointestinal: Denies abdominal pain, diarrhea, nausea or vomiting Genitourinary Genitourinary ED: Denies dysuria Musculoskeletal Musculoskeletal: Reports back pain and extremity pain Integumentary Denies Abrasions or rash Neurologic Neurologic: Reports weakness; Denies headache(s) Psychiatric Psychiatric: Denies anxiety or depression Allergic/Immunologic Allergic/Immunologic ED: Denies lip swelling or urticaria EXAM Physical Exam Const Vital Signs: 05/07/23 09:46 05/07/23 10:29 05/07/23 10:31 Temperature 97.9 F Temperature Source Temporal Pulse Rate 108 H 93 Respiratory Rate 14 14 Blood Pressure 105/65 132/83 H Blood Pressure Mean 78 99 Pulse Ox 100 98 99 Oxygen Delivery Method Room Air Room Air 05/07/23 12:22 Temperature Temperature Source Pulse Rate 86 Respiratory Rate 16 Blood Pressure 136/83 H Blood Pressure Mean 100 Pulse Ox 100 Oxygen Delivery Method Room Air Positive well nourished and well developed General Appearance ED: well developed HEENT Reports normocephalic and head/scalp atraumatic Eyes PERRL and EOMs intact bilaterally Neck supple Chest Wall inspection of chest normal and palpation of chest normal Resp normal respiratory effort and clear to auscultation bilaterally Cardio regular rate and regular rhythm GI GI Narrative: Abdomen soft and nontender. Hypoactive bowel sounds. Palpation: soft Extremity normal to inspection Neuro oriented x3 Neuro Narrative: Generalized weakness with no focal deficits. 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 EKG obtained to evaluate for cardiac arrhythmia/ischemia. Chest x-ray obtained to evaluate for acute lung pathology, cardiac size, or mediastinal abnormality. Labwork obtained to evaluate for leukocytosis, anemia, and electrolyte derangement. Urinalysis obtained to evaluate for infection/hematuria. Patient given IV fluids for hydration. Lab Data Labs: Laboratory Results - last 24 hr 05/07/23 05/07/23 10:20 12:12 WBC 7.7 RBC 3.67 L Hgb 12.1 L Hct 35.5 L MCV 96.7 H MCH 33.0 H MCHC 34.1 RDW Std Deviation 44.0 H RDW Coeff of Sridevi 12.6 Plt Count 166 MPV 10.2 Immature Gran % (Auto) 0.400 Neut % (Auto) 68.3 Lymph % (Auto) 22.0 Eagle % (Auto) 6.7 Eos % (Auto) 2.2 Baso % (Auto) 0.4 Absolute Neuts (auto) 5.3 Absolute Lymphs (auto) 1.70 Nucleated RBC % 0 PT 13.9 INR 1.1 APTT 31.1 Sodium 136 Potassium 3.7 Chloride 103 Carbon Dioxide 26.0 Anion Gap 7 BUN 32 H Creatinine 1.58 H Estim Creat Clear Calc 36.87 Est GFR (MDRD) Af Amer 55 L Est GFR (MDRD) Non-Af 45 L BUN/Creatinine Ratio 20.3 H Glucose 280 H Lactic Acid 3.4 H* Calcium 8.8 Total Bilirubin 0.60 AST 18 ALT 33 Alkaline Phosphatase 158 H Total Protein 7.6 Albumin 2.9 L Globulin 4.7 H Albumin/Globulin Ratio 0.6 L Urine Color Martha Urine Clarity Cloudy Urine pH 6.5 Ur Specific [place] 1.010 Urine Protein 500 H Urine Glucose (UA) 1000 H Urine Ketones Negative Urine Occult Blood 250 H Urine Nitrite Negative Urine Bilirubin Negative Urine Urobilinogen 1 H Ur Leukocyte Esterase 500 H Urine RBC 25-50 SEEN Urine WBC >100 SEEN Ur Squamous Epith Cells 0 SEEN Urine Bacteria 3+ Urine Mucus 0 SEEN Radiography Diagnostic Testing: Clinical Impression(s) from Imaging Studies Chest X-Ray 05/07/23 10:50 IMPRESSION: Increased markings in the right upper lobe. These have improved as compared to prior study. Radiographic follow-up is recommended. Electronically Signed: Mauri Sim MD at 11:13 EDT , Abdomen/Pelvis CT 05/07/23 11:24 IMPRESSION: Findings in keeping with the emphysematous cystitis. Diffuse irregular thickening of the urinary bladder. Stable small right renal cyst. Circumferential wall thickening of the rectum. Large amount of fecal material is seen in the colon. Electronically Signed: Mauri Sim MD at 12:12 EDT , Treatment and Re-Evaluation :: CBC was a white count of 7.7 with normal differential. Hemoglobin is 12.1. Coags are unremarkable. Chemistry studies reveal a BUN of 32 and a creatinine 1.58. Creatinine was 1.11 in October of this year. Nursing staff straight cath the patient but got no urine out. Bladder scan was performed that showed less than 10 cc. At that point patient was given IV fluid bolus. Lactic acid returns elevated at 3.4. Patient also sent for CT scan of the flank to evaluate for possible obstruction. CT scan reveals evidence of emphysematous cystitis. There is thickening of the bladder wall. Patient was able provide a urine sample and this does reveal evidence of infection with 3+ bacteria and greater than 100 white cells. Urine and blood cultures have been sent. Patient is given a dose of IV Rocephin. Given the emphysematous cystitis with the elevated lactate I would recommend observation in the hospital for IV antibiotics. I will discuss case with hospitalist. Discharge Plan Triage Chief Complaint: Complaint ED Provider: Vicky Russell Dx/Rx/DC Orders Clinical Impression: Emphysematous cystitis, Acidosis, lactic Prescriptions: No Action aspirin 81 MG tablet,chewable 81 mg PO DAILY@0800 Hold Instructions: Resume on 11/07/22. Patient Comments: LAST DOSE ASPIRIN 07/14/2022 FOR SURGERY ON 07/19/22 finasteride 5 mg tablet 5 mg PO DAILY atorvastatin 80 mg tablet 80 mg PO QHS glipizide 10 mg tablet extended release 24hr 10 mg PO BID metformin 500 mg Tablet 500 mg PO BID ibuprofen 200 mg Tablet 200 mg PO Q6H PRN (Reason: Pain) nitroglycerin 0.4 mg tablet, sublingual 0.4 mg sublingual Q5M PRN (Reason: Chest Pain) insulin glargine [Lantus Solostar U-100 Insulin] 100 unit/mL (3 mL) insulin pen 10 unit SUBCUT QHS levobunolol 0.5 % Drops 1 drp EACH EYE DAILY Qty: 0 0RF sennosides-docusate sodium [Stool Softener-Stimulant Laxat] 8.6-50 mg Tablet 2 tab PO BID PRN (Reason: CONSTIPATION ) Qty: 10 0RF pantoprazole 40 mg Tablet,Delayed Release (Dr/Ec) 40 mg PO BID Qty: 0 0RF nystatin [Nyamyc] 100,000 unit/gram Powder 1 applic topical BID Qty: 0 0RF Protocol: *Topical Application Instructions APPLICATION INSTRUCTIONS: scrotum insulin lispro [Humalog KwikPen Insulin] 100 unit/mL Insulin Pen See Protocol subcut ACHS Qty: 0 0RF Protocol: 4. Sliding Scale Insulin High-Med Dosing Condition: 150-199 mg/dl = 2 units Condition: 200-259 mg/dl = 4 units Condition: 260-324 mg/dl = 6 units Condition: 325-374 mg/dl = 8 units Condition: 375-409 mg/dl = 10 units Condition: 410-449 mg/dl = 11 units Condition: Greater than 449 call physician Protocol Text: - Use for Total Daily Dose of Insulin 56-80 units - Patient who are insulin resistant or septic HIGH MEDIUM DOSING ALGORITHM clopidogrel 75 mg tablet 75 mg PO DAILY Qty: 90 3RF Hold Instructions: Resume on 11/07/22. Primary Care Provider: Sandeep Montenegro Referrals: Sandeep Montenegro DO [Primary Care Provider] - Disposition Disposition: Acute Care Hospital [facility]
[2023-05-07 10:33] LABS: Absolute Neutrophil Count 5.3 X10^3/uL (2.0-7.7); Basophil# 0.03 X10^3/uL; Basophil% 0.4 % (0-1); Eosinophil# 0.17 X10^3/uL; Eosinophils% 2.2 % (0-5); Hematocrit 35.5 % (40-54); Hemoglobin 12.1 g/dL (13.0-16.5); Mean Corp Hgb Conc 34.1 g/dL (32-36); Mean Corpuscular Volume 96.7 fL (80-94); Mean Platelet Vol. 10.2 fl (6.2-12.0); Monocyte# 0.52 X10^3/uL; Monocyte% 6.7 % (0-10); NRBC Flagged by Analyzer 0 % (0-5); Neutrophil # 5.29 X10^3/uL (2.7-7.7); Neutrophil % 68.3 % (47-70); Platelet Count 166 K/mm3 (150-450); RBC Distribution Width CV 12.6 % (11.6-14.6); Red Blood Count 3.67 M/mm3 (4.6-6.2); White Blood Count 7.7 K/mm3 (4.4-11.0)
--- NOTE | 2023-05-07 10:34 | CM.ED ---
Social Work SW performed chart review, AD not on file. SW met with patient and introduced self and role as [facility] SW. Patient agreeable to speak with SW. SW inquired about completion of AD. Patient reports LW and HCPOA documents are complete, patient's is HCPOA. SW encouraged patient to bring in a copy at add to patient's chart when able. Patient voiced understanding. Nunu Farrell DEPUTY HEAD, CHARANJIT
[2023-05-07 10:41] LABS: International Normalized Ratio 1.1; Partial Thromboplast Time 31.1 Seconds (24.1-36.2); Prothrombin Time (Protime)PT. 13.9 SECONDS (11.7-14.9)
[2023-05-07 10:45] LABS: ALB/GLOB Ratio 0.6 RATIO (0.9-2.4); AST(SGOT) 18 U/L (15-37); Alanine Aminotransfer ALT/SGPT 33 U/L (16-61); Albumin, Serum 2.9 g/dL (3.2-5.0); Alkaline Phosphatase 158 U/L (45-117); Anion Gap 7 (5-15); BUN 32 mg/dL (7-18); BUN/Creat Ratio 20.3 RATIO (10-20); Calcium,Total 8.8 mg/dL (8.5-10.1); Chloride 103 mmol/L (98-107); Creatinine, Serum 1.58 mg/dL (0.70-1.30); EST Glomerular Filtration Rate 45 mL/min (>60); Est Glom Filt Rate - Afr Amer 55 mL/min (>60); Estimated Creatinine Clearance 36.87 ml/min; Globulin 4.7 g/dL (2.2-4.2); Glucose 280 mg/dL (74-106); Potassium 3.7 mmol/L (3.5-5.1); Protein, Total 7.6 g/dL (6.4-8.2); Sodium Level 136 mmol/L (136-145)
--- NOTE | 2023-05-07 10:50 | RAD_ITS ---
STUDY: X-RAY CHEST REASON FOR EXAM: Male, 82 years old. Weakness TECHNIQUE: Single AP portable view of the chest. COMPARISON: Comparison is made with prior study dated September 24, 2022. FINDINGS: EKG electrodes are seen. Mild increased markings in the right upper lobe although this has improved since prior study. Radiographic follow-up is recommended. There is no demonstrated pleural abnormality. Normal size heart. Normal mediastinum and marlon. Normal visualized pulmonary arteries. Normal visualized aortic arch and descending thoracic aorta. There are diffuse degenerative changes of the visualized thoracic spine. Normal visualized ribs, clavicles, and shoulders. There is no demonstrated abnormality of the visualized soft tissue structures of the upper abdomen. RAD/Chest 1 View (Portable) IMPRESSION: Increased markings in the right upper lobe. These have improved as compared to prior study. Radiographic follow-up is recommended. Electronically Signed: Mauri Sim MD at 11:13 EDT ,
[2023-05-07 10:56] LABS: Lactic Acid 3.4 mmol/L (0.4-1.9)
[2023-05-07] MEDS: 0.9% Normal Saline (1000mL) 1,000 ML 150 ML IV (11:23)
--- NOTE | 2023-05-07 11:24 | CT_ITS ---
STUDY: CT ABDOMEN AND PELVIS WITHOUT CONTRAST REASON FOR EXAM: Male, 82 years old. Anuria RADIATION DOSAGE (If Supplied By Facility): CTDIvol = ( 6.20 ) mGy, DLP = ( 338.97 ) mGycm TECHNIQUE: Transaxial images were obtained from the dome of the diaphragm to the symphysis pubis without oral contrast, and without intravenous contrast. Sagittal and coronal images were reconstructed. Individualized dose optimization techniques were used for this CT. COMPARISON: Comparison is made with prior study dated September 25, 2022. FINDINGS: The visualized lung bases are unremarkable. Coronary artery calcification. Normal liver. There are multiple small gallstones. Normal spleen. Normal pancreas. Normal bilateral adrenal glands. Normal right kidney. Stable 1.7 cm cyst in the lateral aspect of the left kidney. Normal visualized stomach. Normal small intestine. There is diffuse circumferential wall thickening of the rectum. A large amount of fecal material is seen throughout the colon. The appendix is visualized and appears normal. There is diffuse atherosclerotic calcification of the abdominal aorta, without a demonstrated aneurysm. Normal inferior vena cava. Normal retroperitoneum. Diffuse irregular thickening of the urinary bladder wall. Air is seen within the wall of the urinary bladder suggestive of emphysematous cystitis. There is a right-sided inguinal hernia containing adipose tissue. There are mild degenerative changes of the visualized lumbar spine. CT/Abdomen/Pelvis without Cont IMPRESSION: Findings in keeping with the emphysematous cystitis. Diffuse irregular thickening of the urinary bladder. Stable small right renal cyst. Circumferential wall thickening of the rectum. Large amount of fecal material is seen in the colon. Electronically Signed: Mauri Sim MD at 12:12 EDT ,
[2023-05-07] MEDS: 0.9% Normal Saline (1000mL) 1,000 ML 1000 ML IV (12:23)
[2023-05-07 12:24] LABS: Mucous, Urine 0 SEEN /hpf (<or=2+); Squamous Epithelial Cells - UA 0 SEEN /hpf (0-5)
[2023-05-07 12:28] LABS: Color, Urine Amber (Yellow); Glucose, Dipstick 1000 mg/dl (Normal); Ketone-Dipstick Negative (Negative); Leukocyte Esterase-Dipstick 500 /ul (Negative); Nitrite-Dipstick Negative (Negative); Occult Blood-Urine 250 /ul (Negative); Protein-Dipstick 500 mg/dl (Negative); Urine Bilirubin Dipstick Negative (Negative); Urine Clarity Cloudy (Clear); Urine Urobilinogen 1 mg/dl (Normal); Urine pH 6.5 (5.0 - 8.0)
[2023-05-07 12:51] LABS: White Blood Cells >100 SEEN /hpf (0-5)
[2023-05-07 12:52] LABS: Bacteria 3+ /hpf (None Seen); Red Blood Cells-Urine 25-50 SEEN /hpf (0-5)
--- NOTE | 2023-05-07 13:22 | PCM.HP.STD ---
HPI - General General Date of Admission: 05/07/23 Date of Service: 05/07/23 Chief Complaint: Fatigue and Weakness HPI Narrative LYNETTE GUDINO, is a 82 M who presented the emergency department at [facility] on 05/07/2023 complaining of fatigue and weakness. Patient states he had symptoms for about 5 days now that have been progressively getting worsening. He self caths intermittently for a time bladder. He states this is a result of his TURP that was done on 07/19/2022 for BPH. Ever since then he has had issues with urination. He had a recent admission here in October at which time he grew Klebsiella in his urine. Previous bacteria have appeared to be fairly sensitive. He denies fever or chills but does indicate he has had generalized weakness and fatigue and his indicates he has had some intermittent confusion at home and some falls due to weakness. He states his urine has been darker than typical and output has decreased. He overall states his p.o. intake is poor and lately has been worse since he has not been feeling well. It sounds as if at baseline he is not an avid drinker of fluids. Patient is overall poor historian. Vital signs on presentation demonstrated temperature of 97.9, initial heart rate was 108 but this is decreased to 80-90, blood pressures have been anywhere from 10 5-1 36 systolic over 65-83 diastolic, respirate 14 oxygen saturations are 100% on room air. His CBC shows a chronic stable anemia but his white count is normal and there is no left shift present. Coags are normal. His chemistry panel shows normal electrolytes however his BUN and serum creatinine are elevated from baseline at 32 and 1.8 respectively. (Baseline serum creatinine runs between 1.0 and 1.25). His serum glucose was markedly elevated at 280. Liver functions are normal. Lactic acid was 3.4 however the patient appears dehydrated and he is also taking metformin. His UA is consistent with infection showing protein, glucose, occult blood, leuk esterase, greater than 100 WBCs and 3+ bacteria. EKG shows normal sinus rhythm without any ST-T wave changes concerning for acute ischemia. His chest x-ray shows increased markings in the right upper lobe that were seen previously but they have improved from comparison earlier this year. CT of the abdomen and pelvis was consistent with emphysematous cystitis along with diffuse irregular thickening of the urinary bladder and a large amount of fecal material in the colon. [facility] Medical History (Updated 05/07/23 @ 14:[address] Jacinta Mcclendon, DO) Acute kidney injury Ambulates with cane Angina pectoris, unstable Atherosclerosis of [place] coronary artery of [place] heart without angina pectoris Atonic bladder Cardiology follow-up encounter Chronic indwelling Valadez catheter Chronic renal insufficiency Diabetes 1.5, managed as type 2 Excessive bleeding Gastric reflux Gastric ulcer History of CAD (coronary artery disease) History of diabetes mellitus History of stress test HLD (hyperlipidemia) HLP (hyperkeratosis lenticularis perstans) Hypertension Loss of hearing Myocardial infarct Non-smoker Open wound Presence of stent in coronary artery (~12/20/15) Prostate disease Self-catheterizes urinary bladder Thick muscular wall of urinary bladder present on ultrasound Walker as ambulation aid Wears glasses Weight loss Home Medications aspirin 81 mg chewable tablet 81 mg PO DAILY@0800 HEART HEALTH 12/19/15 [History Last Taken 01/10/23] atorvastatin 80 mg tablet 80 mg PO QHS CHOLESEROL 07/15/22 [History Last Taken 05/06/23] finasteride 5 mg tablet 5 mg PO DAILY PROSTATE 07/15/22 [History Last Taken 05/07/23] glipizide 10 mg tablet, extended release 24 hr 10 mg PO BID DIABETES 07/15/22 [History Last Taken 05/07/23] metformin 500 mg tablet 500 mg PO BID DIAEBETES 09/24/22 [History Last Taken 05/07/23] insulin glargine 100 unit/mL (3 mL) subcutaneous pen (Lantus Solostar U-100 Insulin) 10 unit subcut [facility] DIABETES 11/03/22 [History Last Taken 05/06/23] insulin lispro 100 unit/mL subcutaneous pen (Humalog KwikPen (U-100) Insulin) See Protocol subcut ACHS #0 mL 11/05/22 [Rx Last Taken 05/07/23] levobunolol 0.5 % eye drops 1 drp EACH EYE DAILY GLAUCOMA #0 mL 11/05/22 [Rx Last Taken 05/07/23] nystatin 100,000 unit/gram topical powder (Nyamyc) 1 applic topical BID ANTIFUNGAL #0 grams 11/05/22 [Rx Last Taken Unknown] nitroglycerin 0.4 mg sublingual tablet 0.4 mg sublingual Q5M PRN Chest Pain 01/17/23 [History Last Taken Unknown] clopidogrel 75 mg tablet 75 mg PO DAILY BLOOD THINNER #90 tabs 03/17/23 [Rx Last Taken 05/07/23] Allergy/AdvReac Type Severity Reaction Status Date / Time No Known Allergies Allergy Verified 05/07/23 09:48 Family History Brother CAD (coronary artery disease) Mother , from [place] at age 74 CAD (coronary artery disease) Myocardial infarction, Onset Age: 74 Surgical History History of cataract extraction History of colonoscopy History of esophagogastroduodenoscopy (EGD) jaw surgery for fracture Presence of coronary angioplasty implant and graft (~12/20/15) S/P TURP surgery on left index finger Social History (Updated 05/07/23 @ 13:[address] Jacinta Mcclendon DO) household members: spouse housing: house Smoking Status: Never smoker alcohol intake: never substance use type: does not use caffeine: Yes (rarely) eating out: 1-3 times/week during the past year weight has: other seatbelt use: always do you feel safe at home: Yes ROS Constitutional Constitutional: Reports fatigue, malaise and weakness; Denies anorexia, change in weight, chills, fever(s), night sweats or other Eyes Eyes: Denies blurry vision, change in eye color, change in vision, discharge from eye(s), double vision, erythema, eye pain, loss of vision or other ENT HEENT: Reports abnormal hearing and hearing loss; Denies dysphagia, ear pain, epistaxis, headache(s), nasal congestion, nasal discharge, post nasal drip, sinus pressure, sore throat or other Cardiovascular Cardiovascular: Denies chest pain, claudication, dyspnea on exertion, edema, lightheadedness, orthopnea, palpitations, paroxysmal nocturnal dyspnea, rapid heart rate, syncope or other Respiratory/Chest Respiratory/Chest: Denies cough, dyspnea, excessive phlegm production, hemoptysis, productive cough, shortness of breath at rest, shortness of breath with exertion, wheezing or other Gastrointestinal Gastrointestinal: Reports constipation and diarrhea; Denies abdominal pain, coffee ground emesis, dyspepsia, hematemesis, hematochezia, loose stools, melena, nausea, vomiting or other Genitourinary Genitourinary: Reports burning urination, difficulty urinating, urinary frequency, urinary hesitancy and other Details: Decreased urinary output ; Denies dysuria, hematuria, nocturia, urinary incontinence or urinary urgency Musculoskeletal Musculoskeletal: Reports back pain; Denies arthralgias, joint pain, joint stiffness, joint swelling, myalgias, neck pain or other Neurologic Neurologic: Reports abnormal gait; Denies abnormal speech, confusion, disequilibrium, dizziness, focal weakness, headache(s), numbness, paresthesias, seizure-like activity, seizures, syncope, tingling, tremor(s) or other Psychiatric Psychiatric: Denies anxiety, depression, homicidal ideation, suicidal ideation or other Endocrine Endocrinology: Denies change in body appearance, cold intolerance, excessive sweating, heat intolerance, polydipsia, polyuria or other Hematologic/Lymphatic Hematologic/Lymphatic: Denies anemia, easy bleeding, easy bruising, lymphadenopathy or other Allergic/Immunologic Allergic/Immunologic: Denies rhinitis, hives, eczemia, asthma or other Vital Signs Vital Signs Vital Signs: 05/07/23 09:46 05/07/23 10:29 05/07/23 10:31 Temperature 97.9 F Temperature Source Temporal Pulse Rate 108 H 93 Respiratory Rate 14 14 Blood Pressure 105/65 132/83 H Blood Pressure Mean 78 99 Pulse Ox 100 98 99 Oxygen Delivery Method Room Air Room Air 05/07/23 12:22 Temperature Temperature Source Pulse Rate 86 Respiratory Rate 16 Blood Pressure 136/83 H Blood Pressure Mean 100 Pulse Ox 100 Oxygen Delivery Method Room Air Weight Weight: 69.899 kg Body Mass Index (BMI) 22.7 Physical Exam Const alert, oriented x3 and no apparent distress Constitutional Narrative: Thin, elderly, white male, sitting up in bed, at bedside, patient appears comfortable and nontoxic but affect is fairly flat General Appearance: cooperative HEENT normocephalic, head/scalp atraumatic and moist oral mucous membranes HEENT Narrative: Mild hearing loss, dentition is fair for age, Mallampati is 2, no thrush Eyes PERRL, EOMs intact bilaterally and conjunctivae normal Eyes Narrative: No scleral icterus Neck no lymphadenopathy and supple Neck Narrative: Trachea midline, no thyroid enlargement Resp normal respiratory effort, no retractions, no use of accessory muscles and clear to auscultation bilaterally Auscultation: rales, rhonchi and wheezes Cardio regular rate, regular rhythm, S1 normal heart sound, S2 normal heart sound, no murmurs, no rub, no gallops and no clicks GI normal to inspection, nondistended, normoactive bowel sounds, soft to palpation and non-tender Extremity no clubbing, cyanosis or edema Extremity Narrative: Decreased lean muscle mass, pedal pulses are 2+ Neuro oriented x3, moves all extremities and no focal motor deficits Speech: speech normal Psych Psych Narrative: Affect is flattened mood seems somewhat depressed Results Lab / Micro Data Attestation: I reviewed the patient's lab results. 05/07/23 10:20 05/07/23 10:20 Labs: Laboratory Results - last 24 hr 05/07/23 10:20: WBC 7.7, RBC 3.67 L, Hgb 12.1 L, Hct 35.5 L, MCV 96.7 H, MCH 33.0 H, MCHC 34.1, RDW Std Deviation 44.0 H, RDW Coeff of Sridevi 12.6, Plt Count 166, MPV 10.2, Immature Gran % (Auto) 0.400, Neut % (Auto) 68.3, Lymph % (Auto) 22.0, [place]yman % (Auto) 6.7, Eos % (Auto) 2.2, Baso % (Auto) 0.4, Absolute Neuts (auto) 5.3, Absolute Lymphs (auto) 1.70, Nucleated RBC % 0, PT 13.9, INR 1.1, APTT 31.1, Sodium 136, Potassium 3.7, Chloride 103, Carbon Dioxide 26.0, Anion Gap 7, BUN 32 H, Creatinine 1.58 H, Estim Creat Clear Calc 36.87, Est GFR (MDRD) Af Amer 55 L, Est GFR (MDRD) Non-Af 45 L, BUN/Creatinine Ratio 20.3 H, Glucose 280 H, Lactic Acid 3.4 H*, Calcium 8.8, Total Bilirubin 0.60, AST 18, ALT 33, Alkaline Phosphatase 158 H, Total Protein 7.6, Albumin 2.9 L, Globulin 4.7 H, Albumin/Globulin Ratio 0.6 L 05/07/23 12:12: Urine Color Martha, Urine Clarity Cloudy, Urine pH 6.5, Ur Specific [place] 1.010, Urine Protein 500 H, Urine Glucose (UA) 1000 H, Urine Ketones Negative, Urine Occult Blood 250 H, Urine Nitrite Negative, Urine Bilirubin Negative, Urine Urobilinogen 1 H, Ur Leukocyte Esterase 500 H, Urine RBC 25-50 SEEN, Urine WBC >100 SEEN, Ur Squamous Epith Cells 0 SEEN, Urine Bacteria 3+, Urine Mucus 0 SEEN Radiology Impression Chest X-Ray 05/07/23 10:50 IMPRESSION: Increased markings in the right upper lobe. These have improved as compared to prior study. Radiographic follow-up is recommended. Electronically Signed: Mauri Sim MD at 11:13 EDT , Abdomen/Pelvis CT 05/07/23 11:24 IMPRESSION: Findings in keeping with the emphysematous cystitis. Diffuse irregular thickening of the urinary bladder. Stable small right renal cyst. Circumferential wall thickening of the rectum. Large amount of fecal material is seen in the colon. Electronically Signed: Mauri Sim MD at 12:12 EDT , Assessment & Plan Assessment/Plan (1) Emphysematous cystitis: (2) Acidosis, lactic: (3) CATHY (acute kidney injury): (4) Hyperglycemia: (5) Generalized weakness: (6) Constipation: PLAN: Plan Emphysematous cystitis -Previous cultures have been reviewed and organisms had been sensitive -Continue ceftriaxone daily -Culture sent and await identification and sensitivities -Consult urology CATHY -Serum creatinine on presentation is greater than 0.3 above baseline -Baseline serum creatinine appears to be between 1 and 1.25 -On presentation 1.58 -P.o. intake has been poor per discussion with patient -We will run 1 more liter of IV fluids after liters given the emergency department at 100 cc/h of LR -Recheck BMP in a.m. -Avoid nephrotoxins Lactic acidosis -Likely related to dehydration and use of metformin -Patient does not meet criteria for sepsis Constipation/diarrhea -Patient reports that he alternates between constipation and diarrhea and is not taking medication in between -I do wonder if he has IBS -He has had colonoscopy -Currently large amount of stool in his colon which could complicate urination so we will schedule MiraLAX daily and as needed senna is available Generalized weakness/debility/falls -PT/OT consultation -Case management/social work consultation to assist with discharge planning -Patient may need placement versus home health at discharge depending on his functional status while he is hospitalized DM-2 with hyperglycemia -Blood sugar 280 on presentation -Elevation may be due to acute infection -We will check hemoglobin A1c -Continue home Lantus -Hold home glipizide and metformin for now -SSI -Cardiac/carb controlled diet -Accu-Cheks as ordered CAD/HPL -Continue aspirin and Plavix -Continue home statin -As needed nitroglycerin -patient chest pain-free with a stable EKG upon presentation BPH/atonic bladder -Status post TURP -As needed catheterization -Continue Proscar Glaucoma -Continue eyedrops History of gastric ulcers -Patient is not on any PPI -Hemoglobin is stable -Monitor clinically DVT prophylaxis -Subcu Lovenox CODE STATUS -DNR CCA with no intubation as verified on admission Charges/Coding Visit Charges Inpatient E&M: 85012 Init Hosp L2
[2023-05-07] MEDS: Ceftriaxone 1 GM/50 ML BAG IV (13:47)
[2023-05-07 14:25] LABS: Reflex Lactate? Y
[2023-05-07 15:16] LABS: Lactic Acid 1.6 mmol/L (0.4-1.9)
--- NOTE | 2023-05-07 15:34 | CON.PCM.UR_ITS ---
Assessment & Plan Assessment/Plan (1) Emphysematous cystitis: PLAN: Continue IV antibiotics and I will place a Valadez catheter await cultures HPI Consult Data Date of Consult: 05/07/23 HPI Narrative Reason for Consultation: Emphysematous cystitis HPI Narrative: LYNETTE GUDINO, is a 82 M who presents to the hospital appears to have a urinary tract infection CAT scan was done that demonstrated large air within the bladder and mucosa consistent with emphysematous cystitis. I will probably recommend we decompress the bladder with a catheter I will I will talk to the nurse and we will get a catheter him today wait for urine culture results from broad-spectrum antibiotics otherwise no other surgical intervention is necessary at this point. I will talk to the nurse and we will get a catheter. [facility], [facility] Medical History (Updated 05/07/23 @ 14:[address] Jacinta Mcclendon, DO) Acute kidney injury Ambulates with cane Angina pectoris, unstable Atherosclerosis of [place] coronary artery of [place] heart without angina pectoris Atonic bladder Cardiology follow-up encounter Chronic indwelling Valadez catheter Chronic renal insufficiency Diabetes 1.5, managed as type 2 Excessive bleeding Gastric reflux Gastric ulcer History of CAD (coronary artery disease) History of diabetes mellitus History of stress test HLD (hyperlipidemia) HLP (hyperkeratosis lenticularis perstans) Hypertension Loss of hearing Myocardial infarct Non-smoker Open wound Presence of stent in coronary artery (~12/20/15) Prostate disease Self-catheterizes urinary bladder Thick muscular wall of urinary bladder present on ultrasound Walker as ambulation aid Wears glasses Weight loss Home Medications aspirin 81 mg chewable tablet 81 mg PO DAILY@0800 HEART HEALTH 12/19/15 [History Last Taken 01/10/23] atorvastatin 80 mg tablet 80 mg PO QHS CHOLESEROL 07/15/22 [History Last Taken 05/06/23] finasteride 5 mg tablet 5 mg PO DAILY PROSTATE 07/15/22 [History Last Taken 05/07/23] glipizide 10 mg tablet, extended release 24 hr 10 mg PO BID DIABETES 07/15/22 [History Last Taken 05/07/23] metformin 500 mg tablet 500 mg PO BID DIAEBETES 09/24/22 [History Last Taken 05/07/23] insulin glargine 100 unit/mL (3 mL) subcutaneous pen (Lantus Solostar U-100 Insulin) 10 unit subcut QHS DIABETES 11/03/22 [History Last Taken 05/06/23] insulin lispro 100 unit/mL subcutaneous pen (Humalog KwikPen (U-100) Insulin) See Protocol subcut ACHS #0 mL 11/05/22 [Rx Last Taken 05/07/23] levobunolol 0.5 % eye drops 1 drp EACH EYE DAILY GLAUCOMA #0 mL 11/05/22 [Rx Last Taken 05/07/23] nystatin 100,000 unit/gram topical powder (Nyamyc) 1 applic topical BID ANTIFUNGAL #0 grams 11/05/22 [Rx Last Taken Unknown] nitroglycerin 0.4 mg sublingual tablet 0.4 mg sublingual Q5M PRN Chest Pain 01/17/23 [History Last Taken Unknown] clopidogrel 75 mg tablet 75 mg PO DAILY BLOOD THINNER #90 tabs 03/17/23 [Rx Last Taken 05/07/23] Allergy/AdvReac Type Severity Reaction Status Date / Time No Known Allergies Allergy Verified 05/07/23 09:48 Family History Brother CAD (coronary artery disease) Mother , from [place] at age 74 CAD (coronary artery disease) Myocardial infarction, Onset Age: 74 Surgical History History of cataract extraction History of colonoscopy History of esophagogastroduodenoscopy (EGD) jaw surgery for fracture Presence of coronary angioplasty implant and graft (~12/20/15) S/P TURP surgery on left index finger Social History (Updated 05/07/23 @ 13:[address] Jacinta Mcclendon DO) household members: spouse housing: house Smoking Status: Never smoker alcohol intake: never substance use type: does not use caffeine: Yes (rarely) eating out: 1-3 times/week during the past year weight has: other seatbelt use: always do you feel safe at home: Yes ROS Constitutional Constitutional: Denies chills, fever(s) or malaise Eyes Eyes: Denies blurry vision or change in vision ENT HEENT: Reports none Cardiovascular Cardiovascular: Denies chest pain or palpitations Respiratory/Chest Respiratory/Chest: Denies cough or shortness of breath with exertion Gastrointestinal Gastrointestinal: Denies abdominal pain, constipation or diarrhea Musculoskeletal Musculoskeletal: Denies back pain, joint stiffness or joint swelling Integumentary Integumentary: Denies dry skin, jaundice, lesions or rash Neurologic Neurologic: Denies confusion, syncope or weakness Psychiatric Psychiatric: Reports none; Denies anxiety or depression Endocrine Endocrinology: Denies excessive sweating, fatigue or flushing Hematologic/Lymphatic Hematologic/Lymphatic: Denies anemia, easy bleeding or easy bruising Physical Exam Const alert and oriented x3 General Appearance: cooperative HEENT normocephalic, head/scalp atraumatic, EAC's normal and TM's normal bilaterally Eyes PERRL and EOMs intact bilaterally Pupil: sluggish Neck no lymphadenopathy, supple and no JVD General: trachea midline Lymph Lymphatic: no lymphadenopathy noted, lymphedema and lymphadenopathy Resp normal respiratory effort, normal air movement and clear to auscultation bilaterally Cardio regular rate, regular rhythm and peripheral pulses 2+ throughout GI soft to palpation, non-tender and non-distended Extremity normal capillary refill and no clubbing, cyanosis or edema General Extremity: no tenderness to palpation of joints or extremities Skin no rashes or lesions noted General Skin Exam: turgor normal Lesions: no lesions Rashes: no rashes Neuro CN's II-XII intact bilaterally Speech: speech normal Motor Exam: strength 5/5 throughout; Negative for general weakness Psych thought process normal, cooperative and affect normal Appearance: appropriate Medical Records Data Attestation: I reviewed the patient's medical records Lab / Micro Data 05/07/23 10:20 05/07/23 10:20 Labs: Laboratory Results - last 24 hr 05/07/23 10:20: WBC 7.7, RBC 3.67 L, Hgb 12.1 L, Hct 35.5 L, MCV 96.7 H, MCH 33.0 H, MCHC 34.1, RDW Std Deviation 44.0 H, RDW Coeff of Sridevi 12.6, Plt Count 166, MPV 10.2, Immature Gran % (Auto) 0.400, Neut % (Auto) 68.3, Lymph % (Auto) 22.0, [place] % (Auto) 6.7, Eos % (Auto) 2.2, Baso % (Auto) 0.4, Absolute Neuts (auto) 5.3, Absolute Lymphs (auto) 1.70, Nucleated RBC % 0, PT 13.9, INR 1.1, APTT 31.1, Sodium 136, Potassium 3.7, Chloride 103, Carbon Dioxide 26.0, Anion Gap 7, BUN 32 H, Creatinine 1.58 H, Estim Creat Clear Calc 36.87, Est GFR (MDRD) Af Amer 55 L, Est GFR (MDRD) Non-Af 45 L, BUN/Creatinine Ratio 20.3 H, Glucose 280 H, Lactic Acid 3.4 H*, Calcium 8.8, Total Bilirubin 0.60, AST 18, ALT 33, Alkaline Phosphatase 158 H, Total Protein 7.6, Albumin 2.9 L, Globulin 4.7 H, Albumin/Globulin Ratio 0.6 L 05/07/23 12:12: Urine Color Martha, Urine Clarity Cloudy, Urine pH 6.5, Ur Specific [place] 1.010, Urine Protein 500 H, Urine Glucose (UA) 1000 H, Urine Ketones Negative, Urine Occult Blood 250 H, Urine Nitrite Negative, Urine Bilirubin Negative, Urine Urobilinogen 1 H, Ur Leukocyte Esterase 500 H, Urine RBC 25-50 SEEN, Urine WBC >100 SEEN, Ur Squamous Epith Cells 0 SEEN, Urine Bacteria 3+, Urine Mucus 0 SEEN 05/07/23 14:32: Lactic Acid 1.6 Radiology Impression Chest X-Ray 05/07/23 10:50 IMPRESSION: Increased markings in the right upper lobe. These have improved as compared to prior study. Radiographic follow-up is recommended. Electronically Signed: Mauri Sim MD at 11:13 EDT , Abdomen/Pelvis CT 05/07/23 11:24 IMPRESSION: Findings in keeping with the emphysematous cystitis. Diffuse irregular thickening of the urinary bladder. Stable small right renal cyst. Circumferential wall thickening of the rectum. Large amount of fecal material is seen in the colon. Electronically Signed: Mauri Sim MD at 12:12 EDT ,
[2023-05-07] MEDS: Polyethylene Glycol 3350 17 GM PACKET PO (16:20)
[2023-05-07] MEDS: Lactated Ringers 1,000 ML 100 ML IV (16:21)
[2023-05-07] MEDS: Acetaminophen 500 MG Tablet 1000 MG PO ×2 (16:21→21:50)
[2023-05-07] MEDS: Insulin Lispro 100 UNIT/ML INSULN.PEN SC (16:25)
[2023-05-07] MEDS: Glucerna Shake 120 ML LIQUID PO (16:31)
[2023-05-07 17:01] LABS: Bedside Glucose 335 mg/dL (74-106)
[2023-05-07] MEDS: Insulin Glargine-YFGN 100 UNIT/ML Pen 10 UNIT SC (21:45)
[2023-05-07] MEDS: Atorvastatin Calcium 80 MG Tablet PO (21:46)
[2023-05-07 22:17] LABS: Bedside Glucose 310 mg/dL (74-106)
[2023-05-08 03:40] VITALS: BP 148/62; PULSE 77; RESP 17; TEMP 36.8; O2SAT 98
[2023-05-08] MEDS: Acetaminophen 500 MG Tablet 1000 MG PO ×3 (06:30→22:24)
[2023-05-08] MEDS: Insulin Lispro 100 UNIT/ML INSULN.PEN SC ×3 (06:30→16:57)
[2023-05-08 06:35] LABS: Absolute Lymphocyte Count 1.88 X10^3/uL (0.83-4.51); Absolute Neutrophil Count 2.8 X10^3/uL (2.0-7.7); Basophil# 0.06 X10^3/uL; Eosinophil# 0.46 X10^3/uL; Eosinophils% 7.9 % (0-5); Hematocrit 29.2 % (40-54); Hemoglobin 9.7 g/dL (13.0-16.5); Lymphocyte # 1.88 X10^3/ul (0.83-4.51); Lymphocyte % 32.4 % (19-41); Mean Corp Hgb Conc 33.2 g/dL (32-36); Mean Corpuscular Hgb 32.3 pg (27.0-32.0); Mean Corpuscular Volume 97.3 fL (80-94); Mean Platelet Vol. 10.6 fl (6.2-12.0); Monocyte% 10.3 % (0-10); NRBC Flagged by Analyzer 0 % (0-5); Neutrophil # 2.78 X10^3/uL (2.7-7.7); Neutrophil % 48.1 % (47-70); Platelet Count 136 K/mm3 (150-450); RBC Distribution Width CV 12.6 % (11.6-14.6); RBC Distribution Width SD 44.7 fl (35.1-43.9); White Blood Count 5.8 K/mm3 (4.4-11.0)
[2023-05-08 06:53] LABS: Bedside Glucose 211 mg/dL (74-106)
[2023-05-08 07:25] LABS: ALB/GLOB Ratio 0.6 RATIO (0.9-2.4); AST(SGOT) 12 U/L (15-37); Alanine Aminotransfer ALT/SGPT 24 U/L (16-61); Albumin, Serum 2.3 g/dL (3.2-5.0); Alkaline Phosphatase 115 U/L (45-117); Anion Gap 4 (5-15); BUN 27 mg/dL (7-18); Calcium,Total 8.1 mg/dL (8.5-10.1); Chloride 110 mmol/L (98-107); Creatinine, Serum 1.08 mg/dL (0.70-1.30); EST Glomerular Filtration Rate 70 mL/min (>60); Est Glom Filt Rate - Afr Amer 85 mL/min (>60); Estimated Creatinine Clearance 49.38 ml/min; Glucose 233 mg/dL (74-106); Magnesium 1.8 mg/dL (1.6-2.6); Phosphorus 2.8 mg/dL (2.5-4.9); Potassium 3.8 mmol/L (3.5-5.1); Protein, Total 6.3 g/dL (6.4-8.2); Sodium Level 139 mmol/L (136-145)
--- NOTE | 2023-05-08 07:30 | PCM.CONS.B ---
Consult Date of Consult: 05/08/23 Reason for Consult 82-year-old male with emphysematous pyelonephritis, we put a catheter in last night to help decompress the bladder nothing any surgical intervention is necessary continue with IV antibiotics we will see what the cultures grow out. Catheters right short-term once he is discharged she can follow-up my office we can remove the catheter and he can resume self intermittent catheterization. Call me with questions
[2023-05-08 09:06] VITALS: BP 131/71; PULSE 80; RESP 18; TEMP 37.1; O2SAT 96
[2023-05-08] MEDS: Aspirin 81 MG TAB.CHEW PO (09:21)
[2023-05-08] MEDS: OPTH EACH EYE (10:36)
[2023-05-08] MEDS: LEVOBUNOLOL 0.5% EACH EYE (10:36)
[2023-05-08] MEDS: Clopidogrel Bisulfate 75 MG Tablet PO (10:37)
[2023-05-08] MEDS: Enoxaparin 40 MG/0.4 ML Syringe SC (10:37)
[2023-05-08] MEDS: 0.9% Saline Lock 10 ML Syringe IV ×2 (10:40→12:42)
[2023-05-08] MEDS: Finasteride 5 MG Tablet PO (10:40)
[2023-05-08] MEDS: Ceftriaxone 1 GM/50 ML BAG IV (10:40)
[2023-05-08] MEDS: Polyethylene Glycol 3350 17 GM PACKET PO (10:40)
[2023-05-08] MEDS: Glucerna Shake 120 ML LIQUID PO ×3 (10:42→16:58)
--- NOTE | 2023-05-08 11:19 | PCM.PN.HOSP ---
Subjective Subjective Doing well, feels a little better since admission Objective Data Objective Data Vital Signs: Vital Signs Temp Pulse Resp BP Pulse Ox O2 Del Method 98.7 F 80 18 131/71 H 96 Room Air 05/08/23 09:06 05/08/23 09:06 05/08/23 09:06 05/08/23 09:06 05/08/23 09:06 05/08/23 09:13 Oxygen Delivery Method Room Air Weight: 141 lb 1.533 oz Body Mass Index (BMI) 20.8 Intake & Output: Intake and Output for Last 24 Hours 05/07/23 05/08/23 05/09/23 03:59 03:59 03:59 Intake Total 4075 / 4075 150 / 150 Output Total 650 / 650 400 / 400 Balance 3425 / 3425 -250 / -250 Medical Nutrition Assessment Dietitian: Malnutrition Criteria Met Start: 05/07/23 16:46 Freq: Status: Active Protocol: Document 05/07/23 16:46 SLA (Rec: 05/07/23 16:47 SLA Desktop) Nutrition Malnutrition Evidence of Malnutrition Exists Yes Malnutrition (moderate): Chronic Evidenced By Suboptimal Energy Intake ( Severe),Physical Changes ( Moderate) Clinical Problem Chronic Disease or Condition Related Malnutrition Etiology moderate malnutrition related to inadequate energy intake Signs/Symptoms as evidenced by fat/muscle loss and po intake meeting <50 % of est nutritional needs Status Active Problem Recommendation Dietitian Recommendations/Changes Will continue 1800 nora Consistent CHO/ Cardiac diet as ordered Will change ensure plus high protein po supplement to glucerna shake 4x/day d/t elevated gluc and hx of diabetes Will consider liberalize diet pending po intake at time of follow up. Consider appetite stimulant since poor po intake has been ongoing for >6 mo per pt. Lab / Micro Data 05/08/23 05:55 05/08/23 05:55 Labs: Laboratory Results - last 24 hr 05/07/23 12:12: Urine Color Martha, Urine Clarity Cloudy, Urine pH 6.5, Ur Specific [place] 1.010, Urine Protein 500 H, Urine Glucose (UA) 1000 H, Urine Ketones Negative, Urine Occult Blood 250 H, Urine Nitrite Negative, Urine Bilirubin Negative, Urine Urobilinogen 1 H, Ur Leukocyte Esterase 500 H, Urine RBC 25-50 SEEN, Urine WBC >100 SEEN, Ur Squamous Epith Cells 0 SEEN, Urine Bacteria 3+, Urine Mucus 0 SEEN 05/07/23 14:32: Lactic Acid 1.6 05/07/23 16:14: POC Glucose 335 H 05/07/23 21:41: POC Glucose 310 H 05/08/23 05:55: WBC 5.8, RBC 3.00 L, Hgb 9.7 L, Hct 29.2 L, MCV 97.3 H, MCH 32.3 H, MCHC 33.2, RDW Std Deviation 44.7 H, RDW Coeff of Sridevi 12.6, Plt Count 136 L, MPV 10.6, Immature Gran % (Auto) 0.300, Neut % (Auto) 48.1, Lymph % (Auto) 32.4, [place] % (Auto) 10.3 H, Eos % (Auto) 7.9 H, Baso % (Auto) 1.0, Absolute Neuts (auto) 2.8, Absolute Lymphs (auto) 1.88, Nucleated RBC % 0, Sodium 139, Potassium 3.8, Chloride 110 H, Carbon Dioxide 25.0, Anion Gap 4 L, BUN 27 H, Creatinine 1.08, Estim Creat Clear Calc 49.38, Est GFR (MDRD) Af Amer 85, Est GFR (MDRD) Non-Af 70, BUN/Creatinine Ratio 25.0 H, Glucose 233 H, Calcium 8.1 L, Phosphorus 2.8, Magnesium 1.8, Total Bilirubin 0.50, AST 12 L, ALT 24, Alkaline Phosphatase 115, Total Protein 6.3 L, Albumin 2.3 L, Globulin 4.0, Albumin/Globulin Ratio 0.6 L 05/08/23 06:29: POC Glucose 211 H Radiography Diagnostic Testing: Radiology Impression Abdomen/Pelvis CT 05/07/23 11:24 IMPRESSION: Findings in keeping with the emphysematous cystitis. Diffuse irregular thickening of the urinary bladder. Stable small right renal cyst. Circumferential wall thickening of the rectum. Large amount of fecal material is seen in the colon. Electronically Signed: Mauri Sim MD at 12:12 EDT , Physical Exam Narrative General: Alert, Oriented x3, Cooperative, No apparent distress HEENT: Atraumatic, PERRLA, EOMI, Normocephalic Oral: Moist Mucosa Neck: Supple, No JVD Lungs: Diminished, Normal air movement, No rhonchi, No wheeze, No rales Cardiovascular: Regular rate, Regular Rhythm, Normal S1, Normal S2, No murmurs Abdomen: Soft, Non Tender, Non-Distended, No Hepato-splenomegaly Extremities: No edema, Capillary Refill Less than 3 Seconds Skin: No rashes, No breakdown Musculoskeletal: No Tenderness to Palpation of Joints or Extremities Neurological: Cranial nerves II-XII grossly intact, Motor Exam 5/5 strength throughout, Sensory exam intact to light touch and pain Psych/Mental Status: Flat Assessment & Plan Assessment/Plan (1) Emphysematous cystitis: (2) Acidosis, lactic: (3) CATHY (acute kidney injury): (4) Hyperglycemia: (5) Generalized weakness: (6) Constipation: PLAN: Plan 1. Emphysematous cystitis with BPH atonic bladder/generalized weakness/CATHY ? Appreciate urology's assistance, the patient does periodically healthcare cath which is caused him to start having more UTIs ? Continue with IV antibiotics pending urine culture data ? Initially on admission creatinine was about 1.6 baseline is around 1 and his CATHY appears to have resolved with IV fluids ? PT/OT evaluation for possible placement 2. HTN/HLD/CAD status post stent ? Blood pressures are currently stable we will monitor and make adjustments ? Continue with his home blood pressure medications ? Continue with his aspirin and Plavix ? Continue with his Lipitor 3. DM 2 ? Recent A1c's were elevated to 10.7 and 10.6 ? Continue with home Lantus ? Sliding scale insulin ? Accu-Cheks ACHS ? We will monitor and make adjustments as necessary 4. Glaucoma ? Stable ? Continue with eyedrops DVT: Lovenox Charges/Coding Visit Charges Inpatient E&M: 02002 Subs Hosp L2
[2023-05-08 11:41] LABS: Bedside Glucose 300 mg/dL (74-106)
[2023-05-08] MEDS: Flu Vacc QS2023-24(65YR UP)/PF 240 MCG/0.7 ML Syringe IM (12:37)
--- NOTE | 2023-05-08 13:23 | CASEMGMT ---
VENKATA OBREGON Face to Face with patient for initial transition planning/care coordination assessment. RN CM introduced self and role at [facility]. Patient sitting up in chair eating lunch, alert and oriented. Patient willing to participate in assessment and is able to answer all questions appropriately. Care providers, pharmacy, and demographics verified. Patient wishes to discharge home, he is agreeable for home health at this time. Pt would like the same agency he has had in the past but cannot recall. He asks RN CM to call his . TC to Miguel, she states she is not home now and she will look later. She asks RN CM to call her back in the morning to get the name of the agency. She is agreeable to this plan. Patient states he has no further needs or concerns at this time. CM to follow for discharge planning needs that may arise. PCP:Lan Specialists:Konstantin, uro; CHINGG, cardio Preferred Pharmacy:[facility] Insurance:[facility] Prescription Benefit: yes LNOK:Miguel Gee, Living Arrangements:Pt lives with in a single story home with 3 steps to enter with a rail. Pt reports he is typically I in ADL's and denies concerns at home. Pt states he has been weaker but still feels he can return home at ut. Transportation: Pt has not been driving. He states his has been transporting him to medical appts. DME:rollator, cane, ww, shower chair, raised toilet seat and pt self caths 2x/day HHC:Y- unsure of name of agency [facility] Disposition Plan: Home with [facility], call in am for name of agency preferred
--- NOTE | 2023-05-08 15:12 | CHAPLAIN ---
Type of Pastoral Visit _x__ Initial Visit ___ Follow-up Visit ___ On-call Visit ___ General Patient Visit ___ Spiritual Assessment ___ Family Conference ___ Bereavement ___ Rapid Response ___ Code Blue ___ Other (describe below) Pastoral Care Referral From _x__ Patient ___ Family ___ Nurse ___ Physician ___ Alarm Signal Operator ___ Production Quality Analyst ___ Other (describe below) Sacrament/Intervention _x__ Active listening ___ Anointing ___ Lutheran ___ Bereavement ___ Communion ___ Dary exploration ___ _x__ Life review _x__ Prayer ___ Reconciliation ___ Sacrament of Sick _x__ Supportive presence ___ Wedding ___ Other (describe below) Pastoral Comments sat with patient for extended time to talk about his situation, decline in health, coping with the changes, 's health, future and decisions to be made about that, and his current dary practices (patient stopped going to religion during pandemic and hasn't returned); prayer and presence welcomed
[2023-05-08 16:53] VITALS: BP 154/82; PULSE 71; RESP 18; TEMP 36.6; O2SAT 99
[2023-05-08 16:54] LABS: Bedside Glucose 316 mg/dL (74-106)
[2023-05-08 22:05] VITALS: BP 148/74; PULSE 75; RESP 17; TEMP 37.2; O2SAT 98
[2023-05-08] MEDS: Atorvastatin Calcium 80 MG Tablet PO (22:24)
[2023-05-08] MEDS: Insulin Glargine-YFGN 100 UNIT/ML Pen 10 UNIT SC (22:24)
[2023-05-08] MEDS: oxyCODONE 5 MG Tablet PO (22:25)
[2023-05-08 22:49] LABS: Bedside Glucose 267 mg/dL (74-106)
[2023-05-09 04:05] VITALS: BP 149/88; PULSE 75; RESP 18; TEMP 36.8; O2SAT 96
[2023-05-09] MEDS: Acetaminophen 500 MG Tablet 1000 MG PO (06:29)
[2023-05-09] MEDS: Insulin Lispro 100 UNIT/ML INSULN.PEN SC ×2 (06:29→11:30)
[2023-05-09 06:36] LABS: Absolute Lymphocyte Count 1.67 X10^3/uL (0.83-4.51); Absolute Neutrophil Count 2.5 X10^3/uL (2.0-7.7); Basophil# 0.05 X10^3/uL; Eosinophil# 0.51 X10^3/uL; Eosinophils% 9.8 % (0-5); Hematocrit 30.2 % (40-54); Hemoglobin 10.3 g/dL (13.0-16.5); Lymphocyte # 1.67 X10^3/ul (0.83-4.51); Lymphocyte % 32.1 % (19-41); Mean Corp Hgb Conc 34.1 g/dL (32-36); Mean Corpuscular Volume 96.8 fL (80-94); Mean Platelet Vol. 10.7 fl (6.2-12.0); Monocyte# 0.49 X10^3/uL; Monocyte% 9.4 % (0-10); NRBC Flagged by Analyzer 0 % (0-5); Neutrophil # 2.46 X10^3/uL (2.7-7.7); Neutrophil % 47.3 % (47-70); Platelet Count 141 K/mm3 (150-450); RBC Distribution Width CV 12.5 % (11.6-14.6); RBC Distribution Width SD 43.8 fl (35.1-43.9); Red Blood Count 3.12 M/mm3 (4.6-6.2); White Blood Count 5.2 K/mm3 (4.4-11.0)
[2023-05-09 06:58] LABS: Bedside Glucose 256 mg/dL (74-106)
[2023-05-09 07:04] LABS: Anion Gap 3 (5-15); BUN 26 mg/dL (7-18); BUN/Creat Ratio 22.6 RATIO (10-20); Calcium,Total 8.1 mg/dL (8.5-10.1); Chloride 105 mmol/L (98-107); Creatinine, Serum 1.15 mg/dL (0.70-1.30); EST Glomerular Filtration Rate 65 mL/min (>60); Est Glom Filt Rate - Afr Amer 79 mL/min (>60); Estimated Creatinine Clearance 46.38 ml/min; Glucose 287 mg/dL (74-106); Potassium 4.2 mmol/L (3.5-5.1); Sodium Level 135 mmol/L (136-145)
--- NOTE | 2023-05-09 09:16 | CASEMGMT ---
TC to pt , she states the information she found was that the [facility] agency was [facility]. She would like the referral to be sent to them. [place] hospital administrative assistant to send referral via [facility].
--- NOTE | 2023-05-09 09:23 | CASEMGMT ---
Discharge Planning Referral sent to [facility] via [facility]. Franchesca Mike, Discharge Planning Asst.
[2023-05-09] MEDS: OPTH EACH EYE (09:32)
[2023-05-09] MEDS: Polyethylene Glycol 3350 17 GM PACKET PO (09:32)
[2023-05-09] MEDS: Aspirin 81 MG TAB.CHEW PO (09:32)
[2023-05-09] MEDS: Glucerna Shake 120 ML LIQUID PO (09:32)
[2023-05-09] MEDS: LEVOBUNOLOL 0.5% EACH EYE (09:32)
[2023-05-09] MEDS: Enoxaparin 40 MG/0.4 ML Syringe SC (09:32)
[2023-05-09] MEDS: Clopidogrel Bisulfate 75 MG Tablet PO (09:33)
[2023-05-09] MEDS: Ceftriaxone 1 GM/50 ML BAG IV (09:33)
[2023-05-09] MEDS: Finasteride 5 MG Tablet PO (09:33)
[2023-05-09 09:47] VITALS: BP 140/83; PULSE 84; RESP 18; TEMP 36.8; O2SAT 99
--- NOTE | 2023-05-09 10:53 | DCINST_ITS ---
Discharge Instructions Diet Discharge Diet: Carb Control Diet Activity Discharge Activity: Return to Normal Activity Dressing / Incision Call your doctor if you observe: Fever of 101 or Higher, Shortness of breath, Dizziness, Fainting spells, Swelling in the ankles, Chest pain and Increased palpitations (irregular heartbeat) Follow Up Care Test Results: Test results from this visit will be discussed in further detail at your follow- up appointment, if applicable. Discharge Plan Admission Admit Date/Time: 05/07/23 13:13 Attending Provider: Robert Stroud Primary Care Provider: Sandeep Montenegro Consulting Providers: Cuba Pryor; Jacinta Mcclendon Discharge Orders/Prescriptions Prescriptions: New cefdinir 300 mg capsule 300 mg PO BID Qty: 14 0RF Continued aspirin 81 MG tablet,chewable 81 mg PO DAILY@0800 Hold Instructions: Resume on 11/07/22. Patient Comments: LAST DOSE ASPIRIN 07/14/2022 FOR SURGERY ON 07/19/22 finasteride 5 mg tablet 5 mg PO DAILY atorvastatin 80 mg tablet 80 mg PO QHS glipizide 10 mg tablet extended release 24hr 10 mg PO BID metformin 500 mg Tablet 500 mg PO BID nitroglycerin 0.4 mg tablet, sublingual 0.4 mg sublingual Q5M PRN (Reason: Chest Pain) insulin glargine [Lantus Solostar U-100 Insulin] 100 unit/mL (3 mL) insulin pen 10 unit SUBCUT QHS levobunolol 0.5 % Drops 1 drp EACH EYE DAILY Qty: 0 0RF nystatin [Nyamyc] 100,000 unit/gram Powder 1 applic topical BID Qty: 0 0RF Protocol: *Topical Application Instructions APPLICATION INSTRUCTIONS: scrotum insulin lispro [Humalog KwikPen Insulin] 100 unit/mL Insulin Pen See Protocol subcut ACHS Qty: 0 0RF Protocol: 4. Sliding Scale Insulin High-Med Dosing Condition: 150-199 mg/dl = 2 units Condition: 200-259 mg/dl = 4 units Condition: 260-324 mg/dl = 6 units Condition: 325-374 mg/dl = 8 units Condition: 375-409 mg/dl = 10 units Condition: 410-449 mg/dl = 11 units Condition: Greater than 449 call physician Protocol Text: - Use for Total Daily Dose of Insulin 56-80 units - Patient who are insulin resistant or septic HIGH MEDIUM DOSING ALGORITHM clopidogrel 75 mg tablet 75 mg PO DAILY Qty: 90 3RF Hold Instructions: Resume on 11/07/22. Referrals / Follow Up: Cuba Pryor MD [Med Staff - Active Staff] - Within 1 Week Sandeep Montenegro DO [Primary Care Provider] - Within 1 Week Disposition Disposition (needs filled in before D/C Order can be placed): Home Health Service
[2023-05-09 12:00] LABS: Bedside Glucose 336 mg/dL (74-106)
--- NOTE | 2023-05-09 13:17 | CASEMGMT ---
Pt accepted by [facility]. RN CM into pt room, pt is aware and states he has had a nash before. Pt denies any further homegoing needs.
--- NOTE | 2023-05-09 13:37 | CASEMGMT ---
Discharge Planning Patient has been accepted by [facility]. Discharge instructions sent via [facility]. Franchesca Mike, Discharge Planning Asst.
--- NOTE | 2023-05-09 14:21 | PCM.DC.SUM ---
Providers Date of Admission: 05/07/23 Primary Care Physician: Dr. Sandeep Montenegro, Consultations 05/07/23 14:56 Consult: Urology Routine Consulting Provider: Cuba Pryor Reason for Consult: emphysematous cystitis with h/o atonic bladder EMERGENT Consult: No MD Notified: Yes Date Notified: 05/07/23 Time Notified: 15:30 Method of Notification: Verbal Reason For Visit: EMPHESEMATOUS CYSTITIS Diagnosis Discharge Diagnosis (1) Emphysematous cystitis: Status: Acute Code(s): N30.80 - Other cystitis without hematuria (2) Acidosis, lactic: Status: Acute Code(s): E87.20 - Acidosis, unspecified (3) CATHY (acute kidney injury): Status: Acute Code(s): N17.9 - Acute kidney failure, unspecified (4) Hyperglycemia: Status: Acute Code(s): R73.9 - Hyperglycemia, unspecified (5) Generalized weakness: Status: Acute Code(s): R53.1 - Weakness (6) Constipation: Status: Acute Code(s): K59.00 - Constipation, unspecified Medications at Discharge Home Medications aspirin 81 mg chewable tablet 81 mg PO DAILY@0800 [facility] 12/19/15 atorvastatin 80 mg tablet 80 mg PO QHS CHOLESEROL 07/15/22 finasteride 5 mg tablet 5 mg PO DAILY PROSTATE 07/15/22 glipizide 10 mg tablet, extended release 24 hr 10 mg PO BID DIABETES 07/15/22 metformin 500 mg tablet 500 mg PO BID DIAEBETES 09/24/22 insulin glargine 100 unit/mL (3 mL) subcutaneous pen (Lantus Solostar U-100 Insulin) 10 unit subcut QHS DIABETES 11/03/22 insulin lispro 100 unit/mL subcutaneous pen (Humalog KwikPen (U-100) Insulin) See Protocol subcut ACHS #0 mL 11/05/22 levobunolol 0.5 % eye drops 1 drp EACH EYE DAILY GLAUCOMA #0 mL 11/05/22 nystatin 100,000 unit/gram topical powder (Nyamyc) 1 applic topical BID ANTIFUNGAL #0 grams 11/05/22 nitroglycerin 0.4 mg sublingual tablet 0.4 mg sublingual Q5M PRN Chest Pain 01/17/23 clopidogrel 75 mg tablet 75 mg PO DAILY BLOOD THINNER #90 tabs 03/17/23 cefdinir 300 mg capsule 300 mg PO BID #14 caps 05/09/23 Hospital Course Operations None Procedures None Summary of Care Provided Minutes Spent on Discharge: 35 Hospital Course: Per HPI: LYNETTE GUDINO, is a 82 M who presented the emergency department at [facility] on 05/07/2023 complaining of fatigue and weakness. Patient states he had symptoms for about 5 days now that have been progressively getting worsening. He self caths intermittently for a time bladder. He states this is a result of his TURP that was done on 07/19/2022 for BPH. Ever since then he has had issues with urination. He had a recent admission here in October at which time he grew Klebsiella in his urine. Previous bacteria have appeared to be fairly sensitive. He denies fever or chills but does indicate he has had generalized weakness and fatigue and his indicates he has had some intermittent confusion at home and some falls due to weakness. He states his urine has been darker than typical and output has decreased. He overall states his p.o. intake is poor and lately has been worse since he has not been feeling well. It sounds as if at baseline he is not an avid drinker of fluids. Patient is overall poor historian. Vital signs on presentation demonstrated temperature of 97.9, initial heart rate was 108 but this is decreased to 80-90, blood pressures have been anywhere from 10 5-1 36 systolic over 65-83 diastolic, respirate 14 oxygen saturations are 100% on room air. His CBC shows a chronic stable anemia but his white count is normal and there is no left shift present. Coags are normal. His chemistry panel shows normal electrolytes however his BUN and serum creatinine are elevated from baseline at 32 and 1.8 respectively. (Baseline serum creatinine runs between 1.0 and 1.25). His serum glucose was markedly elevated at 280. Liver functions are normal. Lactic acid was 3.4 however the patient appears dehydrated and he is also taking metformin. His UA is consistent with infection showing protein, glucose, occult blood, leuk esterase, greater than 100 WBCs and 3+ bacteria. EKG shows normal sinus rhythm without any ST-T wave changes concerning for acute ischemia. His chest x-ray shows increased markings in the right upper lobe that were seen previously but they have improved from comparison earlier this year. CT of the abdomen and pelvis was consistent with emphysematous cystitis along with diffuse irregular thickening of the urinary bladder and a large amount of fecal material in the colon. Hospital Course: 1. Emphysematous cystitis due to Klebsiella with BPH and atonic bladder with a history of self-catheterization/generalized weakness/CATHY?82-year-old male presented to the hospital with fatigue and weakness he was found to have a UTI and CT scan demonstrated air in the bladder. A Valadez placed and urology was consulted. They did not feel that this warranted any immediate surgical intervention but recommended leaving Valadez in place until after discharge with outpatient follow-up. Urine culture demonstrated a pansensitive Klebsiella. He has received 3 days of Rocephin prior to discharge. I discussed with him the plan for discharge today he expressed understanding of the risk benefits of going home and would like to go home today. Family did agree to home health services and this will be set up prior to discharge. Will recommend cefdinir 300 mg p.o. twice daily for another 7 days for 10 days total of treatment and I recommend outpatient follow-up with both his PCP as well as urology. 2. Hypertension, hyperlipidemia, coronary artery disease status post stent, type 2 diabetes, glaucoma all chronic medical conditions which complicate his care. His home medications were continued where appropriate. Physical Exam Narrative General: Alert, Oriented x3, Cooperative, No apparent distress HEENT: Atraumatic, PERRLA, EOMI, Normocephalic Oral: Moist Mucosa Neck: Supple, No JVD Lungs: Diminished, Normal air movement, No rhonchi, No wheeze, No rales Cardiovascular: Regular rate, Regular Rhythm, Normal S1, Normal S2, No murmurs Abdomen: Soft, Non Tender, Non-Distended, No Hepato-splenomegaly Extremities: No edema, Capillary Refill Less than 3 Seconds Skin: No rashes, No breakdown Musculoskeletal: No Tenderness to Palpation of Joints or Extremities Neurological: Cranial nerves II-XII grossly intact, Motor Exam 5/5 strength throughout, Sensory exam intact to light touch and pain Psych/Mental Status: Flat Medical Records Data Medical Nutrition Assessment Dietitian: Malnutrition Criteria Met Start: 05/07/23 16:46 Freq: Status: Active Protocol: Document 05/07/23 16:46 SLA (Rec: 05/07/23 16:47 SLA Desktop) Nutrition Malnutrition Evidence of Malnutrition Exists Yes Malnutrition (moderate): Chronic Evidenced By Suboptimal Energy Intake ( Severe),Physical Changes ( Moderate) Clinical Problem Chronic Disease or Condition Related Malnutrition Etiology moderate malnutrition related to inadequate energy intake Signs/Symptoms as evidenced by fat/muscle loss and po intake meeting <50 % of est nutritional needs Status Active Problem Recommendation Dietitian Recommendations/Changes Will continue 1800 nora Consistent CHO/ Cardiac diet as ordered Will change ensure plus high protein po supplement to glucerna shake 4x/day d/t elevated gluc and hx of diabetes Will consider liberalize diet pending po intake at time of follow up. Consider appetite stimulant since poor po intake has been ongoing for >6 mo per pt. Weight / BMI Weight Weight: 141 lb 1.533 oz Body Mass Index (BMI) 20.8 ABG / Lab / Microbiology Data 05/09/23 05:53 05/09/23 05:53 Laboratory: Laboratory Results - last 24 hr 05/08/23 16:36: POC Glucose 316 H 05/08/23 22:22: POC Glucose 267 H 05/09/23 05:53: WBC 5.2, RBC 3.12 L, Hgb 10.3 L, Hct 30.2 L, MCV 96.8 H, MCH 33.0 H, MCHC 34.1, RDW Std Deviation 43.8, RDW Coeff of Sridevi 12.5, Plt Count 141 L, MPV 10.7, Immature Gran % (Auto) 0.400, Neut % (Auto) 47.3, Lymph % (Auto) 32.1, [place] % (Auto) 9.4, Eos % (Auto) 9.8 H, Baso % (Auto) 1.0, Absolute Neuts (auto) 2.5, Absolute Lymphs (auto) 1.67, Nucleated RBC % 0, Sodium 135 L, Potassium 4.2, Chloride 105, Carbon Dioxide 27.0, Anion Gap 3 L, BUN 26 H, Creatinine 1.15, Estim Creat Clear Calc 46.38, Est GFR (MDRD) Af Amer 79, Est GFR (MDRD) Non-Af 65, BUN/Creatinine Ratio 22.6 H, Glucose 287 H, Calcium 8.1 L 05/09/23 06:28: POC Glucose 256 H 05/09/23 11:28: POC Glucose 336 H Microbiology: Microbiology 05/07/23 11:10 Blood Culture (Wb) - Anticubital Right Blood Culture - Preliminary No growth in 48 hours. 05/07/23 10:20 Blood Culture (Wb) - Anticubital Left Blood Culture - Preliminary No growth in 48 hours. 05/07/23 12:12 Urine, Catheterized Urine Culture - Final Klebsiella pneumoniae sp pneum D/C Instructions Discharge Diet: Carb Control Diet Call your doctor if you observe: Fever of 101 or Higher, Shortness of breath, Dizziness, Fainting spells, Swelling in the ankles, Chest pain and Increased palpitations (irregular heartbeat) Meaningful Use Info Meaningful Use Diagnoses (Choose all that apply): None applicable Discharge Plan Admission Admit Date/Time: 05/07/23 13:13 Attending Provider: Robert Stroud Primary Care Provider: Sandeep Montenegro Consulting Providers: Cuba Pryor; Jacinta Mcclendon Discharge Orders/Prescriptions Prescriptions: New cefdinir 300 mg capsule 300 mg PO BID Qty: 14 0RF Continued aspirin 81 MG tablet,chewable 81 mg PO DAILY@0800 Hold Instructions: Resume on 11/07/22. Patient Comments: LAST DOSE ASPIRIN 07/14/2022 FOR SURGERY ON 07/19/22 finasteride 5 mg tablet 5 mg PO DAILY atorvastatin 80 mg tablet 80 mg PO QHS glipizide 10 mg tablet extended release 24hr 10 mg PO BID metformin 500 mg Tablet 500 mg PO BID nitroglycerin 0.4 mg tablet, sublingual 0.4 mg sublingual Q5M PRN (Reason: Chest Pain) insulin glargine [Lantus Solostar U-100 Insulin] 100 unit/mL (3 mL) insulin pen 10 unit SUBCUT QHS levobunolol 0.5 % Drops 1 drp EACH EYE DAILY Qty: 0 0RF nystatin [Nyamyc] 100,000 unit/gram Powder 1 applic topical BID Qty: 0 0RF Protocol: *Topical Application Instructions APPLICATION INSTRUCTIONS: scrotum insulin lispro [Humalog KwikPen Insulin] 100 unit/mL Insulin Pen See Protocol subcut ACHS Qty: 0 0RF Protocol: 4. Sliding Scale Insulin High-Med Dosing Condition: 150-199 mg/dl = 2 units Condition: 200-259 mg/dl = 4 units Condition: 260-324 mg/dl = 6 units Condition: 325-374 mg/dl = 8 units Condition: 375-409 mg/dl = 10 units Condition: 410-449 mg/dl = 11 units Condition: Greater than 449 call physician Protocol Text: - Use for Total Daily Dose of Insulin 56-80 units - Patient who are insulin resistant or septic HIGH MEDIUM DOSING ALGORITHM clopidogrel 75 mg tablet 75 mg PO DAILY Qty: 90 3RF Hold Instructions: Resume on 11/07/22. Referrals / Follow Up: Cuba Pryor MD [Med Staff - Active Staff] - Within 1 Week Sandeep Montenegro DO [Primary Care Provider] - Within 1 Week Disposition Disposition (needs filled in before D/C Order can be placed): Home Health Service Charges/Coding Visit Charges Inpatient E&M: 96418 Disch Hosp >30min
[2023-05-09 14:29] VITALS: BP 158/77; PULSE 75; RESP 18; TEMP 36.7; O2SAT 97
== END 2023-05-09 14:45 | disposition home health service (06) | DRG 690 ==
LOC: ED 13:22 → MS3 05-08 07:03
PROVIDERS: Admitting Provider Internal Medicine; Emergency Provider Emergency Medicine; PCP Family Medicine; Visit Provider Family Medicine
DX: N30.80 Other cystitis without hematuria (principal); E44.0 Moderate protein-calorie malnutrition; N17.9 Acute kidney failure, unspecified; E13.22 Other specified diabetes mellitus with diabetic chronic kidney disease; E13.39 Other specified diabetes mellitus with other diabetic ophthalmic complication; E13.65 Other specified diabetes mellitus with hyperglycemia; Z79.4 Long term (current) use of insulin; E87.20 Acidosis, unspecified; N31.2 Flaccid neuropathic bladder, not elsewhere classified; D64.9 Anemia, unspecified; B96.1 Klebsiella pneumoniae [K. pneumoniae] as the cause of diseases classified elsewhere; N18.9 Chronic kidney disease, unspecified; I12.9 Hypertensive chronic kidney disease with stage 1 through stage 4 chronic kidney disease, or unspecified chronic kidney disease; E78.5 Hyperlipidemia, unspecified; I25.10 Atherosclerotic heart disease of native coronary artery without angina pectoris; K59.00 Constipation, unspecified; Z79.82 Long term (current) use of aspirin; Z95.5 Presence of coronary angioplasty implant and graft; Z79.02 Long term (current) use of antithrombotics/antiplatelets; H40.9 Unspecified glaucoma; N40.0 Benign prostatic hyperplasia without lower urinary tract symptoms; Z68.22 Body mass index [BMI] 22.0-22.9, adult; R53.81 Other malaise; Z79.899 Other long term (current) drug therapy; Z23 Encounter for immunization
CPT/HCPCS: 36415; 71045; 74176; 80048; 80053; 81001; 82962; 83605; 83735; 84100; 85025; 85610; 85730; 87040; 87077; 87086; 87088; 87186; 93005; 94668; 96361; 96365; 96366; 96372; 97110; 97162; 97166; 97530; 97802; 99221; 99285; 90662; A4216; G0378

== ENCOUNTER → 2023-07-23 | Outpatient (CLI) | payer MEDICARE, SELFPAY | END | disposition home or self-care (01) | LOC: LABSPEC 11:39 | PROVIDERS: PCP Family Medicine; Referring Provider Urology; Visit Provider Urology | DX: R31.0 Gross hematuria (principal) | CPT/HCPCS: 87086; 87088; 87186 ==

== ENCOUNTER 2023-08-10 10:27 | Inpatient (IN) | payer MEDICARE, SELFPAY ==
[2023-08-10 10:28] VITALS: BP 112/68; PULSE 90; RESP 14; TEMP 36.1; O2SAT 100; BMI 21.7
--- NOTE | 2023-08-10 10:45 | CT_ITS ---
STUDY: CT ABDOMEN AND PELVIS WITH CONTRAST - URINARY TRACT REASON FOR EXAM: Male, 82 years old. Pain RADIATION DOSAGE (If Supplied By Facility): CTDIvol = ( 10.09 ) mGy, DLP = ( 971.55 ) mGycm TECHNIQUE: IV 100mL Isovue-370 was administered. Transaxial images were obtained from the dome of the diaphragm to the symphysis pubis in the arterial and excretory phases. Multiplanar coronal and sagittal images were reformatted. Individualized Dose Optimization Techniques Were Used For This CT. COMPARISON: September 25 and May 07, 2023 FINDINGS: There is minimal bibasilar atelectasis. There is a stable right middle lobe granuloma. There are coronary artery calcifications. There is decreased attenuation of the liver consistent with steatosis. There are gallstones within the gallbladder. Normal spleen. There is diffuse atrophy of the pancreas. Within the body of the pancreas there is a stable 1.1 cm round low-attenuation focus. There is no pancreatic ductal dilatation. Normal bilateral adrenal glands. Normal visualized stomach. Normal small intestine. Normal colon. There is non-visualization of the appendix. There is diffuse atherosclerotic calcification of the abdominal aorta, without a demonstrated aneurysm. No retroperitoneal adenopathy. There are bilateral extrarenal pelvises. There is a stable left renal cyst. There is extensive bladder wall thickening. There is air within the urinary bladder including along the posterior urinary wall. Normal abdominal wall. Normal osseous structures. CT/Abdomen/Pelvis W IV Cont ONLY IMPRESSION: 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 Fatty infiltration of the liver. Cholelithiasis. Stable 1.1 cm cystic focus within the pancreas recommend follow-up CT in 2 years. Atherosclerosis. Electronically Signed: Lea Mejía MD at 12:51 EST ,
--- NOTE | 2023-08-10 10:47 | EDS_ITS ---
HPI History of Present Illness Chief Complaint: Complaint Informant: patient and spouse/S.O. Narrative Narrative: Presents with hematuria. The history is somewhat difficult to obtain. Often he and his will have different answers to the same questions. Many times he will repeat my question but not answer it. The below is the summary the best I can obtain. It sounds like patient was admitted for UTI in April. It seems like he had some bleeding or blood in the urine after this but it has increased at least in the last month. I cannot get if it is pure red or clots. It sounds like it is not worsening. But the finally felt he needs to get this checked out. He has not talked with his primary care about this. He has not talked with the nurse practitioner at [facility] about this. But somehow he does have an appointment with a urologist somewhere on the . I did find that he had what sounds like a TURP approximately a year ago with Dr. Pryor. But I cannot get if that is who they are seeing on the . Triage note mentions weakness. states that he did not want to go down to dinner last night and this is really what prompted them to come in today. I cannot get if he has been losing weight. It sounds like he is not constipated or having diarrhea. It sounds like he is still passing the urine without difficulty. There is no nausea. On his old medical record he does have Plavix listed but they think he is not t aking that now. We will try to obtain records to verify this. It sounds like he probably is on aspirin. [facility] Medical History Acute kidney injury Ambulates with cane Angina pectoris, unstable Atherosclerosis of [place] coronary artery of [place] heart without angina pectoris [facility] bladder Cardiology follow-up encounter Chronic indwelling Valadez catheter Chronic renal insufficiency Diabetes 1.5, managed as type 2 Excessive bleeding Gastric reflux Gastric ulcer History of CAD (coronary artery disease) History of diabetes mellitus History of stress test HLD (hyperlipidemia) HLP (hyperkeratosis lenticularis perstans) Hypertension Loss of hearing Myocardial infarct Non-smoker Open wound Presence of stent in coronary artery (~12/20/15) Prostate disease Self-catheterizes urinary bladder Thick muscular wall of urinary bladder present on ultrasound Walker as ambulation aid Wears glasses Weight loss Home Medications aspirin 81 mg chewable tablet 81 mg PO DAILY@0800 HEART HEALTH 12/19/15 [History Last Taken 01/10/23] finasteride 5 mg tablet 5 mg PO DAILY PROSTATE 07/15/22 [History Last Taken 05/07/23] glipizide 10 mg tablet, extended release 24 hr 10 mg PO BID DIABETES 07/15/22 [History Last Taken 05/07/23] metformin 500 mg tablet 500 mg PO BID DIAEBETES 09/24/22 [History Last Taken 05/07/23] insulin glargine 100 unit/mL (3 mL) subcutaneous pen (Lantus Solostar U-100 Insulin) 20 unit subcut QHS DIABETES 11/03/22 [History Last Taken 05/06/23] insulin lispro 100 unit/mL subcutaneous pen (Humalog KwikPen (U-100) Insulin) See Protocol subcut ACHS #0 mL 11/05/22 [Rx Last Taken 05/07/23] levobunolol 0.5 % eye drops 1 drp EACH EYE DAILY GLAUCOMA #0 mL 11/05/22 [Rx Last Taken 05/07/23] nitroglycerin 0.4 mg sublingual tablet 0.4 mg sublingual Q5M PRN Chest Pain 01/17/23 [History Last Taken Unknown] clopidogrel 75 mg tablet 75 mg PO DAILY BLOOD THINNER #90 tabs 03/17/23 [Rx Last Taken 05/07/23] atorvastatin 80 mg tablet 80 mg PO QHS CHOLESEROL #30 tabs 05/22/23 [Rx Last Taken Unknown] pantoprazole 40 mg tablet,delayed release 40 mg PO BID 08/10/23 [History Last Taken Unknown] Allergy/AdvReac Type Severity Reaction Status Date / Time No Known Allergies Allergy Verified 08/10/23 10:28 Family History Brother CAD (coronary artery disease) Mother , from [place] at age 74 CAD (coronary artery disease) Myocardial infarction, Onset Age: 74 Surgical History History of cataract extraction History of colonoscopy History of esophagogastroduodenoscopy (EGD) jaw surgery for fracture Presence of coronary angioplasty implant and graft (~12/20/15) S/P TURP surgery on left index finger Social History household members: spouse housing: house Smoking Status: Never smoker alcohol intake: never substance use type: does not use caffeine: Yes (rarely) eating out: 1-3 times/week during the past year weight has: other seatbelt use: always do you feel safe at home: Yes ROS ROS ED ROS Narrative A complete review of systems was performed and is negative except as documented in the history of present illness. Some specific details below. Constitutional: No recent fevers or chills. There does appear to be a component of generalized weakness. But it sounds like this is also what prompted them moving into assisted living in [facility]. ENT: No difficulty swallowing. No swelling. No pain. CV: No chest pain or palpitations. Respiratory: No dyspnea. No hemoptysis. No difficulty taking breaths. GI: He is able to eat and drink but did not have an appetite last night. He does admit to some discomfort in his lower abdomen but he does not know when that started. : Hematuria. I am not sure if he is having clots, dark urine or red. Musculoskeletal: No recent trauma. No pains. Skin: No rash. Nondiaphoretic. Neuro: No focal weakness or numbness. Endocrine: No polyuria or polydipsia. EXAM Physical Exam Narrative Exam Narrative: CONSTITUTIONAL: Patient is nontoxic in appearance. The patient looks comfortable. He does look somewhat frail. He is somewhat hard of hearing. HEENT: No notable trauma. Mucous membranes moist. No intraoral petechia. EYES: No conjunctival injection. CARDIOVASCULAR: Regular rate. Regular rhythm. No notable murmur. No JVD. RESPIRATORY: No respiratory distress. Breathing is unlabored. No wheezes. No rhonchi. No rales. No pain with a deep breath. GASTROINTESTINAL: Not distended. Bowel sounds are normal. Possible small amount of suprapubic tenderness. But no guarding. No rebound. No palpable mass. No bruit. GENITOURINARY: Mild tenderness over the bladder. But he does not seem to be enlarged. No CVA tenderness. MUSCULOSKELETAL: Atraumatic. No peripheral edema. NEUROLOGICAL: Patient is alert and appropriate. No focal deficit noted. He is not a good informant for medical history. SKIN: No noted rashes. No diaphoresis. PSYCHIATRIC: Patient is calm. Mood is appropriate. Const Vital Signs: 08/10/23 10:28 Temperature 97.0 F L Temperature Source Temporal Pulse Rate 90 Respiratory Rate 14 Blood Pressure 112/68 Blood Pressure Mean 82 Pulse Ox 100 Oxygen Delivery Method Room Air MDM MDM MDM Narrative Medical decision making narrative: Is able to get his med list from [facility]. He is on both Plavix and aspirin. I talked with the patient and again. He now states that his urine has been red. It still sounds like no clots. Some days it is more clear but it is never real clear. 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 Final reading is similar. It does look a little better than the one from April when I compared them though. Patient CBC shows normal white only low hemoglobin. Platelets are within normal. Electrolytes show mild elevated creatinine at 1.32. Glucose is also high at 368. He is given IV fluids and some insulin. Patient is lactate is 2.3. But it is so metformin that may contribute to this especially in the face of dehydration. Patient's urine was cloudy with large number of red cells positive nitrites concerning for infection. It also had 2+ bacteria. I looked back on the patient's record. He had outpatient cultures done in the middle of this month that were positive for E. coli but resistant to Bactrim. It ends up he had been placed on Bactrim so I think he has failed therapy. With his decreased energy, decreased appetite, emphysematous bladder we will admit him. I did discuss this with the hospitalist. She was able to speak with his urologist also. Lab Data Attestation: I reviewed the patient's lab results. Labs: Laboratory Results - last 24 hr 08/10/23 10:57 WBC 8.2 RBC 3.69 L Hgb 12.1 L Hct 35.9 L MCV 97.3 H MCH 32.8 H MCHC 33.7 RDW Std Deviation 44.2 H RDW Coeff of Sridevi 12.4 Plt Count 158 MPV 10.3 Immature Gran % (Auto) 0.100 Neut % (Auto) 43.0 L Lymph % (Auto) 24.0 Daniels % (Auto) 6.2 Eos % (Auto) 25.6 H Baso % (Auto) 1.1 H Absolute Neuts (auto) 3.5 Absolute Lymphs (auto) 1.98 Nucleated RBC % 0 Differential Comment SCANNED Sodium 138 Potassium 4.5 Chloride 108 H Carbon Dioxide 26.0 Anion Gap 4 L BUN 32 H Creatinine 1.32 H Estim Creat Clear Calc 42.15 Est GFR (MDRD) Af Amer 67 Est GFR (MDRD) Non-Af 55 L BUN/Creatinine Ratio 24.2 H Glucose 368 H Lactic Acid 2.3 H* Calcium 8.5 Urine Color Red Urine Clarity Cloudy Urine pH 5.0 Ur Specific [place] 1.015 Urine Protein 500 H Urine Glucose (UA) 1000 H Urine Ketones 5 H Urine Occult Blood 250 H Urine Nitrite Positive H Urine Bilirubin Negative Urine Urobilinogen 1 H Ur Leukocyte Esterase 500 H Urine RBC > 100 SEEN Urine WBC 0-5 SEEN Ur Squamous Epith Cells 0 SEEN Urine Bacteria 2+ Urine Mucus 0 SEEN Radiography Diagnostic Testing: Clinical Impression(s) from Imaging Studies Abdomen/Pelvis CT 08/10/23 10:45 IMPRESSION: 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 Fatty infiltration of the liver. Cholelithiasis. Stable 1.1 cm cystic focus within the pancreas recommend follow-up CT in 2 years. Atherosclerosis. Electronically Signed: Lea Mejía MD at 12:51 EST , Discharge Plan Triage Chief Complaint: Complaint ED Provider: Donavan Deleon Dx/Rx/DC Orders Clinical Impression: Acute UTI, Hyperglycemia, Emphysematous cystitis, Acidosis, lactic, Creatinine elevation Prescriptions: No Action aspirin 81 MG tablet,chewable 81 mg PO DAILY@0800 Hold Instructions: Resume on 11/07/22. Patient Comments: LAST DOSE ASPIRIN 07/14/2022 FOR SURGERY ON 07/19/22 finasteride 5 mg tablet 5 mg PO DAILY glipizide 10 mg tablet extended release 24hr 10 mg PO BID metformin 500 mg Tablet 500 mg PO BID nitroglycerin 0.4 mg tablet, sublingual 0.4 mg sublingual Q5M PRN (Reason: Chest Pain) insulin glargine [Lantus Solostar U-100 Insulin] 100 unit/mL (3 mL) insulin pen 20 unit SUBCUT QHS levobunolol 0.5 % Drops 1 drp EACH EYE DAILY Qty: 0 0RF insulin lispro [Humalog KwikPen Insulin] 100 unit/mL Insulin Pen See Protocol subcut ACHS Qty: 0 0RF Protocol: 4. Sliding Scale Insulin High-Med Dosing Condition: 150-199 mg/dl = 2 units Condition: 200-259 mg/dl = 4 units Condition: 260-324 mg/dl = 6 units Condition: 325-374 mg/dl = 8 units Condition: 375-409 mg/dl = 10 units Condition: 410-449 mg/dl = 11 units Condition: Greater than 449 call physician Protocol Text: - Use for Total Daily Dose of Insulin 56-80 units - Patient who are insulin resistant or septic HIGH MEDIUM DOSING ALGORITHM pantoprazole 40 mg tablet,delayed release (DR/EC) 40 mg PO BID clopidogrel 75 mg tablet 75 mg PO DAILY Qty: 90 3RF Hold Instructions: Resume on 11/07/22. atorvastatin 80 mg tablet 80 mg PO QHS Qty: 30 1RF Primary Care Provider: Sandeep Montenegro Referrals: Sandeep Montenegro DO [Primary Care Provider] - Disposition Disposition: Acute Care Hospital
[2023-08-10] MEDS: 0.9% Normal Saline (1000mL) 500 ML 1000 ML IV (10:55)
[2023-08-10 11:02] LABS: Mucous, Urine 0 SEEN /hpf (<or=2+); Squamous Epithelial Cells - UA 0 SEEN /hpf (0-5)
[2023-08-10 11:08] LABS: Color, Urine Red (Yellow); Glucose, Dipstick 1000 mg/dl (Normal); Ketone-Dipstick 5 mg/dl (Negative); Leukocyte Esterase-Dipstick 500 /ul (Negative); Nitrite-Dipstick Positive (Negative); Occult Blood-Urine 250 /ul (Negative); Protein-Dipstick 500 mg/dl (Negative); Specific Gravity, Urine 1.015 (1.002-1.030); Urine Bilirubin Dipstick Negative (Negative); Urine Clarity Cloudy (Clear); Urine Urobilinogen 1 mg/dl (Normal)
--- OUTSIDE RECORDS SUMMARY | 2023-08-10 11:09 | XMS RPT_ITS | CCD ---
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 Name Role Phone Abundio Roa Unavailable Unavailable Tamra RG, Artemio Waterman Unavailable [phone] Cydney Ricketts Unavailable Lilly RN, Franchesca Neff Unavailable Unavailable Lilly RN, Franchesca Neff Unavailable Unavailable BOBBY MAZARIEGOS Unavailable Unavailable BOBBY MAZARIEGOS K Unavailable Unavailable BOBBY MAZARIEGOS K Unavailable Unavailable KAREN MAZARIEGOSINDER K Unavailable Unavailable Chrissy Pearce MD Primary Care Provider DE BELLA MD Attending Unavailable DE BELLA MD Primary Care Unavailable DE BELLA MD Admitting Unavailable CHRISSY PEARCE Primary Care Unavailable BOBBY MAZARIEGOS Referring Unavailable BOBBY MAZARIEGOS Attending Unavailable COREY PETERSEN Attending UnavailSAJAN Taylor Referring Unavailable CHRISSY PEARCE Primary Care Unavailable Chrissy Pearce MD Primary Care Provider Allergies Allergy Classification Reported Allergen(s) Allergy Type Date of Onset Reaction(s) Facility (4 sources) metFORMIN; Translations: [METFORMIN] Drug Allergy 04-08-2013 Intolerance [facility] Other [place] Repository Medications Completed/Discontinued Medications Medication Drug Class(es) Dates Sig (Normalized) Sig (Original) aspirin 81 mg oral tablet (14 sources) Nonsteroidal Anti-inflammatory Drug Start: 01-01-2016 take 1 tablet by mouth once daily ASPIRIN 81 MG TABS One tablet by mouth daily ASPIRIN [id number] Jennifer Beasley RN Problems Active Problems Problem Classification Problem Date Documented Date Episodic/Chronic Acute and unspecified renal failure (6 sources) Renal failure syndrome; Translations: [Disorder of kidney and ureter, unspecified] Onset: 04-08-2016 04-08-2016 Chronic Acute myocardial infarction (6 sources) Non-ST elevation (NSTEMI) myocardial infarction; Translations: [Non-ST elevation (NSTEMI) myocardial infarction] Onset: 01-01-2016 01-01-2016 Chronic Adjustment disorders (2 sources) Adjustment disorder with depressed mood; Translations: [Adjustment disorder with depressed mood] Onset: 08-24-2005 08-24-2005 Chronic Anxiety disorders (2 sources) Generalized anxiety disorder; Translations: [Generalized anxiety disorder] 03-11-2012 Chronic Cataract (4 sources) Combined forms of age-related cataract, right eye; Translations: [Bilateral pseudophakia] Onset: 07-29-2018 Chronic Chronic kidney disease (2 sources) Chronic kidney disease; Translations: [Chronic kidney disease, unspecified] Onset: 11-13-2009 08-06-2021 Chronic Coronary atherosclerosis and other heart disease (6 sources) Atherosclerotic heart disease of [place] coronary artery without angina pectoris; Translations: [Atherosclerotic heart disease of [place] coronary artery without angina pectoris] Onset: 01-01-2016 01-01-2016 Chronic Diabetes mellitus without complication (7 sources) Diabetes mellitus type 2 without retinopathy; Translations: [Type 2 diabetes mellitus without complications] Onset: 08-24-2005 Chronic Disorders of lipid metabolism (8 sources) Hyperlipidemia; Translations: [Mixed hyperlipidemia] Onset: 08-24-2005 01-01-2016 Chronic Essential hypertension (5 sources) Essential hypertension; Translations: [Essential (primary) hypertension] Onset: 08-24-2005 Chronic Glaucoma (10 sources) Open-angle glaucoma of right eye; Translations: [Primary open-angle glaucoma, right eye, mild stage] Onset: 05-18-2018 Chronic Glaucoma (1 source) Primary open-angle glaucoma, left eye, mild stage; Translations: [Primary open-angle glaucoma, left eye, mild stage] Onset: 07-08-2018 Hypertension with complications and secondary hypertension (6 sources) Essential (primary) hypertension; Translations: [Essential (primary) hypertension] Onset: 01-01-2016 01-01-2016 Chronic Other diseases of bladder and urethra (2 sources) Bladder neck obstruction; Translations: [Bladder-neck obstruction] Onset: 04-30-2007 04-30-2007 Chronic Unclassified (6 sources) Placement of stent in coronary artery ; Translations: [Presence of coronary angioplasty implant and graft] Onset: 01-01-2016 01-01-2016 Past or Other Problems Problem Classification Problem Date Documented Da te Episodic/Chronic Blindness and vision defects (2 sources) Regular astigmatism of right eye; Translations: [Regular astigmatism, right eye] Onset: 05-18-2018 05-18-2018 Episodic Other aftercare (6 sources) Other skilled nursing (current) drug therapy; Translations: [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] Onset: 01-01-2016 01-01-2016 Episodic Other nutritional; endocrine; and metabolic disorders (10 sources) Body mass index (BMI) 26.0-26.9, adult; Translations: [Body mass index (BMI) 25.0-25.9, adult] Onset: 04-05-2016 07-08-2016 Episodic Other screening for suspected conditions (not mental disorders or infectious disease) (2 sources) Blood chemistry abnormal; Translations: [Other specified abnormal findings of blood chemistry] Onset: 10-29-2007 10-29-2007 Episodic Residual codes; unclassified (2 sources) Memory impairment; Translations: [Other amnesia] Onset: 03-11-2012 03-11-2012 Episodic Unclassified (2 sources) Body mass index (BMI) 25.0-25.9, adult; Translations: [Body mass index (BMI) 25.0-25.9, adult] Onset: 04-05-2016 04-05-2016 Episodic Results Test Name Value Interpretation Reference Range Facil ity Vital Signs Date Time Vital Sign Value Performing Clinician Adarsh springer 12-30-2016 14:56-0400 BMI (Body Mass Index) 25.76 kg/m2 [facility] Work Phone: 12-30-2016 14:56-0400 BP Diastolic 68 mm[Hg] [facility] Work Phone: 12-30-2016 14:56-0400 BP Systolic 124 mm[Hg] [facility] Work Phone: 12-30-2016 14:56-0400 Pulse (Heart Rate) 76 /min [facility] Work Phone: 12-30-2016 14:56-0400 Weight 80.29 kg [facility] Work Phone: 07-08-2016 14:57-0500 BSA (Body Surface Area) 1.99 m2 [facility] Work Phone: 07-08-2016 14:57-0500 Respiratory Rate 16 /min [facility] Work Phone: 01-04-2016 10:21-0400 Height 176.53 cm [facility] Work Phone: Encounters Encounter Date Encounter Type Care Provider Facility Start: 09-18-2022 Telephone encounter Gino pappas MD, PhD Work Phone: [facility] Procedures Date Procedure Procedure Detail Performing Clinician Start: 03-20-2022 Computerized ophthal devon imaging optic nerve Bobby Mazariegos MD Work Phone: Start: 07-04-2017 End: 07-15-2017 *Hepatic Function Panel Artemio Barboza MD Start: 07-04-2017 End: 07-16-2017 Lipid 1996 panel - Serum or Plasma Artemio Barboza MD Start: 12-30-2016 End: 01-02-2017 *Hepatic Function Panel Artemio Barboza MD Start: 12-30-2016 End: 12-30-2016 Follow Up Appt 6 months Artemio Barboza MD Start: 12-30-2016 End: 01-02-2017 Lipid 1996 panel - Serum or Plasma Artemio Barboza MD Start: 12-30-2016 End: 12-30-2016 MMM Artemio Barboza MD Start: 12-30-2016 End: 01-02-2017 *Hepatic Function Panel Artemio Barboza MD Start: 12-30-2016 End: 12-30-2016 Follow Up Appt 6 months Artemio Barboza MD Start: 12-30-2016 End: 01-02-2017 Lipid panel [AGGREGATE] Artemio Barboza MD Start: 12-30-2016 End: 12-30-2016 MMM Artemio Barboza MD Start: 07-08-2016 End: 07-08-2016 Follow Up Appt Other Katie disla PA-C Work Phone: Start: 07-08-2016 End: 07-08-2016 Follow Up Appt Other Katie disla PA-C Work Phone: Start: 04-08-2016 End: 07-01-2016 *BMP Katie Holbrook PA-C Work Phone: Start: 04-08-2016 End: 04-08-2016 *Hepatic Function Panel Katie arana PA-C Work Phone: Start: 04-08-2016 End: 04-08-2016 Nurse, Teaching, Wound Check (no charge) Katie Holbrook PA-C Work Phone: Start: 04-08-2016 End: 07-01-2016 *BMP Katie Holbrook PA-C Work Phone: Start: 04-08-2016 End: 04-08-2016 *Hepatic Function Panel Katie arana PA-C Work Phone: Start: 04-08-2016 End: 04-08-2016 Nurse, Teaching, Wound Check (no charge) Katie Holbrook PA-C Work Phone: Start: 04-05-2016 End: 04-05-2016 Follow Up Appt 3 months Katie arana PA-C Work Phone: Start: 04-05-2016 End: 07-01-2016 Follow Up Appt 6 months Katie arana PA-C Work Phone: Start: 04-05-2016 End: 07-01-2016 Follow Up Appt Other Katie disla PA-C Work Phone: Start: 04-05-2016 End: 04-05-2016 MMIsrael Katie Holbrook PA-C Work Phone: Start: 04-05-2016 End: 07-01-2016 PFM Katie Holbrook PA-C Work Phone: Start: 04-05-2016 End: 04-05-2016 Follow Up Appt 3 months Katie arana PA-C Work Phone: Start: 04-05-2016 End: 07-01-2016 Follow Up Appt 6 months Katie arana PA-C Work Phone: Start: 04-05-2016 End: 07-01-2016 Follow Up Appt Other Katie disla PA-C Work Phone: Start: 04-05-2016 End: 04-05-2016 MMIsrael Katie Holbrook PA-C Work Phone: Start: 04-05-2016 End: 07-01-2016 PF Katie Holbrook PA-C Work Phone: Start: 01-23-2016 End: 01-24-2016 SNOMED-CT: [id number] Report of clinical encounter Artemio Barboza MD Start: 01-23-2016 End: 01-24-2016 SNOMED-CT: [id number] Report of clinical encounter Artemio Barboza MD Start: 01-04-2016 End: 03-20-2016 Cardiovascular stress test using treadmill Artemio Barboza MD Start: 01-04-2016 End: 01-04-2016 Ecg routine ecg w/least 12 lds w/i&r Artemio Barboza MD Start: 01-04-2016 End: 01-04-2016 Follow Up Appt 3 months Artemio Barboza MD Start: 01-04-2016 End: 01-04-2016 MMM Artemio Barboza MD Start: 01-04-2016 End: 01-05-2016 Referral to logistics planning manager Artemio elam MD Start: 01-04-2016 End: 03-20-2016 Cardiovascular stress test using treadmill Artemio Barboza MD Start: 01-04-2016 End: 01-04-2016 Electrocardiogram, complete Artemio douglas MD Start: 01-04-2016 End: 01-04-2016 Follow Up Appt 3 months Artemio Barboza MD Start: 01-04-2016 End: 01-04-2016 MMM Artemio Barboza MD Start: 01-04-2016 End: 01-05-2016 Referral to logistics planning manager Artemio elam MD Plan of Treatment Date Care Activity Detail Author Start: 01-29-2023 Hemoglobin A1c/Hemoglobin.total in Blood HBA1C [facility] Start: 11-02-2022 Hepatitis C antibody, confirmatory test DILATED RETINAL EXAM [facility] Start: 08-11-2022 ADVANCE DIRECTIVE DISCUSSION ADVANCE DIRECTIVE DISCUSSION [facility] Start: 08-11-2022 DEPRESSION ASSESSMENT DEPRESSION ASSESSMENT [facility] Start: 04-11-2022 Influenza vaccination INFLUENZA (#1) [facility] Start: 08-11-2021 ADVANCE DIRECTIVE DISCUSSION ADVANCE DIRECTIVE DISCUSSION [facility] Start: 03-27-2021 COVID-19 VACCINE (3 - Booster for Pfizer series) COVID-19 VACCINE (3 - Booster for Pfizer series) [facility] Start: 12-20-2020 COVID-19 VACCINE (3 - Booster for Pfizer series) COVID-19 VACCINE (3 - Booster for Pfizer series) [facility] Start: 07-16-2018 Hepatitis B surface antibody level LDL CHOLESTEROL [facility] Start: 07-15-2017 End: 07-15-2017 Appointment Appointment [facility] Work Phone: Start: 07-15-2017 End: 07-15-2017 Appointment Appointment [facility] Work Phone: Start: 07-04-2017 End: 07-15-2017 *Hepatic Function Panel *Hepatic Function Panel [facility] Work Phone: Start: 07-04-2017 End: 07-16-2017 Lipid panel [AGGREGATE] *Lipid Profile CC PCP [facility] Work Phone: Start: 07-04-2017 End: 01-16-2017 *Hepatic Function Panel *Hepatic Function Panel [facility] Work Phone: Start: 07-04-2017 End: 01-16-2017 Lipid panel [AGGREGATE] *Lipid Profile CC PCP [facility] Work Phone: Start: 12-30-2016 End: 01-02-2017 *Hepatic Function Panel *Hepatic Function Panel [facility] Work Phone: Start: 12-30-2016 End: 12-30-2016 Follow Up Appt 6 months Follow Up Appt 6 months [facility] Work Phone: Start: 12-30-2016 End: 01-02-2017 Lipid panel [AGGREGATE] *Lipid Profile CC PCP [facility] Work Phone: Start: 12-30-2016 End: 12-30-2016 MMM MMM [facility] Work Phone: Start: 12-30-2016 End: 01-02-2017 *Hepatic Function Panel *Hepatic Function Panel [facility] Work Phone: Start: 12-30-2016 End: 12-30-2016 Follow Up Appt 6 months Follow Up Appt 6 months [facility] Work Phone: Start: 12-30-2016 End: 01-02-2017 Lipid panel [AGGREGATE] *Lipid Profile CC PCP [facility] Work Phone: Start: 12-30-2016 End: 12-30-2016 MMM MMM [facility] Work Phone: Start: 12-22-2016 SERUM CREATININE SERUM CREATININE [facility] Start: 07-08-2016 End: 07-08-2016 Follow Up Appt Other Follow Up Appt Other [facility] Work Phone: Start: 07-08-2016 End: 07-08-2016 Follow Up Appt Other Follow Up Appt Other [facility] Work Phone: Start: 06-24-2016 Hemoglobin A1c/Hemoglobin.total in Blood HBA1C [facility] Start: 04-08-2016 End: 07-01-2016 *BMP *BMP [facility] Work Phone: Start: 04-08-2016 End: 04-08-2016 *Hepatic Function Panel *Hepatic Function Panel [facility] Work Phone: Start: 04-08-2016 End: 07-01-2016 *BMP *BMP [facility] Work Phone: Start: 04-08-2016 End: 04-08-2016 *Hepatic Function Panel *Hepatic Function Panel [facility] Work Phone: Start: 04-05-2016 End: 04-05-2016 Follow Up Appt 3 months Follow Up Appt 3 months [facility] Work Phone: Start: 04-05-2016 End: 07-01-2016 Follow Up Appt 6 months Follow Up Appt 6 months [facility] Work Phone: Start: 04-05-2016 End: 07-01-2016 Follow Up Appt Other Follow Up Appt Other [facility] Work Phone: Start: 04-05-2016 End: 04-05-2016 MMM MMM [facility] Work Phone: Start: 04-05-2016 End: 07-01-2016 PFM PFM [facility] Work Phone: Start: 04-05-2016 End: 04-05-2016 Follow Up Appt 3 months Follow Up Appt 3 months [facility] Work Phone: Start: 04-05-2016 End: 07-01-2016 Follow Up Appt 6 months Follow Up Appt 6 months [facility] Work Phone: Start: 04-05-2016 End: 07-01-2016 Follow Up Appt Other Follow Up Appt Other [facility] Work Phone: Start: 04-05-2016 End: 04-05-2016 MMM MMM [facility] Work Phone: Start: 04-05-2016 End: 07-01-2016 PFM PFM [facility] Work Phone: Start: 01-04-2016 End: 01-04-2016 Cardiac Rehab Cardiac Rehab [address] [place], [address] [facility] Work Phone: Start: 01-04-2016 End: 01-04-2016 Cardiovascular stress test using treadmill Treadmill stress test (no imaging) [facility] Work Phone: Start: 01-04-2016 End: 01-04-2016 Ecg routine ecg w/least 12 lds w/i&r EKG (In office) [facility] Work Phone: Start: 01-04-2016 End: 01-04-2016 Follow Up Appt 3 months Follow Up Appt 3 months [facility] Work Phone: Start: 01-04-2016 End: 01-04-2016 MMM MMM [facility] Work Phone: Start: 01-04-2016 End: 01-04-2016 Cardiac Rehab Cardiac Rehab [address] [place], [address] [facility] Work Phone: Start: 01-04-2016 End: 01-04-2016 Cardiovascular stress test using treadmill Treadmill stress test (no imaging) [facility] Work Phone: Start: 01-04-2016 End: 01-04-2016 Electrocardiogram, complete EKG (In office) [facility] Work Phone: Start: 01-04-2016 End: 01-04-2016 Follow Up Appt 3 months Follow Up Appt 3 months [facility] Work Phone: Start: 01-04-2016 End: 01-04-2016 MMM MMM [facility] Work Phone: Start: 03-02-2015 3 comp foot exam completed DIABETIC FOOT EXAM [facility] Start: 02-24-2015 Hepatitis B screening URINE ALBUMIN:CREATININE RATIO [facility] Start: 09-14-2013 HEMOGLOBIN/HEMATOCRIT HEMOGLOBIN/HEMATOCRIT [facility] Start: 07-11-2013 Urine microalbumin profile DTAP,TDAP,TD (2 - Tdap) [facility] Start: 06-23-2009 PNEUMOCOCCAL: 65+ (2 - PCV) PNEUMOCOCCAL: 65+ (2 - PCV) [facility] Start: 1992 SHINGRIX VACCINE (1 of 2) SHINGRIX VACCINE (1 of 2) [facility] Start: 1960 ANNUAL PCP TEAM CHRONIC DISEASE VISIT ANNUAL PCP TEAM CHRONIC DISEASE VISIT [facility] Start: 1960 BP CONTROLLED (<130/80) BP CONTROLLED (<130/80) [facility] Start: 1954 Adult depression screening assessment DEPRESSION SCREENING [facility] Patient Education HEART%20HEALTHY%20DIET [facility] Work Phone: [facility] Immunizations Immunization Date Immunization Notes Care Provider Fa [facility] 05-11-2014 influenza, seasonal, injectable Bobby Mazariegos MD Work Phone: [facility] 06-23-2008 pneumococcal polysaccharide vaccine, 23 valent Bobby Mazariegos MD Work Phone: [facility] Work Phone: 07-28-2006 influenza virus vacc ine, unspecified formulation Bobby Mazariegos MD Work Phone: [facility] Work Phone: 07-11-2003 diphtheria and tetan us toxoids, adsorbed for pediatric use Bobby Mazariegos MD Work Phone: [facility] Work Phone: Payers Date Payer Category Payer Medicare [id number] 2021 Unknown ANTHEM BLUE CROS S AND BLUE SHIELD ANTHEM MEDIBLUE HMO [id number] 2021-Present [phone] [address] [place] [address] O [id number] 1940 Unknown [id number] Social History Date Type Detail Facility Start: 06-16-2012 Tobacco smoking stat [facility] Never smoked tobacco [facility] Start: 06-16-2012 Tobacco use and exposure Smoke less tobacco non-user [facility] Start: 03-20-2022 Alcohol intake Current non-dr edge inker heels of alcohol (finding) [facility] Start: 1940 Sex Assigned At Not on file [facility] Start: 03-10-2022 End: 03-20-2022 Exposure to SARS-CoV-2 (event) Not sure [facility] Medical Equipment Procedure Code Equipment Code Equipment Origin al Text Equipment Identifier Dates Lens Acrysof Iq Toric 6mm +21 Diopter +2.25 Cylinder 0 D Biconvex Acrylic - [id number] Start: 07-08-2018 Lens Acrysof Iq Toric 6mm +20.5 Diopter +1.5 Cylinder 0 D Biconvex Acrylic - [id number] Start: 07-29-2018 I Stent [id number] Start: 07-08-2018 Note 09-18-2022 Telephone Encounter - Alisia Moulton RN - 09/18/2022 11:32 AM EST Note Date & Type Note Facility 09-18-2022 Miscellaneous Notes Formattin g of this note might be different from the original. Called patient to inquire about imaging that he had completed. His answered and said he was not there and was unable to provide any additional number for me to speak to him at. She stated she believed he had imaging done at [place] but was unsure of what he had. Informed her I would be placing additional xray's and imaging for patient to obtain prior to his appt. Advised her to have him call back with any further questions. Alisia Ross, RN documented in this encounter [facility] Progress note 03-20-2022 Note Date & Type Note Facility 03-20-2022 Note HNO ID: [id number] Author: Bobby Mazariegos MD Service: ? Author Type: Physician Type: Progress Notes Filed: 03/20/2022 10:39 AM Note Text: ASSESSMENT/PLAN: 1. Primary open angle glaucoma (POAG) of right eye, mild stage - ICD9: 365.11, 365.71, ICD10: H40.1111 (primary diagnosis) 2. Primary open angle glaucoma (POAG) of both eyes, mild stage - ICD9: 365.11, 365.71, ICD10: H40.1131 - The nature of glaucoma was discussed, with emphasis on the non-reversible damage to the optic nerve. Treatment options and the importance of regular examinations and testing were covered in detail, as well as the consequences of non-compliance. The patient was given the opportunity to ask questions. Continue: Current Ophthalmic Meds levobunolol (BETAGEN) 0.5 % ophthalmic solution Use 1 Drop in both eyes every morning. Use at 5 AM 3. Type 2 diabetes mellitus without retinopathy (HCC) - ICD9: 250.00, ICD10: E11.9 - Please keep your blood sugar under good control to minimize risk of ocular complications from diabetes. 4. Pseudophakia of both eyes - ICD9: V43.1, ICD10: Z96.1 - Intraocular lens in good position, Both eyes 5. Essential hypertension - ICD9: 401.9, ICD10: I10 - Manage care with primary care physician Patient to see Dr. Sajan Tobin in 1 month for Intraocular pressure check Return to clinic in 6 months for Dilated fundus exam / Visual field 24-2 and Fundus photos I have confirmed and edited as necessary the relevant ophthalmic history, review of systems, surgical history, and ophthalmological examination findings as obtained by the ophthalmic technical staff. I have seen and examined Lee Gee. I have discussed the examination findings, diagnosis, and treatment options with Lee Gee and/or his family. I have also reviewed and agree with the assessment and plan as stated above and agree with all its relevant components. I gave the patient the opportunity to ask questions about the findings, diagnosis, and treatment options. Bobby Mazariegos MD [facility] Instructions 03-20-2022 Patient Instructions Note Date & Type Note Facility 03-20-2022 Instructions Bobby Mazariegos MD - 03/20/2022 10:39 AM EDT Continue: Current Ophthalmic Meds levobunolol (BETAGEN) 0.5 % ophthalmic solution Use 1 Drop in both eyes every morning. Use at 5 AM If you have any questions please contact our office at [phone]. After office hours or on the weekend, please call Dr. Mazariegos on his cell phone at [phone]. Please keep your blood sugar under good control to minimize risk of ocular complications from diabetes. documented in this encounter [facility] History of Present illness Narrative 03-20-2022 Bobby Mazariegos MD - 03/20/2022 10:36 AM EDT Note Date & Type Note Facility 03-20-2022 History of Presen t illness Narrative ASSESSMENT/PLAN: 1. Primary open angle glaucoma (POAG) of right eye, mild stage - ICD9: 365.11, 365.71, ICD10: H40.1111 (primary diagnosis) 2. Primary open angle glaucoma (POAG) of both eyes, mild stage - ICD9: 365.11, 365.71, ICD10: H40.1131 - The nature of glaucoma was discussed, with emphasis on the non-reversible damage to the optic nerve. Treatment options and the importance of regular examinations and testing were covered in detail, as well as the consequences of non-compliance. The patient was given the opportunity to ask questions. Continue: Current Ophthalmic Meds levobunolol (BETAGEN) 0.5 % ophthalmic solution Use 1 Drop in both eyes every morning. Use at 5 AM 3. Type 2 diabetes mellitus without retinopathy (HCC) - ICD9: 250.00, ICD10: E11.9 - Please keep your blood sugar under good control to minimize risk of ocular complications from diabetes. 4. Pseudophakia of both eyes - ICD9: V43.1, ICD10: Z96.1 - Intraocular lens in good position, Both eyes 5. Essential hypertension - ICD9: 401.9, ICD10: I10 - Manage care with primary care physician Patient to see Dr. Sajan Tobin in 1 month for Intraocular pressure check Return to clinic in 6 months for Dilated fundus exam / Visual field 24-2 and Fundus photos I have confirmed and edited as necessary the relevant ophthalmic history, review of systems, surgical history, and ophthalmological examination findings as obtained by the ophthalmic technical staff. I have seen and examined Lee Gee. I have discussed the examination findings, diagnosis, and treatment options with Lee Gee and/or his family. I have also reviewed and agree with the assessment and plan as stated above and agree with all its relevant components. I gave the patient the opportunity to ask questions about the findings, diagnosis, and treatment options. Bobby Mazariegos MD documented in this encounter [facility] Progress note 11-02-2021 Note Date & Type Note Facility 11-02-2021 Note HNO ID: [id number] Author: Bobby Mazariegos MD Service: ? Author Type: Physician Type: Progress Notes Filed: 11/02/2021 11:30 AM Note Text: ASSESSMENT/PLAN: 1. Primary open angle glaucoma (POAG) of left eye, mild stage - ICD9: 365.11, 365.71, ICD10: H40.1121 (primary diagnosis) 2. Primary open angle glaucoma (POAG) of right eye, mild stage - ICD9: 365.11, 365.71, ICD10: H40.1111 I-stent inject both eyes Continue medications as directed: Current Ophthalmic Meds levobunolol (BETAGEN) 0.5 % ophthalmic solution Use 1 Drop in both eyes every morning. Use at 5 AM Follow up with Dr. Tobin for Visual field/OCT Return in 4 to 5 months for OCT 2. Type 2 diabetes mellitus without retinopathy (HCC) - ICD9: 250.00, ICD10: E11.9 Continue Diabetes Mellitus care with Dr. Pearce Please keep your blood sugar under good control to minimize risk of ocular complications from diabetes. 4. Pseudophakia of both eyes - ICD9: V43.1, ICD10: Z96.1 Lens position well centered both eyes 5. Essential hypertension - ICD9: 401.9, ICD10: I10 Continue care with primary care physician Bobby Mazariegos MD I have confirmed and edited as necessary the relevant ophthalmic history, review of systems, surgical history, and ophthalmological examination findings as obtained by the ophthalmic technical staff. I have seen and examined Lee Gee. I have discussed the examination findings, diagnosis, and treatment options with Lee Gee and/or his family. I have also reviewed and agree with the assessment and plan as stated above and agree with all its relevant components. I gave the patient the opportunity to ask questions about the findings, diagnosis, and treatment options. [facility] History of Past illness Narrative 07-30-2018 Note Date & Type Note Facility documented as of this encounter (statuses as of 03/20/2022) [facility] History of Past illness Narrative 07-30-2018 Note Date & Type Note Facility documented as of this encounter (statuses as of 09/18/2022) [facility] Evaluation note Note Date & Type Note Facility documented in this encounter [facility] Summary Purpose Family History No Family History Records FoundNo Family History Records FoundNo Family History Records FoundNo Family History Records Found Advance Directives No Advanced Directives Records FoundNo Advanced Directives Records FoundNo Advanced Directives Records FoundNo Advanced Directives Records Found Additional Source Comments (unrecognized sect ion and content) No Status Records FoundNo Status Records FoundNo Status Records FoundNo Status Records Found INFORMATION SOURCE (unrecogn ized section and content) DATE CREATED AUTHOR AUTHOR'S ORGANIZ ATION 08/04/2022 [facility] DATE CREATED AUTHOR AUTHOR'S ORGANIZ ATION 08/04/2022 [facility] DATE CREATED AUTHOR AUTHOR'S ORGANIZ ATION 09/19/2022 [facility] nter Source Comments (unrecognize d section and content) In the event this informatio n is protected by the Federal Confidentiality of Alcohol and Drug Abuse Patient Records regulations: The Federal rules restrict any use of the information to criminally investigate or prosecute any alcohol or drug abuse patient[facility] event this information is protected by the Federal Confidentiality of Alcohol and Drug Abuse Patient Records regulations: The Federal rules restrict any use of the information to criminally investigate or prosecute any alcohol or drug abuse patient.[facility] Reason for Visit (unrecogniz ed section and content) Reason Comments 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 This clinical summary was aggregated from multiple sources. Caution should be exercised in using it in the provision of clinical care. This summary normalizes information from multiple sources, and as a consequence, information in this document may materially change the coding, format and clinical context of patient data. In addition, data may be omitted in some cases. CLINICAL DECISIONS SHOULD BE BASED ON THE PRIMARY CLINICAL RECORDS. [email or web address]. provides no warranty or guarantee of the accuracy or completeness of information in this document.
[2023-08-10 11:10] LABS: Absolute Lymphocyte Count 1.98 X10^3/uL (0.83-4.51); Absolute Neutrophil Count 3.5 X10^3/uL (2.0-7.7); Basophil# 0.09 X10^3/uL; Basophil% 1.1 % (0-1); Eosinophil# 2.11 X10^3/uL; Eosinophils% 25.6 % (0-5); Hematocrit 35.9 % (40-54); Hemoglobin 12.1 g/dL (13.0-16.5); Lymphocyte # 1.98 X10^3/ul (0.83-4.51); Mean Corp Hgb Conc 33.7 g/dL (32-36); Mean Corpuscular Hgb 32.8 pg (27.0-32.0); Mean Corpuscular Volume 97.3 fL (80-94); Mean Platelet Vol. 10.3 fl (6.2-12.0); Monocyte# 0.51 X10^3/uL; Monocyte% 6.2 % (0-10); NRBC Flagged by Analyzer 0 % (0-5); Neutrophil # 3.54 X10^3/uL (2.7-7.7); POSITIVE DIFFERENTIAL YES; Platelet Count 158 K/mm3 (150-450); RBC Distribution Width CV 12.4 % (11.6-14.6); RBC Distribution Width SD 44.2 fl (35.1-43.9); Red Blood Count 3.69 M/mm3 (4.6-6.2); White Blood Count 8.2 K/mm3 (4.4-11.0)
[2023-08-10 11:18] LABS: White Blood Cells 0-5 SEEN /hpf (0-5)
[2023-08-10 11:19] LABS: Bacteria 2+ /hpf (None Seen); Red Blood Cells-Urine > 100 SEEN /hpf (0-5)
[2023-08-10 11:22] LABS: Anion Gap 4 (5-15); BUN 32 mg/dL (7-18); BUN/Creat Ratio 24.2 RATIO (10-20); Calcium,Total 8.5 mg/dL (8.5-10.1); Chloride 108 mmol/L (98-107); Creatinine, Serum 1.32 mg/dL (0.70-1.30); EST Glomerular Filtration Rate 55 mL/min (>60); Est Glom Filt Rate - Afr Amer 67 mL/min (>60); Estimated Creatinine Clearance 42.15 ml/min; Glucose 368 mg/dL (74-106); Potassium 4.5 mmol/L (3.5-5.1); Sodium Level 138 mmol/L (136-145)
[2023-08-10 11:26] LABS: Differential Indicated SCAN CRITERIA MET
[2023-08-10 11:27] LABS: Differential Comment SCANNED
[2023-08-10 11:29] LABS: Lactic Acid 2.3 mmol/L (0.4-1.9)
[2023-08-10] MEDS: 0.9% Normal Saline (500mL Bag) 500 ML 999 ML IV (11:50)
[2023-08-10] MEDS: Insulin Lispro 100 UNIT/ML INSULN.PEN 6 UNIT SC (12:07)
[2023-08-10] MEDS: Ceftriaxone 1 GM/50 ML BAG IV (13:57)
--- NOTE | 2023-08-10 14:35 | HP.PCM.HOS_ITS ---
HPI - General General Date of Admission: 08/10/23 Date of Service: 08/10/23 Chief Complaint: Hematuria, ongoing, fatigue, malaise. 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 Pryor approximately 1 year prior with increased weakness and fatigue with no recent fevers, chills, nausea or emesis prompting eventual ED evaluation. Patient from his history reports not taking Plavix but it is difficult to verify. From review of records had 07/23/23 had UCx E. Coli and was rx Bactrim on 07/18/23 for DS 7 day course to which it is resistant. Patient does report that he normally self caths twice a day however over the last 2 to 3 days he is not because he is been going without issue. The last time he had a Nash catheter he notes was in April. Patient does report recent increased urinary frequency as well as dysuria in addition to overt as noted hematuria. 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 In the ED patient ministered normal saline bolus as well as insulin 6 units subcu x 1 and IV Rocephin 1 g x 1. [facility] Medical History (Updated 08/10/23 @ 20:[address] Marcela Wagner MD) Ambulates with cane Angina pectoris, unstable Atherosclerosis of [place] coronary artery of [place] heart without angina pectoris Atonic bladder Cardiology follow-up encounter Chronic indwelling Nash catheter Chronic renal insufficiency Diabetes 1.5, managed as type 2 Excessive bleeding Gastric reflux Gastric ulcer History of CAD (coronary artery disease) History of diabetes mellitus History of stress test HLD (hyperlipidemia) HLP (hyperkeratosis lenticularis perstans) Hypertension Kidney disease Loss of hearing Myocardial infarct Non-smoker Open wound Presence of stent in coronary artery (~12/20/15) Prostate disease Self-catheterizes urinary bladder Thick muscular wall of urinary bladder present on ultrasound Walker as ambulation aid Wears glasses Weight loss Home Medications aspirin 81 mg chewable tablet 81 mg PO DAILY@0800 HEART HEALTH 12/19/15 [History Last Taken 01/10/23] finasteride 5 mg tablet 5 mg PO DAILY PROSTATE 07/15/22 [History Last Taken 05/07/23] glipizide 10 mg tablet, extended release 24 hr 10 mg PO BID DIABETES 07/15/22 [History Last Taken 05/07/23] metformin 500 mg tablet 500 mg PO BID DIAEBETES 09/24/22 [History Last Taken 05/07/23] insulin glargine 100 unit/mL (3 mL) subcutaneous pen (Lantus Solostar U-100 Insulin) 20 unit subcut QHS DIABETES 11/03/22 [History Last Taken 05/06/23] insulin lispro 100 unit/mL subcutaneous pen (Humalog KwikPen (U-100) Insulin) See Protocol subcut ACHS #0 mL 11/05/22 [Rx Last Taken 05/07/23] levobunolol 0.5 % eye drops 1 drp EACH EYE DAILY GLAUCOMA #0 mL 11/05/22 [Rx Last Taken 05/07/23] nitroglycerin 0.4 mg sublingual tablet 0.4 mg sublingual Q5M PRN Chest Pain 01/17/23 [History Last Taken Unknown] clopidogrel 75 mg tablet 75 mg PO DAILY BLOOD THINNER #90 tabs 03/17/23 [Rx Last Taken 05/07/23] atorvastatin 80 mg tablet 80 mg PO QHS CHOLESEROL #30 tabs 05/22/23 [Rx Last Taken Unknown] pantoprazole 40 mg tablet,delayed release 40 mg PO BID 08/10/23 [History Last Taken Unknown] Allergy/AdvReac Type Severity Reaction Status Date / Time No Known Allergies Allergy Verified 08/10/23 10:28 Family History Brother CAD (coronary artery disease) Mother , from [place] at age 74 CAD (coronary artery disease) Myocardial infarction, Onset Age: 74 Father No problems noted. Surgical History History of cataract extraction History of colonoscopy History of coronary artery stent placement History of esophagogastroduodenoscopy (EGD) jaw surgery for fracture Presence of coronary angioplasty implant and graft (~12/20/15) S/P TURP surgery on left index finger Social History household members: spouse housing: house Smoking Status: Never smoker alcohol intake: never substance use type: does not use caffeine: Yes (rarely) eating out: 1-3 times/week during the past year weight has: other seatbelt use: always do you feel safe at home: Yes ROS ROS Narrative Admission Review of Systems: CONSTITUTIONAL: No weight loss, fever, chills, + weakness or fatigue. HEENT: Eyes: No visual loss, blurred vision, double vision or yellow sclerae. Ears, Nose, Throat: No hearing loss, sneezing, congestion, runny nose or sore throat. SKIN: No rash or itching, lesions, wounds, + occasional staged ecchymoses, abrasion. CARDIOVASCULAR: No chest pain, chest pressure or chest discomfort, palpitations, edema, orthopnea, syncopal events. RESPIRATORY: No shortness of breath, cough or sputum, wheezing, hemoptysis. GASTROINTESTINAL: + anorexia. No nausea, vomiting or diarrhea, abdominal pain, melena, BRBPR. GENITOURINARY: + Dysuria, increased frequency, hematuria. No urgency or retention but does self cath. NEUROLOGICAL: No headache, dizziness, syncope, paralysis, ataxia, numbness or tingling in the extremities, focal weakness, change in bowel or bladder control, seizure. MUSCULOSKELETAL: + muscle, back pain, joint pain or stiffness. HEMATOLOGIC: + Anemia, active heme 3 is noted. LYMPHATICS: No enlarged nodes. No history of splenectomy. PSYCHIATRIC: No history of depression or anxiety. ENDOCRINOLOGIC: No reports of sweating, cold or heat intolerance. No polyuria or polydipsia. ALLERGIES: No history of asthma, hives, eczema or rhinitis. Vital Signs Vital Signs Vital Signs: 08/10/23 10:28 Temperature 97.0 F L Temperature Source Temporal Pulse Rate 90 Respiratory Rate 14 Blood Pressure 112/68 Blood Pressure Mean 82 Pulse Ox 100 Oxygen Delivery Method Room Air Weight Weight: 147 lb 3.2 oz Body Mass Index (BMI) 21.7 Physical Exam Narrative Physical Examination: General: Awake, alert, oriented x 3 and cooperative, seated upright in the ED bed, fatigued and ill-appearing. Skin: Normal color, normal turgor, no icterus, no cyanosis except occasional staged ecchymoses, abrasion. HEENT: AT/NC, EOMI, PERRLA, dry MM, no carotid bruits or JVD noted. Lungs: Mildly diminished, greater bases, proper effort, no rales, ronchi or wheezing. Heart: Regular rate and rhythm; no gallop, rub audible. Abdomen: Soft, mild suprapubic discomfort otherwise abdomen NTTP, no overt distention, no marked HSM discerned, hyperactive BS. Extremities: No cyanosis, no clubbing, mild peripheral ankle not markedly pitting edema. Neurological: Patient awake, alert, oriented as noted, cognitive function intact but patient is very quiet and less interactive which spouse states is not his normal; pupils equally reactive to light and accommodation, cranial nerves grossly normal, moving all 4 extremities, no focal deficits, strength moderately to severely globally decreased Psychiatric: Affect appears flat, fatigued,, no acute evidence of depressive or anxiety feelings. Results Lab / Micro Data 08/10/23 10:57 08/10/23 10:57 Labs: Laboratory Results - last 24 hr 08/10/23 10:57: WBC 8.2, RBC 3.69 L, Hgb 12.1 L, Hct 35.9 L, MCV 97.3 H, MCH 3 2.8 H, MCHC 33.7, RDW Std Deviation 44.2 H, RDW Coeff of Sridevi 12.4, Plt Count 158, MPV 10.3, Immature Gran % (Auto) 0.100, Neut % (Auto) 43.0 L, Lymph % (Auto) 24.0, Rankin % (Auto) 6.2, Eos % (Auto) 25.6 H, Baso % (Auto) 1.1 H, Absolute Neuts (auto) 3.5, Absolute Lymphs (auto) 1.98, Nucleated RBC % 0, Differential Comment SCANNED, Sodium 138, Potassium 4.5, Chloride 108 H, Carbon Dioxide 26.0, Anion Gap 4 L, BUN 32 H, Creatinine 1.32 H, Estim Creat Clear Calc 42.15, Est GFR (MDRD) Af Amer 67, Est GFR (MDRD) Non-Af 55 L, BUN/Creatinine Ratio 24.2 H, Glucose 368 H, Lactic Acid 2.3 H*, Calcium 8.5, Urine Color Red, Urine Clarity Cloudy, Urine pH 5.0, Ur Specific [place] 1.015, Urine Protein 500 H, Urine Glucose (UA) 1000 H, Urine Ketones 5 H, Urine Occult Blood 250 H, Urine Nitrite Positive H, Urine Bilirubin Negative, Urine Urobilinogen 1 H, Ur Leukocyte Esterase 500 H, Urine RBC > 100 SEEN, Urine WBC 0-5 SEEN, Ur Squamous Epith Cells 0 SEEN, Urine Bacteria 2+, Urine Mucus 0 SEEN Imagaing Radiology Impression Abdomen/Pelvis CT 08/10/23 10:45 IMPRESSION: 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 Fatty infiltration of the liver. Cholelithiasis. Stable 1.1 cm cystic focus within the pancreas recommend follow-up CT in 2 years. Atherosclerosis. Electronically Signed: Lea Mejía MD at 12:51 EST , Assessment & Plan Assessment/Plan (1) UTI (urinary tract infection): (2) Hematuria: PLAN: Plan The patient is an 82 y/o M w/ PMHx: CKD stage III unclear subtype, Chronic anemia, CAD, BPH s/p TURP, Atonic bladder w/ history of prior chronic indwelling nash catheter-->transitioned to intermittent PRN self catheterization, CAD s/p PCI, HLD, IDDM, GERD who presents to the [facility] ED on 08/10/23 with history of persistent mild hematuria over the last month with no specific clots however it appears that it potentially has been worsening although he denies talking about it to his primary care but does have an upcoming appointment with urology on 08/21/2022 with history of TURP with Dr. Pryor approximately 1 year prior with increased weakness and fatigue with no recent fevers, chills, nausea or emesis prompting eventual ED evaluation. #1. Acute Complicated Urinary Tract Infection with CT findings concerning for possible emphysematous cystitis with history of prior chronic indwelling Nash catheter-->transitioned to intermittent PRN self catheterization with atonic bladder history with associated lactic acidosis, mild w/ recent UCx E. Coli rx Bactrim to which it is resistant: Will admit to [facility], UA upon ED evaluation remarkable, pending UCx, continue IVFs, monitor I/Os, continue IV Rocephin w/ transition as able pending sensitivities and speciation. Bld cx x 2 obtained in the ED. PT/OT/case management consultation for discharge planning. Recent 07/23/2023 urine culture with presumptive greater than 100,000 E. coli resistant to ampicillin and Bactrim otherwise sensitive to all agents and prior to this noted 05/07/2023 urine culture with Klebsiella greater than 100,000 coliform units resistant to ampicillin otherwise sensitive to other agents. Discussed case with Dr. Pryor given CT findings and he intends cystoscopy to further assess. #2. CAD: Status post PCI, will continue aspirin, statin, clarifying however current list does not appear to have any beta-monique therapy or VITO inhibitor/ARB although no hypertensive history listed in chart and BP low normal range currently. Patient from history discussions potentially also previously on Plavix but not taking. #3. Hyperlipidemia: We will continue patient on statin therapy. #4. IDDM with hyperglycemia: Hold oral home regimen, continue home insulin regimen, ADA diet, accu checks w/ ISS. #5. Chronic macrocytic anemia: Admission hemoglobin 12.1, MCV 97.3, baseline hemoglobin appears primarily 9-10 range although does occasionally increase up to 12 range, most recently prior to this 05/09/2023 hemoglobin 10.3, will continue to trend CBC. #6. Chronic Kidney Disease Stage III unclear subtype: Admission BUN/Cr 32/1.32, baseline renal function primarily 1.1-1.2 but does vacillate occasional, repeat BMP in AM. #7. GERD: We will continue patient on PPI. #8. BPH: We will continue patient on finasteride regimen. #9. DVT prophylaxis: Will hold on any chemoprophylaxis given hematuria associate with UTI, SCDs. #10. CODE status: Patient NITZA is his and living will is currently in place. Discussed CODE status at length including difference between FULL code, DNR-CCA and DNR-CC status. Following discussions about the differences in these status, requested DNR-CCA, no intubation. Advanced Care Planning Face to Face Time: 16 minutes. Charges/Coding Visit Charges Inpatient E&M: 27646 Init Hosp L3 Procedures Hospitalists Procedures: 19292 Advncd Care Plan 30 Min
[2023-08-10 15:01] LABS: Reflex Lactate? Y
--- OUTSIDE RECORDS SUMMARY | 2023-08-10 15:13 | XMS RPT_ITS | CCD ---
Author Name Unknown Address [address] [place] [address] Organization [facility] Care Team Providers Care Lamp Inspector Name Role Phone Abundio Roa Unavailable Unavailable Tamra RG, Artemio Waterman Unavailable [phone] Cydney Ricketts Unavailable Lilly RN, Franchesca Neff Unavailable Unavailable Lilly RN, Franchesca Neff Unavailable Unavailable BOBBY MAZARIEGOS Unavailable Unavailable BOBBY MAZARIEGOS K Unavailable Unavailable BOBBY MAZARIEGOS K Unavailable Unavailable AKREN MAZARIEGOSINDER K Unavailable Unavailable Chrissy Pearce MD Primary Care Provider DE BELLA MD Attending Unavailable DE BELLA MD Primary Care Unavailable DE BELLA MD Admitting Unavailable CHRISSY PEARCE Primary Care Unavailable BOBBY MAZARIEGOS Referring Unavailable BOBBY MAZARIEGOS Attending Unavailable COREY PETERSEN Attending UnavailSAJAN Taylor Referring Unavailable CHRISSY PEARCE Primary Care Unavailable Chrissy Pearce MD Primary Care Provider [phone]( [phone] Allergies Allergy Classification Reported Allergen(s) Allergy Type Date of Onset Reaction(s) Facility (4 sources) metFORMIN; Translations: [METFORMIN] Drug Allergy 04-08-2013 Intolerance [facility] Other [place] Rep[facility] Medications Completed/Discontinued Medications Medication Drug Class(es) Dates Sig (Normalized) Sig (Original) aspirin 81 mg oral tablet (14 sources) Nonsteroidal Anti-inflammatory Drug Start: 01-01-2016 take 1 tablet by mouth once daily ASPIRIN 81 MG TABS One tablet by mouth daily ASPIRIN [id number] Jennifer Beasley RN Problems Active Problems Problem [...] disease (6 sources) Atherosclerotic heart disease of [place] coronary artery without angina pectoris; Translations: [Atherosclerotic heart disease of [place] coronary artery without angina pectoris] Onset: 01-01-2016 [...] 05-18-2018 Episodic Other aftercare (6 sources) Other [facility] (current) drug therapy; Translations: [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] Onset: 01-01-2016 01-01-2016 Episodic [...] encounter Gino pappas MD, PhD Work Phone: [facility] Procedures Date Procedure Procedure Detail Performing [...] Work Phone: Start: 01-23-2016 End: 01-24-2016 SNOMED-CT: [id number] Report of clinical encounter Artemio Barboza MD Start: 01-23-2016 End: 01-24-2016 SNOMED-CT: [id number] Report of clinical encounter Artemio Barboza MD Start: 01-04-2016 End: 03-20-2016 Cardiovascular stress test using treadmill Artemio Barboza MD Start: 01-04-2016 End: 01-04-2016 Ecg routine ecg w/least 12 lds w/i&r Artemio Barboza MD Start: 01-04-2016 End: 01-04-2016 Follow Up Appt 3 months Artemio Barboza MD Start: 01-04-2016 End: 01-04-2016 MMM Artemio Barboza MD Start: 01-04-2016 End: 01-05-2016 Referral to scooter mechanic Artemio elam MD Start: 01-04-2016 End: 03-20-2016 Cardiovascular stress test using treadmill Artemio Barboza MD Start: 01-04-2016 End: 01-04-2016 Electrocardiogram, complete Artemio douglas MD Start: 01-04-2016 End: 01-04-2016 Follow Up Appt 3 months Artemio Barboza MD Start: 01-04-2016 End: 01-04-2016 MMM Artemio Barboza MD Start: 01-04-2016 End: 01-05-2016 Referral to scooter mechanic Artemio elam MD Plan of Treatment Date Care Activity Detail Author Start: 01-29-2023 Hemoglobin A1c/Hemoglobin.total in Blood HBA1C [facility] Start: 11-02-2022 Hepatitis C antibody, confirmatory test DILATED RETINAL EXAM [facility] Start: 08-11-2022 ADVANCE DIRECTIVE DISCUSSION ADVANCE DIRECTIVE DISCUSSION [facility] Start: 08-11-2022 DEPRESSION ASSESSMENT DEPRESSION ASSESSMENT [facility] Start: 04-11-2022 Influenza vaccination INFLUENZA (#1) [facility] Start: 08-11-2021 ADVANCE DIRECTIVE DISCUSSION ADVANCE DIRECTIVE DISCUSSION [facility] Start: 03-27-2021 COVID-19 VACCINE (3 - Booster for Pfizer series) COVID-19 VACCINE (3 - Booster for Pfizer series) [facility] Start: 12-20-2020 COVID-19 VACCINE (3 - Booster for Pfizer series) COVID-19 VACCINE (3 - Booster for Pfizer series) [facility] Start: 07-16-2018 Hepatitis B surface antibody level LDL CHOLESTEROL [facility] Start: 07-15-2017 End: 07-15-2017 Appointment Appointment [facility] Work Phone: Start: 07-15-2017 End: 07-15-2017 Appointment Appointment [facility] Work Phone: Start: 07-04-2017 End: 07-15-2017 *Hepatic Function Panel *Hepatic Function Panel [facility] Work Phone: Start: 07-04-2017 End: 07-16-2017 Lipid panel [AGGREGATE] *Lipid Profile CC PCP [facility] Work Phone: Start: 07-04-2017 End: 01-16-2017 *Hepatic Function Panel *Hepatic Function Panel [facility] Work Phone: Start: 07-04-2017 End: 01-16-2017 Lipid panel [AGGREGATE] *Lipid Profile CC PCP [facility] Work Phone: Start: 12-30-2016 End: 01-02-2017 *Hepatic Function Panel *Hepatic Function Panel [facility] Work Phone: Start: 12-30-2016 End: 12-30-2016 Follow Up Appt 6 months Follow Up Appt 6 months [facility] Work Phone: Start: 12-30-2016 End: 01-02-2017 Lipid panel [AGGREGATE] *Lipid Profile CC PCP [facility] Work Phone: Start: 12-30-2016 End: 12-30-2016 MMM MMM [facility] Work Phone: Start: 12-30-2016 End: 01-02-2017 *Hepatic Function Panel *Hepatic Function Panel [facility] Work Phone: Start: 12-30-2016 End: 12-30-2016 Follow Up Appt 6 months Follow Up Appt 6 months [facility] Work Phone: Start: 12-30-2016 End: 01-02-2017 Lipid panel [AGGREGATE] *Lipid Profile CC PCP [facility] Work Phone: Start: 12-30-2016 End: 12-30-2016 MMM MMM [facility] Work Phone: Start: 12-22-2016 SERUM CREATININE SERUM CREATININE [facility] Start: 07-08-2016 End: 07-08-2016 Follow Up Appt Other Follow Up Appt Other [facility] Work Phone: Start: 07-08-2016 End: 07-08-2016 Follow Up Appt Other Follow Up Appt Other [facility] Work Phone: Start: 06-24-2016 Hemoglobin A1c/Hemoglobin.total in Blood HBA1C [facility] Start: 04-08-2016 End: 07-01-2016 *BMP *BMP [facility] Work Phone: Start: 04-08-2016 End: 04-08-2016 *Hepatic Function Panel *Hepatic Function Panel [facility] Work Phone: Start: 04-08-2016 End: 07-01-2016 *BMP *BMP [facility] Work Phone: Start: 04-08-2016 End: 04-08-2016 *Hepatic Function Panel *Hepatic Function Panel [facility] Work Phone: Start: 04-05-2016 End: 04-05-2016 Follow Up Appt 3 months Follow Up Appt 3 months [facility] Work Phone: Start: 04-05-2016 End: 07-01-2016 Follow Up Appt 6 months Follow Up Appt 6 months [facility] Work Phone: Start: 04-05-2016 End: 07-01-2016 Follow Up Appt Other Follow Up Appt Other [facility] Work Phone: Start: 04-05-2016 End: 04-05-2016 MMM MMM [facility] Work Phone: Start: 04-05-2016 End: 07-01-2016 PFM PFM [facility] Work Phone: Start: 04-05-2016 End: [...] Phone: Start: 04-05-2016 End: 04-05-2016 MMM MMM [facility] Work Phone: Start: 04-05-2016 End: 07-01-2016 PFM PFM [facility] Work Phone: Start: 01-04-2016 End: 01-04-2016 Cardiac Rehab Cardiac Rehab [address] [place], [address] [facility] Work Phone: Start: 01-04-2016 End: 01-04-2016 Cardiovascular stress test using treadmill Treadmill stress test (no imaging) [facility] Work Phone: Start: 01-04-2016 End: 01-04-2016 Ecg routine ecg w/least 12 lds w/i&r EKG (In office) [facility] Work Phone: Start: 01-04-2016 End: 01-04-2016 Follow Up Appt 3 months Follow Up Appt 3 months [facility] Work Phone: Start: 01-04-2016 End: 01-04-2016 MMM MMM [facility] Work Phone: Start: 01-04-2016 End: 01-04-2016 Cardiac Rehab Cardiac Rehab [address] [place], [address] [facility] Work Phone: Start: 01-04-2016 End: 01-04-2016 Cardiovascular stress test using treadmill Treadmill stress test (no imaging) [facility] Work Phone: Start: 01-04-2016 End: 01-04-2016 Electrocardiogram, complete EKG (In office) [facility] Work Phone: Start: 01-04-2016 End: 01-04-2016 Follow Up Appt 3 months Follow Up Appt 3 months [facility] Work Phone: Start: 01-04-2016 End: 01-04-2016 MMM MMM [facility] Work Phone: Start: 03-02-2015 3 comp foot exam completed DIABETIC FOOT EXAM [facility] Start: 02-24-2015 Hepatitis B screening URINE ALBUMIN:CREATININE RATIO [facility] Start: 09-14-2013 HEMOGLOBIN/HEMATOCRIT HEMOGLOBIN/HEMATOCRIT [facility] Start: 07-11-2013 Urine microalbumin profile DTAP,TDAP,TD (2 - Tdap) [facility] Start: 06-23-2009 PNEUMOCOCCAL: 65+ (2 - PCV) PNEUMOCOCCAL: 65+ (2 - PCV) [facility] Start: 1992 SHINGRIX VACCINE (1 of 2) SHINGRIX VACCINE (1 of 2) [facility] Start: 1960 ANNUAL PCP TEAM CHRONIC DISEASE VISIT ANNUAL PCP TEAM CHRONIC DISEASE VISIT [facility] Start: 1960 BP CONTROLLED (<130/80) BP CONTROLLED (<130/80) [facility] Start: 1954 Adult depression screening assessment DEPRESSION SCREENING [facility] Patient Education HEART%20HEALTHY%20DIET [facility] Work Phone: [facility] Immunizations Immunization Date Immunization Notes Care Provider Fa [facility] 05-11-2014 influenza, seasonal, injectable Bobby Mazariegos MD Work Phone: [facility] 06-23-2008 pneumococcal polysaccharide vaccine, 23 valent Bobby Mazariegos MD Work Phone: [facility] Work Phone: 07-28-2006 influenza virus vacc ine, unspecified formulation Bobby Mazariegos MD Work Phone: [facility] Work Phone: 07-11-2003 diphtheria and tetan us toxoids, adsorbed for pediatric use Bobby Mazariegos MD Work Phone: [facility] Work Phone: Payers Date Payer Category Payer Medicare [id number] 2021 Unknown ANTHEM BLUE CROS S AND BLUE SHIELD ANTHEM MEDIBLUE HMO [id number] 2021-Present [phone] [address] [place] [address] O [id number] 1940 Unknown [id number] Social History Date Type Detail Facility Start: 06-16-2012 Tobacco smoking stat [facility] Never smoked tobacco [facility] Start: 06-16-2012 Tobacco use and exposure Smoke less tobacco non-user [facility] Start: 03-20-2022 Alcohol intake 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 of alcohol (finding) [facility] Start: 1940 Sex Assigned At Not on file [facility] Start: 03-10-2022 End: 03-20-2022 Exposure to SARS-CoV-2 (event) Not sure [facility] Medical Equipment Procedure Code Equipment Code Equipment Origin al Text Equipment Identifier Dates Lens Acrysof Iq Toric 6mm +21 Diopter +2.25 Cylinder 0 D Biconvex Acrylic - [id number] Start: 07-08-2018 Lens Acrysof Iq Toric 6mm +20.5 Diopter +1.5 Cylinder 0 D Biconvex Acrylic - [id number] Start: 07-29-2018 I Stent [id number] Start: 07-08-2018 Note 09-18-2022 Telephone Encounter [...] she believed he had imaging done at [facility] but was unsure of what he had. Informed her I would be placing additional xray's and imaging for patient to obtain prior to his appt. Advised her to have him call back with any further questions. Alisia Ross, RN documented in this encounter [facility] Progress note 03-20-2022 Note Date & Type Note Facility 03-20-2022 Note HNO ID: [id number] Author: Bobby Mazariegos MD Service: ? Author [...] diagnosis, and treatment options. Bobby Mazariegos MD [facility] Instructions 03-20-2022 Patient Instructions Note Date & Type Note Facility 03-20-2022 Instructions Bobby Mazariegos MD - 03/20/2022 10:39 AM EDT Continue: Current Ophthalmic Meds levobunolol (BETAGEN) 0.5 % ophthalmic solution Use 1 Drop in both eyes every morning. Use at 5 AM If you have any questions please contact our office at [phone]. After office hours or on the weekend, please call Dr. Mazariegos on his cell phone at [phone]. Please keep your blood sugar under good control to minimize risk of ocular complications from diabetes. documented in this encounter [facility] History of Present illness Narrative 03-20-2022 Bobby [...] Bobby Mazariegos MD documented in this encounter [facility] Progress note 11-02-2021 Note Date & Type Note Facility 11-02-2021 Note HNO ID: [id number] Author: Bobby Mazariegos MD Service: ? Author [...] about the findings, diagnosis, and treatment options. [facility] History of Past illness Narrative 07-30-2018 Note Date & Type Note Facility documented as of this encounter (statuses as of 03/20/2022) [facility] History of Past illness Narrative 07-30-2018 Note Date & Type Note Facility documented as of this encounter (statuses as of 09/18/2022) [facility] Evaluation note Note Date & Type Note Facility documented in this encounter [facility] Summary Purpose Family History No Family History [...] DATE CREATED AUTHOR AUTHOR'S ORGANIZ ATION 08/04/2022 [facility] DATE CREATED AUTHOR AUTHOR'S ORGANIZ ATION 08/04/2022 [facility] DATE CREATED AUTHOR AUTHOR'S ORGANIZ ATION 09/19/2022 [facility] nter Source Comments (unrecognize d section and content) In the event this informatio n is protected by the Federal Confidentiality of Alcohol and Drug Abuse Patient Records regulations: The Federal rules restrict any use of the information to criminally investigate or prosecute any alcohol or drug abuse patient.[facility] the event this information is protected by the Federal Confidentiality of Alcohol and Drug Abuse Patient Records regulations: The Federal rules restrict any use of the information to criminally investigate or prosecute any alcohol or drug abuse patient.[facility] Reason for Visit (unrecogniz ed section and content) 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 [facility] [facility]. provides no warranty or guarantee of the accuracy or completeness of information in this document.
[2023-08-10 15:36] VITALS: BP 145/91; PULSE 88; RESP 18; TEMP 36.4; O2SAT 99
[2023-08-10 15:59] VITALS: BP 165/74; PULSE 73; RESP 16; TEMP 36.3; O2SAT 100; BMI 21.5
[2023-08-10 16:07] VITALS: BP 165/74; PULSE 73; RESP 16; TEMP 36.3; O2SAT 100
[2023-08-10 16:20] LABS: Lactic Acid 2.1 mmol/L (0.4-1.9)
[2023-08-10] MEDS: 0.9% Normal Saline (1000mL) 1,000 ML 100 ML IV (16:23)
[2023-08-10 17:00] LABS: Bedside Glucose 170 mg/dL (74-106)
[2023-08-10] MEDS: Glucerna Shake 120 ML LIQUID PO (17:21)
[2023-08-10 20:13] VITALS: BP 155/85; PULSE 85; RESP 18; TEMP 36.7; O2SAT 100
[2023-08-10] MEDS: Menthol/Lanolin/Calamine/Znox 113 GM Tube 1 APPLIC TOPICAL (20:25)
[2023-08-10] MEDS: Insulin Glargine-YFGN 100 UNIT/ML Pen 20 UNIT SC (20:26)
[2023-08-10] MEDS: Pantoprazole Sodium 40 MG Tablet PO (20:26)
[2023-08-10] MEDS: Insulin Lispro 100 UNIT/ML INSULN.PEN SC (20:26)
[2023-08-10] MEDS: Atorvastatin Calcium 80 MG Tablet PO (20:27)
[2023-08-10 21:49] LABS: Bedside Glucose 211 mg/dL (74-106)
[2023-08-11 03:12] VITALS: BMI 21.6
[2023-08-11 04:30] VITALS: BP 129/54; PULSE 70; RESP 18; TEMP 36.6; O2SAT 100
[2023-08-11 05:51] LABS: Absolute Lymphocyte Count 2.01 X10^3/uL (0.83-4.51); Absolute Neutrophil Count 3.4 X10^3/uL (2.0-7.7); Basophil# 0.06 X10^3/uL; Basophil% 0.8 % (0-1); Eosinophil# 1.43 X10^3/uL; Eosinophils% 19.2 % (0-5); Hematocrit 30.2 % (40-54); Hemoglobin 10.4 g/dL (13.0-16.5); Lymphocyte # 2.01 X10^3/ul (0.83-4.51); Lymphocyte % 26.9 % (19-41); Mean Corp Hgb Conc 34.4 g/dL (32-36); Mean Corpuscular Hgb 32.8 pg (27.0-32.0); Mean Corpuscular Volume 95.3 fL (80-94); Mean Platelet Vol. 10.4 fl (6.2-12.0); Monocyte# 0.57 X10^3/uL; Monocyte% 7.6 % (0-10); NRBC Flagged by Analyzer 0 % (0-5); Neutrophil # 3.37 X10^3/uL (2.7-7.7); Neutrophil % 45.2 % (47-70); Platelet Count 141 K/mm3 (150-450); RBC Distribution Width CV 12.5 % (11.6-14.6); RBC Distribution Width SD 43.4 fl (35.1-43.9); Red Blood Count 3.17 M/mm3 (4.6-6.2); White Blood Count 7.5 K/mm3 (4.4-11.0)
[2023-08-11 06:23] LABS: ALB/GLOB Ratio 0.8 RATIO (0.9-2.4); AST(SGOT) 15 U/L (15-37); Alanine Aminotransfer ALT/SGPT 20 U/L (16-61); Albumin, Serum 2.7 g/dL (3.2-5.0); Alkaline Phosphatase 105 U/L (45-117); Anion Gap 5 (5-15); BUN 26 mg/dL (7-18); BUN/Creat Ratio 25.2 RATIO (10-20); Calcium,Total 7.8 mg/dL (8.5-10.1); Chloride 113 mmol/L (98-107); Creatinine, Serum 1.03 mg/dL (0.70-1.30); EST Glomerular Filtration Rate 74 mL/min (>60); Est Glom Filt Rate - Afr Amer 89 mL/min (>60); Estimated Creatinine Clearance 53.72 ml/min; Globulin 3.2 g/dL (2.2-4.2); Glucose 158 mg/dL (74-106); Potassium 3.9 mmol/L (3.5-5.1); Protein, Total 5.9 g/dL (6.4-8.2); Sodium Level 143 mmol/L (136-145)
[2023-08-11 07:02] LABS: Bedside Glucose 146 mg/dL (74-106)
--- NOTE | 2023-08-11 08:26 | NURSING ---
lab called regarding stat lab to be drawn
[2023-08-11] MEDS: Aspirin 81 MG TAB.CHEW PO (08:27)
[2023-08-11] MEDS: Acetaminophen 325 MG Tablet 650 MG PO (08:27)
[2023-08-11] MEDS: Finasteride 5 MG Tablet PO (08:28)
[2023-08-11] MEDS: Pantoprazole Sodium 40 MG Tablet PO ×2 (08:28→20:42)
[2023-08-11] MEDS: Menthol/Lanolin/Calamine/Znox 113 GM Tube 1 APPLIC TOPICAL ×3 (08:28→20:44)
[2023-08-11 08:30] VITALS: O2SAT 94
[2023-08-11] MEDS: LEVOBUNOLOL 0.5% EACH EYE (08:35)
[2023-08-11] MEDS: OPTH EACH EYE (08:35)
[2023-08-11] MEDS: Glucerna Shake 120 ML LIQUID PO ×3 (08:36→16:32)
[2023-08-11 08:51] VITALS: BP 146/76; PULSE 80; RESP 16; TEMP 36.7; O2SAT 99
--- NOTE | 2023-08-11 09:13 | PCM.PN.HOSP ---
Reason for Visit Reason for Visit: Hematuria/fatigue/malaise Subjective Subjective Mr. Gee is an 82-year-old white male who presented to the emergency department at [facility] on 08/10/2023 with hematuria, fatigue, and malaise. He reported on presentation that he has had mild persistent hematuria for about the last month. He had no clots but he did feel that it had been worsening. He had not talked to his primary care with regards to this but did have an upcoming appointment with urology on 08/21/2022. He had a TURP about 1 year ago. He also had increased weakness and fatigue with no fevers, chills, nausea or vomiting that prompted him to be evaluated the emergency department. On review of records he was found to have an urine culture positive for E. coli and was prescribed Bactrim. This culture was from 07/23/2023 and he was prescribed Bactrim on 07/18/2023 for 7 days but unfortunately the organism was resistant to the Bactrim. Patient was not on any other antibiotic. He did report that he normally self caths about twice a day but had not been cathing over the last 2 to 3 days prior to agitation as he had been urinating without any issues. He did report increased urinary frequency as well as dysuria on presentation. Vital signs in the emergency department showed a temperature of 97, heart rate 90, blood pressure was 112/68, respiratory was 14 oxygen saturations are 100% on room air. CBC showed a normal white count without a left shift. BMP was overall unremarkable other than markedly elevated blood glucose at 368 and a lactic acid at 2.3. Urinalysis was consistent with infection and did show blood. Blood and urine cultures were sent. CT of the abdomen pelvis was performed and showed findings consistent with emphysematous cystitis, fatty infiltration of the liver, cholelithiasis and a stable 1.1 cm cystic focus within the pancreas. He was given IV fluids, subcu insulin and IV Rocephin in the emergency department. He was admitted to the medical floor where he was maintained on IV antibiotics. Given findings on CT the case was discussed with urology Dr. Pryor intends to perform a cystoscopy in the future. Patient had chest pain earlier today that has since resolved. He also complained of some upper abdominal pain that he was having at the same time which has resolved as well. He was unremarkable and troponin is normal. He states his hematuria seems to have resolved. Lower abdominal pain has resolved. Has no current complaints but upset that he is not able to go home today but understands that he needs further workup. Objective Data Objective Data Vital Signs: Vital Signs Temp Pulse Resp BP Pulse Ox O2 Del Method 98.1 F 80 16 146/76 H 99 Room Air 08/11/23 08:51 08/11/23 08:51 08/11/23 08:51 08/11/23 08:51 08/11/23 08:51 08/11/23 08:51 Oxygen Delivery Method Room Air Weight: 66.4 kg Body Mass Index (BMI) 21.6 Intake & Output: Intake and Output for Last 24 Hours 08/09/23 08/10/23 08/11/23 23:59 23:59 23:59 Intake Total 1350 / 1725 1475 / 1475 Output Total 200 / 600 600 / 600 Balance 1150 / 1125 875 / 875 Lab / Micro Data 08/11/23 05:12 08/11/23 05:12 Labs: Laboratory Results - last 24 hr 08/10/23 10:57: WBC 8.2, RBC 3.69 L, Hgb 12.1 L, Hct 35.9 L, MCV 97.3 H, MCH 32.8 H, MCHC 33.7, RDW Std Deviation 44.2 H, RDW Coeff of Sridevi 12.4, Plt Count 158, MPV 10.3, Immature Gran % (Auto) 0.100, Neut % (Auto) 43.0 L, Lymph % (Auto) 24.0, Zapata % (Auto) 6.2, Eos % (Auto) 25.6 H, Baso % (Auto) 1.1 H, Absolute Neuts (auto) 3.5, Absolute Lymphs (auto) 1.98, Nucleated RBC % 0, Differential Comment SCANNED, Sodium 138, Potassium 4.5, Chloride 108 H, Carbon Dioxide 26.0, Anion Gap 4 L, BUN 32 H, Creatinine 1.32 H, Estim Creat Clear Calc 42.15, Est GFR (MDRD) Af Amer 67, Est GFR (MDRD) Non-Af 55 L, BUN/Creatinine Ratio 24.2 H, Glucose 368 H, Lactic Acid 2.3 H*, Calcium 8.5, Urine Color Red, Urine Clarity Cloudy, Urine pH 5.0, Ur Specific [place] 1.015, Urine Protein 500 H, Urine Glucose (UA) 1000 H, Urine Ketones 5 H, Urine Occult Blood 250 H, Urine Nitrite Positive H, Urine Bilirubin Negative, Urine Urobilinogen 1 H, Ur Leukocyte Esterase 500 H, Urine RBC > 100 SEEN, Urine WBC 0-5 SEEN, Ur Squamous Epith Cells 0 SEEN, Urine Bacteria 2+, Urine Mucus 0 SEEN 08/10/23 15:13: Lactic Acid Cancelled 08/10/23 15:40: Lactic Acid 2.1 H* 08/10/23 16:22: POC Glucose 170 H 08/10/23 20:16: POC Glucose 211 H 08/11/23 05:12: WBC 7.5, RBC 3.17 L, Hgb 10.4 L, Hct 30.2 L, MCV 95.3 H, MCH 32.8 H, MCHC 34.4, RDW Std Deviation 43.4, RDW Coeff of Sridevi 12.5, Plt Count 141 L, MPV 10.4, Immature Gran % (Auto) 0.300, Neut % (Auto) 45.2 L, Lymph % (Auto) 26.9, Zapata % (Auto) 7.6, Eos % (Auto) 19.2 H, Baso % (Auto) 0.8, Absolute Neuts (auto) 3.4, Absolute Lymphs (auto) 2.01, Nucleated RBC % 0, Sodium 143, Potassium 3.9, Chloride 113 H, Carbon Dioxide 25.0, Anion Gap 5, BUN 26 H, Creatinine 1.03, Estim Creat Clear Calc 53.72, Est GFR (MDRD) Af Amer 89, Est GFR (MDRD) Non-Af 74, BUN/Creatinine Ratio 25.2 H, Glucose 158 H, Calcium 7.8 L, Total Bilirubin 0.40, AST 15, ALT 20, Alkaline Phosphatase 105, Total Protein 5.9 L, Albumin 2.7 L, Globulin 3.2, Albumin/Globulin Ratio 0.8 L 08/11/23 05:40: POC Glucose 146 H Radiography Diagnostic Testing: Radiology Impression Abdomen/Pelvis CT 08/10/23 10:45 IMPRESSION: 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 Fatty infiltration of the liver. Cholelithiasis. Stable 1.1 cm cystic focus within the pancreas recommend follow-up CT in 2 years. Atherosclerosis. Electronically Signed: Lea Mejía MD at 12:51 EST , Physical Exam Const alert, oriented x3, no apparent distress, average body habitus and well nourished Constitutional Narrative: Older, white male, initially sleeping at the time of my arrival however awakens easily and appears comfortable and nontoxic, interacts appropriately HEENT head/scalp atraumatic and moist oral mucous membranes HEENT Narrative: Mallampati 2, no thrush Head and Scalp: normocephalic Resp normal respiratory effort, no retractions, no use of accessory muscles and clear to auscultation bilaterally Auscultation: Negative for rales, rhonchi or wheezes Cardio regular rate, regular rhythm, S1 normal heart sound, S2 normal heart sound, no murmurs, no rub, no gallops and no clicks GI normal to inspection, nondistended, normoactive bowel sounds, soft to palpation and non-tender Extremity no clubbing, cyanosis or edema Extremity Narrative: 2+ pedal pulses Neuro oriented x3, moves all extremities and no focal motor deficits Speech: speech normal Psych affect normal Psych Narrative: Eye contact is good, patient interacts appropriately, very pleasant Assessment & Plan Assessment/Plan (1) Creatinine elevation: (2) Acidosis, lactic: (3) Emphysematous cystitis: (4) Acute UTI: (5) Hyperglycemia: (6) Hematuria: (7) Thrombocytopenia: (8) Chest pain: PLAN: Plan UTI with emphysematous cystitis/hematuria/history of atonic bladder -Patient does self cath at home -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 coli and patient was placed on Bactrim but unfortunately the organism is resistant -Urine and blood cultures are pending -Continue ceftriaxone as ordered as my suspicion for bacteremia is low but if blood cultures are positive will increase to 2 g daily -Urology is consulted -It sounds his plan is for cystoscopy during his hospitalization Chest pain -Patient had some intermittent chest pain this morning -EKG is unremarkable for any acute findings -Cycling cardiac enzymes -Continue home aspirin and statin -Patient had previously been on Plavix however this had been discontinued -Patient does take as needed nitroglycerin at home and will continue -Tylenol given for chest pain as above Elevated serum creatinine -Baseline serum creatinine appears to be between 1 and 1.25 -On presentation 1. 3 to -Back to baseline with IV fluids given in emergency department -Will trend BMP -Avoid nephrotoxins Lactic acidosis -Likely related to dehydration and use of metformin -Patient does not meet criteria for sepsis Thrombocytopenia -Mild and it does appear he does fluctuate with chronic thrombocytopenia -Continue to monitor History of constipation/diarrhea -Patient reports that he alternates between constipation and diarrhea and is not taking medication in between -I do wonder if he has IBS -He has had colonoscopy DM-2 with hyperglycemia -Blood sugar greater than 300 presentation -Elevation may be due to acute infection -Fasting blood sugar this morning is 152 -We will check hemoglobin A1c -Most recently checked in our system in October and was greater than 10 -Continue home Lantus at 20 units nightly -Hold home glipizide and metformin for now -SSI -Cardiac/carb controlled diet -Accu-Cheks as ordered CAD/HPL -Previous PCI -Continue home aspirin -Continue home statin -As needed nitroglycerin Hepatosteatosis -Noted on CT of the abdomen -Recommend control of his diabetes and cholesterol -Will leave the primary care to consider outpatient follow-up with GI for monitoring -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
[2023-08-11 09:31] LABS: Troponin-I HS 18 pg/mL (3.0-78.0)
[2023-08-11] MEDS: 0.9% Saline Lock 10 ML Syringe IV (09:54)
[2023-08-11] MEDS: Ceftriaxone 1 GM/50 ML BAG IV (09:54)
[2023-08-11] MEDS: 0.9% Normal Saline (250mL Bag) 250 ML 15 ML IV (09:54)
[2023-08-11 10:29] LABS: Hemoglobin A1c 8.5 % (3.8-5.6)
[2023-08-11] MEDS: Insulin Lispro 100 UNIT/ML INSULN.PEN SC ×3 (11:03→20:42)
[2023-08-11 11:34] LABS: Bedside Glucose 243 mg/dL (74-106)
[2023-08-11 11:38] VITALS: BP 149/69; PULSE 78; RESP 16; TEMP 36.7; O2SAT 96
[2023-08-11 12:40] LABS: Troponin-I HS 21 pg/mL (3.0-78.0)
[2023-08-11 14:59] VITALS: BP 156/69; PULSE 80; RESP 16; TEMP 36.6; O2SAT 98
[2023-08-11 15:08] LABS: Troponin-I HS 17 pg/mL (3.0-78.0)
[2023-08-11 16:51] LABS: Bedside Glucose 276 mg/dL (74-106)
[2023-08-11 18:53] LABS: Troponin-I HS 18 pg/mL (3.0-78.0)
[2023-08-11 20:29] VITALS: BP 139/84; PULSE 86; RESP 18; TEMP 36.6; O2SAT 96
[2023-08-11] MEDS: Atorvastatin Calcium 80 MG Tablet PO (20:42)
[2023-08-11] MEDS: Insulin Glargine-YFGN 100 UNIT/ML Pen 20 UNIT SC (20:43)
[2023-08-11 23:04] LABS: Bedside Glucose 259 mg/dL (74-106)
[2023-08-12] VITALS (9 sets, daily range): BP systolic 130–158; BP diastolic 59–82; PULSE 70–79; RESP 16–18; TEMP 36.3–36.8; O2SAT 96–100; BMI 21.6
[2023-08-12] MEDS: Insulin Lispro 100 UNIT/ML INSULN.PEN SC ×2 (06:04→16:57)
[2023-08-12 06:37] LABS: Absolute Lymphocyte Count 2.04 X10^3/uL (0.83-4.51); Absolute Neutrophil Count 2.7 X10^3/uL (2.0-7.7); Basophil# 0.07 X10^3/uL; Basophil% 1.1 % (0-1); Eosinophil# 1.27 X10^3/uL; Eosinophils% 19.1 % (0-5); Hematocrit 31.3 % (40-54); Hemoglobin 10.7 g/dL (13.0-16.5); Lymphocyte # 2.04 X10^3/ul (0.83-4.51); Lymphocyte % 30.7 % (19-41); Mean Corp Hgb Conc 34.2 g/dL (32-36); Mean Corpuscular Hgb 32.6 pg (27.0-32.0); Mean Corpuscular Volume 95.4 fL (80-94); Mean Platelet Vol. 10.1 fl (6.2-12.0); Monocyte# 0.57 X10^3/uL; Monocyte% 8.6 % (0-10); NRBC Flagged by Analyzer 0 % (0-5); Neutrophil # 2.68 X10^3/uL (2.7-7.7); Neutrophil % 40.2 % (47-70); Platelet Count 135 K/mm3 (150-450); RBC Distribution Width CV 12.4 % (11.6-14.6); RBC Distribution Width SD 43.1 fl (35.1-43.9); Red Blood Count 3.28 M/mm3 (4.6-6.2); White Blood Count 6.7 K/mm3 (4.4-11.0)
[2023-08-12 06:46] LABS: International Normalized Ratio 1.1; Prothrombin Time (Protime)PT. 13.7 SECONDS (11.7-14.9)
[2023-08-12 06:47] LABS: Bedside Glucose 211 mg/dL (74-106)
[2023-08-12 07:15] LABS: AST(SGOT) 15 U/L (15-37); Alanine Aminotransfer ALT/SGPT 24 U/L (16-61); Albumin, Serum 2.7 g/dL (3.2-5.0); Alkaline Phosphatase 111 U/L (45-117); Anion Gap 5 (5-15); BUN 29 mg/dL (7-18); BUN/Creat Ratio 23.6 RATIO (10-20); Bilirubin, Direct 0.14 mg/dL (0.00-0.30); Calcium,Total 8.7 mg/dL (8.5-10.1); Chloride 111 mmol/L (98-107); Creatinine, Serum 1.23 mg/dL (0.70-1.30); EST Glomerular Filtration Rate 60 mL/min (>60); Est Glom Filt Rate - Afr Amer 73 mL/min (>60); Estimated Creatinine Clearance 44.92 ml/min; Globulin 3.4 g/dL (2.2-4.2); Glucose 214 mg/dL (74-106); Potassium 4.1 mmol/L (3.5-5.1); Protein, Total 6.1 g/dL (6.4-8.2); Sodium Level 141 mmol/L (136-145)
[2023-08-12 07:18] LABS: Partial Thromboplast Time 26.6 Seconds (24.1-36.2)
[2023-08-12 07:48] LABS: Hemoglobin A1c 8.6 % (3.8-5.6)
--- NOTE | 2023-08-12 07:53 | CON.PCM.UR_ITS ---
Assessment & Plan Assessment/Plan (1) Hematuria: PLAN: Gross hematuria plan to [facility] for cystoscopy (2) UTI (urinary tract infection): PLAN: Continue with antibiotics HPI Consult Data Date of Consult: 08/12/23 HPI Narrative Reason for Consultation: Hemorrhaging cystitis HPI Narrative: LYNETTE GUDINO, is a 82 M who presentsWith gross hematuria and cystitis CT scan was done and reviewed patient was admitted for cystitis and hematuria plan to taken the surgery today for cystoscopy evacuation clots cauterization bleeding biopsy probably will start him on three we irrigation may have to do or surgery in his prostate he's been having recurrent infections etiologies and clear but he does have multiple risk factors including chronic debility [facility] Medical History (Updated 08/11/23 @ 09:[address] Jacinta Mcclendon, DO) Ambulates with cane Anemia Angina pectoris, unstable Atherosclerosis of [place] coronary artery of [place] heart without angina pectoris [facility] bladder Cardiology follow-up encounter Chronic indwelling Valadez catheter Chronic renal insufficiency Diabetes 1.5, managed as type 2 Excessive bleeding Gastric reflux Gastric ulcer History of CAD (coronary artery disease) History of diabetes mellitus History of stress test HLD (hyperlipidemia) HLP (hyperkeratosis lenticularis perstans) Hypertension Kidney disease Loss of hearing Myocardial infarct Non-smoker Open wound Presence of stent in coronary artery (~12/20/15) Prostate disease Self-catheterizes urinary bladder Thick muscular wall of urinary bladder present on ultrasound Walker as ambulation aid Wears glasses Weight loss Home Medications aspirin 81 mg chewable tablet 81 mg PO DAILY@0800 [facility] 12/19/15 [History Last Taken 01/10/23] finasteride 5 mg tablet 5 mg PO DAILY PROSTATE 07/15/22 [History Last Taken 05/07/23] glipizide 10 mg tablet, extended release 24 hr 10 mg PO BID DIABETES 07/15/22 [History Last Taken 05/07/23] metformin 500 mg tablet 500 mg PO BID DIAEBETES 09/24/22 [History Last Taken 05/07/23] insulin glargine 100 unit/mL (3 mL) subcutaneous pen (Lantus Solostar U-100 Insulin) 20 unit subcut QHS DIABETES 11/03/22 [History Last Taken 05/06/23] insulin lispro 100 unit/mL subcutaneous pen (Humalog KwikPen (U-100) Insulin) See Protocol subcut ACHS #0 mL 11/05/22 [Rx Last Taken 05/07/23] levobunolol 0.5 % eye drops 1 drp EACH EYE DAILY GLAUCOMA #0 mL 11/05/22 [Rx Last Taken 05/07/23] nitroglycerin 0.4 mg sublingual tablet 0.4 mg sublingual Q5M PRN Chest Pain 01/17/23 [History Last Taken Unknown] clopidogrel 75 mg tablet 75 mg PO DAILY BLOOD THINNER #90 tabs 03/17/23 [Rx Last Taken 05/07/23] atorvastatin 80 mg tablet 80 mg PO QHS CHOLESEROL #30 tabs 05/22/23 [Rx Last Taken Unknown] pantoprazole 40 mg tablet,delayed release 40 mg PO BID 08/10/23 [History Last Taken Unknown] Allergy/AdvReac Type Severity Reaction Status Date / Time No Known Allergies Allergy Verified 08/10/23 10:28 Family History (Updated 08/10/23 @ 20:[address] Marcela Wagner MD) Brother CAD (coronary artery disease) Mother , from [place] at age 74 CAD (coronary artery disease) Myocardial infarction, Onset Age: 74 Father No problems noted. Surgical History History of cataract extraction History of colonoscopy History of coronary artery stent placement History of esophagogastroduodenoscopy (EGD) jaw surgery for fracture Presence of coronary angioplasty implant and graft (~12/20/15) S/P TURP surgery on left index finger Social History household members: spouse housing: house Smoking Status: Never smoker alcohol intake: never substance use type: does not use caffeine: Yes (rarely) eating out: 1-3 times/week during the past year weight has: other seatbelt use: always do you feel safe at home: Yes ROS Constitutional Constitutional: Denies chills, fever(s) or malaise Eyes Eyes: Denies blurry vision or change in vision ENT HEENT: Reports none Cardiovascular Cardiovascular: Denies chest pain or palpitations Respiratory/Chest Respiratory/Chest: Denies cough or shortness of breath with exertion Gastrointestinal Gastrointestinal: Denies abdominal pain, constipation or diarrhea Musculoskeletal Musculoskeletal: Denies back pain, joint stiffness or joint swelling Integumentary Integumentary: Denies dry skin, jaundice, lesions or rash Neurologic Neurologic: Denies confusion, syncope or weakness Psychiatric Psychiatric: Reports none; Denies anxiety or depression Endocrine Endocrinology: Denies excessive sweating, fatigue or flushing Hematologic/Lymphatic Hematologic/Lymphatic: Denies anemia, easy bleeding or easy bruising Physical Exam Const alert and oriented x3 General Appearance: cooperative HEENT normocephalic, head/scalp atraumatic, EAC's normal and TM's normal bilaterally Eyes PERRL and EOMs intact bilaterally Pupil: sluggish Neck no lymphadenopathy, supple and no JVD General: trachea midline Lymph Lymphatic: no lymphadenopathy noted, lymphedema and lymphadenopathy Resp normal respiratory effort, normal air movement and clear to auscultation bilaterally Cardio regular rate, regular rhythm and peripheral pulses 2+ throughout GI soft to palpation, non-tender and non-distended Extremity normal capillary refill and no clubbing, cyanosis or edema General Extremity: no tenderness to palpation of joints or extremities Skin no rashes or lesions noted General Skin Exam: turgor normal Lesions: no lesions Rashes: no rashes Neuro CN's II-XII intact bilaterally Speech: speech normal Motor Exam: strength 5/5 throughout; Negative for general weakness Psych thought process normal, cooperative and affect normal Appearance: appropriate Medical Records Data Attestation: I reviewed the patient's medical records Lab / Micro Data 08/12/23 06:15 08/12/23 06:15 Labs: Laboratory Results - last 24 hr 08/10/23 10:57: Urine Color Red, Urine Clarity Cloudy, Urine pH 5.0, Ur Specific [place] 1.015, Urine Protein 500 H, Urine Glucose (UA) 1000 H, Urine Ketones 5 H , Urine Occult Blood 250 H, Urine Nitrite Positive H, Urine Bilirubin Negative, Urine Urobilinogen 1 H, Ur Leukocyte Esterase 500 H, Urine RBC > 100 SEEN, Urine WBC 0-5 SEEN, Ur Squamous Epith Cells 0 SEEN, Urine Bacteria 2+, Urine Mucus 0 SEEN 08/11/23 08:25: Hemoglobin A1c 8.5 H 08/11/23 08:55: Troponin I High Sens 18 08/11/23 11:01: POC Glucose 243 H 08/11/23 12:14: Troponin I High Sens 21 08/11/23 14:30: Troponin I High Sens 17 08/11/23 16:28: POC Glucose 276 H 08/11/23 18:20: Troponin I High Sens 18 08/11/23 20:41: POC Glucose 259 H 08/12/23 06:03: POC Glucose 211 H 08/12/23 06:15: WBC 6.7, RBC 3.28 L, Hgb 10.7 L, Hct 31.3 L, MCV 95.4 H, MCH 32.6 H, MCHC 34.2, RDW Std Deviation 43.1, RDW Coeff of Sridevi 12.4, Plt Count 135 L, MPV 10.1, Immature Gran % (Auto) 0.300, Neut % (Auto) 40.2 L, Lymph % (Auto) 30.7, [place] % (Auto) 8.6, Eos % (Auto) 19.1 H, Baso % (Auto) 1.1 H, Absolute Neuts (auto) 2.7, Absolute Lymphs (auto) 2.04, Nucleated RBC % 0, PT 13.7, INR 1.1, APTT 26.6, Sodium 141, Potassium 4.1, Chloride 111 H, Carbon Dioxide 25.0, Anion Gap 5, BUN 29 H, Creatinine 1.23, Estim Creat Clear Calc 44.92, Est GFR (MDRD) Af Amer 73, Est GFR (MDRD) Non-Af 60, BUN/Creatinine Ratio 23.6 H, Glucose 214 H, Hemoglobin A1c 8.6 H, Calcium 8.7, Total Bilirubin 0.40, Direct Bilirubin 0.14, AST 15, ALT 24, Alkaline Phosphatase 111, Total Protein 6.1 L, Albumin 2.7 L, Globulin 3.4 Micro: Microbiology 08/10/23 10:57 Urine, Clean Catch Urine Culture - Final Presumptive E. coli
[2023-08-12] MEDS: Ceftriaxone 1 GM/50 ML BAG IV (10:03)
[2023-08-12] MEDS: 0.9% Saline Lock 10 ML Syringe IV ×2 (10:03→13:57)
[2023-08-12] MEDS: Menthol/Lanolin/Calamine/Znox 113 GM Tube 1 APPLIC TOPICAL (10:04)
[2023-08-12] MEDS: LEVOBUNOLOL 0.5% EACH EYE (10:04)
[2023-08-12] MEDS: OPTH EACH EYE (10:04)
[2023-08-12 10:52] LABS: Bedside Glucose 155 mg/dL (74-106)
[2023-08-12] MEDS: 0.9% Normal Saline (1000mL) 1,000 ML 15 ML IV (11:26)
--- NOTE | 2023-08-12 11:56 | CASEMGMT ---
Discharge Planning Updates faxed to TAMMY Vera @ [facility] (p [phone], f [phone]). Franchesca Mike, Discharge Planning Asst.
[2023-08-12] MEDS: Lidocaine Jelly 2% 20 ML Syringe (URO-JET) 1 APPLIC (12:26)
--- NOTE | 2023-08-12 12:30 | OP.PCM_ITS ---
Report of Operation Date of Procedure: 08/12/23 Pre-Operative Diagnosis: Hemorrhagic cystitis Surgery/Procedure Performed:: Cystoscopy Description of Surgical Findings:: Patient was taken back to the operating room at a smooth duction of anesthesia he was placed in dorsolithotomy position. He has a history of a prior TURP. Went of the bladder with a 21 [place] rigid cystourethroscope entire length the urethra was free of any tumors or scar tissue sphincter was intact verumontanum was still present he had a wide open resection after the sphincter with no blockage inside the bladder he had a lot of cystitis along the floor and adams of the bladder but no tumors or stones seen within the bladder I then drained the bladder patient anesthetic was reversed taken back to PACU in good condition Surgeon: Cuba Pryor Type of Anesthesia: General Drains: none
[2023-08-12] MEDS: Finasteride 5 MG Tablet PO (13:57)
[2023-08-12] MEDS: Pantoprazole Sodium 40 MG Tablet PO (13:57)
[2023-08-12 14:18] LABS: Bedside Glucose 136 mg/dL (74-106)
--- NOTE | 2023-08-12 15:03 | CASEMGMT ---
Advanced Directive Validation Unable to locate any Advanced Directives on file at [facility]. Spoke with Jody, comsec manager at patient's Assisted Living Facility ([facility]). Jody reports to have forms on file and faxed to [facility]. Living Will and Durable Power of Accounting Reconciliation Clerk placed onto patient's paper chart, to be scanned into the EMR at time of discharge. The Durable Power of traffic law attorney does specify that the POA may execute any consent or waiver necessary with regard to medical treatment, surgery, admissions to hospitals/nursing homes/skilled care nursing homes/chcf homes/, or other facilities for care; including to release medical records. POA - Lorene Yejodie Second POA - Rashmi Carrion Third POA - Dae Neville -NERI Almonte
--- NOTE | 2023-08-12 15:17 | CASEMGMT ---
VENKATA CM to pt room at this time. Pt is to go back to [facility] at time of DC. Pt states that he is independent is states that he does not need HHC after DC from [facility]. Pt states there are exercise bikes that he uses to increase his strength. Pt states that he had HHC PT around one month ago but could not recall the agency. Pt states that the HHC is not needed anymore.
--- NOTE | 2023-08-12 15:44 | PCM.DC.SUM ---
Providers Date of Admission: 08/10/23 Date of Discharge: 08/12/23 Primary Care Physician: Dr. Sandeep Montenegro, Consultations 08/10/23 16:07 Consult: Urology Routine Consulting Provider: Cuba Pryor Reason for Consult: Possible emphysematous cystitis EMERGENT Consult: No MD Notified: Yes Date Notified: 08/10/23 Time Notified: 16:09 Method of Notification: Verbal Reason For Visit: COMPLICATED UTI/? EMPHASEMATOUS CYSTITIS,HEMATURIA Diagnosis Discharge Diagnosis (1) Hematuria: Status: Acute Code(s): R31.9 - Hematuria, unspecified (2) UTI (urinary tract infection): Status: Acute Code(s): N39.0 - Urinary tract infection, site not specified Medications at Discharge Home Medications aspirin 81 mg chewable tablet 81 mg PO DAILY@0800 [facility] 12/19/15 finasteride 5 mg tablet 5 mg PO DAILY PROSTATE 07/15/22 glipizide 10 mg tablet, extended release 24 hr 10 mg PO BID DIABETES 07/15/22 metformin 500 mg tablet 500 mg PO BID DIAEBETES 09/24/22 insulin glargine 100 unit/mL (3 mL) subcutaneous pen (Lantus Solostar U-100 Insulin) 20 unit subcut QHS DIABETES 11/03/22 insulin lispro 100 unit/mL subcutaneous pen (Humalog KwikPen (U-100) Insulin) See Protocol subcut ACHS #0 mL 11/05/22 levobunolol 0.5 % eye drops 1 drp EACH EYE DAILY GLAUCOMA #0 mL 11/05/22 nitroglycerin 0.4 mg sublingual tablet 0.4 mg sublingual Q5M PRN Chest Pain 01/17/23 clopidogrel 75 mg tablet 75 mg PO DAILY BLOOD THINNER #90 tabs 03/17/23 atorvastatin 80 mg tablet 80 mg PO QHS CHOLESEROL #30 tabs 05/22/23 pantoprazole 40 mg tablet,delayed release 40 mg PO BID 08/10/23 cefdinir 300 mg capsule 300 mg PO BID #18 caps 08/12/23 Hospital Course Operations - (Cystoscopy) Procedures - (CT of abdomen and pelvis) Summary of Care Provided Minutes Spent on Discharge: 37 Hospital Course: Mr. Gee is an 82-year-old white male who presented to the emergency department at [facility] on 08/10/2023 with hematuria, fatigue, and malaise. He reported on presentation that he has had mild persistent hematuria for about the last month. He had no clots but he did feel that it had been worsening. He had not talked to his primary care with regards to this but did have an upcoming appointment with urology on 08/21/2022. He had a TURP about 1 year ago. He also had increased weakness and fatigue with no fevers, chills, nausea or vomiting that prompted him to be evaluated the emergency department. On review of records he was found to have an urine culture positive for E. coli and was prescribed Bactrim. This culture was from 07/23/2023 and he was prescribed Bactrim on 07/18/2023 for 7 days but unfortunately the organism was resistant to the Bactrim. Patient was not on any other antibiotic. He did report that he normally self caths about twice a day but had not been cathing over the last 2 to 3 days prior to agitation as he had been urinating without any issues. He did report increased urinary frequency as well as dysuria on presentation. Vital signs in the emergency department showed a temperature of 97, heart rate 90, blood pressure was 112/68, respiratory was 14 oxygen saturations are 100% on room air. CBC showed a normal white count without a left shift. BMP was overall unremarkable other than markedly elevated blood glucose at 368 and a lactic acid at 2.3. Urinalysis was consistent with infection and did show blood. Blood and urine cultures were sent. CT of the abdomen pelvis was performed and showed findings consistent with emphysematous cystitis, fatty infiltration of the liver, cholelithiasis and a stable 1.1 cm cystic focus within the pancreas. He was given IV fluids, subcu insulin and IV Rocephin in the emergency department. He was admitted to the medical floor where he was maintained on IV antibiotics. Given findings on CT the case was discussed with urology Dr. Pryor and he asked that the patient be admitted for treatment for his UTI and cystoscopy as an inpatient. His previous culture results were reviewed and the organism was sensitive to ceftriaxone so he was placed on ceftriaxone 2 g daily. Repeat urine cultures were done while hospitalized showed the same organism and sensitivities. The patient did have a bout of chest pain during his hospitalization. Troponin were drawn x 3 and were all unremarkable and his EKG was unremarkable. Chest pain had resolved at the time of discharge. He was taken for cystoscopy on 08/12/[address] Pryor at which time a rigid cystourethroscope was placed the entire length of the urethra and was free of any tumors or scar tissue and no significant abnormalities were found in the bladder other than inflammation consistent with cystitis. I discussed the case with urology prior to discharge and they indicated that they were satisfied with him going home and he can follow-up as an outpatient. Patient was evaluated by physical and Occupational Therapy during his hospitalization and he did quite well overall. He did not qualify for any inpatient rehab and was offered home health care. He declined home health care indicating he did not feel he needed it anymore. He was discharged with a 9-day course of Omnicef to complete treatment 300 mg p.o. twice daily. Prescription was sent to local pharmacy. Patient was able to be discharged home in stable condition on 08/12/2023. I have asked that he call Dr. Pryor office and schedule follow-up appointment to be seen within the next 2 weeks. I have also asked him to follow-up with his primary care physician within the next 2 weeks. Discharge diagnoses: UTI with emphysematous cystitis-E. coli Hematuria-resolved History of atonic bladder Chest pain-resolved Elevated serum creatinine-resolved Lactic acidosis-resolved Mild agikwtopvivwzekd-rhvapz-ydaz related to infection and antibiotics History of constipation/diarrhea DM-2 CAD Hyperlipidemia Hepatosteatosis BPH with obstruction Glaucoma History of gastric ulcers History of GERD Physical Exam Narrative Patient indicates she is feeling much better overall. At least 50% improved if not more. Anxious to go home. Const alert, oriented x3, no apparent distress, average body habitus and no limitations Constitutional Narrative: Older, white male, sitting up in chair at the bedside watching television, appears comfortable and nontoxic, interacts appropriately General Appearance: cooperative, comfortable, well kempt and well developed Orientation / Consciousness: awake, oriented to person, oriented to place and oriented to time Exam Limitations: no limitations HEENT normocephalic, head/scalp atraumatic and moist oral mucous membranes HEENT Narrative: Moderate hearing loss, Mallampati is 2, no thrush Eyes PERRL, EOMs intact bilaterally and conjunctivae normal Eyes Narrative: No scleral icterus Neck no lymphadenopathy and supple Resp normal respiratory effort, no retractions, no use of accessory muscles and clear to auscultation bilaterally Auscultation: Negative for rales, rhonchi or wheezes Cardio regular rate, regular rhythm, S1 normal heart sound, S2 normal heart sound, no murmurs, no rub, no gallops and no clicks GI normal to inspection, nondistended, normoactive bowel sounds, soft to palpation and non-tender Extremity no clubbing, cyanosis or edema Extremity Narrative: 2+ pedal pulses Skin no rashes or lesions noted, no wounds, skin turgor normal and no jaundice Neuro oriented x3, CN's II-XII intact bilaterally, moves all extremities and no focal motor deficits Neuro Narrative: Mild generalized weakness noted with proximal musculature being weaker than distal consistent with sarcopenia Speech: speech normal Psych affect normal Psych Narrative: Eye contact is good, patient interacts appropriately, very pleasant Weight / BMI Weight Weight: 66.3 kg Body Mass Index (BMI) 21.6 ABG / Lab / Microbiology Data 08/12/23 06:15 08/12/23 06:15 Laboratory: Laboratory Results - last 24 hr 08/11/23 16:28: POC Glucose 276 H 08/11/23 18:20: Troponin I High Sens 18 08/11/23 20:41: POC Glucose 259 H 08/12/23 06:03: POC Glucose 211 H 08/12/23 06:15: WBC 6.7, RBC 3.28 L, Hgb 10.7 L, Hct 31.3 L, MCV 95.4 H, MCH 32.6 H, MCHC 34.2, RDW Std Deviation 43.1, RDW Coeff of Sridevi 12.4, Plt Count 135 L, MPV 10.1, Immature Gran % (Auto) 0.300, Neut % (Auto) 40.2 L, Lymph % (Auto) 30.7, [place] % (Auto) 8.6, Eos % (Auto) 19.1 H, Baso % (Auto) 1.1 H, Absolute Neuts (auto) 2.7, Absolute Lymphs (auto) 2.04, Nucleated RBC % 0, PT 13.7, INR 1.1, APTT 26.6, Sodium 141, Potassium 4.1, Chloride 111 H, Carbon Dioxide 25.0, Anion Gap 5, BUN 29 H, Creatinine 1.23, Estim Creat Clear Calc 44.92, Est GFR (MDRD) Af Amer 73, Est GFR (MDRD) Non-Af 60, BUN/Creatinine Ratio 23.6 H, Glucose 214 H, Hemoglobin A1c 8.6 H, Calcium 8.7, Total Bilirubin 0.40, Direct Bilirubin 0.14, AST 15, ALT 24, Alkaline Phosphatase 111, Total Protein 6.1 L, Albumin 2.7 L, Globulin 3.4 08/12/23 10:22: POC Glucose 155 H 08/12/23 13:53: POC Glucose 136 H Microbiology: Microbiology 08/10/23 10:57 Urine, Clean Catch Urine Culture - Final Presumptive E. coli D/C Instructions Discharge Diet: Low fat / Low cholesterol and 1800 Calorie Control Diet Discharge Activity: Return to Normal Activity Meaningful Use Info Meaningful Use Diagnoses (Choose all that apply): None applicable Discharge Plan Admission Admit Date/Time: 08/10/23 14:47 Primary Reason for Your Visit: Blood in your urine/fatigue Attending Provider: Jacinta Mcclendon Primary Care Provider: Sandeep Montenegro Consulting Providers: Cuba Pryor; Marcela Wagner Instructions Additional Instructions / Restrictions: 1. Please complete antibiotic as noted below Discharge Orders/Prescriptions Prescriptions: New cefdinir 300 mg capsule 300 mg PO BID Qty: 18 0RF Continued aspirin 81 MG tablet,chewable 81 mg PO DAILY@0800 Hold Instructions: Resume on 11/07/22. Patient Comments: LAST DOSE ASPIRIN 07/14/2022 FOR SURGERY ON 07/19/22 finasteride 5 mg tablet 5 mg PO DAILY glipizide 10 mg tablet extended release 24hr 10 mg PO BID metformin 500 mg Tablet 500 mg PO BID nitroglycerin 0.4 mg tablet, sublingual 0.4 mg sublingual Q5M PRN (Reason: Chest Pain) insulin glargine [Lantus Solostar U-100 Insulin] 100 unit/mL (3 mL) insulin pen 20 unit SUBCUT QHS levobunolol 0.5 % Drops 1 drp EACH EYE DAILY Qty: 0 0RF insulin lispro [Humalog KwikPen Insulin] 100 unit/mL Insulin Pen See Protocol subcut ACHS Qty: 0 0RF Protocol: 4. Sliding Scale Insulin High-Med Dosing Condition: 150-199 mg/dl = 2 units Condition: 200-259 mg/dl = 4 units Condition: 260-324 mg/dl = 6 units Condition: 325-374 mg/dl = 8 units Condition: 375-409 mg/dl = 10 units Condition: 410-449 mg/dl = 11 units Condition: Greater than 449 call physician Protocol Text: - Use for Total Daily Dose of Insulin 56-80 units - Patient who are insulin resistant or septic HIGH MEDIUM DOSING ALGORITHM pantoprazole 40 mg tablet,delayed release (DR/EC) 40 mg PO BID clopidogrel 75 mg tablet 75 mg PO DAILY Qty: 90 3RF Hold Instructions: Resume on 11/07/22. atorvastatin 80 mg tablet 80 mg PO QHS Qty: 30 1RF Referrals / Follow Up: Cuba Pryor MD [Med Staff - Active Staff] - Within 2 Weeks (Call office to set up an appointment to be seen within the next 2 weeks) Sandeep Montenegro DO [Primary Care Provider] - Within 2 Weeks Disposition Disposition (needs filled in before D/C Order can be placed): Assisted Living Charges/Coding Visit Charges Inpatient E&M: 24578 Disch Hosp >30min
[2023-08-12 16:39] LABS: Bedside Glucose 297 mg/dL (74-106)
--- NOTE | 2023-08-12 19:32 | CASEMGMT ---
Social Work Noted discharge order in for patient today. Met with patient in room, to determine about transportation back to assisted living. Patient's in room, reporting that will drive patient home. Patient and concerned as the doors lock at 8pm adn want to ensure patient will be able to leave by then. This real estate underwriter spoke with Court at the [facility] about discharge and worry about the doors. Court reports since knows patient may be coming back late, this is okay. This real estate underwriter faxed discharge summary and instructions to confirmed fax at [facility]. Updated patient and . No other services requested or indicated. Plan: [facility] in [facility]. -NERI Almonte
== END 2023-08-12 18:00 | disposition home or self-care (01) | DRG 690 ==
LOC: ED 14:55 → MS3 15:11
PROVIDERS: Anesthesiology; Urology; Admitting Provider Family Medicine; Emergency Provider Emergency Medicine; PCP Family Medicine; Visit Provider Internal Medicine
PROC: 0TBB8ZX Excision of Bladder, Via Natural or Artificial Opening Endoscopic, Diagnostic (ICD-10-PCS; principal; 2023-08-12 12:20)
DX: N30.81 Other cystitis with hematuria (principal); E87.20 Acidosis, unspecified; D69.6 Thrombocytopenia, unspecified; E11.22 Type 2 diabetes mellitus with diabetic chronic kidney disease; D53.9 Nutritional anemia, unspecified; B96.20 Unspecified Escherichia coli [E. coli] as the cause of diseases classified elsewhere; N18.30 Chronic kidney disease, stage 3 unspecified; E11.65 Type 2 diabetes mellitus with hyperglycemia; Z79.4 Long term (current) use of insulin; I12.9 Hypertensive chronic kidney disease with stage 1 through stage 4 chronic kidney disease, or unspecified chronic kidney disease; K76.0 Fatty (change of) liver, not elsewhere classified; E78.5 Hyperlipidemia, unspecified; K21.9 Gastro-esophageal reflux disease without esophagitis; I25.10 Atherosclerotic heart disease of native coronary artery without angina pectoris; K80.20 Calculus of gallbladder without cholecystitis without obstruction; N13.8 Other obstructive and reflux uropathy; Z79.02 Long term (current) use of antithrombotics/antiplatelets; Z79.82 Long term (current) use of aspirin; Z95.5 Presence of coronary angioplasty implant and graft; N40.1 Benign prostatic hyperplasia with lower urinary tract symptoms; R07.9 Chest pain, unspecified; Z79.2 Long term (current) use of antibiotics
CPT/HCPCS: 36415; 74177; 80048; 80053; 80076; 81001; 82962; 83036; 83605; 84484; 85025; 85610; 85730; 87086; 87088; 87186; 93005; 94668; 97110; 97116; 97162; 97166; 97530; 99284; J7030; J7050; Q9967; A4216; J2405

== ENCOUNTER → 2023-10-03 | Outpatient (CLI) | payer MEDICARE, SELFPAY ==
[2023-10-03 11:25] LABS: Absolute Lymphocyte Count 1.81 X10^3/uL (0.83-4.51); Absolute Neutrophil Count 3.9 X10^3/uL (2.0-7.7); Basophil# 0.12 X10^3/uL; Basophil% 1.6 % (0-1); Eosinophil# 1.11 X10^3/uL; Eosinophils% 14.9 % (0-5); Hemoglobin 12.9 g/dL (13.0-16.5); Lymphocyte # 1.81 X10^3/ul (0.83-4.51); Lymphocyte % 24.3 % (19-41); Mean Corp Hgb Conc 33.1 g/dL (32-36); Mean Corpuscular Hgb 32.3 pg (27.0-32.0); Mean Corpuscular Volume 97.7 fL (80-94); Mean Platelet Vol. 10.4 fl (6.2-12.0); Monocyte# 0.53 X10^3/uL; Monocyte% 7.1 % (0-10); NRBC Flagged by Analyzer 0 % (0-5); Neutrophil # 3.87 X10^3/uL (2.7-7.7); Neutrophil % 51.8 % (47-70); Platelet Count 189 K/mm3 (150-450); RBC Distribution Width CV 12.5 % (11.6-14.6); RET-HE 37.5 pg (30-35); Red Blood Count 3.99 M/mm3 (4.6-6.2); Reticulocyte Count 1.67 % (0.5-1.5); White Blood Count 7.5 K/mm3 (4.4-11.0)
[2023-10-03 12:04] LABS: Ferritin 101 ng/mL (26-388); Iron 80 ug/dL (65-175); Iron Binding Capacity,Total 277 ug/dL (250-450)
[2023-10-06 16:09] LABS: Albumin 3.5 g/dL (2.9-4.4); Alpha-1-Globulins 0.2 g/dL (0.0-0.4); Alpha-2-Globulins 0.8 g/dL (0.4-1.0); Endomysial Antibody IgA Negative (Negative); Gamma Globulin 1.2 g/dL (0.4-1.8); Immunoglobulin A 520 mg/dL (61-437); Immunoglobulin G 1420 mg/dL (603-1613); Immunoglobulin M 44 mg/dL (15-143); t-Transglutaminase IgA <2 U/mL (0-3)
== END | disposition home or self-care (01) ==
LOC: LAB 10:38
PROVIDERS: PCP Family Medicine; Referring Provider Internal Medicine Gastroenterology; Visit Provider Internal Medicine Gastroenterology
DX: D64.9 Anemia, unspecified (principal); D69.6 Thrombocytopenia, unspecified; K92.2 Gastrointestinal hemorrhage, unspecified; R62.7 Adult failure to thrive
CPT/HCPCS: 36415; 82728; 82784; 83516; 83540; 83550; 84165; 85025; 85045; 86255; 86334

== ENCOUNTER → 2023-10-20 | Outpatient (CLI) | payer MEDICARE, SELFPAY ==
--- NOTE | 2023-10-20 07:15 | US_ITS ---
STUDY: ABDOMINAL ULTRASOUND - RIGHT UPPER QUADRANT; ELASTOGRAPHY REASON FOR VISIT: Male, 82 years old. FLORIAN TECHNIQUE: Ultrasound evaluation of the right upper quadrant was performed with real-time and static mcgrath-scale imaging. Point quantification shear wave elastography was performed ([employer]). TECHNICAL QUALITY: Adequate. COMPARISON: None. FINDINGS: Liver: The liver measures 13.9 cm. There is normal echogenicity of the liver. The bile ducts are within normal limits. There is hepatic color flow. The direction of portal flow is hepatopetal. There is no demonstrated mass lesion. Median liver stiffness measured 5.2 kPa. Gallbladder: Normal distended gallbladder. The gallbladder wall measures 2.0 mm. There is a negative sonographic Cabello''s sign. There is no pericholecystic fluid. There are multiple echogenic structures within the gallbladder, consistent with multiple gallstones. Common Bile Duct (C.B.D.): The common bile duct measures 4 mm. Pancreas: There is normal echogenicity of the visualized pancreas. There is no demonstrated pancreatic mass or cyst. Right Kidney: Normal size of the right kidney. The right kidney measures 10.3 cm x 5.5 cm x 5.7 cm. Normal renal cortex. The right cortex measures 1.2 cm. There is no demonstrated renal mass or cyst. There is no right hydronephrosis. US/ABD Limited w/ Elastography IMPRESSION: 1. Liver stiffness measures 5.2 kPa compatible with F0-F1 (Normal to mild liver fibrosis) Metavir score. Electronically Signed: Mauri Sim MD at 15:38 EDT ,
--- OUTSIDE RECORDS SUMMARY | 2023-10-20 07:16 | XMS RPT_ITS | CCD ---
Author Name Unknown Address [address] [place] [address] Organization [facility] Care Team Providers Care Main [place] Name Role Phone Abundio Roa Unavailable Unavailable Tamra RG, Artemio Waterman Unavailable [phone] Cydney Ricketts Unavailable Lilly RN, Franchesca Neff [...] COREY PETERSEN Attending UnavailSAJAN Taylor Referring Unavailable CHIRSSY PEARCE Primary Care Unavailable Chrissy Pearce MD Primary Care Provider Allergies Allergy Classification Reported Allergen(s) Allergy Type Date of Onset Reaction(s) Facility (4 sources) metFORMIN; Translations: [METFORMIN] Drug Allergy 04-08-2013 Intolerance [facility] Other [facility] Medications Completed/Discontinued Medications Medication Drug Class(es) Dates Sig (Normalized) Sig (Original) aspirin 81 mg oral tablet (14 sources) Nonsteroidal Anti-inflammatory Drug Start: 01-01-2016 take 1 tablet by mouth once daily ASPIRIN 81 MG TABS One tablet by mouth daily ASPIRIN [id number] Jennifer Beasley RN Problems Active Problems Problem [...] disease (6 sources) Atherosclerotic heart disease of [place] coronary artery without angina pectoris; Translations: [Atherosclerotic heart disease of [place] coronary artery without angina pectoris] Onset: 01-01-2016 [...] 05-18-2018 Episodic Other aftercare (6 sources) Other fdc (current) drug therapy; Translations: [Other fdc (current) drug therapy] Onset: 01-01-2016 01-01-2016 Episodic [...] encounter Gino pappas MD, PhD Work Phone: [facility] Procedures Date Procedure Procedure Detail Performing [...] 04-08-2016 Nurse, Teaching, Wound Check (no charge) Katei Holbrook PA-C Work Phone: Start: 04-05-2016 End: [...] Work Phone: Start: 01-23-2016 End: 01-24-2016 SNOMED-CT: 227368006 Report of clinical encounter Artemio Barboza MD Start: 01-23-2016 End: 01-24-2016 SNOMED-CT: [id number] Report of clinical encounter Artemio Barboza MD Start: 01-04-2016 End: 03-20-2016 Cardiovascular stress test using treadmill Artemio Barboza MD Start: 01-04-2016 End: 01-04-2016 Ecg routine ecg w/least 12 lds w/i&r Artemio Barboza MD Start: 01-04-2016 End: 01-04-2016 Follow Up Appt 3 months Artemio Barboza MD Start: 01-04-2016 End: 01-04-2016 MMM Artemio Barboza MD Start: 01-04-2016 End: 01-05-2016 Referral to technical sales consultant Artemio elam MD Start: 01-04-2016 End: 03-20-2016 Cardiovascular stress test using treadmill Artemio Barboza MD Start: 01-04-2016 End: 01-04-2016 Electrocardiogram, complete Artemio douglas MD Start: 01-04-2016 End: 01-04-2016 Follow Up Appt 3 months Artemio Barboza MD Start: 01-04-2016 End: 01-04-2016 MMM Artemio Barboza MD Start: 01-04-2016 End: 01-05-2016 Referral to technical sales consultant Artemio elam MD Plan of Treatment Date Care Activity Detail Author Start: 01-29-2023 Hemoglobin A1c/Hemoglobin.total in Blood HBA1C [facility] Start: 11-02-2022 Hepatitis C antibody, confirmatory test DILATED RETINAL EXAM [facility] Start: 08-11-2022 ADVANCE DIRECTIVE DISCUSSION ADVANCE DIRECTIVE DISCUSSION [facility] Start: 08-11-2022 DEPRESSION ASSESSMENT DEPRESSION ASSESSMENT [facility] Start: 04-11-2022 Influenza vaccination INFLUENZA (#1) [facility] Start: 08-11-2021 ADVANCE DIRECTIVE DISCUSSION ADVANCE DIRECTIVE DISCUSSION [facility] Start: 03-27-2021 COVID-19 VACCINE (3 - Booster for Pfizer series) COVID-19 VACCINE (3 - Booster for Pfizer series) [facility] Start: 12-20-2020 COVID-19 VACCINE (3 - Booster for Pfizer series) COVID-19 VACCINE (3 - Booster for Pfizer series) [facility] Start: 07-16-2018 Hepatitis B surface antibody level LDL CHOLESTEROL [facility] Start: 07-15-2017 End: 07-15-2017 Appointment Appointment [facility] Work Phone: Start: 07-15-2017 End: 07-15-2017 Appointment Appointment [facility] Work Phone: Start: 07-04-2017 End: 07-15-2017 *Hepatic Function Panel *Hepatic Function Panel [facility] Work Phone: Start: 07-04-2017 End: 07-16-2017 Lipid panel [AGGREGATE] *Lipid Profile CC PCP [facility] Work Phone: Start: 07-04-2017 End: 01-16-2017 *Hepatic Function Panel *Hepatic Function Panel [facility] Work Phone: Start: 07-04-2017 End: 01-16-2017 Lipid panel [AGGREGATE] *Lipid Profile CC PCP [facility] Work Phone: Start: 12-30-2016 End: 01-02-2017 *Hepatic Function Panel *Hepatic Function Panel [facility] Work Phone: Start: 12-30-2016 End: 12-30-2016 Follow Up Appt 6 months Follow Up Appt 6 months [facility] Work Phone: Start: 12-30-2016 End: 01-02-2017 Lipid panel [AGGREGATE] *Lipid Profile CC PCP [facility] Work Phone: Start: 12-30-2016 End: 12-30-2016 MMM MMM [facility] Work Phone: Start: 12-30-2016 End: 01-02-2017 *Hepatic Function Panel *Hepatic Function Panel [facility] Work Phone: Start: 12-30-2016 End: 12-30-2016 Follow Up Appt 6 months Follow Up Appt 6 months [facility] Work Phone: Start: 12-30-2016 End: 01-02-2017 Lipid panel [AGGREGATE] *Lipid Profile CC PCP [facility] Work Phone: Start: 12-30-2016 End: 12-30-2016 MMM MMM [facility] Work Phone: Start: 12-22-2016 SERUM CREATININE SERUM CREATININE [facility] Start: 07-08-2016 End: 07-08-2016 Follow Up Appt Other Follow Up Appt Other [facility] Work Phone: Start: 07-08-2016 End: 07-08-2016 Follow Up Appt Other Follow Up Appt Other [facility] Work Phone: Start: 06-24-2016 Hemoglobin A1c/Hemoglobin.total in Blood HBA1C [facility] Start: 04-08-2016 End: 07-01-2016 *BMP *BMP [facility] Work Phone: Start: 04-08-2016 End: 04-08-2016 *Hepatic Function Panel *Hepatic Function Panel [facility] Work Phone: Start: 04-08-2016 End: 07-01-2016 *BMP *BMP [facility] Work Phone: Start: 04-08-2016 End: [...] Up Appt Other Follow Up Appt Other [facility] Work Phone: Start: 04-05-2016 End: 04-05-2016 MMM MMM [facility] Work Phone: Start: 04-05-2016 End: 07-01-2016 PFM PFM [facility] Work Phone: Start: 04-05-2016 End: 04-05-2016 Follow Up Appt 3 months Follow Up Appt 3 months [facility] Work Phone: Start: 04-05-2016 End: 07-01-2016 Follow Up Appt 6 months Follow Up Appt 6 months [facility] Work Phone: Start: 04-05-2016 End: 07-01-2016 Follow Up Appt Other Follow Up Appt Other [facility] Work Phone: Start: 04-05-2016 End: 04-05-2016 MMM MMM [facility] Work Phone: Start: 04-05-2016 End: 07-01-2016 PFM PFM [facility] Work Phone: Start: 01-04-2016 End: 01-04-2016 Cardiac Rehab Cardiac Rehab [address] [place], [address] [facility] Work Phone: Start: 01-04-2016 End: 01-04-2016 Cardiovascular stress test using treadmill Treadmill stress test (no imaging) [facility] Work Phone: Start: 01-04-2016 End: 01-04-2016 Ecg routine ecg w/least 12 lds w/i&r EKG (In office) [facility] Work Phone: Start: 01-04-2016 End: 01-04-2016 Follow Up Appt 3 months Follow Up Appt 3 months [facility] Work Phone: Start: 01-04-2016 End: 01-04-2016 MMM MMM [facility] Work Phone: Start: 01-04-2016 End: 01-04-2016 Cardiac Rehab Card[facility] Re[facility] [address] [place], [address] [facility] Work Phone: Start: 01-04-2016 End: 01-04-2016 Cardiovascular stress test using treadmill Treadmill stress test (no imaging) [facility] Work Phone: Start: 01-04-2016 End: 01-04-2016 Electrocardiogram, complete EKG (In office) [facility] Work Phone: Start: 01-04-2016 End: 01-04-2016 Follow Up Appt 3 months Follow Up Appt 3 months [facility] Work Phone: Start: 01-04-2016 End: 01-04-2016 MMM MMM [facility] Work Phone: Start: 03-02-2015 3 comp foot exam completed DIABETIC FOOT EXAM [facility] Start: 02-24-2015 Hepatitis B screening URINE ALBUMIN:CREATININE RATIO [facility] Start: 09-14-2013 HEMOGLOBIN/HEMATOCRIT HEMOGLOBIN/HEMATOCRIT [facility] Start: 07-11-2013 Urine microalbumin profile DTAP,TDAP,TD (2 - Tdap) [facility] Start: 06-23-2009 PNEUMOCOCCAL: 65+ (2 - PCV) PNEUMOCOCCAL: 65+ (2 - PCV) [facility] Start: 1992 SHINGRIX VACCINE (1 of 2) SHINGRIX VACCINE (1 of 2) [facility] Start: 1960 ANNUAL PCP TEAM CHRONIC DISEASE VISIT ANNUAL PCP TEAM CHRONIC DISEASE VISIT [facility] Start: 1960 BP CONTROLLED (<130/80) BP CONTROLLED (<130/80) [facility] Start: 1954 Adult depression screening assessment DEPRESSION SCREENING [facility] Patient Education HEART%20HEALTHY%20DIET [facility] Work Phone: [facility] Immunizations Immunization Date Immunization Notes Care Provider [facility] 05-11-2014 influenza, seasonal, injectable Bobby Mazariegos MD Work Phone: [facility] 06-23-2008 pneumococcal polysaccharide vaccine, 23 valent Bobby Mazariegos MD Work Phone: [facility] Work Phone: 07-28-2006 influenza virus vacc ine, unspecified formulation Bobby Mazariegos MD Work Phone: [facility] Work Phone: 07-11-2003 diphtheria and tetan us toxoids, adsorbed for pediatric use Bobby Mazariegos MD Work Phone: [facility] Work Phone: Payers Date Payer Category Payer Medicare [id number] 2021 Unknown ANTHEM BLUE CROS S AND BLUE SHIELD ANTHEM MEDIBLUE HMO [id number] 2021-Present [phone] [address] [place] [address] O [id number] 1940 Unknown [id number] Social History Date Type Detail Facility Start: 06-16-2012 Tobacco smoking stat [facility] Never smoked tobacco [facility] Start: 06-16-2012 Tobacco use and exposure Smoke less tobacco non-user [facility] Start: 03-20-2022 Alcohol intake 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 Start: 03-10-2022 End: 03-20-2022 Exposure to SARS-CoV-2 (event) Not sure [facility] Medical Equipment Procedure Code Equipment Code Equipment Origin al Text Equipment Identifier Dates Lens Acrysof Iq Toric 6mm +21 Diopter +2.25 Cylinder 0 D Biconvex Acrylic - [id number] Start: 07-08-2018 Lens Acrysof Iq Toric 6mm +20.5 Diopter +1.5 Cylinder 0 D Biconvex Acrylic - [id number] Start: 07-29-2018 I Stent [id number] Start: 07-08-2018 Note 09-18-2022 Telephone Encounter [...] she believed he had imaging done at [facility] but was unsure of what he had. Informed her I would be placing additional xray's and imaging for patient to obtain prior to his appt. Advised her to have him call back with any further questions. Alisia Ross, RN documented in this encounter [facility] Progress note 03-20-2022 Note Date & Type Note Facility 03-20-2022 Note HNO ID: [id number] Author: Bobby Mazariegos MD Service: ? Author [...] diagnosis, and treatment options. Bobby Mazariegos MD [facility] Instructions 03-20-2022 Patient Instructions Note Date & Type Note Facility 03-20-2022 Instructions Bobby Mazariegos MD - 03/20/2022 10:39 AM EDT Continue: Current Ophthalmic Meds levobunolol (BETAGEN) 0.5 % ophthalmic solution Use 1 Drop in both eyes every morning. Use at 5 AM If you have any questions please contact our office at [phone]. After office hours or on the weekend, please call Dr. Mazariegos on his cell phone at [phone]. Please keep your blood sugar under good control to minimize risk of ocular complications from diabetes. documented in this encounter [facility] History of Present illness Narrative 03-20-2022 [...] Bobby Mazariegos MD documented in this encounter [facility] Progress note 11-02-2021 Note Date & Type Note Facility 11-02-2021 Note HNO ID: [id number] Author: Bobby Mazariegos MD Service: ? Author [...] about the findings, diagnosis, and treatment options. [facility] History of Past illness Narrative 07-30-2018 Note Date & Type Note Facility documented as of this encounter (statuses as of 03/20/2022) [facility] History of Past illness Narrative 07-30-2018 Note Date & Type Note Facility documented as of this encounter (statuses as of 09/18/2022) [facility] Evaluation note Note Date & Type Note Facility documented in this encounter [facility] Summary Purpose Family History No Family [...] DATE CREATED AUTHOR AUTHOR'S ORGANIZ ATION 08/04/2022 [facility] DATE CREATED AUTHOR AUTHOR'S ORGANIZ ATION 08/04/2022 [facility] DATE CREATED AUTHOR AUTHOR'S ORGANIZ ATION 09/19/2022 [facility] nter Source Comments (unrecognize d section and content) In the event this informatio n is protected by the Federal Confidentiality of Alcohol and Drug Abuse Patient Records regulations: The Federal rules restrict any use of the information to criminally investigate or prosecute any alcohol or drug abuse patient.[facility] the event this information is protected by the Federal Confidentiality of Alcohol and Drug Abuse Patient Records regulations: The Federal rules restrict any use of the information to criminally investigate or prosecute any alcohol or drug abuse patient.[facility] Reason for Visit (unrecogniz ed section and content) Reason Comments Rod Puller - Other Care Teams (unrecognized sec tion and content) Main [place] Relationship Specialty Start Date End Date Chrissy [...] BE BASED ON THE PRIMARY CLINICAL RECORDS. [facility]. provides no warranty or guarantee of the accuracy or completeness of information in this document.
== END | disposition home or self-care (01) ==
LOC: US 07:14
PROVIDERS: PCP Family Medicine; Referring Provider Internal Medicine Gastroenterology; Visit Provider Internal Medicine Gastroenterology
DX: K75.81 Nonalcoholic steatohepatitis (NASH) (principal)
CPT/HCPCS: 76705; 76981

== ENCOUNTER → 2023-12-15 | Outpatient (CLI) | payer MEDICARE, SELFPAY ==
--- NOTE | 2023-12-15 18:09 | CT_ITS ---
STUDY: CT ABDOMEN AND PELVIS WITH CONTRAST REASON FOR EXAM: Male, 82 years old. Pancreatic lesion RADIATION DOSAGE (If Supplied By Facility): CTDIvol = ( 14.48 ) mGy, DLP = ( 873.91 ) mGycm TECHNIQUE: Transaxial images were obtained from the dome of the diaphragm to the symphysis pubis with oral contrast. Oral and amp; IV Gastrografin and amp; 100mL Isovue-300 was administered. Sagittal and coronal images were reconstructed. Individualized dose optimization techniques were used for this CT. COMPARISON: Comparison is made with prior study dated August 10, 2023. FINDINGS: Minimal linear atelectasis and/or scarring at the left lung base. Coronary artery calcification. There is decreased attenuation of the liver consistent with steatosis. There are multiple gallstones. Normal spleen. There is diffuse atrophy of the pancreas. Stable 8.2 mm cyst in the head of the pancreas. Normal bilateral adrenal glands. Normal right kidney. There is a 1.4 cm cyst in the posterior lower pole of the left kidney. Normal visualized stomach. Normal small intestine. Normal colon. The appendix is visualized and appears normal. There is scattered atherosclerotic calcification of the abdominal aorta, without a demonstrated aneurysm. Normal inferior vena cava. Normal retroperitoneum. Distended urinary bladder. Mild degree of diffuse bladder wall thickening. There is evidence of prior TURP. There is a right-sided inguinal hernia containing adipose tissue. There are degenerative changes of the visualized lumbar spine. CT/Abdomen/Pelvis WITH Contrast IMPRESSION: Fatty infiltration of liver. Multiple gallstones. Diffuse pancreatic atrophy which has progressed as compared to prior study. Stable 8.2 mm cyst in the pancreas. Stable left renal cyst. Mild degree of diffuse bladder wall thickening. Distention of the urinary bladder. Electronically Signed: Mauri Sim MD at 15:14 EDT ,
[2023-12-15 19:55] LABS: CREATININE FINGERSTICK 1.5 mg/dL (0.70-1.30)
== END | disposition home or self-care (01) ==
LOC: CT 18:07
PROVIDERS: Referring Provider Internal Medicine Gastroenterology; Visit Provider Internal Medicine Gastroenterology
DX: K92.2 Gastrointestinal hemorrhage, unspecified (principal)
CPT/HCPCS: 74177; Q9967

== ENCOUNTER → 2023-12-16 | Outpatient (CLI) | payer MEDICARE, SELFPAY ==
[2023-12-16 14:34] LABS: Absolute Lymphocyte Count 1.77 X10^3/uL (0.83-4.51); Absolute Neutrophil Count 1.6 X10^3/uL (2.0-7.7); Basophil# 0.07 X10^3/uL; Basophil% 1.5 % (0-1); Eosinophil# 0.56 X10^3/uL; Eosinophils% 12.3 % (0-5); Hematocrit 35.7 % (40-54); Hemoglobin 11.7 g/dL (13.0-16.5); Lymphocyte # 1.77 X10^3/ul (0.83-4.51); Lymphocyte % 38.9 % (19-41); Mean Corp Hgb Conc 32.8 g/dL (32-36); Mean Corpuscular Volume 97.5 fL (80-94); Mean Platelet Vol. 10.6 fl (6.2-12.0); Monocyte% 13.2 % (0-10); NRBC Flagged by Analyzer 0 % (0-5); Neutrophil # 1.55 X10^3/uL (2.7-7.7); Neutrophil % 34.1 % (47-70); Platelet Count 125 K/mm3 (150-450); RBC Distribution Width SD 46.8 fl (35.1-43.9); Red Blood Count 3.66 M/mm3 (4.6-6.2); White Blood Count 4.6 K/mm3 (4.4-11.0)
== END | disposition home or self-care (01) ==
LOC: LAB 13:58
PROVIDERS: Referring Provider Internal Medicine Gastroenterology; Visit Provider Internal Medicine Gastroenterology
DX: D64.9 Anemia, unspecified (principal)
CPT/HCPCS: 36415; 85025

== ENCOUNTER → 2024-04-02 | Outpatient (CLI) | payer MEDICARE, SELFPAY ==
[2024-04-02 14:25] LABS: Absolute Lymphocyte Count 1.98 X10^3/uL (0.83-4.51); Absolute Neutrophil Count 3.9 X10^3/uL (2.0-7.7); Basophil# 0.07 X10^3/uL; Eosinophils% 2.9 % (0-5); Hematocrit 36.3 % (40-54); Lymphocyte # 1.98 X10^3/ul (0.83-4.51); Lymphocyte % 28.7 % (19-41); Mean Corp Hgb Conc 33.1 g/dL (32-36); Mean Corpuscular Hgb 31.6 pg (27.0-32.0); Mean Corpuscular Volume 95.5 fL (80-94); Mean Platelet Vol. 10.8 fl (6.2-12.0); Monocyte# 0.78 X10^3/uL; Monocyte% 11.3 % (0-10); NRBC Flagged by Analyzer 0 % (0-5); Neutrophil # 3.85 X10^3/uL (2.7-7.7); Platelet Count 162 K/mm3 (150-450); RBC Distribution Width CV 12.5 % (11.6-14.6); RBC Distribution Width SD 43.6 fl (35.1-43.9); White Blood Count 6.9 K/mm3 (4.4-11.0)
== END | disposition home or self-care (01) ==
LOC: LAB 13:39
PROVIDERS: PCP Family Medicine; Referring Provider Student in an Organized Health Care Education/Training Program; Visit Provider Student in an Organized Health Care Education/Training Program
DX: D64.9 Anemia, unspecified (principal)
CPT/HCPCS: 36415; 85025

== ENCOUNTER 2024-06-06 13:57 | Observation (INO) | payer MEDICARE, SELFPAY ==
[2024-06-06] VITALS (26 sets, daily range): BP systolic 113–217; BP diastolic 55–139; PULSE 73–85; RESP 13–25; TEMP 36.4–36.9; O2SAT 97–99; BMI 26.8; BMI 26.1
--- NOTE | 2024-06-06 14:20 | EKG12_ITS ---
Test Reason : SYNCOPE Blood Pressure : / mmHG Vent. Rate : 075 BPM Atrial Rate : 075 BPM P-R Int : 200 ms QRS Dur : 086 ms QT Int : 368 ms P-R-T Axes : 036 007 -05 degrees QTc Int : 410 ms Normal sinus rhythm Possible Inferior infarct , age undetermined Anterior infarct , age undetermined Abnormal ECG Confirmed by BRENDA RG, MUSTAPHA ([id number]), film or videotape editor TEN REYNOLDS ([id number]) on 06/08/2024 7:52:43 AM Referred By: Confirmed By:MUSTAPHA GUTIERREZ MD
--- NOTE | 2024-06-06 14:25 | RAD_ITS ---
STUDY: XR Chest 1 View 06/06/2024 2:22 PM REASON FOR EXAM: Male, 83 years old. chest pain COMPARISON: 05/07/2023 TECHNIQUE: XR Chest 1 View FINDINGS: There is no demonstrated pleural abnormality. There is an elevated right hemidiaphragm. Normal heart size. Normal mediastinum. Normal marlon. Prominent appearing increased interstitial lung markings. Normal visualized pulmonary arteries. There is atherosclerotic calcification of the aortic arch with tortuosity. There are diffuse degenerative changes of the visualized thoracic spine. There is degenerative osteoarthritis of the bilateral shoulders. There are no acute findings of the upper abdomen. RAD/Chest 1 View (Portable) IMPRESSION: There are no acute findings. Electronically Signed: Jose Manuel Rubin MD at 14:59 EDT ,
[2024-06-06 14:35] LABS: Bedside Glucose 182 mg/dL (74-106)
[2024-06-06 14:45] LABS: Absolute Lymphocyte Count 2.11 X10^3/uL (0.83-4.51); Absolute Neutrophil Count 2.4 X10^3/uL (2.0-7.7); Basophil# 0.07 X10^3/uL; Basophil% 1.3 % (0-1); Eosinophils% 5.4 % (0-5); Hematocrit 36.4 % (40-54); Hemoglobin 12.3 g/dL (13.0-16.5); Lymphocyte # 2.11 X10^3/ul (0.83-4.51); Lymphocyte % 38.2 % (19-41); Mean Corp Hgb Conc 33.8 g/dL (32-36); Mean Corpuscular Hgb 32.3 pg (27.0-32.0); Mean Corpuscular Volume 95.5 fL (80-94); Mean Platelet Vol. 10.2 fl (6.2-12.0); Monocyte# 0.62 X10^3/uL; Monocyte% 11.2 % (0-10); NRBC Flagged by Analyzer 0 % (0-5); Neutrophil # 2.42 X10^3/uL (2.7-7.7); Neutrophil % 43.7 % (47-70); Platelet Count 152 K/mm3 (150-450); RBC Distribution Width SD 45.3 fl (35.1-43.9); Red Blood Count 3.81 M/mm3 (4.6-6.2); White Blood Count 5.5 K/mm3 (4.4-11.0)
--- NOTE | 2024-06-06 14:59 | EX.ED.DYSGE1 ---
HPI <MILTON Ruiz - Last Filed: 06/06/24 17:33> History of Present Illness Chief Complaint: Syncope Narrative Narrative: Patient is an 83-year-old male with history of diabetes, thrombocytopenia, CATHY who presents to the emergency department after a syncopal episode while eating at [employer]. Pay states he was sitting across from his , felt lightheaded, his states that he does fell to his side landing on the other chair. Bystanders did help him and get him to the car. He is here for evaluation. Pay states he now just feels weak. Denies any fever chills nausea or vomiting. PFS <MILTON Ruiz - Last Filed: 06/06/24 17:33> [facility] Medical History Kidney disease Anemia Prostate disease Ambulates with cane Self-catheterizes urinary bladder Gastric reflux Atonic bladder Gastric ulcer Weight loss Thick muscular wall of urinary bladder present on ultrasound History of CAD (coronary artery disease) History of diabetes mellitus Loss of hearing Wears glasses Open wound Walker as ambulation aid Excessive bleeding Hypertension Non-smoker Cardiology follow-up encounter History of stress test Chronic indwelling Valadez catheter Myocardial infarct Presence of stent in coronary artery (~12/20/15) Atherosclerosis of [place] coronary artery of [place] heart without angina pectoris Chronic renal insufficiency HLD (hyperlipidemia) Angina pectoris, unstable 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, managed as type 2 Home Medications ?Medication ?Instructions ?Recorded ?Last Taken ?Type finasteride 5 mg tablet 5 mg PO DAILY PROSTATE 07/15/22 05/07/23 History nitroglycerin 0.4 mg sublingual 0.4 mg sublingual Q5M PRN Chest 01/17/23 Unknown History tablet Pain atorvastatin 80 mg tablet 80 mg PO QHS CHOLESEROL #30 tabs 05/22/23 Unknown Rx pantoprazole 40 mg tablet,delayed 40 mg PO BID 08/10/23 Unknown History release flash glucose sensor (FreeStyle 02/25/24 Unknown History Oracio 2 Sensor kit) insulin glargine 100 unit/mL (3 26 unit subcut QHS DIABETES 02/25/24 Unknown History mL) subcutaneous pen (Lantus Solostar U-100 Insulin) insulin lispro 100 unit/mL See Rx Instructions subcut .COMPLEX 02/25/24 Unknown History subcutaneous pen (Humalog KwikPen (U-100) Insulin) levobunolol 0.5 % eye drops 1 drp EACH EYE BID GLAUCOMA 02/25/24 Unknown History menthol 4 % topical gel (Biofreeze 1 applic topical BID-QID PRN 02/25/24 Unknown History (menthol)) tramadol 50 mg tablet 25 mg PO BID PRN 02/25/24 Unknown History Allergy/AdvReac Type Severity Reaction Status Date / Time No Known Allergies Allergy Verified 06/06/24 14:00 Family History Brother CAD (coronary artery disease) Mother , from [place] at age 74 CAD (coronary artery disease) Myocardial infarction, Onset Age: 74 Father No problems noted. Surgical History History of coronary artery stent placement S/P TURP History of esophagogastroduodenoscopy (EGD) History of colonoscopy Presence of coronary angioplasty implant and graft (~12/20/15) History of cataract extraction jaw surgery for fracture surgery on left index finger Social History household members: spouse housing: house Smoking Status: Never smoker alcohol intake: never substance use type: does not use caffeine: Yes (rarely) eating out: 1-3 times/week during the past year weight has: other seatbelt use: always do you feel safe at home: Yes ROS <MILTON Ruiz - Last Filed: 06/06/24 17:33> ROS ED ROS Narrative Constitutional: Negative for fever, chills, weight loss.positive for weakness Eyes: Negative for vision loss, vision change, double vision ENT: Negative for any sore throat, ear pain, congestion Cardiovascular: Negative for any chest pain, tightness, palpitations Respiratory: Negative for any cough, sputum production, hemoptysis, dyspnea, dyspnea on exertion, orthopnea Gastrointestinal: Negative for any abdominal pain, nausea, vomiting, diarrhea, constipation, blood in stool, blood in vomit : Negative for any urinary frequency, dysuria, retention, blood in urine Muscle skeletal: Negative for any neck pain, back pain Neurological: Negative for any headache. Positive syncope, dizziness Skin: Negative for any rashes, itching, abrasions, lacerations Psychiatric: Negative for any depression, anxiety, stress, suicidal ideation, homicidal ideation Hematologic: Negative for any excessive bruising, easy bleeding EXAM <Artemio JarrellMILTON pierre - Last Filed: 06/06/24 17:33> Physical Exam Narrative Exam Narrative: Vital signs reviewed. Patient is alert and orient x 4. Does appear weak HEET: Head normocephalic atraumatic, TMs clear bilaterally. Posterior pharynx is clear, dry mucous membranes. Nares clear bilaterally. Neck: Supple with no lymphadenopathy or tenderness. No signs of meningismus. Cardiac: Regular rate and rhythm no murmurs gallops or rubs, equal peripheral pulses bilaterally. Respiratory: Lungs clear to auscultation bilaterally. No chest tenderness. Abdomen: Soft, nontender, nondistended. No abdominal bruit or pulsatile masses. No hepatosplenomegaly Extremities: No peripheral edema, no signs of gross trauma or deformity. Active full range of motion of all extremities. Neuro: Cranial nerves II through XII intact, no focal neurological deficits. Skin: Clean dry and intact with no rash, purpura, petechiae, vesicles or pustules. Backs/flank: No CVA tenderness, no midline spinal tenderness, no deformity. Psych: Normal mood and affect. No SI, HI or acute psychosis. Const Vital Signs: 06/06/24 14:00 06/06/24 14:56 06/06/24 14:56 Temperature 97.6 F L Temperature Source Oral Pulse Rate 77 75 Pulse Rate [Lying] Pulse Rate [Sitting (for 1 minute prior to obtaining)] Respiratory Rate 16 17 Respiratory Pattern Blood Pressure 117/71 Blood Pressure [Lying] Blood Pressure [Sitting (for 1 minute prior to obtaining)] Blood Pressure Mean 86 Blood Pressure Mean [Lying] Blood Pressure Mean [Sitting (for 1 minute prior to obtaining)] Pulse Ox 98 Oxygen Delivery Method Room Air Room Air 06/06/24 14:57 06/06/24 15:00 06/06/24 15:01 Temperature Temperature Source Pulse Rate 73 Pulse Rate [Lying] 76 Pulse Rate [Sitting (for 1 minute prior to obtaining)] 85 Respiratory Rate 25 H Respiratory Pattern Normal Blood Pressure 113/55 L Blood Pressure [Lying] 153/79 H Blood Pressure [Sitting (for 1 minute prior to obtaining)] 113/55 L Blood Pressure Mean 71 Blood Pressure Mean [Lying] 103 Blood Pressure Mean [Sitting (for 1 minute prior to obtaining)] 74 Pulse Ox Oxygen Delivery Method 06/06/24 15:15 06/06/24 15:30 06/06/24 15:45 Temperature Temperature Source Pulse Rate 73 75 77 Pulse Rate [Lying] Pulse Rate [Sitting (for 1 minute prior to obtaining)] Respiratory Rate 13 13 17 Respiratory Pattern Blood Pressure 161/77 H 174/74 H Blood Pressure [Lying] Blood Pressure [Sitting (for 1 minute prior to obtaining)] Blood Pressure Mean 102 99 Blood Pressure Mean [Lying] Blood Pressure Mean [Sitting (for 1 minute prior to obtaining)] Pulse Ox Oxygen Delivery Method 06/06/24 16:00 06/06/24 16:15 06/06/24 16:30 Temperature Temperature Source Pulse Rate 78 77 78 Pulse Rate [Lying] Pulse Rate [Sitting (for 1 minute prior to obtaining)] Respiratory Rate 16 13 13 Respiratory Pattern Blood Pressure 194/91 H 191/98 H 176/93 H Blood Pressure [Lying] Blood Pressure [Sitting (for 1 minute prior to obtaining)] Blood Pressure Mean 117 124 118 Blood Pressure Mean [Lying] Blood Pressure Mean [Sitting (for 1 minute prior to obtaining)] Pulse Ox Oxygen Delivery Method 06/06/24 16:45 06/06/24 16:49 06/06/24 16:51 Temperature Temperature Source Pulse Rate 78 77 Pulse Rate [Lying] Pulse Rate [Sitting (for 1 minute prior to obtaining)] Respiratory Rate 18 15 Respiratory Pattern Blood Pressure 204/97 H 194/102 H Blood Pressure [Lying] Blood Pressure [Sitting (for 1 minute prior to obtaining)] Blood Pressure Mean 128 128 Blood Pressure Mean [Lying] Blood Pressure Mean [Sitting (for 1 minute prior to obtaining)] Pulse Ox Oxygen Delivery Method 06/06/24 17:00 06/06/24 17:15 06/06/24 17:16 Temperature Temperature Source Pulse Rate 79 80 79 Pulse Rate [Lying] Pulse Rate [Sitting (for 1 minute prior to obtaining)] Respiratory Rate 17 17 17 Respiratory Pattern Blood Pressure 162/126 H 196/97 H Blood Pressure [Lying] Blood Pressure [Sitting (for 1 minute prior to obtaining)] Blood Pressure Mean 138 124 Blood Pressure Mean [Lying] Blood Pressure Mean [Sitting (for 1 minute prior to obtaining)] Pulse Ox Oxygen Delivery Method 06/06/24 17:19 06/06/24 17:27 Temperature 98.2 F 98.4 F Temperature Source Oral Pulse Rate 77 Pulse Rate [Lying] Pulse Rate [Sitting (for 1 minute prior to obtaining)] Respiratory Rate 16 Respiratory Pattern Blood Pressure 162/126 H Blood Pressure [Lying] Blood Pressure [Sitting (for 1 minute prior to obtaining)] Blood Pressure Mean 138 Blood Pressure Mean [Lying] Blood Pressure Mean [Sitting (for 1 minute prior to obtaining)] Pulse Ox 97 Oxygen Delivery Method <Dr. Ari Ron, DO - Last Filed: 06/06/24 18:01> Physical Exam Const Vital Signs: 06/06/24 14:00 06/06/24 14:56 06/06/24 14:56 Temperature 97.6 F L Temperature Source Oral Pulse Rate 77 75 Pulse Rate [Lying] Pulse Rate [Sitting (for 1 minute prior to obtaining)] Respiratory Rate 16 17 Respiratory Pattern Blood Pressure 117/71 Blood Pressure [Lying] Blood Pressure [Sitting (for 1 minute prior to obtaining)] Blood Pressure Mean 86 Blood Pressure Mean [Lying] Blood Pressure Mean [Sitting (for 1 minute prior to obtaining)] Pulse Ox 98 Oxygen Delivery Method Room Air Room Air 06/06/24 14:57 06/06/24 15:00 06/06/24 15:01 Temperature Temperature Source Pulse Rate 73 Pulse Rate [Lying] 76 Pulse Rate [Sitting (for 1 minute prior to obtaining)] 85 Respiratory Rate 25 H Respiratory Pattern Normal Blood Pressure 113/55 L Blood Pressure [Lying] 153/79 H Blood Pressure [Sitting (for 1 minute prior to obtaining)] 113/55 L Blood Pressure Mean 71 Blood Pressure Mean [Lying] 103 Blood Pressure Mean [Sitting (for 1 minute prior to obtaining)] 74 Pulse Ox Oxygen Delivery Method 06/06/24 15:15 06/06/24 15:30 06/06/24 15:45 Temperature Temperature Source Pulse Rate 73 75 77 Pulse Rate [Lying] Pulse Rate [Sitting (for 1 minute prior to obtaining)] Respiratory Rate 13 13 17 Respiratory Pattern Blood Pressure 161/77 H 174/74 H Blood Pressure [Lying] Blood Pressure [Sitting (for 1 minute prior to obtaining)] Blood Pressure Mean 102 99 Blood Pressure Mean [Lying] Blood Pressure Mean [Sitting (for 1 minute prior to obtaining)] Pulse Ox Oxygen Delivery Method 06/06/24 16:00 06/06/24 16:15 06/06/24 16:30 Temperature Temperature Source Pulse Rate 78 77 78 Pulse Rate [Lying] Pulse Rate [Sitting (for 1 minute prior to obtaining)] Respiratory Rate 16 13 13 Respiratory Pattern Blood Pressure 194/91 H 191/98 H 176/93 H Blood Pressure [Lying] Blood Pressure [Sitting (for 1 minute prior to obtaining)] Blood Pressure Mean 117 124 118 Blood Pressure Mean [Lying] Blood Pressure Mean [Sitting (for 1 minute prior to obtaining)] Pulse Ox Oxygen Delivery Method 06/06/24 16:45 06/06/24 16:49 06/06/24 16:51 Temperature Temperature Source Pulse Rate 78 77 Pulse Rate [Lying] Pulse Rate [Sitting (for 1 minute prior to obtaining)] Respiratory Rate 18 15 Respiratory Pattern Blood Pressure 204/97 H 194/102 H Blood Pressure [Lying] Blood Pressure [Sitting (for 1 minute prior to obtaining)] Blood Pressure Mean 128 128 Blood Pressure Mean [Lying] Blood Pressure Mean [Sitting (for 1 minute prior to obtaining)] Pulse Ox Oxygen Delivery Method 06/06/24 17:00 06/06/24 17:15 06/06/24 17:16 Temperature Temperature Source Pulse Rate 79 80 79 Pulse Rate [Lying] Pulse Rate [Sitting (for 1 minute prior to obtaining)] Respiratory Rate 17 17 17 Respiratory Pattern Blood Pressure 162/126 H 196/97 H Blood Pressure [Lying] Blood Pressure [Sitting (for 1 minute prior to obtaining)] Blood Pressure Mean 138 124 Blood Pressure Mean [Lying] Blood Pressure Mean [Sitting (for 1 minute prior to obtaining)] Pulse Ox Oxygen Delivery Method 06/06/24 17:19 06/06/24 17:27 Temperature 98.2 F 98.4 F Temperature Source Oral Pulse Rate 77 Pulse Rate [Lying] Pulse Rate [Sitting (for 1 minute prior to obtaining)] Respiratory Rate 16 Respiratory Pattern Blood Pressure 162/126 H Blood Pressure [Lying] Blood Pressure [Sitting (for 1 minute prior to obtaining)] Blood Pressure Mean 138 Blood Pressure Mean [Lying] Blood Pressure Mean [Sitting (for 1 minute prior to obtaining)] Pulse Ox 97 Oxygen Delivery Method REYES <MILTON Ruiz - Last Filed: 06/06/24 17:33> REYES Lab Data Labs: Laboratory Results - last 24 hr 06/06/24 06/06/24 06/06/24 14:18 14:35 16:14 WBC 5.5 RBC 3.81 L Hgb 12.3 L Hct 36.4 L MCV 95.5 H MCH 32.3 H MCHC 33.8 RDW Std Deviation 45.3 H RDW Coeff of Sridevi 13.0 Plt Count 152 MPV 10.2 Immature Gran % (Auto) 0.200 Neut % (Auto) 43.7 L Lymph % (Auto) 38.2 [place] % (Auto) 11.2 H Eos % (Auto) 5.4 H Baso % (Auto) 1.3 H Absolute Neuts (auto) 2.4 Absolute Lymphs (auto) 2.11 Nucleated RBC % 0 D-Dimer Quant (PE/DVT) 1.32 H* Sodium 143 Potassium 4.2 Chloride 111 H Carbon Dioxide 27.0 Anion Gap 5 BUN 33 H Creatinine 1.72 H Estim Creat Clear Calc 33.68 Est GFR (MDRD) Af Amer 49 L Est GFR (MDRD) Non-Af 41 L BUN/Creatinine Ratio 19.2 Glucose 171 H Calcium 8.7 Troponin I High Sens 17 B-Natriuretic Peptide 30.1 Urine Color Yellow Urine Clarity Cloudy Urine pH 7.0 Ur Specific [place] 1.010 Urine Protein 30 H Urine Glucose (UA) 1000 H Urine Ketones Negative Urine Occult Blood 25 H Urine Nitrite Negative Urine Bilirubin Negative Urine Urobilinogen Normal Ur Leukocyte Esterase 500 H Urine RBC 0 SEEN Urine WBC >100 SEEN Ur Squamous Epith Cells 0 SEEN Urine Bacteria 4+ Urine Mucus 0 SEEN POC Glucose 182 H 06/06/24 16:54 WBC RBC Hgb Hct MCV MCH MCHC RDW Std Deviation RDW Coeff of Sridevi Plt Count MPV Immature Gran % (Auto) Neut % (Auto) Lymph % (Auto) [place] % (Auto) Eos % (Auto) Baso % (Auto) Absolute Neuts (auto) Absolute Lymphs (auto) Nucleated RBC % D-Dimer Quant (PE/DVT) Sodium Potassium Chloride Carbon Dioxide Anion Gap BUN Creatinine Estim Creat Clear Calc Est GFR (MDRD) Af Amer Est GFR (MDRD) Non-Af BUN/Creatinine Ratio Glucose Calcium Troponin I High Sens 15 B-Natriuretic Peptide Urine Color Urine Clarity Urine pH Ur Specific [place] Urine Protein Urine Glucose (UA) Urine Ketones Urine Occult Blood Urine Nitrite Urine Bilirubin Urine Urobilinogen Ur Leukocyte Esterase Urine RBC Urine WBC Ur Squamous Epith Cells Urine Bacteria Urine Mucus POC Glucose Radiography Diagnostic Testing: Clinical Impression(s) from Imaging Studies Chest X-Ray 06/06/24 14:25 IMPRESSION: There are no acute findings. Electronically Signed: Jose Manuel Rubin MD at 14:59 EDT , Chest CTA 06/06/24 16:11 IMPRESSION: No demonstrated pulmonary embolism or arterial dissection. There are no acute findings. Electronically Signed: Jose Manuel Rubin MD at 17:21 EDT , EKG EKG shows a normal sinus rhythm, rate of 75 bpm, IN interval 200 ms, QRS duration 86 ms, no acute ST elevation, no acute infarct noted.: Attestation: I personally reviewed and interpreted this EKG as follows: Interpretation: Sinus Rhythm Treatment and Re-Evaluation :: Differential diagnosis includes however is not limited to: Arrhythmia, ACS, [place], hypoglycemia, vasovagal syncope, electrolyte abnormality, dehydration On my initial evaluation, patient did appear slightly weak however patient was alert and orient x 4, vital signs are stable. Presenting to the emergency department after syncopal episode while eating at [employer], patient was out for almost a minute per the . Patient was seen a full cardiac workup clued 2 troponins, chest x-ray, laboratory values, orthostatic vital signs will be completed. All radiologic examinations were read, reviewed by the emergency department attending. From these reads, a plan of care will be put in place. Patient's chest x-ray shows no acute finding, COVID-19 influenza RSV was negative. Patient's laboratory values show a normal CBC, patient's chemistries show slight elevation in creatinine at 1.72, GFR 49, patient's glucose 1 and 71, he is diabetic. Troponin and BNP was negative. Patient's D-dimer was elevated at 1.32, CTA of the chest will be obtained. I spoke with the nurse, he was positive with orthostatics, patient did receive 1 L normal saline. Straight cath urine will be obtained and sent. Patient's CTA was negative for any acute process. Patient was started IV Rocephin, urine culture sent, patient was given IV fentanyl for his pain. At this time, patient will be admitted to the hospital. I spoke with hospitalist who is in agreement. <Dr. Ari Ron, DO - Last Filed: 06/06/24 18:01> [facility] Narrative Medical decision making narrative: I have personally performed a face to face assessment of the patient and have reviewed the TATIANA Note. I performed a substantive portion of the visit including all aspects of the following. My garcia findings include: History: Patient presents with a syncopal episode that occurred today. Patient states he was feeling lightheaded when he went into [employer] to get something to eat. Patient states that while he was sitting there, he was eating, and he noted some blurry vision. Patient fell to his side into the chair beside him. Patient is unsure how long he was out for. Patient complains of pain in both shoulders. Patient denies any fevers or chills. Patient denies any nausea or vomiting. Patient denies any palpitations. Exam: Vital signs are stable. Patient afebrile. Patient in no acute distress. Oral mucosa is pink and moist. Neck is supple. Trach wound midline. There is no JVD. Heart with regular rate and rhythm. Lungs are clear and equal bilaterally. There is good respiratory effort noted. Abdomen is soft. Bowel sounds are normal. There is no tenderness. There are no masses palpated. Cranial nerves II through XII are intact. There are no focal motor or sensory deficits noted. Medical Decision Making: Differential diagnosis includes cardiac dysrhythmia, cardiac ischemia, electrolyte abnormality, hypoglycemia, congestive heart failure, pulmonary embolism, dehydration. EKG will be obtained to assess for cardiac dysrhythmia and cardiac ischemia. Chest x-ray will be obtained to assess for pneumonia and pneumothorax. CBC will be obtained to assess for leukocytosis and anemia. Basic metabolic profile will be obtained to assess for electrolyte abnormality and renal function. BNP will be obtained to assess for congestive heart failure. Urinalysis will be obtained to assess for urinary tract infection and hematuria. High-sensitivity troponin will be obtained to assess for cardiac ischemia. 2-hour repeat high-sensitivity troponin will be obtained to assess for ongoing cardiac ischemia. EKG was obtained. On my independent interpretation, it shows a normal sinus rhythm with with a rate of 75. IN interval, QRS normal, QTc intervals are all within normal limits. There are no acute ST or T wave changes noted. Portable 1 view chest x-ray was obtained. On my independent interpretation, lung conrad are clear. There is normal cardiac silhouette. Bony thorax is normal. There is no acute process noted. Radiologist also interpreted the x-ray and agrees. CBC was reviewed. There is a slight anemia with a hemoglobin of 12.3 and hematocrit of 36.4. Basic metabolic profile was reviewed. BUN was slightly elevated at 33 and creatinine was slightly elevated at 1.72. This is slightly worse than previous results. Initial high-sensitivity troponin was reviewed and was normal at 17. BNP was reviewed and was normal at 30.1. Orthostatic vital signs were obtained and were positive. Case was discussed with the hospitalist. She will admit the patient to her service. Patient understood and was agreeable with the plan. All questions were answered. Lab Data Labs: Laboratory Results - last 24 hr 06/06/24 06/06/24 06/06/24 14:18 14:35 16:14 WBC 5.5 RBC 3.81 L Hgb 12.3 L Hct 36.4 L MCV 95.5 H MCH 32.3 H MCHC 33.8 RDW Std Deviation 45.3 H RDW Coeff of Sridevi 13.0 Plt Count 152 MPV 10.2 Immature Gran % (Auto) 0.200 Neut % (Auto) 43.7 L Lymph % (Auto) 38.2 [place] % (Auto) 11.2 H Eos % (Auto) 5.4 H Baso % (Auto) 1.3 H Absolute Neuts (auto) 2.4 Absolute Lymphs (auto) 2.11 Nucleated RBC % 0 D-Dimer Quant (PE/DVT) 1.32 H* Sodium 143 Potassium 4.2 Chloride 111 H Carbon Dioxide 27.0 Anion Gap 5 BUN 33 H Creatinine 1.72 H Estim Creat Clear Calc 33.68 Est GFR (MDRD) Af Amer 49 L Est GFR (MDRD) Non-Af 41 L BUN/Creatinine Ratio 19.2 Glucose 171 H Calcium 8.7 Troponin I High Sens 17 B-Natriuretic Peptide 30.1 Urine Color Yellow Urine Clarity Cloudy Urine pH 7.0 Ur Specific [place] 1.010 Urine Protein 30 H Urine Glucose (UA) 1000 H Urine Ketones Negative Urine Occult Blood 25 H Urine Nitrite Negative Urine Bilirubin Negative Urine Urobilinogen Normal Ur Leukocyte Esterase 500 H Urine RBC 0 SEEN Urine WBC >100 SEEN Ur Squamous Epith Cells 0 SEEN Urine Bacteria 4+ Urine Mucus 0 SEEN POC Glucose 182 H 06/06/24 16:54 WBC RBC Hgb Hct MCV MCH MCHC RDW Std Deviation RDW Coeff of Sridevi Plt Count MPV Immature Gran % (Auto) Neut % (Auto) Lymph % (Auto) [place] % (Auto) Eos % (Auto) Baso % (Auto) Absolute Neuts (auto) Absolute Lymphs (auto) Nucleated RBC % D-Dimer Quant (PE/DVT) Sodium Potassium Chloride Carbon Dioxide Anion Gap BUN Creatinine Estim Creat Clear Calc Est GFR (MDRD) Af Amer Est GFR (MDRD) Non-Af BUN/Creatinine Ratio Glucose Calcium Troponin I High Sens 15 B-Natriuretic Peptide Urine Color Urine Clarity Urine pH Ur Specific [place] Urine Protein Urine Glucose (UA) Urine Ketones Urine Occult Blood Urine Nitrite Urine Bilirubin Urine Urobilinogen Ur Leukocyte Esterase Urine RBC Urine WBC Ur Squamous Epith Cells Urine Bacteria Urine Mucus POC Glucose Radiography Diagnostic Testing: Clinical Impression(s) from Imaging Studies Chest X-Ray 06/06/24 14:25 IMPRESSION: There are no acute findings. Electronically Signed: Jose Manuel Rubin MD at 14:59 EDT , Chest CTA 06/06/24 16:11 IMPRESSION: No demonstrated pulmonary embolism or arterial dissection. There are no acute findings. Electronically Signed: Jose Manuel Rubin MD at 17:21 EDT , Discharge Plan Dx/Rx/DC Orders Clinical Impression: Syncope, CATHY (acute kidney injury), Acute UTI, Acute dehydration Disposition Disposition: [facility], [facility]
[2024-06-06 15:01] LABS: Anion Gap 5 (5-15); BUN 33 mg/dL (7-18); BUN/Creat Ratio 19.2 RATIO (10-20); Calcium,Total 8.7 mg/dL (8.5-10.1); Chloride 111 mmol/L (98-107); Creatinine, Serum 1.72 mg/dL (0.70-1.30); EST Glomerular Filtration Rate 41 mL/min (>60); Est Glom Filt Rate - Afr Amer 49 mL/min (>60); Estimated Creatinine Clearance 33.68 ml/min; Glucose 171 mg/dL (74-106); Potassium 4.2 mmol/L (3.5-5.1); Sodium Level 143 mmol/L (136-145); Troponin-I HS (w/2H Reflex) 17 pg/mL (3.0-78.0)
[2024-06-06] MEDS: 0.9% Normal Saline (1000mL) 1,000 ML 999 ML IV (15:04)
[2024-06-06 15:10] LABS: BNP,B-Type NATRIURETIC PEPTIDE 30.1 pg/mL (0-100)
[2024-06-06 15:52] LABS: D-Dimer Quantitative (DVT/PE) 1.32 FEU/ug/m (0.27-0.49)
--- NOTE | 2024-06-06 16:04 | ED.RN ---
LAB CALLED D-DIMER 1.32. DR MCCALL
--- NOTE | 2024-06-06 16:11 | CT_ITS ---
STUDY: CTA Chest WO/W Contrast Injection 06/06/2024 5:13 PM REASON FOR EXAM: Male, 83 years old. elevated Dimer, Syncope TECHNIQUE: The examination was performed with the intravenous administration of IV 100mL Isovue-370 contrast material. Post-processing of the angiographic images was performed, with axial imaging and 3D reconstruction. MIPS images were obtained. Individualized dose optimization techniques were used for this CT. COMPARISON: 09.24.22 FINDINGS: There are degenerative changes of the shoulders. There is no pneumothorax. There is no demonstrated pleural abnormality. There are calcifications of the coronary arteries. Normal mediastinum. Normal hilar regions. Normal pulmonary arteries. There is atherosclerotic calcification of the aortic arch with tortuosity and elongation of the aortic arch and descending thoracic aorta. There are multi-level degenerative changes of the thoracic spine. Gallstones CT/CTA Chest W/WO Contrast IMPRESSION: No demonstrated pulmonary embolism or arterial dissection. There are no acute findings. Electronically Signed: Jose Manuel Rubin MD at 17:21 EDT ,
[2024-06-06 16:20] LABS: Mucous, Urine 0 SEEN /hpf (<or=2+); Red Blood Cells-Urine 0 SEEN /hpf (0-5); Squamous Epithelial Cells - UA 0 SEEN /hpf (0-5)
[2024-06-06 16:24] LABS: Color, Urine Yellow (Yellow); Glucose, Dipstick 1000 mg/dl (Normal); Ketone-Dipstick Negative (Negative); Leukocyte Esterase-Dipstick 500 /ul (Negative); Nitrite-Dipstick Negative (Negative); Occult Blood-Urine 25 /ul (Negative); Protein-Dipstick 30 mg/dl (Negative); Urine Bilirubin Dipstick Negative (Negative); Urine Clarity Cloudy (Clear); Urine Urobilinogen Normal (Normal)
[2024-06-06 16:36] LABS: Bacteria 4+ /hpf (None Seen); White Blood Cells >100 SEEN /hpf (0-5)
[2024-06-06 16:41] LABS: Reflex Troponin-HS? (from REC) Y
[2024-06-06] MEDS: fentaNYL 100 MCG/2 ML Ampul 50 MCG IV (17:15)
[2024-06-06] MEDS: Ceftriaxone 1 GM/50 ML BAG IV (17:16)
[2024-06-06 17:24] LABS: Troponin-I HS 15 pg/mL (3.0-78.0)
--- NOTE | 2024-06-06 17:33 | NURSING ---
PCU VERAS SYNCOPE, UTI, DEHYDRATION, CATHY
--- NOTE | 2024-06-06 17:56 | HP.PCM.HOS_ITS ---
HPI - General General Date of Admission: 06/06/24 Date of Service: 06/06/24 Chief Complaint: Syncopal episode HPI Narrative LYNETTE GUDINO, is a 83-year-old male history of diabetes, GERD, BPH, CAD s/p stenting, who presented to [facility] ED 06/06/2024 after syncopal episode while eating [employer].? Patient was sitting across from his felt lightheaded and then he landed on his side on the chair and was out for about a minute.? Bystanders then helped get him to the car and he presented to the ED for evaluation.? Currently just feeling weak.? In the ED patient had significant orthostatic hypotension with symptoms and was found to have an CATHY with creatinine of 1.72.? He also had a D-dimer of 1.32 so CTA was obtained and was negative.? Given his syncopal episode and symptomatic orthostatic hypotension hospitalist contacted for mission.? Patient evaluated bedside with present. Patient reports he has had intermittent presyncopal episodes for a very long time now and cannot quantify these and usually has 1 about once a day however today he was lightheaded when walking into [employer] and sat down, he ate about half of his [employer] when he got lightheaded and felt his vision go blurry and then he had the syncopal episode. Feeling somewhat weak overall. Had a similar episode around a year ago at [facility] however he was ambulating and actually fell and hit his head at that time. Presently feeling little bit better and not actively feeling lightheaded. Patient reports some chronic left lower back pain and intermittently left leg will go numb, does chronically self catheterize and does not note any recent abnormalities in this, no diarrhea or nausea or abdominal pain. Occasionally gets headaches and not having [place] at present, no current changes in vision, no present chest pain or shortness of breath or cough. No other new or acute complaints [facility] Medical History Kidney disease Anemia Prostate disease Ambulates with cane Self-catheterizes urinary bladder Gastric reflux Atonic bladder Gastric ulcer Weight loss Thick muscular wall of urinary bladder present on ultrasound History of CAD (coronary artery disease) History of diabetes mellitus Loss of hearing Wears glasses Open wound Walker as ambulation aid Excessive bleeding Hypertension Non-smoker Cardiology follow-up encounter History of stress test Chronic indwelling Valadez catheter Myocardial infarct Presence of stent in coronary artery (~12/20/15) Atherosclerosis of [place] coronary artery of [place] heart without angina pectoris Chronic renal insufficiency HLD (hyperlipidemia) Angina pectoris, unstable 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, managed as type 2 Home Medications ?Medication ?Instructions ?Recorded ?Last Taken ?Type finasteride 5 mg tablet 5 mg PO DAILY PROSTATE 07/15/22 05/07/23 History nitroglycerin 0.4 mg sublingual 0.4 mg sublingual Q5M PRN Chest 01/17/23 Unknown History tablet Pain atorvastatin 80 mg tablet 80 mg PO QHS CHOLESEROL #30 tabs 05/22/23 Unknown Rx pantoprazole 40 mg tablet,delayed 40 mg PO BID 08/10/23 Unknown History release flash glucose sensor (FreeStyle 02/25/24 Unknown History Oracio 2 Sensor kit) insulin glargine 100 unit/mL (3 26 unit subcut QHS DIABETES 02/25/24 Unknown History mL) subcutaneous pen (Lantus Solostar U-100 Insulin) insulin lispro 100 unit/mL See Rx Instructions subcut .COMPLEX 02/25/24 Unknown History subcutaneous pen (Humalog KwikPen (U-100) Insulin) levobunolol 0.5 % eye drops 1 drp EACH EYE DAILY GLAUCOMA 02/25/24 Unknown History menthol 4 % topical gel (Biofreeze 1 applic topical BID-QID PRN pain 02/25/24 Unknown History (menthol)) tramadol 50 mg tablet 25 mg PO BID PRN pain 02/25/24 Unknown History Allergy/AdvReac Type Severity Reaction Status Date / Time No Known Allergies Allergy Verified 06/06/24 14:00 Family History Brother CAD (coronary artery disease) Mother , from [place] at age 74 CAD (coronary artery disease) Myocardial infarction, Onset Age: 74 Father No problems noted. Surgical History History of coronary artery stent placement S/P TURP History of esophagogastroduodenoscopy (EGD) History of colonoscopy Presence of coronary angioplasty implant and graft (~12/20/15) History of cataract extraction jaw surgery for fracture surgery on left index finger Social History household members: spouse housing: house Smoking Status: Never smoker alcohol intake: never substance use type: does not use caffeine: Yes (rarely) eating out: 1-3 times/week during the past year weight has: other seatbelt use: always do you feel safe at home: Yes ROS ROS Narrative General: Denies fever/chills HENT: Denies headache, denies stuffy nose, denies sore throat EYES: Denies changes in vision Resp: Denies cough, denies shortness of breath Cardiac: Denies chest pain GI: Denies abdominal pain, denies changes in bowel, denies nausea/vomiting : Denies changes in urination Extremity: Denies swelling MSK: Some generalized weakness, left-sided back pain Neuro: Feels his left leg is a little numb which happens when he sits or lays in certain positions and he attributes to how he is currently laying in bed Heme: Denies any bleeding or bruising Skin: Denies rashes Psychiatric: No complaints voiced Vital Signs Vital Signs Vital Signs: 06/06/24 14:00 06/06/24 14:56 06/06/24 14:56 Temperature 97.6 F L Temperature Source Oral Pulse Rate 77 75 Pulse Rate [Lying] Pulse Rate [Sitting (for 1 minute prior to obtaining)] Respiratory Rate 16 17 Respiratory Pattern Blood Pressure 117/71 Blood Pressure [Lying] Blood Pressure [Sitting (for 1 minute prior to obtaining)] Blood Pressure Mean 86 Blood Pressure Mean [Lying] Blood Pressure Mean [Sitting (for 1 minute prior to obtaining)] Pulse Ox 98 Oxygen Delivery Method Room Air Room Air 06/06/24 14:57 06/06/24 15:00 06/06/24 15:01 Temperature Temperature Source Pulse Rate 73 Pulse Rate [Lying] 76 Pulse Rate [Sitting (for 1 minute prior to obtaining)] 85 Respiratory Rate 25 H Respiratory Pattern Normal Blood Pressure 113/55 L Blood Pressure [Lying] 153/79 H Blood Pressure [Sitting (for 1 minute prior to obtaining)] 113/55 L Blood Pressure Mean 71 Blood Pressure Mean [Lying] 103 Blood Pressure Mean [Sitting (for 1 minute prior to obtaining)] 74 Pulse Ox Oxygen Delivery Method 06/06/24 15:15 06/06/24 15:30 06/06/24 15:45 Temperature Temperature Source Pulse Rate 73 75 77 Pulse Rate [Lying] Pulse Rate [Sitting (for 1 minute prior to obtaining)] Respiratory Rate 13 13 17 Respiratory Pattern Blood Pressure 161/77 H 174/74 H Blood Pressure [Lying] Blood Pressure [Sitting (for 1 minute prior to obtaining)] Blood Pressure Mean 102 99 Blood Pressure Mean [Lying] Blood Pressure Mean [Sitting (for 1 minute prior to obtaining)] Pulse Ox Oxygen Delivery Method 06/06/24 16:00 06/06/24 16:15 06/06/24 16:30 Temperature Temperature Source Pulse Rate 78 77 78 Pulse Rate [Lying] Pulse Rate [Sitting (for 1 minute prior to obtaining)] Respiratory Rate 16 13 13 Respiratory Pattern Blood Pressure 194/91 H 191/98 H 176/93 H Blood Pressure [Lying] Blood Pressure [Sitting (for 1 minute prior to obtaining)] Blood Pressure Mean 117 124 118 Blood Pressure Mean [Lying] Blood Pressure Mean [Sitting (for 1 minute prior to obtaining)] Pulse Ox Oxygen Delivery Method 06/06/24 16:45 06/06/24 16:49 06/06/24 16:51 Temperature Temperature Source Pulse Rate 78 77 Pulse Rate [Lying] Pulse Rate [Sitting (for 1 minute prior to obtaining)] Respiratory Rate 18 15 Respiratory Pattern Blood Pressure 204/97 H 194/102 H Blood Pressure [Lying] Blood Pressure [Sitting (for 1 minute prior to obtaining)] Blood Pressure Mean 128 128 Blood Pressure Mean [Lying] Blood Pressure Mean [Sitting (for 1 minute prior to obtaining)] Pulse Ox Oxygen Delivery Method 06/06/24 17:00 06/06/24 17:15 06/06/24 17:16 Temperature Temperature Source Pulse Rate 79 80 79 Pulse Rate [Lying] Pulse Rate [Sitting (for 1 minute prior to obtaining)] Respiratory Rate 17 17 17 Respiratory Pattern Blood Pressure 162/126 H 196/97 H Blood Pressure [Lying] Blood Pressure [Sitting (for 1 minute prior to obtaining)] Blood Pressure Mean 138 124 Blood Pressure Mean [Lying] Blood Pressure Mean [Sitting (for 1 minute prior to obtaining)] Pulse Ox Oxygen Delivery Method 06/06/24 17:19 06/06/24 17:27 Temperature 98.2 F 98.4 F Temperature Source Oral Pulse Rate 77 Pulse Rate [Lying] Pulse Rate [Sitting (for 1 minute prior to obtaining)] Respiratory Rate 16 Respiratory Pattern Blood Pressure 162/126 H Blood Pressure [Lying] Blood Pressure [Sitting (for 1 minute prior to obtaining)] Blood Pressure Mean 138 Blood Pressure Mean [Lying] Blood Pressure Mean [Sitting (for 1 minute prior to obtaining)] Pulse Ox 97 Oxygen Delivery Method Weight Weight: 82.44 kg Body Mass Index (BMI) 26.8 Physical Exam Narrative General: Alert, oriented, no apparent distress HEENT: Atraumatic, normocephalic Eyes: Anicteric, normal conjunctiva, extraocular movements grossly intact Neck: Supple Respiratory: Clear to auscultation bilaterally, normal respiratory effort Cardiovascular: Regular rate and rhythm GI: Little bit of suprapubic tenderness without rebound, guarding, rigidity Extremities: No edema Musculoskeletal: Moving all extremities Neuro: No overt focal neurological deficits Skin: No rashes appreciated Psych: Cooperative Results Lab / Micro Data 06/06/24 14:35 06/06/24 14:35 Labs: Laboratory Results - last 24 hr 06/06/24 14:18: POC Glucose 182 H 06/06/24 14:35: WBC 5.5, RBC 3.81 L, Hgb 12.3 L, Hct 36.4 L, MCV 95.5 H, MCH 32.3 H, MCHC 33.8, RDW Std Deviation 45.3 H, RDW Coeff of Sridevi 13.0, Plt Count 152, MPV 10.2, Immature Gran % (Auto) 0.200, Neut % (Auto) 43.7 L, Lymph % (Auto) 38.2, [place] % (Auto) 11.2 H, Eos % (Auto) 5.4 H, Baso % (Auto) 1.3 H, Absolute Neuts (auto) 2.4, Absolute Lymphs (auto) 2.11, Nucleated RBC % 0, D- Dimer Quant (PE/DVT) 1.32 H*, Sodium 143, Potassium 4.2, Chloride 111 H, Carbon Dioxide 27.0, Anion Gap 5, BUN 33 H, Creatinine 1.72 H, Estim Creat Clear Calc 33.68, Est GFR (MDRD) Af Amer 49 L, Est GFR (MDRD) Non-Af 41 L, BUN/Creatinine Ratio 19.2, Glucose 171 H, Calcium 8.7, Troponin I High Sens 17, B-Natriuretic Peptide 30.1 06/06/24 16:14: Urine Color Yellow, Urine Clarity Cloudy, Urine pH 7.0, Ur Specific [place] 1.010, Urine Protein 30 H, Urine Glucose (UA) 1000 H, Urine Ketones Negative, Urine Occult Blood 25 H, Urine Nitrite Negative, Urine Bilirubin Negative, Urine Urobilinogen Normal, Ur Leukocyte Esterase 500 H, Urine RBC 0 SEEN, Urine WBC >100 SEEN, Ur Squamous Epith Cells 0 SEEN, Urine Bacteria 4+, Urine Mucus 0 SEEN 06/06/24 16:54: Troponin I High Sens 15 Micro: Microbiology 06/06/24 15:31 Mucosa - Nose SARS-CoV-2, Influenza & RSV (PCR) - Final Imaging Radiology Impression Chest X-Ray 06/06/24 14:25 IMPRESSION: There are no acute findings. Electronically Signed: Jose Manuel Rubin MD at 14:59 EDT , Chest CTA 06/06/24 16:11 IMPRESSION: No demonstrated pulmonary embolism or arterial dissection. There are no acute findings. Electronically Signed: Jose Manuel Rubin MD at 17:21 EDT , Assessment & Plan Assessment/Plan (1) Syncope: PLAN: Plan #Syncope -admit to telemetry -EGK heart rate 72 with normal sinus rhythm -orthostatic vital signs: Blood pressure lying down 153/79 and dropped to 113/55 while sitting and patient experienced dizziness, when patient was sat up he was dizzy, pale, and diaphoretic and blood pressure was not obtained -will obtain echo -D-dimer was 1.32 in ED so CTA was obtained and no PE found -Suspect with CATHY and orthostatic hypotension there is an aspect of volume depletion, also hold finasteride -IVF -Additionally patient with UTI, will treat with antibiotics # Symptomatic orthostatic hypotension - Blood pressure lying down 153/79 and dropped to 113/55 while sitting and patient experienced dizziness, when patient was sat up he was dizzy, pale, and diaphoretic and blood pressure was not obtained -CTA performed in ED and negative for PE -Echocardiogram -IVF -Hold finasteride -Due to suspect UTI/infection is contributing -Checking AM TSH # Abnormal UA/suspicion for UTI/chronic self caths -Continue antibiotics, will continue Rocephin but if worsens or does not improve or urine culture sensitivities not consistent with this will need to adjust antibiotics. For his urinary tract last year were sensitive to Rocephin but he did have a MRSA UTI as well, will continue Rocephin add vancomycin pending cultures -IV fluids -Urine culture sent -Will have Valadez catheter placed while patient admitted # CATHY -Cr 1.72, last Cr 1.23 in August of this year which seems to be close to his baseline -IVF -Avoid nephrotoxic agents -Repeat in AM #Chronic left sided lower back pain -With intermittent LLE numbness, pt and report this is chronic -While laying in current bed feels that is exacerbating it -Tylenol as needed, will add lidocaine patch, will try to avoid opiates unless absolutely necessary given patient's drops in blood pressure and his age #Type 2 diabetes mellitus -Glucose checks and sliding scale insulin -Decrease long-acting insulin and can uptitrate if no hypoglycemia/if necessary #Hx cad w/ prior PCI -Continue home statin #GERD -Continue PPI #Chronic BPH with obstruction -Hold home finasteride given orthostatic hypotension and pt self catheterizes #DVT ppx: SCDs Charges/Coding Visit Charges Inpatient E&M: 50330 Init Hosp L2
--- NOTE | 2024-06-06 18:05 | ED.RN ---
pt is visibly crying and upset, bp elevated. aware
[2024-06-06] MEDS: Labetalol (Prefilled) 20 MG/4 ML Vial 10 MG IV (18:13)
--- NOTE | 2024-06-06 18:38 | ECHOD_ITS ---
Reason For Study: SYNCOPE Procedure This was a 2D Doppler, Color Flow transthoracic echocardiogram. Exam performed portable in patient room. Left Ventricle Normal LV size. Mild concentric left ventricular hypertrophy. Left ventricular systolic function is normal. The left ventricular ejection fraction is 65 %. Stage 1 diastolic dysfunction. No regional wall motion abnormalities noted. Right Ventricle Normal RV size. Normal systolic function. Atria Normal left atrium. Normal right atrium. Mitral Valve Normal mitral valve. Tricuspid Valve Normal tricuspid valve. Aortic Valve Normal aortic valve. Pulmonic Valve Normal pulmonic valve. Great Vessels Normal aortic root. The pulmonary artery is normal size. Inferior vena cava collapse with respiration. Pericardium/Pleural No pericardial effusion. MMode/2D Measurements & Calculations LVIDd: 4.2 cm IVSd: 1.3 cm LVOT diam: 2.2 cm LVIDs: 2.0 cm LVPWd: 1.2 cm LVOT area: 3.9 cm2 RVDd: 2.8 cm FS: 51.5 % asc Aorta Diam: 3.0 cm LAV(MOD-bp): 43.6 ml LVAd ap4: 24.0 cm2 LAV(MOD-bp) Indexed: 22.3 ml/m2 LVLd ap4: 8.1 cm LAV(MOD-sp2): 37.2 ml EDV(MOD-sp4): 59.8 ml LAV(MOD-sp4): 44.3 ml EDV(sp4-el): 60.3 ml LVAs ap4: 13.4 cm2 LVLs ap4: 6.9 cm ESV(MOD-sp4): 22.4 ml ESV(sp4-el): 21.9 ml EF(MOD-sp4): 62.6 % EF(sp4-el): 63.7 % LVAd ap2: 20.9 cm2 SV(MOD-sp4): 37.4 ml SV(MOD-sp2): 29.0 ml LVLd ap2: 7.9 cm EDV(MOD-sp2): 46.3 ml EDV(sp2-el): 46.7 ml LVAs ap2: 11.8 cm2 LVLs ap2: 6.9 cm ESV(MOD-sp2): 17.3 ml ESV(sp2-el): 17.0 ml EF(MOD-sp2): 62.6 % SV(sp4-el): 38.4 ml Ao sinus diam: 3.[address] J[place]: 3.1 cm LA dimension(2D): 3.9 cm LA A4 area: 16.3 cm2 RA A4 area: 7.4 cm2 TAPSE: 2.1 cm Time Measurements MV dec time: 0.26 sec Doppler Measurements & Calculations MV E max eliseo: 71.7 cm/sec Lat Peak E' Eliseo: 8.9 cm/sec Med Peak E' Eliseo: 9.1 cm/sec MV A max eliseo: 108.7 cm/sec E/E' lat: 8.0 E/E' med: 7.9 MV E/A: 0.66 MV dec slope: 278.0 cm/sec2 Ao V2 max: 86.0 cm/sec LV V1 max: 85.4 cm/sec Ao max P.0 mmHg LV V1 max P.9 mmHg Ao V2 mean: 63.4 cm/sec LV V1 mean P.6 mmHg Ao mean P.8 mmHg LV V1 mean: 59.7 cm/sec Ao V2 VTI: 20.7 cm LV V1 VTI: 19.9 cm AV (velocity ratio): 0.96 ADELSO(I,D): 3.8 cm2 ADELSO(V,D): 3.9 cm2 SV(LVOT): 78.7 ml PA V2 max: 80.9 cm/sec PA max PG (full): 1.2 mmHg ECHO/Echo Complete Interpretation Summary Normal LV size. Left ventricular systolic function is normal. The left ventricular ejection fraction is 65 %. Stage 1 diastolic dysfunction. Mild concentric left ventricular hypertrophy. Ordering Physician: Raisa Landaverde Referring Physician: Sandeep Montenegro Performed By: Itzel Gerber RDCS and Student
[2024-06-06] MEDS: 0.9% Normal Saline (1000mL) 1,000 ML 50 ML IV ×2 (19:15→23:40)
[2024-06-06] MEDS: Vancomycin HCl 2,000 MG in 0.9% Normal Saline (500mL Bag) 500 ML 250 MG IV (19:55)
[2024-06-06] MEDS: Atorvastatin Calcium 80 MG Tablet PO (20:04)
[2024-06-06] MEDS: Pantoprazole Sodium 40 MG Tablet PO (20:04)
--- NOTE | 2024-06-06 20:15 | PCM.RX.CS ---
Consult Antibiotic Management Pharmacy has been consulted to manage selected antibiotic: Vancomycin Type of Intervention Type of Consult: New start Suspected Infection Suspected Infection: Other Labs Labs: Sodium 143 mmol/L (136-145) 06/06/24 14:35 Potassium 4.2 mmol/L (3.5-5.1) 06/06/24 14:35 Chloride 111 mmol/L (98-107) H 06/06/24 14:35 Carbon Dioxide 27.0 mmol/L (21.0-32.0) 06/06/24 14:35 Anion Gap 5 (5-15) 06/06/24 14:35 BUN 33 mg/dL (7-18) H 06/06/24 14:35 Creatinine 1.72 mg/dL (0.70-1.30) H 06/06/24 14:35 Est GFR (MDRD) Af Amer 49 mL/min (>60) L 06/06/24 14:35 Est GFR (MDRD) Non-Af 41 mL/min (>60) L 06/06/24 14:35 BUN/Creatinine Ratio 19.2 RATIO (10-20) 06/06/24 14:35 Glucose 171 mg/dL (74-106) H 06/06/24 14:35 Microbiology Microbiology: Microbiology 06/06/24 15:31 Mucosa - Nose SARS-CoV-2, Influenza & RSV (PCR) - Final Goal Trough Goal Trough: 15-20 mcg/mL Pharmacy Plan for Drug Dosing Pharmacy Plan for Drug Dosing: NEW START IV VANCOMYCIN Consulting Physician: Dr. Landaverde Indication: UTT (with history of MRSA UTI - cultures pending) Goal Trough: 15-20 SrCr: 1.72 CrCl: 33.68 Comments: loading dose 2000mg x1 given @ 19:55 06/06/24 Vancomycin Dose: 1250mg Q24H to start @ 20:00 06/07/24 Pending Level: Vancomycin trough @ 19:30 06/09/24 Pharmacy Service will continue to monitor and adjust dosing as required. Follow-Up Labs Follow-Up Labs: Trough: Vancomycin (06/09/24 @ 19:30)
[2024-06-06 20:28] LABS: Bedside Glucose 138 mg/dL (74-106)
[2024-06-07 03:52] VITALS: BP 112/51; PULSE 77; RESP 16; TEMP 36.6; O2SAT 97
[2024-06-07 06:15] LABS: Absolute Neutrophil Count 3.4 X10^3/uL (2.0-7.7); Basophil# 0.05 X10^3/uL; Basophil% 0.8 % (0-1); Eosinophil# 0.28 X10^3/uL; Eosinophils% 4.5 % (0-5); Hematocrit 32.7 % (40-54); Hemoglobin 11.2 g/dL (13.0-16.5); Lymphocyte % 29.2 % (19-41); Mean Corp Hgb Conc 34.3 g/dL (32-36); Mean Corpuscular Hgb 32.7 pg (27.0-32.0); Mean Corpuscular Volume 95.3 fL (80-94); Mean Platelet Vol. 10.7 fl (6.2-12.0); Monocyte# 0.57 X10^3/uL; Monocyte% 9.3 % (0-10); NRBC Flagged by Analyzer 0 % (0-5); Neutrophil # 3.44 X10^3/uL (2.7-7.7); Neutrophil % 55.9 % (47-70); Platelet Count 135 K/mm3 (150-450); RBC Distribution Width CV 13.2 % (11.6-14.6); RBC Distribution Width SD 45.6 fl (35.1-43.9); Red Blood Count 3.43 M/mm3 (4.6-6.2); White Blood Count 6.2 K/mm3 (4.4-11.0)
[2024-06-07 06:49] LABS: Bedside Glucose 95 mg/dL (74-106)
--- NOTE | 2024-06-07 07:27 | PCM.PN.HOSP ---
Reason for Visit Reason for Visit: Diagnoses Syncope and collapse (06/06/24) Subjective Subjective Patient is an 83-year-old gentleman who presented to the emergency department following a syncopal episode. Patient was also found to have abnormal urinalysis consistent with UTI admitted to a monitored bed for subsequent management Objective Data Objective Data Vital Signs: Vital Signs Temp Pulse Resp BP Pulse Ox O2 Del Method 98 F 77 16 112/51 L 97 Room Air 06/07/24 03:52 06/07/24 03:52 06/07/24 03:52 06/07/24 03:52 06/07/24 03:52 06/07/24 05:11 Oxygen Delivery Method Room Air Weight: 80.2 kg Body Mass Index (BMI) 26.1 Intake & Output: Intake and Output for Last 24 Hours 06/05/24 06/06/24 06/07/24 23:59 23:59 23:59 Intake Total 1624.17 / 1624.17 Output Total 950 / 950 Balance 1624.17 / 974.17 -950 / -950 Lab / Micro Data 06/07/24 05:44 06/07/24 05:44 Labs: Laboratory Results - last 24 hr 06/06/24 14:18: POC Glucose 182 H 06/06/24 14:35: WBC 5.5, RBC 3.81 L, Hgb 12.3 L, Hct 36.4 L, MCV 95.5 H, MCH 32.3 H, MCHC 33.8, RDW Std Deviation 45.3 H, RDW Coeff of Sridevi 13.0, Plt Count 152, MPV 10.2, Immature Gran % (Auto) 0.200, Neut % (Auto) 43.7 L, Lymph % (Auto) 38.2, [place] % (Auto) 11.2 H, Eos % (Auto) 5.4 H, Baso % (Auto) 1.3 H, Absolute Neuts (auto) 2.4, Absolute Lymphs (auto) 2.11, Nucleated RBC % 0, D-Dimer Quant (PE/DVT) 1.32 H*, Sodium 143, Potassium 4.2, Chloride 111 H, Carbon Dioxide 27.0, Anion Gap 5, BUN 33 H, Creatinine 1.72 H, Estim Creat Clear Calc 33.68, Est GFR (MDRD) Af Amer 49 L, Est GFR (MDRD) Non-Af 41 L, BUN/Creatinine Ratio 19.2, Glucose 171 H, Calcium 8.7, Troponin I High Sens 17, B-Natriuretic Peptide 30.1 06/06/24 16:14: Urine Color Yellow, Urine Clarity Cloudy, Urine pH 7.0, Ur Specific [place] 1.010, Urine Protein 30 H, Urine Glucose (UA) 1000 H, Urine Ketones Negative, Urine Occult Blood 25 H, Urine Nitrite Negative, Urine Bilirubin Negative, Urine Urobilinogen Normal, Ur Leukocyte Esterase 500 H, Urine RBC 0 SEEN, Urine WBC >100 SEEN, Ur Squamous Epith Cells 0 SEEN, Urine Bacteria 4+, Urine Mucus 0 SEEN 06/06/24 16:54: Troponin I High Sens 15 06/06/24 20:03: POC Glucose 138 H 06/07/24 05:44: WBC 6.2, RBC 3.43 L, Hgb 11.2 L, Hct 32.7 L, MCV 95.3 H, MCH 32.7 H, MCHC 34.3, RDW Std Deviation 45.6 H, RDW Coeff of Sridevi 13.2, Plt Count 135 L, MPV 10.7, Immature Gran % (Auto) 0.300, Neut % (Auto) 55.9, Lymph % (Auto) 29.2, [place] % (Auto) 9.3, Eos % (Auto) 4.5, Baso % (Auto) 0.8, Absolute Neuts (auto) 3.4, Absolute Lymphs (auto) 1.80, Nucleated RBC % 0 06/07/24 06:29: POC Glucose 95 Micro: Microbiology 06/06/24 15:31 Mucosa - Nose SARS-CoV-2, Influenza & RSV (PCR) - Final Radiography Diagnostic Testing: Radiology Impression Chest X-Ray 06/06/24 14:25 IMPRESSION: There are no acute findings. Electronically Signed: Jose Manuel Rubin MD at 14:59 EDT , Chest CTA 06/06/24 16:11 IMPRESSION: No demonstrated pulmonary embolism or arterial dissection. There are no acute findings. Electronically Signed: Jose Manuel Rubin MD at 17:21 EDT Reading Location ID and State: [facility] [place] / [place] , Service support , Physical Exam Narrative GENERAL: cooperative HEENT: Atraumatic; normocephalic EYES; Anicteric, Normal Conjunctiva NECK; supple, normal thyroid, RESPIRATORY: Diminished to auscultation CARDIOVASCULAR: Regular S1 S2, GI: soft, normoactive bowel sounds, : No Renal angle tenderness; EXTREMITIES: No edema, no clubbing, MUSCULOSKELETAL: no muscle wasting NEURO: Awake; no lateralizing signs. SKIN: No Rash PSYCH; Flat affect Assessment & Plan Assessment/Plan (1) Syncope: PLAN: Plan Patient is an 83-year-old gentleman who presented to the emergency department following a syncopal episode. Patient was also found to have abnormal urinalysis consistent with UTI admitted to a monitored bed for subsequent management 5. Syncopal episode ? Suspected to be secondary to orthostatic hypotension. Patient had significant drop in his blood pressure between laying and sitting with some dizziness. Patient did receive IV fluid resuscitation. Patient is on finasteride held on admission 2. Acute kidney injury ? Baseline creatinine from 08/11/2023 was 1.03 creatinine on admission was 1.72 started on IV hydration with subsequent monitoring of electrolytes ordered 3. Acute complicated cystitis secondary to chronic self-catheterization ? Patient presented with abnormal urinalysis started on ceftriaxone cultures sent 4. Diabetes mellitus type II -patient's oral hypoglycemics held. Placed on long acting insulin, Accu-Cheks a.c. and at bedtime and covered with sliding scale insulin 5. Dyslipidemia ?Patient is on statin therapy, continued at home dose 6. BPH with lower urinary obstructive symptoms - Patient treated with finasteride which was held on admission patient also performed chronic self-catheterization 7. Coronary artery disease ? With previous PCI did continue with guideline directed medical therapy 7. GERD ? On PPI 8. Chronic left sided lower back pain -With intermittent LLE numbness, requested for PT OT eval and pain meds as needed 9. DVT prophylaxis ? Subcu heparin Time spent in the patient's overall evaluation,decision-making process, review of diagnostic data, adjustment of management, discussion with other providers, nursing nursing and ancillary staff involved in patient's care documentation, 50 Minutes Charges/Coding Visit Charges Inpatient E&M: 14858 Subs Hosp L3
[2024-06-07 07:28] VITALS: BP 164/86; PULSE 81; RESP 16; TEMP 36.9; O2SAT 96
[2024-06-07 07:29] LABS: Anion Gap 5 (5-15); BUN 25 mg/dL (7-18); BUN/Creat Ratio 17.5 RATIO (10-20); Calcium,Total 8.3 mg/dL (8.5-10.1); Chloride 114 mmol/L (98-107); Creatinine, Serum 1.43 mg/dL (0.70-1.30); EST Glomerular Filtration Rate 50 mL/min (>60); Est Glom Filt Rate - Afr Amer 61 mL/min (>60); Estimated Creatinine Clearance 40.51 ml/min; Glucose 83 mg/dL (74-106); Sodium Level 143 mmol/L (136-145)
--- NOTE | 2024-06-07 08:46 | PCM.RX.CS ---
Consult Antibiotic Management Pharmacy has been consulted to manage selected antibiotic: Vancomycin Type of Intervention Type of Consult: Follow-up Labs Labs: Sodium 143 mmol/L (136-145) 06/07/24 05:44 Potassium 4.0 mmol/L (3.5-5.1) 06/07/24 05:44 Chloride 114 mmol/L (98-107) H 06/07/24 05:44 Carbon Dioxide 25.0 mmol/L (21.0-32.0) 06/07/24 05:44 Anion Gap 5 (5-15) 06/07/24 05:44 BUN 25 mg/dL (7-18) H 06/07/24 05:44 Creatinine 1.43 mg/dL (0.70-1.30) H 06/07/24 05:44 Est GFR (MDRD) Af Amer 61 mL/min (>60) 06/07/24 05:44 Est GFR (MDRD) Non-Af 50 mL/min (>60) L 06/07/24 05:44 BUN/Creatinine Ratio 17.5 RATIO (10-20) 06/07/24 05:44 Glucose 83 mg/dL (74-106) 06/07/24 05:44 Microbiology Microbiology: Microbiology 06/06/24 15:31 Mucosa - Nose SARS-CoV-2, Influenza & RSV (PCR) - Final Pharmacy Plan for Drug Dosing Pharmacy Plan for Drug Dosing: DAILY ASSESSMENT Current Vancomycin Dose: 1250MG Q24H Number of Doses Received: 1 Current Renal Function: SCR 1.43 MG/DL, CRCL 40 ML/MIN Renal Function Trend: improved Any Change in Vanc Plan: Yes, dose changed to 500mg Q12 due to improved renal function. Trough changed to prior to the 4th dose Pending Level: 06/08/24 @ 0830 Pharmacy Service will continue to monitor and adjust dosing as required.
[2024-06-07] MEDS: Vancomycin IV 500 MG/100 ML BAG 100 MG IV ×2 (09:06→21:38)
[2024-06-07] MEDS: Lidocaine 5% Patch 1 PATCH TOPICAL (09:09)
[2024-06-07] MEDS: LEVOBUNOLOL 0.5% EACH EYE (09:10)
[2024-06-07] MEDS: Pantoprazole Sodium 40 MG Tablet PO ×2 (09:10→21:38)
[2024-06-07] MEDS: OPTH EACH EYE (09:10)
[2024-06-07] MEDS: Ceftriaxone 1 GM/50 ML BAG IV (10:43)
[2024-06-07] MEDS: Insulin Lispro 100 UNIT/ML INSULN.PEN SC ×2 (10:52→16:10)
[2024-06-07 11:19] LABS: Bedside Glucose 209 mg/dL (74-106)
--- NOTE | 2024-06-07 13:52 | CASEMGMT ---
SW met with patient. Introduced self and role at [facility]. SW asked patient if he is in assisted living or independent living. Patient stated they live in a house down below the main building. Patient plans to return home at discharge. Plan: discharge back to [place]. Tiffanie DONOHUE
--- NOTE | 2024-06-07 15:46 | CHAPLAIN ---
Type of Pastoral Visit ___ Initial Visit ___ Follow-up Visit ___ On-call Visit ___ General Patient Visit ___ Spiritual Assessment ___ Family Conference ___ Bereavement ___ Rapid Response ___ Code Blue ___ Other (describe below) Pastoral Care Referral From ___ Patient ___ Family ___ Nurse ___ Physician ___ Waiter Waitress ___ Buffing Machine Operator Semiautomatic ___ Other (describe below) Sacrament/Intervention ___ Active listening ___ Anointing ___ Episcopal ___ Bereavement ___ Communion ___ Dary exploration ___ ___ Life review ___ Prayer ___ Reconciliation ___ Sacrament of Sick ___ Supportive presence ___ Wedding ___ Other (describe below) Pastoral Comments patient is sleeping and did not disturb
[2024-06-07 16:05] VITALS: BP 158/91; PULSE 85; RESP 16; TEMP 36.8; O2SAT 98
[2024-06-07 16:42] LABS: Bedside Glucose 297 mg/dL (74-106)
[2024-06-07] MEDS: Insulin Glargine-YFGN 100 UNIT/ML Pen 15 UNIT SC (21:38)
[2024-06-07] MEDS: Atorvastatin Calcium 80 MG Tablet PO (21:38)
[2024-06-08 00:55] LABS: Bedside Glucose 279 mg/dL (74-106)
[2024-06-08 03:23] VITALS: BP 162/74; PULSE 78; RESP 16; TEMP 36.4; O2SAT 98
[2024-06-08] MEDS: Enoxaparin 30 MG/0.3 ML Syringe SC (06:08)
[2024-06-08] MEDS: Insulin Lispro 100 UNIT/ML INSULN.PEN SC ×2 (06:10→11:31)
[2024-06-08 06:39] LABS: Bedside Glucose 238 mg/dL (74-106)
[2024-06-08 07:00] LABS: Absolute Lymphocyte Count 1.66 X10^3/uL (0.83-4.51); Absolute Neutrophil Count 1.9 X10^3/uL (2.0-7.7); Basophil# 0.05 X10^3/uL; Basophil% 1.1 % (0-1); Eosinophil# 0.28 X10^3/uL; Eosinophils% 6.3 % (0-5); Hematocrit 31.6 % (40-54); Hemoglobin 11.1 g/dL (13.0-16.5); Lymphocyte # 1.66 X10^3/ul (0.83-4.51); Lymphocyte % 37.2 % (19-41); Mean Corp Hgb Conc 35.1 g/dL (32-36); Mean Corpuscular Hgb 32.8 pg (27.0-32.0); Mean Corpuscular Volume 93.5 fL (80-94); Mean Platelet Vol. 10.7 fl (6.2-12.0); Monocyte# 0.53 X10^3/uL; Monocyte% 11.9 % (0-10); NRBC Flagged by Analyzer 0 % (0-5); Neutrophil # 1.93 X10^3/uL (2.7-7.7); Neutrophil % 43.3 % (47-70); Platelet Count 114 K/mm3 (150-450); RBC Distribution Width CV 12.9 % (11.6-14.6); RBC Distribution Width SD 44.6 fl (35.1-43.9); Red Blood Count 3.38 M/mm3 (4.6-6.2); White Blood Count 4.5 K/mm3 (4.4-11.0)
[2024-06-08 07:10] LABS: Anion Gap 7 (5-15); BUN 23 mg/dL (7-18); BUN/Creat Ratio 16.2 RATIO (10-20); Calcium,Total 8.4 mg/dL (8.5-10.1); Chloride 109 mmol/L (98-107); Creatinine, Serum 1.42 mg/dL (0.70-1.30); EST Glomerular Filtration Rate 51 mL/min (>60); Est Glom Filt Rate - Afr Amer 62 mL/min (>60); Glucose 219 mg/dL (74-106); Phosphorus 3.3 mg/dL (2.5-4.9); Potassium 3.9 mmol/L (3.5-5.1); Sodium Level 140 mmol/L (136-145)
--- NOTE | 2024-06-08 08:22 | PCM.DC.SUM ---
Providers Date of Admission: 06/06/24 Date of Discharge: 06/08/24 Primary Care Physician: Dr. Sandeep Montenegro, DO Reason For Visit: SYNCOPE Diagnosis Discharge Diagnosis (1) Syncope: Status: Acute Code(s): R55 - Syncope and collapse Plan Patient is an 83-year-old gentleman who presented to the emergency department following a syncopal episode. Patient was also found to have abnormal urinalysis consistent with UTI admitted to a monitored bed for subsequent management 5. Syncopal episode ? Suspected to be secondary to orthostatic hypotension. Patient had significant drop in his blood pressure between laying and sitting with some dizziness. Patient did receive IV fluid resuscitation. Patient is on finasteride held on admission 2. Acute kidney injury ? Baseline creatinine from 08/11/2023 was 1.03 creatinine on admission was 1.72 started on IV hydration with subsequent monitoring of electrolytes ordered 3. Acute complicated cystitis secondary to chronic self-catheterization with a E. coli ? Patient presented with abnormal urinalysis started on ceftriaxone cultures sent ? Urine cultures came back positive for E. coli patient was discharged on cefpodoxime 4. Diabetes mellitus type II -patient's oral hypoglycemics held. Placed on long acting insulin, Accu-Cheks a.c. and at bedtime and covered with sliding scale insulin 5. Dyslipidemia ?Patient is on statin therapy, continued at home dose 6. BPH with lower urinary obstructive symptoms - Patient treated with finasteride which was held on admission patient also performed chronic self-catheterization 7. Coronary artery disease ? With previous PCI did continue with guideline directed medical therapy 7. GERD ? On PPI 8. Chronic left sided lower back pain -With intermittent LLE numbness, requested for PT OT eval and pain meds as needed 9. DVT prophylaxis ? Subcu heparin Time spent in the patient's overall evaluation,decision-making process, review of diagnostic data, adjustment of management, discussion with other providers, nursing nursing and ancillary staff involved in patient's care documentation, 35 minutes Medications at Discharge Home Medications finasteride 5 mg tablet 5 mg PO DAILY PROSTATE 07/15/22 nitroglycerin 0.4 mg sublingual tablet 0.4 mg sublingual Q5M PRN Chest Pain 01/17/23 atorvastatin 80 mg tablet 80 mg PO QHS CHOLESEROL #30 tabs 05/22/23 pantoprazole 40 mg tablet,delayed release 40 mg PO BID 08/10/23 flash glucose sensor (FreeStyle Oracio 2 Sensor kit) 02/25/24 insulin glargine 100 unit/mL (3 mL) subcutaneous pen (Lantus Solostar U-100 Insulin) 26 unit subcut QHS DIABETES 02/25/24 insulin lispro 100 unit/mL subcutaneous pen (Humalog KwikPen (U-100) Insulin) See Rx Instructions subcut .COMPLEX 02/25/24 levobunolol 0.5 % eye drops 1 drp EACH EYE DAILY GLAUCOMA 02/25/24 menthol 4 % topical gel (Biofreeze (menthol)) 1 applic topical BID-QID PRN pain 02/25/24 tramadol 50 mg tablet 25 mg PO BID PRN pain 02/25/24 cefpodoxime 100 mg tablet 200 mg (2 x 100 mg) PO BID #20 tabs 06/08/24 Physical Exam Narrative GENERAL: cooperative HEENT: Atraumatic; normocephalic EYES; Anicteric, Normal Conjunctiva NECK; supple, normal thyroid, RESPIRATORY: Diminished to auscultation CARDIOVASCULAR: Regular S1 S2, GI: soft, normoactive bowel sounds, : No Renal angle tenderness; EXTREMITIES: No edema, no clubbing, MUSCULOSKELETAL: no muscle wasting NEURO: Awake; no lateralizing signs. SKIN: No Rash PSYCH; Flat affect Weight / BMI Weight Weight: 80.2 kg Body Mass Index (BMI) 26.1 ABG / Lab / Microbiology Data 06/08/24 06:21 06/08/24 06:21 Laboratory: Laboratory Results - last 24 hr 06/07/24 10:48: POC Glucose 209 H 06/07/24 16:09: POC Glucose 297 H 06/07/24 21:35: POC Glucose 279 H 06/08/24 06:07: POC Glucose 238 H 06/08/24 06:21: WBC 4.5, RBC 3.38 L, Hgb 11.1 L, Hct 31.6 L, MCV 93.5, MCH 32.8 H, MCHC 35.1, RDW Std Deviation 44.6 H, RDW Coeff of Sridevi 12.9, Plt Count 114 L, MPV 10.7, Immature Gran % (Auto) 0.200, Neut % (Auto) 43.3 L, Lymph % (Auto) 37.2, [place] % (Auto) 11.9 H, Eos % (Auto) 6.3 H, Baso % (Auto) 1.1 H, Absolute Neuts (auto) 1.9 L, Absolute Lymphs (auto) 1.66, Nucleated RBC % 0, Sodium 140, Potassium 3.9, Chloride 109 H, Carbon Dioxide 24.0, Anion Gap 7, BUN 23 H, Creatinine 1.42 H, Estim Creat Clear Calc 40.80, Est GFR (MDRD) Af Amer 62, Est GFR (MDRD) Non-Af 51 L, BUN/Creatinine Ratio 16.2, Glucose 219 H, Calcium 8.4 L, Phosphorus 3.3, Magnesium 2.0 Microbiology: Microbiology 06/06/24 16:14 Urine, Catheterized Urine Culture - Final Presumptive E. coli 06/06/24 15:31 Mucosa - Nose SARS-CoV-2, Influenza & RSV (PCR) - Final Radiography Diagnostic Testing: Radiology Impression Echocardiogram 06/06/24 18:38 Interpretation Summary Normal LV size. Left ventricular systolic function is normal. The left ventricular ejection fraction is 65 %. Stage 1 diastolic dysfunction. Mild concentric left ventricular hypertrophy. Ordering Physician: Raisa Landaverde Referring Physician: Sandeep Montenegro Performed By: Itzel Gerber RDCS and Student D/C Instructions Discharge Diet: No restrictions Discharge Activity: Return to Normal Activity Call your doctor if you observe: Fever of 101 or Higher, Shortness of breath, Fainting spells and Chest pain Meaningful Use Info Meaningful Use Meaningful Use Diagnoses (Choose all that apply): None applicable Ischemic Stroke Statin Dosing Therapy Reference: STATIN DOSE THERAPY REFERENCE: * Patients > 75 years receive moderate or high dose statin therapy. * Patients 75 years or YOUNGER should receive HIGH intensity statin dose unless contraindicated. You will be required to document reason for non-treatment if statin daily dose does not meet guidelines. HIGH DOSE STATIN THERAPY DAILY Atorvastatin > than or = to 40 mg Rosuvastatin > than or = to 20 mg Amlodipine + Atorvastatin > than or = to 2.5/40 mg Ezetimibe + Simvastatin 10/80 mg Simvastatin 80mg Discharge Plan Admission Admit Date/Time: 06/06/24 17:58 Attending Provider: Andre Saavedra Primary Care Provider: Sandeep Montenegro Consulting Providers: Raisa Landaverde Discharge Orders/Prescriptions Prescriptions: New cefpodoxime 100 mg tablet 200 mg PO BID Qty: 20 0RF Rx Instructions: must administer with a meal/food Continued Biofreeze (menthol) 4 % gel 1 applic topical BID-QID PRN (Reason: pain) (DME) FreeStyle Oracio 2 Sensor Kit See Rx Instructions .Route Rx Instructions: As directed insulin lispro [Humalog KwikPen Insulin] 100 unit/mL insulin pen See Rx Instructions subcut .COMPLEX Rx Instructions: subcutaneously; subcutaneously before meals and at bedtime with sliding scale 151-200 4units 201-250 6units 251-300 8units 301-350 10units 351-400 12units 401-450 14units tramadol 50 mg tablet 25 mg PO BID PRN (Reason: pain) levobunolol 0.5 % drops 1 drp EACH EYE DAILY finasteride 5 mg tablet 5 mg PO DAILY nitroglycerin 0.4 mg tablet, sublingual 0.4 mg sublingual Q5M PRN (Reason: Chest Pain) insulin glargine [Lantus Solostar U-100 Insulin] 100 unit/mL (3 mL) insulin pen 26 unit SUBCUT QHS pantoprazole 40 mg tablet,delayed release (DR/EC) 40 mg PO BID atorvastatin 80 mg tablet 80 mg PO QHS Qty: 30 1RF Referrals / Follow Up: Sandeep Montenegro DO [Primary Care Provider] - Within 1 Week Disposition Disposition (needs filled in before D/C Order can be placed): Assisted Living Charges/Coding Visit Charges Inpatient E&M: 05163 Disch Hosp >30min
[2024-06-08] MEDS: Acetaminophen 325 MG Tablet 650 MG PO (09:12)
[2024-06-08] MEDS: LEVOBUNOLOL 0.5% EACH EYE (09:13)
[2024-06-08] MEDS: OPTH EACH EYE (09:13)
[2024-06-08] MEDS: Lidocaine 5% Patch 1 PATCH TOPICAL (09:13)
[2024-06-08] MEDS: Ceftriaxone 1 GM/50 ML BAG IV (09:13)
[2024-06-08] MEDS: Pantoprazole Sodium 40 MG Tablet PO (09:15)
[2024-06-08 09:30] VITALS: BP 144/78; PULSE 80; RESP 14; TEMP 36.6; O2SAT 98
--- NOTE | 2024-06-08 09:34 | CASEMGMT ---
Patient is ready for discharge back to [facility]. SUBHASH faxed d/c summary to Cristina Matta at [facility] per her request. ([phone]) Tiffanie Osuna OFF TRACK BETTING MANAGER CHARANJIT
[2024-06-08 09:40] LABS: Vancomycin, Trough Level 15.9 ug/mL (5.0-15.0)
--- NOTE | 2024-06-08 09:49 | PCM.RX.CS ---
Consult Antibiotic Management Pharmacy has been consulted to manage selected antibiotic: Vancomycin Type of Intervention Type of Consult: Follow-up Prior Doses of Antibiotics Prior Doses of Antibiotics Received/Current Regimen: current dose is 500mg IV q12h Labs Labs: Sodium 140 mmol/L (136-145) 06/08/24 06:21 Potassium 3.9 mmol/L (3.5-5.1) 06/08/24 06:21 Chloride 109 mmol/L (98-107) H 06/08/24 06:21 Carbon Dioxide 24.0 mmol/L (21.0-32.0) 06/08/24 06:21 Anion Gap 7 (5-15) 06/08/24 06:21 BUN 23 mg/dL (7-18) H 06/08/24 06:21 Creatinine 1.42 mg/dL (0.70-1.30) H 06/08/24 06:21 Est GFR (MDRD) Af Amer 62 mL/min (>60) 06/08/24 06:21 Est GFR (MDRD) Non-Af 51 mL/min (>60) L 06/08/24 06:21 BUN/Creatinine Ratio 16.2 RATIO (10-20) 06/08/24 06:21 Glucose 219 mg/dL (74-106) H 06/08/24 06:21 Vancomycin Trough 15.9 ug/mL (5.0-15.0) H 06/08/24 08:34 Microbiology Microbiology: Microbiology 06/06/24 16:14 Urine, Catheterized Urine Culture - Final Presumptive E. coli 06/06/24 15:31 Mucosa - Nose SARS-CoV-2, Influenza & RSV (PCR) - Final Dosing Weight Weight used for dosin.2 kg Estimated Creatinine Clearance Estimated Creatinine Clearance: 40.8ml/min Goal Trough Goal Trough: 15-20 mcg/mL Pharmacy Plan for Drug Dosing Pharmacy Plan for Drug Dosing: The vanc trough drawn at 8:34 today (approx 11 hours after the previous dose) was 15.9. This is in goal range so will keep same dose. Repeat a trough in 2 days per protocol. Pharmacy Service will continue to monitor and adjust dosing as required. Follow-Up Labs Follow-Up Labs: Trough: Vancomycin Date/Time Labs Ordered Labs to be done on [date and time ordered]: 06/10/24 08:30
[2024-06-08] MEDS: Vancomycin Trough/Random Due 1 LAB MC (10:25)
[2024-06-08 11:45] LABS: Bedside Glucose 248 mg/dL (74-106)
--- NOTE | 2024-06-08 13:08 | CHAPLAIN ---
Type of Pastoral Visit _x__ Initial Visit ___ Follow-up Visit ___ On-call Visit ___ General Patient Visit ___ Spiritual Assessment ___ Family Conference ___ Bereavement ___ Rapid Response ___ Code Blue ___ Other (describe below) Pastoral Care Referral From _x__ Patient ___ Family ___ Nurse ___ Physician ___ Health Promotion Officer ___ Radiography Technician ___ Other (describe below) Sacrament/Intervention _x__ Active listening ___ Anointing ___ Lutheran ___ Bereavement ___ Communion _x__ Dary exploration ___ _x__ Life review _x__ Prayer ___ Reconciliation ___ Sacrament of Sick _x__ Supportive presence ___ Wedding ___ Other (describe below) Pastoral Comments patient talks about his recent health episode and his relatively recent move to [facility]; pt admits some concerns about how his move was handled and if I have enough money to stay there very long; pt and spouse have an apartment there together and they need each other's help as both have health concerns; in conversation about family and his support, the pt admits that there are some troubling family issues and a listening ear and compassion is given; pt welcomes prayer support and acknowledges that a change in his zoroastrian practice since [facility] also gives him some personal concern to address
[2024-06-08 14:57] VITALS: BP 122/78; PULSE 88; RESP 14; TEMP 36.8; O2SAT 97
== END 2024-06-08 15:30 | disposition home or self-care (01) | DRG 699 ==
LOC: ED 17:36 → PCU 17:48
PROVIDERS: Nurse Practitioner; Admitting Provider Internal Medicine; Emergency Provider Emergency Medicine; PCP Family Medicine; Visit Provider Internal Medicine
DX: I95.1 Orthostatic hypotension (principal); E11.9 Type 2 diabetes mellitus without complications; Z79.4 Long term (current) use of insulin; T83.518A Infection and inflammatory reaction due to other urinary catheter, initial encounter; N13.8 Other obstructive and reflux uropathy; N17.9 Acute kidney failure, unspecified; N30.00 Acute cystitis without hematuria; E78.5 Hyperlipidemia, unspecified; B96.20 Unspecified Escherichia coli [E. coli] as the cause of diseases classified elsewhere; I10 Essential (primary) hypertension; I25.10 Atherosclerotic heart disease of native coronary artery without angina pectoris; M54.50 Low back pain, unspecified; E86.0 Dehydration; K21.9 Gastro-esophageal reflux disease without esophagitis; I25.2 Old myocardial infarction; Z95.5 Presence of coronary angioplasty implant and graft; G89.29 Other chronic pain; N40.1 Benign prostatic hyperplasia with lower urinary tract symptoms; Z79.899 Other long term (current) drug therapy
CPT/HCPCS: 36415; 71045; 71275; 80048; 80202; 81001; 82962; 83735; 83880; 84100; 84443; 84484; 85025; 85379; 87086; 87088; 87186; 87631; 93005; 93306; 96361; 96365; 96366; 96367; 96372; 96375; 97162; 97166; 99221; 99285; P9612; Q9967; A4216; G0378

== ENCOUNTER 2024-06-20 12:25 | Observation (INO) | payer MEDICARE, SELFPAY ==
[2024-06-20] VITALS (8 sets, daily range): BP systolic 71–176; BP diastolic 51–98; PULSE 80–97; RESP 15–18; TEMP 36.4–37.1; O2SAT 95–99; BMI 26.9
[2024-06-20] MEDS: 0.9% Normal Saline (1000mL) 1,000 ML 1000 ML IV (13:24)
[2024-06-20 13:30] LABS: Absolute Lymphocyte Count 1.91 X10^3/uL (0.83-4.51); Absolute Neutrophil Count 3.3 X10^3/uL (2.0-7.7); Basophil# 0.06 X10^3/uL; Eosinophil# 0.35 X10^3/uL; Eosinophils% 5.9 % (0-5); Hematocrit 38.4 % (40-54); Hemoglobin 13.2 g/dL (13.0-16.5); Lymphocyte # 1.91 X10^3/ul (0.83-4.51); Lymphocyte % 31.9 % (19-41); Mean Corp Hgb Conc 34.4 g/dL (32-36); Mean Corpuscular Hgb 32.6 pg (27.0-32.0); Mean Corpuscular Volume 94.8 fL (80-94); Mean Platelet Vol. 10.8 fl (6.2-12.0); Monocyte# 0.39 X10^3/uL; Monocyte% 6.5 % (0-10); NRBC Flagged by Analyzer 0 % (0-5); Neutrophil # 3.25 X10^3/uL (2.7-7.7); Neutrophil % 54.4 % (47-70); Platelet Count 131 K/mm3 (150-450); RBC Distribution Width CV 13.1 % (11.6-14.6); RBC Distribution Width SD 45.6 fl (35.1-43.9); Red Blood Count 4.05 M/mm3 (4.6-6.2)
[2024-06-20 13:45] LABS: AST(SGOT) 16 U/L (15-37); Alanine Aminotransfer ALT/SGPT 25 U/L (16-61); Albumin, Serum 3.6 g/dL (3.2-5.0); Alkaline Phosphatase 115 U/L (45-117); Anion Gap 9 (5-15); BUN 31 mg/dL (7-18); BUN/Creat Ratio 14.8 RATIO (10-20); Bilirubin, Direct 0.18 mg/dL (0.00-0.30); Calcium,Total 9.1 mg/dL (8.5-10.1); Chloride 108 mmol/L (98-107); Creatinine, Serum 2.09 mg/dL (0.70-1.30); EST Glomerular Filtration Rate 33 mL/min (>60); Est Glom Filt Rate - Afr Amer 39 mL/min (>60); Estimated Creatinine Clearance 27.72 ml/min; Globulin 4.3 g/dL (2.2-4.2); Glucose 174 mg/dL (74-106); Potassium 3.7 mmol/L (3.5-5.1); Protein, Total 7.9 g/dL (6.4-8.2); Sodium Level 141 mmol/L (136-145); Troponin-I HS (w/2H Reflex) 19 pg/mL (3.0-78.0)
[2024-06-20 14:28] LABS: Bacteria 0 SEEN /hpf (None Seen); Mucous, Urine 0 SEEN /hpf (<or=2+); Red Blood Cells-Urine 0 SEEN /hpf (0-5); Squamous Epithelial Cells - UA 0 SEEN /hpf (0-5)
[2024-06-20 14:31] LABS: Color, Urine Yellow (Yellow); Glucose, Dipstick 1000 mg/dl (Normal); Ketone-Dipstick Negative (Negative); Leukocyte Esterase-Dipstick 25 /ul (Negative); Nitrite-Dipstick Negative (Negative); Occult Blood-Urine Negative /ul (Negative); Protein-Dipstick 30 mg/dl (Negative); Urine Bilirubin Dipstick Negative (Negative); Urine Clarity Clear (Clear); Urine Urobilinogen Normal (Normal); Urine pH 6.5 (5.0 - 8.0)
[2024-06-20 14:40] LABS: White Blood Cells 0-5 SEEN /hpf (0-5)
[2024-06-20 15:24] LABS: Reflex Troponin-HS? (from REC) Y
[2024-06-20 15:56] LABS: Troponin-I HS 15 pg/mL (3.0-78.0)
[2024-06-20] MEDS: 0.9% Saline Lock 10 ML Syringe IV (22:56)
[2024-06-20] MEDS: Insulin Lispro 100 UNIT/ML INSULN.PEN SC (22:56)
[2024-06-20] MEDS: Atorvastatin Calcium 80 MG Tablet PO (22:56)
[2024-06-20] MEDS: Pantoprazole Sodium 40 MG Tablet PO (22:57)
[2024-06-20] MEDS: Insulin Glargine-YFGN 100 UNIT/ML Pen 26 UNIT SC (22:57)
[2024-06-20 23:37] LABS: Bedside Glucose 229 mg/dL (74-106)
[2024-06-21] VITALS (7 sets, daily range): BP systolic 78–145; BP diastolic 45–83; PULSE 76–101; RESP 16–20; TEMP 36.4–37.4; O2SAT 95–97
[2024-06-21 04:00] LABS: Bedside Glucose 124 mg/dL (74-106)
[2024-06-21 07:14] LABS: Bedside Glucose 134 mg/dL (74-106)
[2024-06-21 07:22] LABS: Absolute Lymphocyte Count 1.85 X10^3/uL (0.83-4.51); Absolute Neutrophil Count 5.3 X10^3/uL (2.0-7.7); Basophil# 0.04 X10^3/uL; Basophil% 0.5 % (0-1); Eosinophil# 0.12 X10^3/uL; Eosinophils% 1.5 % (0-5); Hematocrit 33.8 % (40-54); Hemoglobin 11.5 g/dL (13.0-16.5); Lymphocyte # 1.85 X10^3/ul (0.83-4.51); Lymphocyte % 23.2 % (19-41); Mean Corpuscular Hgb 32.1 pg (27.0-32.0); Mean Corpuscular Volume 94.4 fL (80-94); Mean Platelet Vol. 10.7 fl (6.2-12.0); Monocyte# 0.64 X10^3/uL; NRBC Flagged by Analyzer 0 % (0-5); Neutrophil % 66.4 % (47-70); Platelet Count 105 K/mm3 (150-450); RBC Distribution Width CV 13.2 % (11.6-14.6); RBC Distribution Width SD 45.4 fl (35.1-43.9); Red Blood Count 3.58 M/mm3 (4.6-6.2)
[2024-06-21 07:46] LABS: International Normalized Ratio 1.1; Prothrombin Time (Protime)PT. 13.9 SECONDS (11.7-14.9)
[2024-06-21 08:05] LABS: ALB/GLOB Ratio 0.9 RATIO (0.9-2.4); AST(SGOT) 13 U/L (15-37); Alanine Aminotransfer ALT/SGPT 18 U/L (16-61); Albumin, Serum 3.1 g/dL (3.2-5.0); Alkaline Phosphatase 80 U/L (45-117); Anion Gap 6 (5-15); BUN 35 mg/dL (7-18); BUN/Creat Ratio 19.8 RATIO (10-20); Bilirubin, Direct 0.27 mg/dL (0.00-0.30); Calcium,Total 8.5 mg/dL (8.5-10.1); Chloride 110 mmol/L (98-107); Creatinine, Serum 1.77 mg/dL (0.70-1.30); EST Glomerular Filtration Rate 39 mL/min (>60); Est Glom Filt Rate - Afr Amer 48 mL/min (>60); Estimated Creatinine Clearance 32.73 ml/min; Globulin 3.4 g/dL (2.2-4.2); Glucose 136 mg/dL (74-106); Magnesium 1.8 mg/dL (1.6-2.6); Phosphorus 2.6 mg/dL (2.5-4.9); Potassium 3.8 mmol/L (3.5-5.1); Protein, Total 6.5 g/dL (6.4-8.2); Sodium Level 140 mmol/L (136-145)
[2024-06-21] MEDS: Pantoprazole Sodium 40 MG Tablet PO ×2 (08:54→21:37)
[2024-06-21 11:40] LABS: Hemoglobin A1c 8.9 % (3.8-5.6)
[2024-06-21] MEDS: Insulin Lispro 100 UNIT/ML INSULN.PEN SC ×3 (11:45→21:35)
[2024-06-21 12:04] LABS: Bedside Glucose 199 mg/dL (74-106)
[2024-06-21] MEDS: traMADol 50 MG Tablet 25 MG PO (15:14)
[2024-06-21 17:10] LABS: Bedside Glucose 245 mg/dL (74-106)
[2024-06-21] MEDS: Midodrine HCl 5 MG Tablet 10 MG PO (17:44)
[2024-06-21] MEDS: 0.9% Normal Saline (1000mL) 1,000 ML 125 ML IV (18:35)
[2024-06-21] MEDS: 0.9% Saline Lock 10 ML Syringe IV (18:35)
[2024-06-21] MEDS: Insulin Glargine-YFGN 100 UNIT/ML Pen 26 UNIT SC (21:36)
[2024-06-21] MEDS: Atorvastatin Calcium 80 MG Tablet PO (21:37)
[2024-06-21 21:57] LABS: Bedside Glucose 211 mg/dL (74-106)
[2024-06-22 01:07] VITALS: BP 147/68; PULSE 75; RESP 16; TEMP 37.1; O2SAT 95
[2024-06-22] MEDS: 0.9% Normal Saline (1000mL) 1,000 ML 125 ML IV (02:25)
[2024-06-22] MEDS: Insulin Lispro 100 UNIT/ML INSULN.PEN SC ×2 (06:31→11:44)
[2024-06-22 06:53] VITALS: BP 163/82; PULSE 63; RESP 16; TEMP 36.6; O2SAT 97
[2024-06-22 07:08] LABS: Bedside Glucose 172 mg/dL (74-106)
[2024-06-22 09:45] VITALS: BP 171/80; PULSE 78; RESP 18; TEMP 37; O2SAT 97
[2024-06-22] MEDS: Pantoprazole Sodium 40 MG Tablet PO (09:49)
[2024-06-22] MEDS: Midodrine HCl 5 MG Tablet 10 MG PO ×2 (09:49→12:09)
[2024-06-22 11:09] VITALS: O2SAT 94
[2024-06-22 11:27] VITALS: BP 133/67; BP 192/93; BP 201/102; PULSE 76; PULSE 80; PULSE 81
[2024-06-22 11:45] LABS: Anion Gap 6 (5-15); BUN 31 mg/dL (7-18); BUN/Creat Ratio 19.5 RATIO (10-20); Calcium,Total 8.3 mg/dL (8.5-10.1); Chloride 113 mmol/L (98-107); Creatinine, Serum 1.59 mg/dL (0.70-1.30); EST Glomerular Filtration Rate 45 mL/min (>60); Est Glom Filt Rate - Afr Amer 54 mL/min (>60); Estimated Creatinine Clearance 36.44 ml/min; Glucose 246 mg/dL (74-106); Potassium 4.4 mmol/L (3.5-5.1); Sodium Level 141 mmol/L (136-145)
[2024-06-22 12:05] LABS: Bedside Glucose 248 mg/dL (74-106)
[2024-06-22 13:57] VITALS: BP 166/91; PULSE 79; RESP 18; TEMP 36.3; O2SAT 95
== END 2024-06-22 14:18 | disposition home or self-care (01) ==
LOC: ED 15:32 → MS3 16:40
PROVIDERS: Admitting Provider Internal Medicine; Emergency Provider Emergency Medicine; PCP Family Medicine; Referring Provider Emergency Medicine; Visit Provider Internal Medicine
DX: I95.1 Orthostatic hypotension (principal); Z79.4 Long term (current) use of insulin; E13.22 Other specified diabetes mellitus with diabetic chronic kidney disease; R79.89 Other specified abnormal findings of blood chemistry; I12.9 Hypertensive chronic kidney disease with stage 1 through stage 4 chronic kidney disease, or unspecified chronic kidney disease; N18.9 Chronic kidney disease, unspecified; E78.5 Hyperlipidemia, unspecified; I25.10 Atherosclerotic heart disease of native coronary artery without angina pectoris; K21.9 Gastro-esophageal reflux disease without esophagitis; N31.2 Flaccid neuropathic bladder, not elsewhere classified; Z79.899 Other long term (current) drug therapy
CPT/HCPCS: 36415; 70450; 71045; 72100; 80048; 80053; 80076; 81001; 82248; 82962; 83036; 83735; 84100; 84443; 84484; 85025; 85610; 93005; 96360; 96361; 97116; 97162; 97166; 97530; 97535; 99221; 99285; J7030; A4216; G0378